=== PATIENT | male | born 1945 | race African-American/Black ===

== ENCOUNTER 2016-11-12 11:26 | Inpatient (IN) | payer MEDICARE, OTHER ==
[~2016-11-12] VITALS: Ht 185.4 cm; Wt 70.4 kg
--- NOTE | 2016-11-12 11:39 | ERA ---
ER Documentation Chief Complaint Date/Time DATE: 11/12/16 TIME: 11:37 Chief Complaint HPI Patient is a 71-year-old man with COPD sent from [facility] by [facility]. Anne due to labs showing renal insufficiency performed yesterday. Patient denies any symptoms. States that he has been eating and drinking well, no dizziness, normal urine output, no weakness. Labs showed a creatinine of 5.6, with a potassium of 5.4. No fevers, shortness of breath, chest pain, vomiting, diarrhea. ROS All systems reviewed and are negative except as per history of present illness. Allergies Allergies: Coded Allergies: No Known Allergy (Unverified , 11/12/16) PMhx/Soc Past medical history: Atrial fibrillation, GERD, COPD Past surgical history: ORIF of hip. Social history: Former smoker. FmHx Family History: No coronary disease, No diabetes Physical Exam Vitals Vital Signs Date Time Temp Pulse Resp B/P Pulse Ox O2 Delivery O2 Flow Rate FiO2 11/12/16 11:43 98.9 91 18 120/68 97 Room Air 11/12/16 11:35 98.9 91 18 120/68 97 Physical Exam Const: Alert, no acute distress Head: Atraumatic Eyes: Normal Conjunctiva, no pallor or icterus ENT: Normal External Ears, Nose and Mouth. Dry mucous membranes Neck: Full range of motion. No meningismus. Resp: Clear to auscultation bilaterally, no wheezes, no rales, no rhonchi Cardio: Regular rate and rhythm, no murmurs, no gallop Abd: Soft, non tender, moderate suprapubic distention. No pulsatile mass Skin: No petechiae or rashes Back: No midline or flank tenderness Ext: No cyanosis, or edema Neur: Awake and alert, cranial nerves II through XII intact, moves and feels 4 extremities appropriately Psych: Normal Mood and Affect Result Diagram: 11/12/16 1204 11/12/16 1204 Results 24 hrs Laboratory Tests Test 11/12/16 11:47 11/12/16 12:04 Urine Color YELLOW Urine Clarity CLEAR Urine pH 5.5 Urine Specific [place] 1.015 Urine Ketones NEGATIVE Urine Nitrite NEGATIVE Urine Bilirubin NEGATIVE Urine Urobilinogen 0.2 E.U./dL Urine Leukocyte Esterase TRACE Urine Microscopic RBC >50/HPF Urine Microscopic WBC 10-25/HPF Urine Bacteria MODERATE Urine Hemoglobin 3+ Urine Glucose NEGATIVE% Urine Total Protein NEGATIVE White Blood Count 6.810^3/ul Red Blood Count 3.6910^6/ul Hemoglobin 11.8g/dl Hematocrit 38.0% Mean Corpuscular Volume 103.0fl Mean Corpuscular Hemoglobin 32.0pg Mean Corpuscular Hemoglobin Concent 31.1g/dl Red Cell Distribution Width 15.4% Platelet Count 06586^3/UL Mean Platelet Volume 11.9fl Neutrophils % 72.1% Lymphocytes % 13.3% Monocytes % 8.7% Eosinophils % 5.5% Basophils % 0.1% Nucleated Red Blood Cells % 0.0/100WBC Neutrophils # 4.910^3/ul Lymphocytes # 0.910^3/ul Monocytes # 0.610^3/ul Eosinophils # 0.410^3/ul Basophils # 0.010^3/ul Nucleated Red Blood Cells # 0.010^3/ul Sodium Level 138mmol/L Potassium Level 5.9mmol/L Chloride Level 97mmol/L Carbon Dioxide Level 34mmol/L Anion Gap 13 Blood Urea Nitrogen 53mg/dl Creatinine 6.00mg/dl Glucose Level 108mg/dl Calcium Level 9.1mg/dl Current Medications Medications (Trade) Dose Ordered Sig/La Route PRN Reason Start Time Stop Time Status Last Admin Dose Admin Sodium Chloride (NS) 1,000 ml @ 1,000 mls/hr Q1H ONCE IV 11/12/16 12:00 11/12/16 12:59 DC 11/12/16 12:24 Sodium Polystyrene Sulfonate (Kayexalate) 30 gm ONCE ONCE PO 11/12/16 13:00 11/12/16 13:01 DC Ondansetron HCl (Zofran Inj) 4 mg ER BRIDGE PRN IV NAUSEA AND/OR VOMITING 11/12/16 13:00 11/13/16 12:59 Acetaminophen 650 mg 650 mg ER BRIDGE PRN PO MILD PAIN/FEVER 11/12/16 13:00 11/13/16 12:59 Sodium Chloride (NS) 1,000 ml @ 1,000 mls/hr Q1H ONCE IV 11/12/16 13:30 11/12/16 14:29 Procedures/MDM EKG read by me: Time 1243, rate 89 Rhythm: Normal sinus [place]: Normal Intervals: Normal ST-T waves: no ischemic changes Ectopy: No Q-waves: No Impression: No evidence of ischemia or arrhythmia Bedside ultrasound performed and interpreted by me: Ultrasound single view of bladder shows enlarged and full bladder. Impression: Acute urinary retention. MDM: Patient with acute renal failure sent from [facility] by [facility] Anne. I discussed the patient's case with him, and he stated that the patient had a creatinine of 0.91 week ago. Patient does not have new medications, decreasing oral intake, decrease in urine output, or risk factors for renal disease such as diabetes or hypertension. On ultrasound he appears to have a full distended bladder, which is suggestive of urinary retention. A Forbes catheter was placed and PVR was 1600 cc. Repeat abdominal exam after Forbes placement was benign. A single dose of Kayexalate was given for mildly elevated potassium. Based upon recent labs the creatinine has been trending upwards. I have ordered 2 L of normal saline. A UA is pending. Patient will be admitted to monitored bed by Dr. Anne. Departure Diagnosis: Primary Impression: Acute renal failure Qualified Code: N17.8 - Acute renal failure with other specified pathological lesion in kidney Additional Impressions: Acute urinary retention Hyperkalemia Condition: CAMERON Christianson MD Nov 12, 2016 11:39
[2016-11-12 11:43] VITALS: TEMP 98.9
[2016-11-12] MEDS ORDERED: SOD CHLORIDE 0.9% 1,000 ML IV ONE ×2 (12:00→13:30)
[2016-11-12 12:11] LABS: ADD SCAN DIFF NO
[2016-11-12 12:14] LABS: BASOPHILS % 0.1 % (0.0-2.0); EOSINOPHILS # 0.4 10^3/ul (0.0-0.5); EOSINOPHILS % 5.5 % (0.0-7.0); HEMOGLOBIN 11.8 g/dl (14.0-18.0); LYMPHOCYTES # 0.9 10^3/ul (0.8-2.9); LYMPHOCYTES % 13.3 % (15.0-51.0); MEAN CORPUSCULAR HGB CONC 31.1 g/dl (32.0-37.0); MEAN PLATELET VOLUME 11.9 fl (7.4-10.4); MONOCYTE # 0.6 10^3/ul (0.3-0.9); MONOCYTES % 8.7 % (0.0-11.0); NEUTROPHIL # 4.9 10^3/ul (1.6-7.5); NEUTROPHILS % 72.1 % (39.0-77.0); PLATELET COUNT 117 10^3/UL (140-415); RED BLOOD COUNT 3.69 10^6/ul (4.70-6.10); RED CELL DISTRIBUTION WIDTH 15.4 % (11.5-14.5); WHITE BLOOD COUNT 6.8 10^3/ul (4.8-10.8)
[2016-11-12 12:24] LABS: POTASSIUM 5.9 mmol/L (3.5-5.1)
[2016-11-12 12:27] LABS: CALCIUM 9.1 mg/dl (8.4-10.2)
[2016-11-12 12:28] LABS: ADD UMIC YES; URINE BILIRUBIN (Dip) NEGATIVE (NEGATIVE); URINE BLOOD (Dip) 3+ (NEGATIVE); URINE COLOR YELLOW (YELLOW); URINE GLUCOSE (Dip) NEGATIVE (NEGATIVE); URINE KETONES (Dip) NEGATIVE (NEGATIVE); URINE LEUKOCYTE ESTERASE (Dip) TRACE (NEGATIVE); URINE NITRITE (Dip) NEGATIVE (NEGATIVE); URINE TOTAL PROTEIN (Dip) NEGATIVE (NEGATIVE); URINE UROBILINOGEN (Dip) 0.2 E.U./dL (0.1-1.0)
[2016-11-12 12:56] LABS: URINE RBCS >50 /HPF (0)
[2016-11-12 12:57] LABS: BACTERIA,URINE MODERATE
--- NOTE | 2016-11-12 12:58 | RADRPT ---
PROCEDURE: XR Chest. CLINICAL INDICATION: 71-year-old male with hyperkalemia. TECHNIQUE: Single frontal view of the chest was obtained COMPARISON: No. FINDINGS: The soft tissues are normal. There are degenerative osteophytes in the thoracic spine. The heart, cardiomediastinal silhouette and hilar structures are normal. The pulmonary vasculature is normal. L eft-sided aorta is mildly ectatic. The lungs are clear but the right diaphragm is mildly elevated wi th minimal compressive atelectasis in the bases of the lungs. The costophrenic angles are normal. IMPRESSION: 1. Elevation of the right diaphragm. 2. Compressive atelectasis in the bases of the lungs. 3. No evidence of active cardiopulmonary disease. 4. Spondylosis of the thoracic spine. RPTAT:AAJJ Physician Selin Date Time Electronically viewed and signed by Alfonso Castillo Physician on 11/12/2016 12:58 SAUL/
[2016-11-12] MEDS ORDERED: ONDANSETRON 4 MG INJ IV PRN ×2 (13:00→16:30)
[2016-11-12] MEDS ORDERED: ACETAMINOPHEN 325 MG TAB PO PRN ×2 (13:00→16:30)
[2016-11-12] MEDS ORDERED: NA POLYST SULFON 15 GM/60 ML BTL PO ONE (13:00)
[2016-11-12] MEDS ORDERED: ACET-2047 PO (13:51)
[2016-11-12] MEDS ORDERED: POLY17PO6 PO (13:51)
[2016-11-12] MEDS ORDERED: IPRA3AMP INHALATION (13:51)
[2016-11-12] MEDS ORDERED: APIX5TAB PO (13:51)
[2016-11-12] MEDS ORDERED: PANT40TA3 PO (13:51)
[2016-11-12] MEDS ORDERED: MORP15TA92 PO (13:51)
[2016-11-12] MEDS ORDERED: ADV25050 INHALATION (13:51)
[2016-11-12] MEDS ORDERED: ONDA-43 PO (13:51)
[2016-11-12] MEDS ORDERED: DOCU-159 PO (13:51)
[2016-11-12] MEDS ORDERED: ALBU18HF INHALATION (13:51)
--- NOTE | 2016-11-12 16:13 | HP ---
Date/Time of Note Date/Time of Note DATE: 11/12/16 TIME: 15:53 Assessment/Plan VTE Prophylaxis VTE Prophylaxis Intervention: SCD's Lines/Catheters IV Catheter Type (from Nrs): Saline Lock Assessment/Plan Assessment/Plan -Acute renal failure - nephrology consult- Dr Cristina notified/covering for Dr Cannon -Acute urinary retention - UROLOGY CONSULT- Dr Acosta notified -Hyperkalemia - sp Kayexalate in er - AM LABS -Hx Atrial fibrillation - GERD - COPD - SP ORIF of hip. - Former smoker. PLAN; Admit to tele Meds resumed Eliquis for DVT prophylaxis Protonix for GI Prophylaxis Renal diet [place] [employer] consult Smoking cessation PT evaluation HPI/ROS Admit Date/Time Admit Date/Time Hx of Present Illness HPI Patient is a 71-year-old man with COPD [facility] Anne due to labs showing renal insufficiency performed yesterday. Patient denies any symptoms. States that he has been eating and drinking well, no dizziness, normal urine output, no weakness. Labs showed a creatinine of 5.6, with a potassium of 5.4. No fevers, shortness of breath, chest pain, vomiting, diarrhea. ROS All systems reviewed and are negative except as per history of present illness. Allergies Allergies: Coded Allergies: No Known Allergy (Unverified , 11/12/16) PMH/Family/Social Past Medical History PMhx/Soc Past medical history: Atrial fibrillation, GERD, COPD Past surgical history: ORIF of hip. Social history: Former smoker. FmHx Family History: No coronary disease, No diabetes Social History Smoking Status: Former smoker Exam/Review of Systems Vital Signs Vitals Vital Signs Date Time Temp Pulse Resp B/P Pulse Ox O2 Delivery O2 Flow Rate FiO2 11/12/16 11:43 98.9 91 18 120/68 97 Room Air Exam Constitutional: alert, well developed Psych: no complaints Eyes: EOMI, nl sclera ENMT: nl external ears & nose Neck: non-tender Respiratory: clear to auscultation Cardiovascular: nl pulses Gastrointestinal: non-tender, soft Musculoskeletal: nl extremities to inspection Extremities: normal pulses Neurological: nl speech Skin: nl turgor Lymph: nontender Labs Result Diagram: 11/12/16 1204 11/12/16 1204 Procedures Procedures EKG -rate 89 Rhythm: Normal sinus [place]: Normal Intervals: Normal ST-T waves: no ischemic changes Ectopy: No Q-waves: No Impression: No evidence of ischemia or arrhythmia Bedside ultrasound Ultrasound single view of bladder shows enlarged and full bladder. Impression: Acute urinary retention. CHERI DURAN Nov 12, 2016 16:08
[2016-11-12] MEDS ORDERED: ONDANSETRON 4 MG TAB PO PRN (16:30)
[2016-11-12] MEDS ORDERED: ACETAMINOPHEN 325 MG TAB PO ONE (16:30)
[2016-11-12] MEDS ORDERED: ALBUTEROL HFA 8 GM INHALER INH SCH (16:30)
[2016-11-12] MEDS: SALMETEROL/FLUTICASONE 250/50 INHA INH SCH (17:00)
[2016-11-12] MEDS: PANTOPRAZOLE (EC) 40 MG TAB PO SCH (17:48)
[2016-11-12] MEDS: ALBUTEROL/IPRATROPIUM (NEB) 3 ML AMP NEB SCH ×2 (18:00→19:28)
[2016-11-12 18:42] VITALS: PULSE 96
[2016-11-12 20:26] VITALS: BP 117/69; RESP 18
[2016-11-12 20:31] VITALS: PULSE 98
[2016-11-12] MEDS ORDERED: DOCUSATE SODIUM 100 MG CAP PO ONE (21:00)
[2016-11-12] MEDS: DOCUSATE SODIUM 100 MG CAP PO SCH (21:03)
[2016-11-12] MEDS: APIXABAN 5 MG TABLET PO SCH (21:03)
[2016-11-12] MEDS: ACETAMINOPHEN 325 MG TAB PO PRN (21:03)
[2016-11-12 21:50] VITALS: Ht 185.4 cm; Wt 70.4 kg
[2016-11-13] VITALS (12 sets, daily range): BP systolic 90–117; BP diastolic 50–65; PULSE 74–95; RESP 18–20
[2016-11-13] MEDS: ALBUTEROL/IPRATROPIUM (NEB) 3 ML AMP NEB SCH ×4 (01:12→19:33)
--- NOTE | 2016-11-13 03:27 | CONS ---
DATE OF ADMISSION: 11/12/2016 DATE OF CONSULTATION: 11/12/2016 REQUESTING PHYSICIAN: Dano Hartman MD Dear Dr. Hartman: Thank you for asking me to see this patient in urological consultation. HISTORY OF PRESENT ILLNESS: This is a 71-year-old male who is a resident of a [facility] and was found to have elevated BUN and creatinine who was sent to the emergency room at [facility], and indeed his BUN and creatinine were elevated. He also was found to be in u rinary retention, had a Forbes catheter put in and about 1800 mL of urine drained out. Therefore, a urological consultation was requested. It appears that the patient had a recent right hip surgery b ecause he still has the Steri-Strips on his incision, and he does not remember where and who did it for him. The patient denies having any prior urological problem and he has been feeling bloated and having no pain. PAST MEDICAL HISTORY: Include a history of atrial fibrillation, gastroesophageal reflux disease and he used to be a smoker. PAST SURGICAL HISTORY: Right hip surgery. ALLERGIES: THE PATIENT HAS NO KNOWN DRUG ALLERGIES. SOCIAL HISTORY: As mentioned, he used to be a smoker. No history of alcohol abuse. FAMILY HISTORY: Negative. PHYSICAL EXAMINATION: GENERAL: Reveals a 71-year-old male. He weighs 70.45 kilograms. He is 74 inches tall. VITAL SIGNS: Temperature is 98.9, pulse is 91, respiration 18, blood pressure 120/68. HEAD AND NECK: Normal. The neck is supple. There is no cervical adenopathy. ABDOMEN: Soft. There are no scars on the abdomen and there is no abdominal mass palpable. GENITALIA: The external genitalia are normal. He does have an indwelling Forbes catheter that is dr albaroning blood-tinged urine. RECTAL: The prostate is not large and felt soft. EXTREMITIES: Reveal no edema. LABORATORY DATA: CBC shows a white count of 6.8, hemoglobin 11.8, hematocrit 38.0, BUN is 53, creat inine 6.0, sodium 138, potassium 5.9, chloride 97, CO2 of 34. Urinalysis showed trace of leukocyte esterase, more than 50 RBCs per high power field, more than 10 to 25 WBCs per high power field, 3+ o ccult blood and moderate amount of bacteria. The doctor in the emergency mentioned that the patient did have an ultrasound, but there is no ultrasound report in the records at the present. IMPRESSION: Urinary retention. This may be secondary to medications that he has been on pain medic ation and the fact that he recently had a hip surgery, he probably was not bed rest and also taking medications for breathing that is Ipratropium and that is a noncholinergic kind of medication that relaxes the bladder and cause it to probably not to squeeze the urine out. RECOMMENDATION: The recommendation at the present is to keep the Forbes catheter in and manage his r enal failure, hopefully the kidney function would improve, and as I understand his creatinine was no rmal before at 0.71 as mentioned in the emergency room notes. Therefore, we will leave the catheter in and hydrate him and then I also would like to start him on Flomax just in preparation to when we remove the Forbes catheter to see if he could urinate on his own, and also I will order a PSA on the blood drawn on admission. I will follow his urological problem with you. I do thank you for allow ing me to help in his care. Dictated By: BARRY RICHEY MD BB/KEIRY Conf#: [id number] DID#: [id number] CC: DANO HARTMAN MD; STEVE CASTILLO MD;*End*
[2016-11-13] MEDS: morphine LIQ (10 MG/5 ML) CUP PO PRN ×2 (04:31→22:38)
[2016-11-13] MEDS: ACETAMINOPHEN 325 MG TAB PO PRN ×2 (08:34→21:32)
[2016-11-13] MEDS: DOCUSATE SODIUM 100 MG CAP PO SCH ×2 (08:35→21:32)
[2016-11-13] MEDS: POLYETHYLENE GLYCOL 17 GM PACKET PO SCH (08:35)
[2016-11-13] MEDS: APIXABAN 5 MG TABLET PO SCH ×2 (08:35→21:32)
[2016-11-13] MEDS: SALMETEROL/FLUTICASONE 250/50 INHA INH SCH ×3 (08:35→21:32)
[2016-11-13] MEDS: PANTOPRAZOLE (EC) 40 MG TAB PO SCH (08:35)
[2016-11-13] MEDS: SOD CHLORIDE 0.9% 1,000 ML IV SCH ×2 (10:27→22:39)
[2016-11-13 10:55] LABS: ADD SCAN DIFF NO
[2016-11-13 11:31] LABS: BASOPHILS % 0.2 % (0.0-2.0); EOSINOPHILS # 0.3 10^3/ul (0.0-0.5); EOSINOPHILS % 5.4 % (0.0-7.0); HEMATOCRIT 34.1 % (42.0-52.0); HEMOGLOBIN 10.2 g/dl (14.0-18.0); LYMPHOCYTES % 17.3 % (15.0-51.0); MEAN CORPUSCULAR HEMOGLOBIN 31.6 pg (29.0-33.0); MEAN CORPUSCULAR HGB CONC 29.9 g/dl (32.0-37.0); MEAN CORPUSCULAR VOLUME 105.6 fl (82.0-101.0); MONOCYTE # 0.6 10^3/ul (0.3-0.9); MONOCYTES % 10.8 % (0.0-11.0); NEUTROPHIL # 3.9 10^3/ul (1.6-7.5); RED BLOOD COUNT 3.23 10^6/ul (4.70-6.10); RED CELL DISTRIBUTION WIDTH 15.5 % (11.5-14.5); WHITE BLOOD COUNT 5.9 10^3/ul (4.8-10.8)
[2016-11-13] MEDS: CEFTRIAXONE 1 GM/50 ML (PMX) 50 ML IVPB SCH (11:38)
[2016-11-13 11:52] LABS: PLATELET COUNT 102 10^3/UL (140-415)
--- NOTE | 2016-11-13 12:44 | PN ---
Date/Time of Note Date/Time of Note DATE: 11/13/16 TIME: 12:09 Assessment/Plan VTE Prophylaxis VTE Prophylaxis Intervention: other Lines/Catheters [facility] Saline Lock Urinary Cath still in place: Yes Assessment/Plan Assessment/Plan -Acute renal failure - nephrology consult- Dr Cristina notified/covering for Dr Cannon -Acute urinary retention - UROLOGY CONSULT- Dr Acosta notified -Hyperkalemia - sp Kayexalate in er - AM LABS- labs - pending labs. -Hx Atrial fibrillation - GERD - COPD - SP ORIF of hip. - Former smoker.' - renforced smoking cessation Subjective 24 Hr Interval Summary Free Text/Dictation 10:00- nad, confused, semms comfortable. dw staff. ENT: no complaints Respiratory: no complaints Cardiovascular: no complaints Gastrointestinal: no complaints Genitourinary: no complaints Skin: no complaints Neurologic: no complaints Endocrine: no complaints Lymphatic: no complaints Psychological: no complaints Exam/Review of Systems Vital Signs Vitals Vital Signs Date Time Temp Pulse Resp B/P Pulse Ox O2 Delivery O2 Flow Rate FiO2 11/13/16 08:14 81 11/13/16 07:59 97.0 20 90/50 99 11/13/16 01:12 3.0 11/13/16 01:12 Nasal Cannula Intake and Output 11/12/16 11/12/16 11/13/16 15:00 23:00 07:00 Intake Total 480 ml Output Total 1500 ml Balance -1020 ml Exam Constitutional: alert, well developed Psych: nl mood/affect Head: atraumatic Eyes: EOMI ENMT: nl external ears & nose Respiratory: clear to auscultation Cardiovascular: nl pulses Gastrointestinal: non-tender, soft Musculoskeletal: muscle weakness Extremities: normal pulses Neurological: confused Lymph: nontender Results Result Diagram: 11/13/16 1030 11/13/16 1030 Results 24 hrs Laboratory Tests Test 11/13/16 10:30 White Blood Count 5.9 Red Blood Count 3.23 L Hemoglobin 10.2 L Hematocrit 34.1 L Mean Corpuscular Volume 105.6 H Mean Corpuscular Hemoglobin 31.6 Mean Corpuscular Hemoglobin Concent 29.9 L Red Cell Distribution Width 15.5 H Platelet Count 102 L Mean Platelet Volume 13.0 H Neutrophils % 66.0 Lymphocytes % 17.3 Monocytes % 10.8 Eosinophils % 5.4 Basophils % 0.2 Nucleated Red Blood Cells % 0.0 Neutrophils # 3.9 Lymphocytes # 1.0 Monocytes # 0.6 Eosinophils # 0.3 Basophils # 0.0 Nucleated Red Blood Cells # 0.0 Sodium Level Pending Potassium Level Pending Chloride Level 102 Carbon Dioxide Level Pending Anion Gap Pending Blood Urea Nitrogen Pending Creatinine Pending Glucose Level Pending Calcium Level Pending Medications Medications Current Medications Docusate Sodium (Colace) 100 mg BID PO Last administered on 11/13/16 08:35; Admin Dose 100 MG; Start 11/12/16 at 21:00 Morphine Sulfate (morphine) 15 mg Q6H PRN PO SEVERE PAIN LEVEL 7-10 Last administered on 11/13/16 04:31; Admin Dose 15 MG; Start 11/12/16 at 16:30 Ondansetron HCl (Zofran Tab) 4 mg Q6H PRN PO NAUSEA AND/OR VOMITING; Start at 16:30 Pantoprazole (Protonix Tab) 40 mg DAILY PO Last administered on 11/13/16 08:35 ; Admin Dose 40 MG; Start 11/12/16 at 16:30 Polyethylene Glycol (Miralax) 17 gm DAILY PO Last administered on 11/13/16 08: 35; Admin Dose 17 GM; Start 11/13/16 at 09:00 Salmeterol Xinafoate/ Fluticasone (Advair 250/50 Diskus) 1 inh BID INH ; Start 11/12/16 at 17:00 Ondansetron HCl (Zofran Inj) 4 mg Q6 PRN IV NAUSEA AND/OR VOMITING Last administered on 11/12/16 21:13; Admin Dose 4 MG; Start 11/12/16 at 16:30 Acetaminophen (Tylenol Tab) 650 mg Q6H PRN PO PAIN AND OR ELEVATED TEMP Last administered on 11/13/16 08:34; Admin Dose 650 MG; Start 11/12/16 at 23:00 Apixaban 2.5 mg 2.5 mg BID PO ; Start 11/13/16 at 21:00 Sodium Chloride 1,000 ml @ 75 mls/hr [id number] IV Last administered on 10:27; Admin Dose 75 MLS/HR; Start 11/13/16 at 10:30 Ceftriaxone Sodium (Rocephin) 50 ml @ 100 mls/hr Q24H IVPB Last administered on 11/13/16t 11:38; Admin Dose 100 MLS/HR; Start 11/13/16 at 11:00 CHERI DURAN Nov 13, 2016 12:19
[2016-11-13 12:56] LABS: POTASSIUM 4.7 mmol/L (3.5-5.1)
[2016-11-13 12:59] LABS: CALCIUM 8.5 mg/dl (8.4-10.2)
[2016-11-13 13:01] LABS: CREATININE 0.97 mg/dl (0.61-1.24)
--- NOTE | 2016-11-13 14:20 | RADRPT ---
PROCEDURE: Complete abdominal and retroperitoneum ultrasound. CLINICAL INDICATION: Acute renal insufficiency/injury TECHNIQUE: Villanueva scale and color doppler ultrasound images of the abdomen and retroperitoneum. COMPARISON: None FINDINGS: Pancreas: Visualized portions appear of normal echogenicity, no focal lesions. Liver: Morphology: Normal in size and contour. Echogenicity: Normal. Focal lesions: None. Main portal vein: Patent with hepatopetal flow. Hepatic veins: Appear dilated. Biliary System: Normal appearing gallbladder wall. No gallstones seen. No intrahepatic biliary dilatation. Common bile duct diameter: 7.1 mm Kidneys: Right length: 9.6 cm. Cortical thickness is suboptimally imaged, probable mild thinning. Left length: 9.4 cm. Cortical thickness is suboptimally imaged, probable mild thinning. Mildly increased echogenicity of both kidneys. No hydronephrosis. No renal calculi. No focal renal lesions. Spleen: Normal in size, no focal lesions. No free fluid identified. Normal caliber of the partially visualized aorta. Moderate atherosclerotic changes. IMPRESSION: Although suboptimally visualized there appears to probably be mild cortical thinning of both kidneys . No hydronephrosis. Mildly increased echogenicity of both kidneys. These findings are suggestive of chronic medical renal disease. Hepatic veins are dilated which may be secondary to congestive heart failure. RPTAT: AADD .Patel David MD, Date Time Electronically viewed and signed by .Patel David MD, on 11/13/2016 14:20 .B/
--- NOTE | 2016-11-13 16:48 | PN ---
DATE: 11/13/2016 SUBJECTIVE: Urinary retention. Patient is awake, but he does not answer questions when asked, he j ust shakes his head, but when hungry he yells that he wants the nurse, and he is asking for his food . OBJECTIVE: VITAL SIGNS: Temperature is 97.0. The pulse is 78, respiration 18, blood pressure 94/51. ABDOMEN: Soft. The Forbes catheter that he has now is draining clear urine. It has some blood sedi ment in it. GENITOURINARY: I asked him whether he has had any prostate problem before. He denies it and he sta maribeth that he usually gets up at night 3 times to urinate and during the day he urinates every 3 hours and he would not answer any other questions. LABORATORY DATA: His CBC shows a white count of 5.9, hemoglobin 10.2, hematocrit 34.1. The BUN is 53, creatinine 6.0 and the labs from today are still pending. His urine output was 1500 mL in the p ast 24 hours. MEDICATIONS: He is on: 1. Eliquis. 2. Ceftriaxone. 3. MiraLax. 4. Colace. 5. Albuterol. 6. Ipratropium. 7. Advair. 8. Morphine sulfate p.r.n. 9. Zofran p.r.n. 10. Protonix p.r.n. PLAN: Keep the Forbes catheter in and check his renal function, his BUN and creatinine, and monitor his urine output. I will start him on Flomax in preparation to remove his Forbes catheter late r on and see if he is able to urinate. Dictated By: BARRY SAM/KEIRY Conf#: [id number] DID#: [id number]
[2016-11-13] MEDS: TAMSULOSIN (SR) 0.4 MG CAP PO SCH (21:32)
[2016-11-14] VITALS (12 sets, daily range): BP systolic 101–136; BP diastolic 59–75; PULSE 84–103; RESP 19–24
[2016-11-14] MEDS: ALBUTEROL/IPRATROPIUM (NEB) 3 ML AMP NEB SCH ×4 (01:12→20:19)
[2016-11-14] MEDS ORDERED: LORAZEPAM 2 MG INJ IV PRN (03:30)
[2016-11-14 05:57] LABS: ADD SCAN DIFF NO
[2016-11-14 06:22] LABS: BASOPHILS % 0.1 % (0.0-2.0); EOSINOPHILS # 0.3 10^3/ul (0.0-0.5); EOSINOPHILS % 4.2 % (0.0-7.0); HEMATOCRIT 31.6 % (42.0-52.0); HEMOGLOBIN 9.5 g/dl (14.0-18.0); LYMPHOCYTES # 1.2 10^3/ul (0.8-2.9); LYMPHOCYTES % 16.3 % (15.0-51.0); MEAN CORPUSCULAR HEMOGLOBIN 30.9 pg (29.0-33.0); MEAN CORPUSCULAR HGB CONC 30.1 g/dl (32.0-37.0); MEAN CORPUSCULAR VOLUME 102.9 fl (82.0-101.0); MONOCYTE # 0.7 10^3/ul (0.3-0.9); MONOCYTES % 9.7 % (0.0-11.0); NEUTROPHILS % 69.4 % (39.0-77.0); PLATELET COUNT 127 10^3/UL (140-415); RED BLOOD COUNT 3.07 10^6/ul (4.70-6.10); RED CELL DISTRIBUTION WIDTH 15.1 % (11.5-14.5); WHITE BLOOD COUNT 7.2 10^3/ul (4.8-10.8)
[2016-11-14 06:28] LABS: CREATININE 0.71 mg/dl (0.61-1.24)
[2016-11-14 06:29] LABS: CALCIUM 8.6 mg/dl (8.4-10.2)
[2016-11-14] MEDS: APIXABAN 5 MG TABLET PO SCH ×2 (08:52→22:06)
[2016-11-14] MEDS: POLYETHYLENE GLYCOL 17 GM PACKET PO SCH (08:52)
[2016-11-14] MEDS: SALMETEROL/FLUTICASONE 250/50 INHA INH SCH ×2 (08:52→22:07)
[2016-11-14] MEDS: DOCUSATE SODIUM 100 MG CAP PO SCH ×2 (08:53→22:06)
[2016-11-14] MEDS: PANTOPRAZOLE (EC) 40 MG TAB PO SCH (08:53)
[2016-11-14] MEDS: CEFTRIAXONE 1 GM/50 ML (PMX) 50 ML IVPB SCH (11:00)
--- NOTE | 2016-11-14 12:15 | PN ---
Date/Time of Note Date/Time of Note DATE: 11/14/16 TIME: 12:06 Assessment/Plan VTE Prophylaxis VTE Prophylaxis Intervention: SCD's Lines/Catheters [facility] Peripheral IV Urinary Cath still in place: Yes Reason Cath still needed: urinary retention Assessment/Plan Chief Complaint/Hosp Course Assessment and plan: - Acute kidney injury on chronic kidney disease secondary to urinary retention - Urinary retention, resolving. Dr. Acosta is following in urology consultation. Continue Flomax. 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 Will start Bactroban to nares. - Status post right hip ORIF - COPD, continue Advair and DuoNeb. - Atrial fibrillation, continue Eliquis. Further recommendations based on clinical course. Plan of care discussed with Dr. Anne. Problems: Subjective 24 Hr Interval Summary Free Text/Dictation Patient is awake alert, good output via Forbes catheter, remains afebrile, denies nausea vomiting. Exam/Review of Systems Vital Signs Vitals Vital Signs Date Time Temp Pulse Resp B/P Pulse Ox O2 Delivery O2 Flow Rate FiO2 11/14/16 12:03 97.8 91 22 116/75 98 11/14/16 08:00 Nasal Cannula 2.0 Intake and Output 11/13/16 11/13/16 11/14/16 15:00 23:00 07:00 Intake Total 2755 ml 740 ml Output Total 1700 ml 800 ml Balance 1055 ml -60 ml Exam Constitutional: alert, oriented Psych: no complaints Head: atraumatic, normocephalic Eyes: nl conjunctiva ENMT: nl external ears & nose Neck: supple Respiratory: clear to auscultation Cardiovascular: nl pulses, regular rate and rhythm Gastrointestinal: non-tender, soft Genitourinary - Male: nl penis Musculoskeletal: nl extremities to inspection, other (Status post right hip ORIF), range of motion (Decreased) Extremities: normal pulses 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 II-XII 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0 H Neutrophils % 69.4 Lymphocytes % 16.3 Monocytes % 9.7 Eosinophils % 4.2 Basophils % 0.1 Nucleated Red Blood Cells % 0.0 Neutrophils # 5.0 Lymphocytes # 1.2 Monocytes # 0.7 Eosinophils # 0.3 Basophils # 0.0 Nucleated Red Blood Cells # 0.0 Medications Medications Current Medications Docusate Sodium (Colace) 100 mg BID PO Last administered on 11/14/16 08:53; Admin Dose 100 MG; Start 11/12/16 at 21:00 Morphine Sulfate (morphine) 15 mg Q6H PRN PO SEVERE PAIN LEVEL 7-10 Last administered on 11/13/16 22:38; Admin Dose 15 MG; Start 11/12/16 at 16:30 Ondansetron HCl (Zofran Tab) 4 mg Q6H PRN PO NAUSEA AND/OR VOMITING; Start at 16:30 Pantoprazole (Protonix Tab) 40 mg DAILY PO Last administered on 11/14/16 08:53 ; Admin Dose 40 MG; Start 11/12/16 at 16:30 Polyethylene Glycol (Miralax) 17 gm DAILY PO Last administered on 11/14/16 08: 52; Admin Dose 17 GM; Start 11/13/16 at 09:00 Salmeterol Xinafoate/ Fluticasone (Advair 250/50 Diskus) 1 inh BID INH Last administered on 11/14/16 08:52; Admin Dose 1 INH; Start 11/12/16 at 17:00 Ondansetron HCl (Zofran Inj) 4 mg Q6 PRN IV NAUSEA AND/OR VOMITING Last administered on 11/12/16 21:13; Admin Dose 4 MG; Start 11/12/16 at 16:30 Acetaminophen (Tylenol Tab) 650 mg Q6H PRN PO PAIN AND OR ELEVATED TEMP Last administered on 11/13/16 21:32; Admin Dose 650 MG; Start 11/12/16 at 23:00 Apixaban 2.5 mg 2.5 mg BID PO Last administered on 11/14/16 08:52; Admin Dose 2.5 MG; Start 11/13/16 at 21:00 Sodium Chloride 1,000 ml @ 75 mls/hr [id number] IV Last administered on 22:39; Admin Dose 75 MLS/HR; Start 11/13/16 at 10:30 Ceftriaxone Sodium (Rocephin) 50 ml @ 100 mls/hr Q24H IVPB Last administered on 11/13/16 11:38; Admin Dose 100 MLS/HR; Start 11/13/16 at 11:00 Tamsulosin HCl (Flomax) 0.4 mg HS PO Last administered on 11/13/16 21:32; Admin Dose 0.4 MG; Start 11/13/16 at 21:00 CONTRERAS DIANA Nov 14, 2016 12:15
[2016-11-14] MEDS: SOD CHLORIDE 0.9% 1,000 ML IV SCH (15:00)
--- NOTE | 2016-11-14 16:19 | PN ---
Date/Time of Note Date/Time of Note DATE: 11/14/16 TIME: 16:11 Assessment/Plan VTE Prophylaxis VTE Prophylaxis Intervention: other (eliquis) Lines/Catheters IV Catheter Type (from Nrs): Peripheral IV Urinary Cath still in place: Yes Reason Cath still needed: urinary retention Assessment/Plan Assessment/Plan 1. Acute renal failure due to obstructive uropathy, resolved 2. Obstructive uropathy, on flomax and Forbes, follow up with urology 3. Hyperkalemia due to renal failure, resolved 4. Atrial fibrillation, sinus now, on eliquis 5. GERD, on protonix 6. COPD, stable 7. S/P ORIF of hip. Subjective 24 Hr Interval Summary Free Text/Dictation no distress Exam/Review of Systems Vital Signs Vitals Vital Signs Date Time Temp Pulse Resp B/P Pulse Ox O2 Delivery O2 Flow Rate FiO2 11/14/16 16:10 103 11/14/16 15:59 97.7 20 136/74 95 11/14/16 14:12 Nasal Cannula 3.0 Intake and Output 11/13/16 11/13/16 11/14/16 15:00 23:00 07:00 Intake Total 2755 ml 740 ml Output Total 1700 ml 800 ml Balance 1055 ml -60 ml Exam Constitutional: alert, oriented, well developed Psych: nl mood/affect, no complaints Head: atraumatic, normocephalic Eyes: EOMI, nl conjunctiva, nl lids ENMT: mucosa pink and moist, nl external ears & nose, nl lips & teeth, nl nasal mucosa & septum Neck: non-tender, supple Respiratory: clear to auscultation, normal air movement, No congested cough, No crackles/rales, No diminished breath sounds, No intercostal retraction, No labored breathing, No other, No respirations, No tactile fremitus, No wheezing Cardiovascular: nl pulses, regular rate and rhythm, No S3, No S4, No bruits, No diastolic murmur, No edema, No gallop, No irregular rhythm, No jugular venous distention (JVD), No murmurs/extra sounds, No other, No rub, No systolic murmur Gastrointestinal: nl liver, spleen, non-tender, soft, No ascites, No bowel sounds, No distended, No firm, No hepatomegaly, No mass , No other, No rebound or guarding, No splenomegaly, No surgical scars, No tender Musculoskeletal: nl extremities to inspection Extremities: normal pulses, No calf tenderness, No clubbing, No cyanosis, No edema, No other, No palpable cord, No pitting pedal edema, No tenderness Neurological: RECEIVING DISTRIBUTION STATION OPERATOR II-XII intact, nl mental status, nl speech, nl strength Skin: nl turgor Lymph: nl lymph nodes Results Result Diagram: 11/14/16 0540 11/14/16 0540 Results 24 hrs Laboratory Tests Test 11/14/16 05:40 White Blood Count 7.2 # Red Blood Count 3.07 L Hemoglobin 9.5 L Hematocrit 31.6 L Mean Corpuscular Volume 102.9 H Mean Corpuscular Hemoglobin 30.9 Mean Corpuscular Hemoglobin Concent 30.1 L Red Cell Distribution Width 15.1 H Platelet Count 127 #L Mean Platelet Volume 12.0 H Neutrophils % 69.4 Lymphocytes % 16.3 Monocytes % 9.7 Eosinophils % 4.2 Basophils % 0.1 Nucleated Red Blood Cells % 0.0 Neutrophils # 5.0 Lymphocytes # 1.2 Monocytes # 0.7 Eosinophils # 0.3 Basophils # 0.0 Nucleated Red Blood Cells # 0.0 Sodium Level 142 Potassium Level 4.0 Chloride Level 105 Carbon Dioxide Level 34 H Anion Gap 7 L Blood Urea Nitrogen 15 Creatinine 0.71 Glucose Level 107 Calcium Level 8.6 Medications Medications Current Medications Docusate Sodium (Colace) 100 mg BID PO Last administered on 11/14/16 08:53; Admin Dose 100 MG; Start 11/12/16 at 21:00 Morphine Sulfate (morphine) 15 mg Q6H PRN PO SEVERE PAIN LEVEL 7-10 Last administered on 11/13/16 22:38; Admin Dose 15 MG; Start 11/12/16 at 16:30 Ondansetron HCl (Zofran Tab) 4 mg Q6H PRN PO NAUSEA AND/OR VOMITING; Start at 16:30 Pantoprazole (Protonix Tab) 40 mg DAILY PO Last administered on 11/14/16 08:53 ; Admin Dose 40 MG; Start 11/12/16 at 16:30 Polyethylene Glycol (Miralax) 17 gm DAILY PO Last administered on 11/14/16 08: 52; Admin Dose 17 GM; Start 11/13/16 at 09:00 Salmeterol Xinafoate/ Fluticasone (Advair 250/50 Diskus) 1 inh BID INH Last administered on 11/14/16 08:52; Admin Dose 1 INH; Start 11/12/16 at 17:00 Ondansetron HCl (Zofran Inj) 4 mg Q6 PRN IV NAUSEA AND/OR VOMITING Last administered on 11/12/16 21:13; Admin Dose 4 MG; Start 11/12/16 at 16:30 Acetaminophen (Tylenol Tab) 650 mg Q6H PRN PO PAIN AND OR ELEVATED TEMP Last administered on 11/13/16 21:32; Admin Dose 650 MG; Start 11/12/16 at 23:00 Apixaban 2.5 mg 2.5 mg BID PO Last administered on 11/14/16 08:52; Admin Dose 2.5 MG; Start 11/13/16 at 21:00 Sodium Chloride 1,000 ml @ 75 mls/hr [id number] IV Last administered on 15:00; Admin Dose 75 MLS/HR; Start 11/13/16 at 10:30 Ceftriaxone Sodium (Rocephin) 50 ml @ 100 mls/hr Q24H IVPB Last administered on 11/14/16 11:00; Admin Dose 100 MLS/HR; Start 11/13/16 at 11:00 Tamsulosin HCl (Flomax) 0.4 mg HS PO Last administered on 11/13/16 21:32; Admin Dose 0.4 MG; Start 11/13/16 at 21:00 RASHID VALLADARES MD Nov 14, 2016 16:19
[2016-11-14] MEDS: morphine LIQ (10 MG/5 ML) CUP PO PRN (16:36)
[2016-11-14] MEDS: TAMSULOSIN (SR) 0.4 MG CAP PO SCH (22:07)
--- NOTE | 2016-11-14 23:12 | PN ---
DATE: 11/14/2016 SUBJECTIVE: Urinary retention. The patient came in with distended urinary bladder and had a Forbes catheter put in. OBJECTIVE: VITAL SIGNS: His temperature is 97.7, pulse is 103, respiration 20, blood pressure 136/74. ABDOMEN: The Forbes catheter that he has is draining clear urine. MICROBIOLOGY: Urine culture no growth after 48 hours. 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 LABORATORY DATA: CBC shows a white count of 7.2, hemoglobin 9.5, hematocrit 31.6. BUN has improved to 15 and creatinine is back to normal at 0.71. When he came into the hospital, his creatinine was 6.0. Electrolytes are normal. The patient was started on tamsulosin so when the catheter is removed we will hope that he will be a ble to urinate on his own. He did have infrarenal abdominal ultrasound and that showed that both ki dneys, there appears to be mild cortical thinning of both kidneys, indicating chronic kidney disease . There is no hydronephrosis and mildly increased echogenicity of both kidneys. The hepatic veins were dilated suggestive of congestive heart failure. PLAN: From a urological standpoint, keep the Forbes catheter in. Continue him on the tamsulosin, an d maybe in a day or two, we just take the Forbes catheter out and see if he is able to urinate. Dictated By: BARRY SAM/KEIRY Conf#: [id number] DID#: [id number] CC: STEVE CASTILLO MD;*End*
[2016-11-15] VITALS (11 sets, daily range): BP systolic 95–120; BP diastolic 54–65; PULSE 85–110; RESP 18–20
[2016-11-15] MEDS: ALBUTEROL/IPRATROPIUM (NEB) 3 ML AMP NEB SCH ×4 (01:17→20:11)
[2016-11-15] MEDS: SOD CHLORIDE 0.9% 1,000 ML IV SCH ×3 (02:30→15:57)
[2016-11-15] MEDS: morphine LIQ (10 MG/5 ML) CUP PO PRN ×3 (05:01→18:00)
[2016-11-15 07:43] LABS: ADD SCAN DIFF NO
[2016-11-15 07:55] LABS: BASOPHILS % 0.2 % (0.0-2.0); EOSINOPHILS # 0.4 10^3/ul (0.0-0.5); EOSINOPHILS % 5.6 % (0.0-7.0); HEMATOCRIT 31.8 % (42.0-52.0); LYMPHOCYTES # 0.9 10^3/ul (0.8-2.9); LYMPHOCYTES % 14.6 % (15.0-51.0); MEAN CORPUSCULAR HEMOGLOBIN 31.5 pg (29.0-33.0); MEAN CORPUSCULAR HGB CONC 31.4 g/dl (32.0-37.0); MEAN CORPUSCULAR VOLUME 100.3 fl (82.0-101.0); MEAN PLATELET VOLUME 11.9 fl (7.4-10.4); MONOCYTE # 0.7 10^3/ul (0.3-0.9); MONOCYTES % 10.4 % (0.0-11.0); NEUTROPHIL # 4.5 10^3/ul (1.6-7.5); PLATELET COUNT 169 10^3/UL (140-415); RED BLOOD COUNT 3.17 10^6/ul (4.70-6.10); WHITE BLOOD COUNT 6.5 10^3/ul (4.8-10.8)
[2016-11-15 08:07] LABS: POTASSIUM 3.6 mmol/L (3.5-5.1)
[2016-11-15 08:10] LABS: CREATININE 0.54 mg/dl (0.61-1.24)
[2016-11-15 08:11] LABS: CALCIUM 8.7 mg/dl (8.4-10.2)
[2016-11-15] MEDS: APIXABAN 5 MG TABLET PO SCH ×2 (08:47→22:22)
[2016-11-15] MEDS: SALMETEROL/FLUTICASONE 250/50 INHA INH SCH ×2 (08:47→22:22)
[2016-11-15] MEDS: PANTOPRAZOLE (EC) 40 MG TAB PO SCH (08:47)
[2016-11-15] MEDS: POLYETHYLENE GLYCOL 17 GM PACKET PO SCH (08:47)
[2016-11-15] MEDS: DOCUSATE SODIUM 100 MG CAP PO SCH ×2 (08:47→22:22)
[2016-11-15] MEDS: CEFTRIAXONE 1 GM/50 ML (PMX) 50 ML IVPB SCH (10:51)
--- NOTE | 2016-11-15 16:37 | PN ---
Date/Time of Note Date/Time of Note DATE: 11/15/16 TIME: 16:36 Assessment/Plan VTE Prophylaxis VTE Prophylaxis Intervention: SCD's Lines/Catheters [facility] Saline Lock Urinary Cath still in place: Yes Reason Cath still needed: urinary retention Assessment/Plan Chief Complaint/Hosp Course Assessment and plan: - Acute kidney injury on chronic kidney disease secondary to urinary retention - Urinary retention, resolving. Dr. Acosta is following in urology consultation. Continue Flomax. 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 Will start Bactroban to nares. - Status post right hip ORIF - COPD, continue Advair and DuoNeb. - Atrial fibrillation, continue Eliquis. Further recommendations based on clinical course. Plan of care discussed with Dr. Anne. Problems: Subjective 24 Hr Interval Summary Free Text/Dictation Good urine output via Forbes, patient remains in sinus rhythm on telemetry, remains afebrile, patient denies nausea vomiting. Exam/Review of Systems Vital Signs Vitals Vital Signs Date Time Temp Pulse Resp B/P Pulse Ox O2 Delivery O2 Flow Rate FiO2 11/15/16 16:30 92 11/15/16 14:05 3.0 11/15/16 14:05 18 98 Nasal Cannula 11/15/16 11:53 98.4 111/58 Intake and Output 11/14/16 11/14/16 11/15/16 15:00 23:00 07:00 Intake Total 1080 ml 1175 ml Output Total 1100 ml 1050 ml Balance -20 ml 125 ml Exam Constitutional: alert, oriented Psych: no complaints Head: atraumatic, normocephalic Eyes: nl conjunctiva ENMT: nl external ears & nose Neck: supple Respiratory: clear to auscultation Cardiovascular: nl pulses, regular rate and rhythm Gastrointestinal: non-tender, soft Genitourinary - Male: nl penis Musculoskeletal: nl extremities to inspection, other (Status post right hip ORIF), range of motion (Decreased) Extremities: normal pulses Neurological: ARTIFICIAL BREAST FABRICATOR II-XII intact Results Result Diagram: 11/15/16 0656 11/15/16 0656 Results 24 hrs Laboratory Tests Test 11/15/16 06:56 White Blood Count 6.5 Red Blood Count 3.17 L Hemoglobin 10.0 L Hematocrit 31.8 L Mean Corpuscular Volume 100.3 Mean Corpuscular Hemoglobin 31.5 Mean Corpuscular Hemoglobin Concent 31.4 L Red Cell Distribution Width 15.0 H Platelet Count 169 # Mean Platelet Volume 11.9 H Neutrophils % 69.0 Lymphocytes % 14.6 L Monocytes % 10.4 Eosinophils % 5.6 Basophils % 0.2 Nucleated Red Blood Cells % 0.0 Neutrophils # 4.5 Lymphocytes # 0.9 Monocytes # 0.7 Eosinophils # 0.4 Basophils # 0.0 Nucleated Red Blood Cells # 0.0 Sodium Level 137 Potassium Level 3.6 Chloride Level 101 Carbon Dioxide Level 34 H Anion Gap 6 L Blood Urea Nitrogen 12 Creatinine 0.54 L Glucose Level 90 Calcium Level 8.7 Medications Medications Current Medications Docusate Sodium (Colace) 100 mg BID PO Last administered on 11/15/16 08:47; Admin Dose 100 MG; Start 11/12/16 at 21:00 Morphine Sulfate (morphine) 15 mg Q6H PRN PO SEVERE PAIN LEVEL 7-10 Last administered on 11/15/16 11:31; Admin Dose 15 MG; Start 11/12/16 at 16:30 Ondansetron HCl (Zofran Tab) 4 mg Q6H PRN PO NAUSEA AND/OR VOMITING; Start at 16:30 Pantoprazole (Protonix Tab) 40 mg DAILY PO Last administered on 11/15/16 08:47 ; Admin Dose 40 MG; Start 11/12/16 at 16:30 Polyethylene Glycol (Miralax) 17 gm DAILY PO Last administered on 11/15/16 08: 47; Admin Dose 17 GM; Start 11/13/16 at 09:00 Salmeterol Xinafoate/ Fluticasone (Advair 250/50 Diskus) 1 inh BID INH Last administered on 11/15/16 08:47; Admin Dose 1 INH; Start 11/12/16 at 17:00 Ondansetron HCl (Zofran Inj) 4 mg Q6 PRN IV NAUSEA AND/OR VOMITING Last administered on 11/12/16 21:13; Admin Dose 4 MG; Start 11/12/16 at 16:30 Acetaminophen (Tylenol Tab) 650 mg Q6H PRN PO PAIN AND OR ELEVATED TEMP Last administered on 11/13/16 21:32; Admin Dose 650 MG; Start 11/12/16 at 23:00 Apixaban 2.5 mg 2.5 mg BID PO Last administered on 11/15/16 08:47; Admin Dose 2.5 MG; Start 11/13/16 at 21:00 Sodium Chloride 1,000 ml @ 75 mls/hr [id number] IV Last administered on 15:57; Admin Dose 75 MLS/HR; Start 11/13/16 at 10:30 Ceftriaxone Sodium (Rocephin) 50 ml @ 100 mls/hr Q24H IVPB Last administered on 11/15/16 10:51; Admin Dose 100 MLS/HR; Start 11/13/16 at 11:00 Tamsulosin HCl (Flomax) 0.4 mg HS PO Last administered on 11/14/16 22:07; Admin Dose 0.4 MG; Start 11/13/16 at 21:00 CONTRERAS DIANA Nov 15, 2016 16:37
[2016-11-15] MEDS: TAMSULOSIN (SR) 0.4 MG CAP PO SCH (22:22)
[2016-11-16] VITALS (12 sets, daily range): BP systolic 107–114; BP diastolic 55–69; PULSE 85–92; RESP 17–21
[2016-11-16] MEDS: ALBUTEROL/IPRATROPIUM (NEB) 3 ML AMP NEB SCH ×4 (02:26→20:38)
[2016-11-16] MEDS: SOD CHLORIDE 0.9% 1,000 ML IV SCH ×3 (04:00→18:30)
[2016-11-16 06:49] LABS: ADD SCAN DIFF NO
[2016-11-16 06:53] LABS: BASOPHILS % 0.2 % (0.0-2.0); EOSINOPHILS # 0.3 10^3/ul (0.0-0.5); EOSINOPHILS % 5.4 % (0.0-7.0); HEMATOCRIT 31.7 % (42.0-52.0); HEMOGLOBIN 9.6 g/dl (14.0-18.0); LYMPHOCYTES % 18.7 % (15.0-51.0); MEAN CORPUSCULAR HEMOGLOBIN 30.9 pg (29.0-33.0); MEAN CORPUSCULAR HGB CONC 30.3 g/dl (32.0-37.0); MEAN CORPUSCULAR VOLUME 101.9 fl (82.0-101.0); MONOCYTE # 0.5 10^3/ul (0.3-0.9); MONOCYTES % 9.8 % (0.0-11.0); NEUTROPHIL # 3.6 10^3/ul (1.6-7.5); NEUTROPHILS % 65.7 % (39.0-77.0); PLATELET COUNT 184 10^3/UL (140-415); RED BLOOD COUNT 3.11 10^6/ul (4.70-6.10); RED CELL DISTRIBUTION WIDTH 15.4 % (11.5-14.5); WHITE BLOOD COUNT 5.5 10^3/ul (4.8-10.8)
[2016-11-16 07:22] LABS: CREATININE 0.54 mg/dl (0.61-1.24)
[2016-11-16 07:23] LABS: CALCIUM 8.7 mg/dl (8.4-10.2)
[2016-11-16] MEDS: PANTOPRAZOLE (EC) 40 MG TAB PO SCH (08:29)
[2016-11-16] MEDS: DOCUSATE SODIUM 100 MG CAP PO SCH ×2 (08:29→21:06)
[2016-11-16] MEDS: SALMETEROL/FLUTICASONE 250/50 INHA INH SCH ×2 (08:29→21:12)
[2016-11-16] MEDS: APIXABAN 5 MG TABLET PO SCH ×2 (08:30→21:06)
[2016-11-16] MEDS: POLYETHYLENE GLYCOL 17 GM PACKET PO SCH (08:30)
[2016-11-16] MEDS: ACETAMINOPHEN 325 MG TAB PO PRN (08:30)
[2016-11-16] MEDS: CEFTRIAXONE 1 GM/50 ML (PMX) 50 ML IVPB SCH (11:04)
--- NOTE | 2016-11-16 16:11 | PN ---
Date/Time of Note Date/Time of Note DATE: 11/16/16 TIME: 16:08 Assessment/Plan VTE Prophylaxis VTE Prophylaxis Intervention: SCD's Lines/Catheters IV [facility]ter Type (from [facility]): Peripheral IV Urinary Cath still in place: Yes Reason Cath still needed: urinary retention Assessment/Plan Chief Complaint/Hosp Course Assessment and plan: - Acute kidney injury on chronic kidney disease secondary to obstructive uropathy. - Urinary retention, resolving. Dr. Acosta is following in urology consultation. Continue Flomax. 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 Continue Bactroban to nares. - Status post right hip ORIF - COPD, continue Advair and DuoNeb. -Paroxysmal atrial fibrillation, continue Eliquis . Further recommendations based on clinical course. Plan of care discussed with Dr. Anne. Problems: Subjective 24 Hr Interval Summary Free Text/Dictation Patient is currently in sinus rhythm, urine output is adequate via Forbes catheter, patient remains afebrile. Exam/Review of Systems Vital Signs Vitals Vital Signs Date Time Temp Pulse Resp B/P Pulse Ox O2 Delivery O2 Flow Rate FiO2 11/16/16 16:02 98.2 91 20 114/67 95 11/16/16 14:33 Nasal Cannula 3.0 Intake and Output 11/15/16 11/15/16 11/16/16 15:00 23:00 07:00 Intake Total 710 ml 1065 ml Output Total 1700 ml 800 ml Balance -990 ml 265 ml Exam Constitutional: alert, oriented Psych: no complaints Head: atraumatic, normocephalic Eyes: nl conjunctiva ENMT: nl external ears & nose Neck: supple Respiratory: clear to auscultation Cardiovascular: nl pulses, regular rate and rhythm Gastrointestinal: non-tender, soft Genitourinary - Male: nl penis Musculoskeletal: nl extremities to inspection, other (Status post right hip ORIF), range of motion (Decreased) Extremities: normal pulses Neurological: PIN STICKER II-XII intact Results Result Diagram: 11/16/16 0630 11/16/16 0630 Results 24 hrs Laboratory Tests Test 11/16/16 06:30 White Blood Count 5.5 Red Blood Count 3.11 L Hemoglobin 9.6 L Hematocrit 31.7 L Mean Corpuscular Volume 101.9 H Mean Corpuscular Hemoglobin 30.9 Mean Corpuscular Hemoglobin Concent 30.3 L Red Cell Distribution Width 15.4 H Platelet Count 184 Mean Platelet Volume 11.0 H Neutrophils % 65.7 Lymphocytes % 18.7 Monocytes % 9.8 Eosinophils % 5.4 Basophils % 0.2 Nucleated Red Blood Cells % 0.0 Neutrophils # 3.6 Lymphocytes # 1.0 Monocytes # 0.5 Eosinophils # 0.3 Basophils # 0.0 Nucleated Red Blood Cells # 0.0 Sodium Level 140 Potassium Level 4.0 Chloride Level 104 Carbon Dioxide Level 34 H Anion Gap 6 L Blood Urea Nitrogen 13 Creatinine 0.54 L Glucose Level 110 Calcium Level 8.7 Medications Medications Current Medications Docusate Sodium (Colace) 100 mg BID PO Last administered on 11/16/16 08:29; Admin Dose 100 MG; Start 11/12/16 at 21:00 Morphine Sulfate (morphine) 15 mg Q6H PRN PO SEVERE PAIN LEVEL 7-10 Last administered on 11/15/16 18:00; Admin Dose 15 MG; Start 11/12/16 at 16:30 Ondansetron HCl (Zofran Tab) 4 mg Q6H PRN PO NAUSEA AND/OR VOMITING; Start at 16:30 Pantoprazole (Protonix Tab) 40 mg DAILY PO Last administered on 11/16/16 08:29 ; Admin Dose 40 MG; Start 11/12/16 at 16:30 Polyethylene Glycol (Miralax) 17 gm DAILY PO Last administered on 11/16/16 08: 30; Admin Dose 17 GM; Start 11/13/16 at 09:00 Salmeterol Xinafoate/ Fluticasone (Advair 250/50 Diskus) 1 inh BID INH Last administered on 11/16/16 08:29; Admin Dose 1 INH; Start 11/12/16 at 17:00 Ondansetron HCl (Zofran Inj) 4 mg Q6 PRN IV NAUSEA AND/OR VOMITING Last administered on 11/12/16 21:13; Admin Dose 4 MG; Start 11/12/16 at 16:30 Acetaminophen (Tylenol Tab) 650 mg Q6H PRN PO PAIN AND OR ELEVATED TEMP Last administered on 11/16/16 08:30; Admin Dose 650 MG; Start 11/12/16 at 23:00 Apixaban 2.5 mg 2.5 mg BID PO Last administered on 11/16/16 08:30; Admin Dose 2.5 MG; Start 11/13/16 at 21:00 Sodium Chloride 1,000 ml @ 75 mls/hr [id number] IV Last administered on 04:00; Admin Dose 75 MLS/HR; Start 11/13/16 at 10:30 Ceftriaxone Sodium (Rocephin) 50 ml @ 100 mls/hr Q24H IVPB Last administered on 11/16/16 11:04; Admin Dose 100 MLS/HR; Start 11/13/16 at 11:00 Tamsulosin HCl (Flomax) 0.4 mg HS PO Last administered on 11/15/16 22:22; Admin Dose 0.4 MG; Start 11/13/16 at 21:00 CONTRERAS DIANA Nov 16, 2016 16:11
--- NOTE | 2016-11-16 17:11 | CONS ---
Date/Time of Note Date/Time of Note DATE: 11/16/16 TIME: 17:11 Assessment/Plan Assessment/Plan Additional Assessment/Plan 71 yo male with 1) SANDRA 2nd to Obstructive Uropathy- Resolved 2) Hyperkalemia- Resolved 3) Anemia, Chronic Disease 4) Urinary Retention 5) COPD 6) Parox Afib Renal function stable Electrolytes WNL H/HCt Stable Cont current Rx and plan Urology also following Renal will signs off, please re consult as needed. Consultation Date/Type/Reason Admit Date/Time Nov 12, 2016 at 12:46 Initial Consult Date Type of Consultation: Renal Referring Provider: DANO HARTMAN MD 24 HR Interval Summary Free Text/Dictation NO new complaints, Good UO reported. Exam/Review of Systems Vital Signs Vitals Vital Signs Date Time Temp Pulse Resp B/P Pulse Ox O2 Delivery O2 Flow Rate FiO2 11/16/16 16:36 88 11/16/16 16:02 98.2 20 114/67 95 11/16/16 14:33 Nasal Cannula 3.0 Intake and Output 11/15/16 11/15/16 11/16/16 15:00 23:00 07:00 Intake Total 710 ml 1065 ml Output Total 1700 ml 800 ml Balance -990 ml 265 ml Exam Constitutional: No distress ENMT: mucosa pink and moist Neck: No jvd Respiratory: clear to auscultation Cardiovascular: regular rate and rhythm, No edema Gastrointestinal: non-tender, soft Genitourinary - Male: other (Forbes) Extremities: No pitting pedal edema Neurological: No lethargic Results Result Diagram: 11/16/16 0630 11/16/16 0630 Results 24 hrs Laboratory Tests Test 11/16/16 06:30 White Blood Count 5.5 Red Blood Count 3.11 L Hemoglobin 9.6 L Hematocrit 31.7 L Mean Corpuscular Volume 101.9 H Mean Corpuscular Hemoglobin 30.9 Mean Corpuscular Hemoglobin Concent 30.3 L Red Cell Distribution Width 15.4 H Platelet Count 184 Mean Platelet Volume 11.0 H Neutrophils % 65.7 Lymphocytes % 18.7 Monocytes % 9.8 Eosinophils % 5.4 Basophils % 0.2 Nucleated Red Blood Cells % 0.0 Neutrophils # 3.6 Lymphocytes # 1.0 Monocytes # 0.5 Eosinophils # 0.3 Basophils # 0.0 Nucleated Red Blood Cells # 0.0 Sodium Level 140 Potassium Level 4.0 Chloride Level 104 Carbon Dioxide Level 34 H Anion Gap 6 L Blood Urea Nitrogen 13 Creatinine 0.54 L Glucose Level 110 Calcium Level 8.7 Medications Medications Current Medications Docusate Sodium (Colace) 100 mg BID PO Last administered on 11/16/16 08:29; Admin Dose 100 MG; Start 11/12/16 at 21:00 Morphine Sulfate (morphine) 15 mg Q6H PRN PO SEVERE PAIN LEVEL 7-10 Last administered on 11/15/16 18:00; Admin Dose 15 MG; Start 11/12/16 at 16:30 Ondansetron HCl (Zofran Tab) 4 mg Q6H PRN PO NAUSEA AND/OR VOMITING; Start at 16:30 Pantoprazole (Protonix Tab) 40 mg DAILY PO Last administered on 11/16/16 08:29 ; Admin Dose 40 MG; Start 11/12/16 at 16:30 Polyethylene Glycol (Miralax) 17 gm DAILY PO Last administered on 11/16/16 08: 30; Admin Dose 17 GM; Start 11/13/16 at 09:00 Salmeterol Xinafoate/ Fluticasone (Advair 250/50 Diskus) 1 inh BID INH Last administered on 11/16/16 08:29; Admin Dose 1 INH; Start 11/12/16 at 17:00 Ondansetron HCl (Zofran Inj) 4 mg Q6 PRN IV NAUSEA AND/OR VOMITING Last administered on 11/12/16 21:13; Admin Dose 4 MG; Start 11/12/16 at 16:30 Acetaminophen (Tylenol Tab) 650 mg Q6H PRN PO PAIN AND OR ELEVATED TEMP Last administered on 11/16/16 08:30; Admin Dose 650 MG; Start 11/12/16 at 23:00 Apixaban 2.5 mg 2.5 mg BID PO Last administered on 11/16/16 08:30; Admin Dose 2.5 MG; Start 11/13/16 at 21:00 Sodium Chloride 1,000 ml @ 75 mls/hr [id number] IV Last administered on 04:00; Admin Dose 75 MLS/HR; Start 11/13/16 at 10:30 Ceftriaxone Sodium (Rocephin) 50 ml @ 100 mls/hr Q24H IVPB Last administered on 11/16/16 11:04; Admin Dose 100 MLS/HR; Start 11/13/16 at 11:00 Tamsulosin HCl (Flomax) 0.4 mg HS PO Last administered on 11/15/16 22:22; Admin Dose 0.4 MG; Start 11/13/16 at 21:00 Mupirocin (Bactroban) 1 applic BID TOP ; Start 11/16/16 at 21:00 Procedures Procedures IMPRESSION: Although suboptimally visualized there appears to probably be mild cortical thinning of both kidneys. No hydronephrosis. Mildly increased echogenicity of both kidneys. These findings are suggestive of chronic medical renal disease. Hepatic veins are dilated which may be secondary to congestive heart failure. STEVEN CHERRY MD Nov 16, 2016 17:11
[2016-11-16] MEDS: TAMSULOSIN (SR) 0.4 MG CAP PO SCH (21:06)
[2016-11-16] MEDS: MUPIROCIN 2% 22 GM OINT TOP SCH (21:07)
[2016-11-16] MEDS: morphine LIQ (10 MG/5 ML) CUP PO PRN (23:26)
[2016-11-17] VITALS (12 sets, daily range): BP systolic 108–130; BP diastolic 57–79; PULSE 68–96; RESP 17–20
[2016-11-17] MEDS: ALBUTEROL/IPRATROPIUM (NEB) 3 ML AMP NEB SCH ×4 (01:24→20:43)
[2016-11-17] MEDS: ACETAMINOPHEN 325 MG TAB PO PRN (03:00)
[2016-11-17 08:01] LABS: ADD SCAN DIFF NO
[2016-11-17 08:14] LABS: BASOPHILS % 0.4 % (0.0-2.0); EOSINOPHILS # 0.3 10^3/ul (0.0-0.5); EOSINOPHILS % 6.5 % (0.0-7.0); HEMATOCRIT 31.4 % (42.0-52.0); HEMOGLOBIN 9.5 g/dl (14.0-18.0); LYMPHOCYTES # 1.1 10^3/ul (0.8-2.9); LYMPHOCYTES % 24.3 % (15.0-51.0); MEAN CORPUSCULAR HEMOGLOBIN 30.7 pg (29.0-33.0); MEAN CORPUSCULAR HGB CONC 30.3 g/dl (32.0-37.0); MEAN CORPUSCULAR VOLUME 101.6 fl (82.0-101.0); MEAN PLATELET VOLUME 11.4 fl (7.4-10.4); MONOCYTE # 0.6 10^3/ul (0.3-0.9); MONOCYTES % 13.2 % (0.0-11.0); NEUTROPHIL # 2.5 10^3/ul (1.6-7.5); NEUTROPHILS % 55.2 % (39.0-77.0); PLATELET COUNT 201 10^3/UL (140-415); RED BLOOD COUNT 3.09 10^6/ul (4.70-6.10); RED CELL DISTRIBUTION WIDTH 15.6 % (11.5-14.5); WHITE BLOOD COUNT 4.6 10^3/ul (4.8-10.8)
[2016-11-17 08:27] LABS: POTASSIUM 4.1 mmol/L (3.5-5.1)
[2016-11-17 08:29] LABS: CREATININE 0.66 mg/dl (0.61-1.24)
[2016-11-17 08:30] LABS: CALCIUM 8.5 mg/dl (8.4-10.2)
[2016-11-17] MEDS: DOCUSATE SODIUM 100 MG CAP PO SCH ×2 (08:54→20:00)
[2016-11-17] MEDS: PANTOPRAZOLE (EC) 40 MG TAB PO SCH (08:54)
[2016-11-17] MEDS: MUPIROCIN 2% 22 GM OINT TOP SCH ×2 (08:55→20:00)
[2016-11-17] MEDS: APIXABAN 5 MG TABLET PO SCH ×2 (08:55→20:00)
[2016-11-17] MEDS: POLYETHYLENE GLYCOL 17 GM PACKET PO SCH (08:55)
[2016-11-17] MEDS: SALMETEROL/FLUTICASONE 250/50 INHA INH SCH ×2 (08:56→20:01)
[2016-11-17] MEDS: SOD CHLORIDE 0.9% 1,000 ML IV SCH ×2 (08:57→20:01)
--- NOTE | 2016-11-17 11:13 | PN ---
Date/Time of Note Date/Time of Note DATE: 11/17/16 TIME: 11:13 Assessment/Plan VTE Prophylaxis VTE Prophylaxis Intervention: other Lines/Catheters IV [facility] (from [facility] Peripheral IV Urinary Cath still in place: Yes Assessment/Plan Assessment/Plan - Acute kidney injury on chronic kidney disease secondary to obstructive uropathy. - Urinary retention, resolving. Dr. Acosta is following in urology consultation. Continue Flomax. 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 Continue Bactroban to nares. - Status post right hip ORIF - COPD, continue Advair and DuoNeb. -Paroxysmal atrial fibrillation, continue Eliquis . Further recommendations based on clinical course. Plan of care discussed with Dr. Anne. Subjective 24 Hr Interval Summary Eyes: no complaints ENT: no complaints Respiratory: no complaints Cardiovascular: no complaints Gastrointestinal: no complaints Exam/Review of Systems Vital Signs Vitals Vital Signs Date Time Temp Pulse Resp B/P Pulse Ox O2 Delivery O2 Flow Rate FiO2 11/17/16 09:02 68 11/17/16 08:26 18 98 Nasal Cannula 3.0 11/17/16 07:51 97.8 108/57 Intake and Output 11/16/16 11/16/16 11/17/16 15:00 23:00 07:00 Intake Total 1760 ml 1225 ml Output Total 1700 ml 1750 ml Balance 60 ml -525 ml Exam Constitutional: alert, well developed Psych: nl mood/affect Eyes: EOMI ENMT: nl external ears & nose Neck: non-tender Respiratory: diminished breath sounds Cardiovascular: regular rate and rhythm Gastrointestinal: non-tender Results Result Diagram: 11/17/16 0645 11/17/16 0645 Results 24 hrs Laboratory Tests Test 11/17/16 06:45 White Blood Count 4.6 L Red Blood Count 3.09 L Hemoglobin 9.5 L Hematocrit 31.4 L Mean Corpuscular Volume 101.6 H Mean Corpuscular Hemoglobin 30.7 Mean Corpuscular Hemoglobin Concent 30.3 L Red Cell Distribution Width 15.6 H Platelet Count 201 Mean Platelet Volume 11.4 H Neutrophils % 55.2 Lymphocytes % 24.3 Monocytes % 13.2 H Eosinophils % 6.5 Basophils % 0.4 Nucleated Red Blood Cells % 0.0 Neutrophils # 2.5 Lymphocytes # 1.1 Monocytes # 0.6 Eosinophils # 0.3 Basophils # 0.0 Nucleated Red Blood Cells # 0.0 Sodium Level 138 Potassium Level 4.1 Chloride Level 103 Carbon Dioxide Level 32 H Anion Gap 7 L Blood Urea Nitrogen 14 Creatinine 0.66 Glucose Level 94 Calcium Level 8.5 Medications Medications Current Medications Docusate Sodium (Colace) 100 mg BID PO Last administered on 11/17/16 08:54; Admin Dose 100 MG; Start 11/12/16 at 21:00 Morphine Sulfate (morphine) 15 mg Q6H PRN PO SEVERE PAIN LEVEL 7-10 Last administered on 11/16/16 23:26; Admin Dose 15 MG; Start 11/12/16 at 16:30 Ondansetron HCl (Zofran Tab) 4 mg Q6H PRN PO NAUSEA AND/OR VOMITING; Start at 16:30 Pantoprazole (Protonix Tab) 40 mg DAILY PO Last administered on 11/17/16 08:54 ; Admin Dose 40 MG; Start 11/12/16 at 16:30 Polyethylene Glycol (Miralax) 17 gm DAILY PO Last administered on 11/17/16 08: 55; Admin Dose 17 GM; Start 11/13/16 at 09:00 Salmeterol Xinafoate/ Fluticasone (Advair 250/50 Diskus) 1 inh BID INH Last administered on 11/17/16 08:56; Admin Dose 1 INH; Start 11/12/16 at 17:00 Ondansetron HCl (Zofran Inj) 4 mg Q6 PRN IV NAUSEA AND/OR VOMITING Last administered on 11/12/16 21:13; Admin Dose 4 MG; Start 11/12/16 at 16:30 Acetaminophen (Tylenol Tab) 650 mg Q6H PRN PO PAIN AND OR ELEVATED TEMP Last administered on 11/17/16 03:00; Admin Dose 650 MG; Start 11/12/16 at 23:00 Apixaban 2.5 mg 2.5 mg BID PO Last administered on 11/17/16 08:55; Admin Dose 2.5 MG; Start 11/13/16 at 21:00 Sodium Chloride 1,000 ml @ 75 mls/hr [id number] IV Last administered on 08:57; Admin Dose 75 MLS/HR; Start 11/13/16 at 10:30 Ceftriaxone Sodium (Rocephin) 50 ml @ 100 mls/hr Q24H IVPB Last administered on 11/16/16 11:04; Admin Dose 100 MLS/HR; Start 11/13/16 at 11:00 Tamsulosin HCl (Flomax) 0.4 mg HS PO Last administered on 11/16/16 21:06; Admin Dose 0.4 MG; Start 11/13/16 at 21:00 Mupirocin (Bactroban) 1 applic BID TOP Last administered on 11/17/16 08:55; Admin Dose 1 APPLIC; Start 11/16/16 at 21:00 CHERI DURAN Nov 17, 2016 11:13 CHERI DURAN Nov 17, 2016 11:13
[2016-11-17] MEDS: CEFTRIAXONE 1 GM/50 ML (PMX) 50 ML IVPB SCH (11:25)
--- NOTE | 2016-11-17 17:58 | PN ---
DATE: 11/17/2016 SUBJECTIVE: Urinary retention. This patient has had a history of right hip surgery, and he had uri nary retention following that. The patient's creatinine on admission was very elevated, then it cam e back down to normal after having the catheter put in. The patient himself is not complaining of a ny pain, and he is comfortable. OBJECTIVE: VITAL SIGNS: His temperature is 98.8, pulse is 94, respirations 20, blood pressure 117/71. ABDOMEN: Soft. There is no abdominal mass palpable. GENITOURINARY: The Forbes catheter is draining clear urine. MEDICATIONS: He is on: 1. Tamsulosin 0.4 mg. 2. Ceftriaxone. 3. Colace. 4. MiraLax. 5. Advair. 6. DuoNeb. 7. Zofran p.r.n. 8. Protonix also 40 mg daily. IMPRESSION: Urinary retention, most likely secondary to him being in bed and also taking the pain m edications and also taking the inhalers, mainly the ipratropium, which has an anticholinergic effect . RECOMMENDATION: We will take out the Forbes catheter tomorrow morning and see if he does void, check his postvoid residual with a bladder scan, and if he has a postvoid residual of 300 or more, we jeremi l do straight catheterization. If he does not void and the bladder scan shows over 500 mL, then we will do also straight catheterization as well, and then depending on these results will decide wheth er to re-insert the Forbes or just keep monitoring him. Dictated By: BARRY SAM/KEIRY Conf#: [id number] DID#: [id number]
[2016-11-17] MEDS: morphine LIQ (10 MG/5 ML) CUP PO PRN (19:41)
[2016-11-17] MEDS: TAMSULOSIN (SR) 0.4 MG CAP PO SCH (20:00)
[2016-11-18] VITALS (11 sets, daily range): BP systolic 109–129; BP diastolic 62–78; PULSE 78–93; RESP 17–19
[2016-11-18] MEDS: morphine LIQ (10 MG/5 ML) CUP PO PRN (01:29)
[2016-11-18] MEDS: ALBUTEROL/IPRATROPIUM (NEB) 3 ML AMP NEB SCH ×2 (01:46→09:33)
[2016-11-18 08:19] LABS: ADD SCAN DIFF NO
[2016-11-18 08:25] LABS: BASOPHILS % 0.6 % (0.0-2.0); EOSINOPHILS # 0.4 10^3/ul (0.0-0.5); HEMATOCRIT 33.4 % (42.0-52.0); HEMOGLOBIN 10.6 g/dl (14.0-18.0); LYMPHOCYTES # 1.2 10^3/ul (0.8-2.9); LYMPHOCYTES % 22.7 % (15.0-51.0); MEAN CORPUSCULAR HEMOGLOBIN 32.1 pg (29.0-33.0); MEAN CORPUSCULAR HGB CONC 31.7 g/dl (32.0-37.0); MEAN CORPUSCULAR VOLUME 101.2 fl (82.0-101.0); MEAN PLATELET VOLUME 10.7 fl (7.4-10.4); MONOCYTE # 0.5 10^3/ul (0.3-0.9); NEUTROPHIL # 3.2 10^3/ul (1.6-7.5); NEUTROPHILS % 59.3 % (39.0-77.0); PLATELET COUNT 237 10^3/UL (140-415); RED CELL DISTRIBUTION WIDTH 15.6 % (11.5-14.5); WHITE BLOOD COUNT 5.4 10^3/ul (4.8-10.8)
[2016-11-18] MEDS: DOCUSATE SODIUM 100 MG CAP PO SCH ×2 (08:29→20:26)
[2016-11-18] MEDS: PANTOPRAZOLE (EC) 40 MG TAB PO SCH (08:29)
[2016-11-18] MEDS: APIXABAN 5 MG TABLET PO SCH ×2 (08:29→20:26)
[2016-11-18] MEDS: POLYETHYLENE GLYCOL 17 GM PACKET PO SCH (08:30)
[2016-11-18] MEDS: MUPIROCIN 2% 22 GM OINT TOP SCH ×2 (08:31→20:32)
[2016-11-18] MEDS: SALMETEROL/FLUTICASONE 250/50 INHA INH SCH ×2 (08:32→20:32)
[2016-11-18 08:46] LABS: CREATININE 0.58 mg/dl (0.61-1.24)
[2016-11-18] MEDS: SOD CHLORIDE 0.9% 1,000 ML IV SCH ×2 (10:30→15:38)
[2016-11-18] MEDS: CEFTRIAXONE 1 GM/50 ML (PMX) 50 ML IVPB SCH (11:12)
--- NOTE | 2016-11-18 14:01 | PN ---
Date/Time of Note Date/Time of Note DATE: 11/18/16 TIME: 13:51 Assessment/Plan VTE Prophylaxis VTE Prophylaxis Intervention: SCD's Lines/Catheters IV Catheter Type (from [facility]): Peripheral IV Urinary Cath still in place: No Assessment/Plan Chief Complaint/Hosp Course Assessment and plan: - Urinary retention. Dr. Acosta is following in urology consultation. Continue Flomax. Ipratropium is stopped. Plan for d/c Forbes tomorrow and monitor post void residual. - Acute kidney injury on chronic kidney disease secondary to obstructive uropathy, resolved. 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 Continue Bactroban to nares. - Status post right hip ORIF - COPD, continue Advair and Albuterol. -Paroxysmal atrial fibrillation, continue Eliquis. Further recommendations based on clinical course. Plan of care discussed with Dr. Anne. Problems: Subjective 24 Hr Interval Summary Free Text/Dictation Remains hemodynamically stable, no fever. Exam/Review of Systems Vital Signs Vitals Vital Signs Date Time Temp Pulse Resp B/P Pulse Ox O2 Delivery O2 Flow Rate FiO2 11/18/16 12:22 89 11/18/16 08:01 98.1 18 126/66 99 11/18/16 08:00 Nasal Cannula 2.0 11/18/16 01:47 21 Intake and Output 11/17/16 11/17/16 11/18/16 15:00 23:00 07:00 Intake Total 1760 ml Output Total 1760 ml Balance 0 ml Exam Constitutional: alert, oriented Psych: no complaints Head: atraumatic, normocephalic Eyes: nl conjunctiva ENMT: nl external ears & nose Neck: supple Respiratory: clear to auscultation Cardiovascular: nl pulses, regular rate and rhythm Gastrointestinal: non-tender, soft Genitourinary - Male: nl penis Musculoskeletal: nl extremities to inspection, other (Status post right hip ORIF), range of motion (Decreased) Extremities: normal pulses 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 Results Result Diagram: 11/18/16 0755 11/18/16 0759 Results 24 hrs Laboratory Tests Test 11/18/16 07:55 11/18/16 07:59 White Blood Count 5.4 Red Blood Count 3.30 L Hemoglobin 10.6 L Hematocrit 33.4 L Mean Corpuscular Volume 101.2 H Mean Corpuscular Hemoglobin 32.1 Mean Corpuscular Hemoglobin Concent 31.7 L Red Cell Distribution Width 15.6 H Platelet Count 237 Mean Platelet Volume 10.7 H Neutrophils % 59.3 Lymphocytes % 22.7 Monocytes % 10.0 Eosinophils % 7.0 Basophils % 0.6 Nucleated Red Blood Cells % 0.0 Neutrophils # 3.2 Lymphocytes # 1.2 Monocytes # 0.5 Eosinophils # 0.4 Basophils # 0.0 Nucleated Red Blood Cells # 0.0 Sodium Level 139 Potassium Level 4.0 Chloride Level 104 Carbon Dioxide Level 32 H Anion Gap 7 L Blood Urea Nitrogen 12 Creatinine 0.58 L Glucose Level 92 Calcium Level 9.0 Medications Medications Current Medications Docusate Sodium (Colace) 100 mg BID PO Last administered on 11/18/16 08:29; Admin Dose 100 MG; Start 11/12/16 at 21:00 Morphine Sulfate (morphine) 15 mg Q6H PRN PO SEVERE PAIN LEVEL 7-10 Last administered on 11/18/16 01:29; Admin Dose 15 MG; Start 11/12/16 at 16:30 Ondansetron HCl (Zofran Tab) 4 mg Q6H PRN PO NAUSEA AND/OR VOMITING; Start at 16:30 Pantoprazole (Protonix Tab) 40 mg DAILY PO Last administered on 11/18/16 08:29 ; Admin Dose 40 MG; Start 11/12/16 at 16:30 Polyethylene Glycol (Miralax) 17 gm DAILY PO Last administered on 11/18/16 08: 30; Admin Dose 17 GM; Start 11/13/16 at 09:00 Salmeterol Xinafoate/ Fluticasone (Advair 250/50 Diskus) 1 inh BID INH Last administered on 11/18/16 08:32; Admin Dose 1 INH; Start 11/12/16 at 17:00 Ondansetron HCl (Zofran Inj) 4 mg Q6 PRN IV NAUSEA AND/OR VOMITING Last administered on 11/12/16 21:13; Admin Dose 4 MG; Start 11/12/16 at 16:30 Acetaminophen (Tylenol Tab) 650 mg Q6H PRN PO PAIN AND OR ELEVATED TEMP Last administered on 11/17/16 03:00; Admin Dose 650 MG; Start 11/12/16 at 23:00 Apixaban 2.5 mg 2.5 mg BID PO Last administered on 11/18/16 08:29; Admin Dose 2.5 MG; Start 11/13/16 at 21:00 Sodium Chloride 1,000 ml @ 75 mls/hr [id number] IV Last administered on 20:01; Admin Dose 75 MLS/HR; Start 11/13/16 at 10:30 Ceftriaxone Sodium (Rocephin) 50 ml @ 100 mls/hr Q24H IVPB Last administered on 11/18/16 11:12; Admin Dose 100 MLS/HR; Start 11/13/16 at 11:00 Tamsulosin HCl (Flomax) 0.4 mg HS PO Last administered on 11/17/16 20:00; Admin Dose 0.4 MG; Start 11/13/16 at 21:00 Mupirocin (Bactroban) 1 applic BID TOP Last administered on 11/18/16 08:31; Admin Dose 1 APPLIC; Start 11/16/16 at 21:00 CONTRERAS DIANA Nov 18, 2016 14:01
[2016-11-18] MEDS: TAMSULOSIN (SR) 0.4 MG CAP PO SCH (20:26)
[2016-11-18] MEDS: ALBUTEROL 0.083% (NEB) 2.5 MG/3 ML AMP HHN SCH (20:32)
[2016-11-19] VITALS (12 sets, daily range): BP systolic 96–121; BP diastolic 53–75; PULSE 82–100; RESP 17–20
[2016-11-19 07:38] LABS: ADD SCAN DIFF NO
[2016-11-19 07:46] LABS: BASOPHILS % 0.2 % (0.0-2.0); EOSINOPHILS # 0.3 10^3/ul (0.0-0.5); EOSINOPHILS % 3.4 % (0.0-7.0); HEMATOCRIT 36.2 % (42.0-52.0); HEMOGLOBIN 11.4 g/dl (14.0-18.0); LYMPHOCYTES % 11.9 % (15.0-51.0); MEAN CORPUSCULAR HEMOGLOBIN 31.2 pg (29.0-33.0); MEAN CORPUSCULAR HGB CONC 31.5 g/dl (32.0-37.0); MEAN CORPUSCULAR VOLUME 99.2 fl (82.0-101.0); MEAN PLATELET VOLUME 10.8 fl (7.4-10.4); MONOCYTE # 0.6 10^3/ul (0.3-0.9); MONOCYTES % 7.3 % (0.0-11.0); NEUTROPHIL # 6.4 10^3/ul (1.6-7.5); PLATELET COUNT 260 10^3/UL (140-415); RED BLOOD COUNT 3.65 10^6/ul (4.70-6.10); RED CELL DISTRIBUTION WIDTH 15.7 % (11.5-14.5); WHITE BLOOD COUNT 8.3 10^3/ul (4.8-10.8)
--- NOTE | 2016-11-19 07:47 | PN ---
DATE: 11/18/2016 CHIEF COMPLAINT: Unable to urinate. HISTORY OF PRESENT ILLNESS: The patient required in and out catheterization. The Forbes catheter th at he had was supposed to be removed this morning, however, the nursing staff removed it yesterday e omar though the order indicated to remove it at 6:00 a.m. of November 18. The catheter was removed and the patient was unable to void and had to be catheterized multiple times. The patient, himself, do es not complain of any pain. PHYSICAL EXAMINATION: VITAL SIGNS: Temperature is 98.2, pulse is 82, respiration 18, blood pressure 129/66. ABDOMEN: Soft. There is no tenderness at the present. The patient last night was not able to urinate, and 710 mL were rained by in and out catheterization . Again this morning he was still unable to urinate. Bladder scan showed over 999 mL, and had stra ight cath drained 500 mL. at 4:40, his bladder scan showed 650 mL and this was drained and the patie nt tolerated the procedure well. LABORATORY DATA: CBC shows a white count of 5.4, hemoglobin 10.6, hematocrit 33.4, platelet count 2 07,000. BUN is 12, creatinine 0.58, sodium 139, potassium 4.0, chloride 104, CO2 32. IMPRESSION: Urinary retention. The patient has not been able to urinate on his own. PLAN: To continue in and out catheterization every 6 hours and as he gets better, then one could tr y again to remove the Forbes catheter and see if he does void. Dictated By: BARRY SAM/KEIRY Conf#: [id number] DID#: [id number]
[2016-11-19 07:52] LABS: POTASSIUM 3.9 mmol/L (3.5-5.1)
[2016-11-19 07:55] LABS: CREATININE 0.56 mg/dl (0.61-1.24)
[2016-11-19] MEDS: ALBUTEROL 0.083% (NEB) 2.5 MG/3 ML AMP HHN SCH ×3 (08:14→20:23)
[2016-11-19] MEDS: SALMETEROL/FLUTICASONE 250/50 INHA INH SCH ×2 (10:00→21:11)
[2016-11-19] MEDS: POLYETHYLENE GLYCOL 17 GM PACKET PO SCH (10:01)
[2016-11-19] MEDS: DOCUSATE SODIUM 100 MG CAP PO SCH ×2 (10:01→21:11)
[2016-11-19] MEDS: PANTOPRAZOLE (EC) 40 MG TAB PO SCH (10:01)
[2016-11-19] MEDS: APIXABAN 5 MG TABLET PO SCH ×2 (10:01→21:11)
[2016-11-19] MEDS: MUPIROCIN 2% 22 GM OINT TOP SCH ×2 (10:01→21:11)
[2016-11-19] MEDS: CEFTRIAXONE 1 GM/50 ML (PMX) 50 ML IVPB SCH (10:03)
[2016-11-19] MEDS: SOD CHLORIDE 0.9% 1,000 ML IV SCH (12:53)
--- NOTE | 2016-11-19 13:18 | PN ---
Date/Time of Note Date/Time of Note DATE: 11/19/16 TIME: 13:17 Assessment/Plan VTE Prophylaxis VTE Prophylaxis Intervention: other Lines/Catheters IV Catheter Type (from [facility]): Peripheral IV Urinary Cath still in place: No Assessment/Plan Chief Complaint/Hosp Course - Urinary retention. Dr. Acosta is following in urology consultation. Continue Flomax. Ipratropium is stopped. Plan for d/c Forbes tomorrow and monitor post void residual. - Acute kidney injury on chronic kidney disease secondary to obstructive uropathy, resolved. 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 Continue Bactroban to nares. - Status post right hip ORIF - COPD, continue Advair and Albuterol. -Paroxysmal atrial fibrillation, continue Eliquis. Problems: Subjective 24 Hr Interval Summary Free Text/Dictation Patient has no complaints Exam/Review of Systems Vital Signs Vitals Vital Signs Date Time Temp Pulse Resp B/P Pulse Ox O2 Delivery O2 Flow Rate FiO2 11/19/16 12:26 98.0 87 20 118/65 97 11/19/16 08:30 Nasal Cannula 2.0 11/19/16 03:33 21 Intake and Output 11/18/16 11/18/16 11/19/16 15:00 23:00 07:00 Intake Total 1000 ml 900 ml Output Total 710 ml Balance 1000 ml 190 ml Exam Constitutional: well developed Head: atraumatic, normocephalic Neck: supple Respiratory: diminished breath sounds Cardiovascular: regular rate and rhythm Gastrointestinal: non-tender, soft Extremities: normal pulses Results Result Diagram: 11/19/16 0723 11/19/16 0723 Results 24 hrs Laboratory Tests Test 11/19/16 07:23 White Blood Count 8.3 # Red Blood Count 3.65 L Hemoglobin 11.4 L Hematocrit 36.2 L Mean Corpuscular Volume 99.2 Mean Corpuscular Hemoglobin 31.2 Mean Corpuscular Hemoglobin Concent 31.5 L Red Cell Distribution Width 15.7 H Platelet Count 260 Mean Platelet Volume 10.8 H Neutrophils % 77.0 Lymphocytes % 11.9 L Monocytes % 7.3 Eosinophils % 3.4 Basophils % 0.2 Nucleated Red Blood Cells % 0.0 Neutrophils # 6.4 Lymphocytes # 1.0 Monocytes # 0.6 Eosinophils # 0.3 Basophils # 0.0 Nucleated Red Blood Cells # 0.0 Sodium Level 139 Potassium Level 3.9 Chloride Level 105 Carbon Dioxide Level 31 Anion Gap 7 L Blood Urea Nitrogen 12 Creatinine 0.56 L Glucose Level 110 Calcium Level 9.0 Medications Medications Current Medications Docusate Sodium (Colace) 100 mg BID PO Last administered on 11/19/16 10:01; Admin Dose 100 MG; Start 11/12/16 at 21:00 Morphine Sulfate (morphine) 15 mg Q6H PRN PO SEVERE PAIN LEVEL 7-10 Last administered on 11/18/16 01:29; Admin Dose 15 MG; Start 11/12/16 at 16:30 Ondansetron HCl (Zofran Tab) 4 mg Q6H PRN PO NAUSEA AND/OR VOMITING; Start at 16:30 Pantoprazole (Protonix Tab) 40 mg DAILY PO Last administered on 11/19/16 10:01 ; Admin Dose 40 MG; Start 11/12/16 at 16:30 Polyethylene Glycol (Miralax) 17 gm DAILY PO Last administered on 11/19/16 10: 01; Admin Dose 17 GM; Start 11/13/16 at 09:00 Salmeterol Xinafoate/ Fluticasone (Advair 250/50 Diskus) 1 inh BID INH Last administered on 11/19/16 10:00; Admin Dose 1 INH; Start 11/12/16 at 17:00 Ondansetron HCl (Zofran Inj) 4 mg Q6 PRN IV NAUSEA AND/OR VOMITING Last administered on 11/12/16 21:13; Admin Dose 4 MG; Start 11/12/16 at 16:30 Acetaminophen (Tylenol Tab) 650 mg Q6H PRN PO PAIN AND OR ELEVATED TEMP Last administered on 11/17/16 03:00; Admin Dose 650 MG; Start 11/12/16 at 23:00 Apixaban 2.5 mg 2.5 mg BID PO Last administered on 11/19/16 10:01; Admin Dose 2.5 MG; Start 11/13/16 at 21:00 Sodium Chloride 1,000 ml @ 75 mls/hr [id number] IV Last administered on 11/19/16 12:53; Admin Dose 75 MLS/HR; Start 11/13/16 at 10:30 Ceftriaxone Sodium (Rocephin) 50 ml @ 100 mls/hr Q24H IVPB Last administered on 11/19/16 10:03; Admin Dose 100 MLS/HR; Start 11/13/16 at 11:00 Tamsulosin HCl (Flomax) 0.4 mg HS PO Last administered on 11/18/16 20:26; Admin Dose 0.4 MG; Start 11/13/16 at 21:00 Mupirocin (Bactroban) 1 applic BID TOP Last administered on 11/19/16 10:01; Admin Dose 1 APPLIC; Start 11/16/16 at 21:00 MARCIE BEAVERS Nov 19, 2016 13:18
[2016-11-19] MEDS: morphine LIQ (10 MG/5 ML) CUP PO PRN (13:40)
--- NOTE | 2016-11-19 16:58 | PN ---
DATE: 11/19/2016 SUBJECTIVE: Urinary retention. The patient appears to be comfortable and he does not respond to questions accurately. The patient h as not been able to urinate and needed to undergo a straight catheterization. OBJECTIVE VITAL SIGNS: His temperature is 98.0, pulse 88, respirations 22, blood pressure 118/65. LABORATORY DATA: His CBC shows a white count of 8.3, hemoglobin 11.4, hematocrit 36.2. BUN is 12. Creatinine is 0.56. Electrolytes are normal. The prostate specific antigen has been 0.6. The uri ne culture shows no growth after 48 hours. The patient is on Tamsulosin. PLAN: Do a pelvic ultrasound, check the pre and postvoid bladder volumes, and also the prostate siz e, to see if there is any reason for us to do anything to his prostate surgically. Dictated By: BARRY SAM/KEIRY Conf#: [id number] DID#: [id number]
--- NOTE | 2016-11-19 17:56 | RADRPT ---
PROCEDURE: Ultrasound bladder. CLINICAL INDICATION: Low urinary output TECHNIQUE: Multiple sonographic images of the bladder were obtained utilizing a curved array trans ducer. The images were reviewed on a PACS workstation. COMPARISON: No prior studies are available for comparison. FINDINGS: The prevoid bladder is significantly distended No bladder wall abnormality is identified. The prev oid bladder volume equals 1481 cc. The postvoid bladder volume equals 693 cc, above normal limits. IMPRESSION: 1. Abnormally increased postvoid residual of 693 cc, compatible with urinary retention. RPTAT: QQ .King Parker MD, Date Time Electronically viewed and signed by .King Parker MD, MD on 11/19/2016 17:56 .R/
[2016-11-19] MEDS: TAMSULOSIN (SR) 0.4 MG CAP PO SCH (21:11)
[2016-11-20] VITALS (11 sets, daily range): BP systolic 102–123; BP diastolic 56–71; PULSE 76–91; RESP 17–19
[2016-11-20] MEDS: SOD CHLORIDE 0.9% 1,000 ML IV SCH ×2 (02:05→15:14)
[2016-11-20] MEDS: POLYETHYLENE GLYCOL 17 GM PACKET PO SCH (08:31)
[2016-11-20] MEDS: SALMETEROL/FLUTICASONE 250/50 INHA INH SCH ×2 (08:31→20:33)
[2016-11-20] MEDS: DOCUSATE SODIUM 100 MG CAP PO SCH ×2 (08:31→20:33)
[2016-11-20] MEDS: MUPIROCIN 2% 22 GM OINT TOP SCH ×2 (08:31→20:36)
[2016-11-20] MEDS: APIXABAN 5 MG TABLET PO SCH ×2 (08:31→20:33)
[2016-11-20] MEDS: PANTOPRAZOLE (EC) 40 MG TAB PO SCH (08:32)
[2016-11-20] MEDS: ALBUTEROL 0.083% (NEB) 2.5 MG/3 ML AMP HHN SCH ×3 (08:46→19:49)
[2016-11-20] MEDS ORDERED: VITAMIN A & D 5 GM OINT PACKET TOP ONE (10:32)
[2016-11-20] MEDS: CEFTRIAXONE 1 GM/50 ML (PMX) 50 ML IVPB SCH (10:35)
[2016-11-20] MEDS: morphine LIQ (10 MG/5 ML) CUP PO PRN ×2 (10:35→16:35)
--- NOTE | 2016-11-20 12:11 | PN ---
Date/Time of Note Date/Time of Note DATE: 11/20/16 TIME: 12:11 Assessment/Plan VTE Prophylaxis VTE Prophylaxis Intervention: other Lines/Catheters IV Catheter Type (from [facility]): Peripheral IV Urinary Cath still in place: No Assessment/Plan Chief Complaint/Hosp Course - Urinary retention. Dr. Acosta is following in urology consultation. Continue Flomax. Ipratropium is stopped. Plan for d/c Forbes tomorrow and monitor post void residual. - Acute kidney injury on chronic kidney disease secondary to obstructive uropathy, resolved. 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 Continue Bactroban to nares. - Status post right hip ORIF - COPD, continue Advair and Albuterol. -Paroxysmal atrial fibrillation, continue Eliquis. Problems: Subjective 24 Hr Interval Summary Free Text/Dictation Patient has no complaints Exam/Review of Systems Vital Signs Vitals Vital Signs Date Time Temp Pulse Resp B/P Pulse Ox O2 Delivery O2 Flow Rate FiO2 11/20/16 11:45 97.8 84 19 122/70 99 11/20/16 08:46 2.0 11/20/16 08:46 Nasal Cannula 11/19/16 03:33 21 Intake and Output 11/19/16 11/19/16 11/20/16 15:00 23:00 07:00 Intake Total 960 ml 120 ml Output Total 1100 ml 1500 ml Balance -140 ml -1380 ml Exam Head: atraumatic, normocephalic Neck: supple Respiratory: clear to auscultation Cardiovascular: regular rate and rhythm Gastrointestinal: non-tender, soft Extremities: normal pulses Results Result Diagram: 11/19/16 0723 11/19/16 0723 Medications Medications Current Medications Docusate Sodium (Colace) 100 mg BID PO Last administered on 11/20/16 08:31; Admin Dose 100 MG; Start 11/12/16 at 21:00 Morphine Sulfate (morphine) 15 mg Q6H PRN PO SEVERE PAIN LEVEL 7-10 Last administered on 11/20/16 10:35; Admin Dose 15 MG; Start 11/12/16 at 16:30 Ondansetron HCl (Zofran Tab) 4 mg Q6H PRN PO NAUSEA AND/OR VOMITING; Start at 16:30 Pantoprazole (Protonix Tab) 40 mg DAILY PO Last administered on 11/20/16 08:32 ; Admin Dose 40 MG; Start 11/12/16 at 16:30 Polyethylene Glycol (Miralax) 17 gm DAILY PO Last administered on 11/20/16 08: 31; Admin Dose 17 GM; Start 11/13/16 at 09:00 Salmeterol Xinafoate/ Fluticasone (Advair 250/50 Diskus) 1 inh BID INH Last administered on 11/20/16 08:31; Admin Dose 1 INH; Start 11/12/16 at 17:00 Ondansetron HCl (Zofran Inj) 4 mg Q6 PRN IV NAUSEA AND/OR VOMITING Last administered on 11/12/16 21:13; Admin Dose 4 MG; Start 11/12/16 at 16:30 Acetaminophen (Tylenol Tab) 650 mg Q6H PRN PO PAIN AND OR ELEVATED TEMP Last administered on 11/17/16 03:00; Admin Dose 650 MG; Start 11/12/16 at 23:00 Apixaban 2.5 mg 2.5 mg BID PO Last administered on 11/20/16 08:31; Admin Dose 2.5 MG; Start 11/13/16 at 21:00 Sodium Chloride 1,000 ml @ 75 mls/hr [id number] IV Last administered on 11/20/16 02:05; Admin Dose 75 MLS/HR; Start 11/13/16 at 10:30 Ceftriaxone Sodium (Rocephin) 50 ml @ 100 mls/hr Q24H IVPB Last administered on 11/20/16 10:35; Admin Dose 100 MLS/HR; Start 11/13/16 at 11:00 Tamsulosin HCl (Flomax) 0.4 mg HS PO Last administered on 11/19/16 21:11; Admin Dose 0.4 MG; Start 11/13/16 at 21:00 Mupirocin (Bactroban) 1 applic BID TOP Last administered on 11/20/16 08:31; Admin Dose 1 APPLIC; Start 11/16/16 at 21:00 MARCIE BEAVERS Nov 20, 2016 12:11
--- NOTE | 2016-11-20 15:57 | PN ---
DATE: 11/20/2016 SUBJECTIVE: Urinary retention. The patient has not been able to urinate, has an indwelling Forbes catheter put in and the patient cain s been needing a straight catheterization every 6 hours or earlier and every time the amount drained is over 800 to 1000. The patient had a pelvic ultrasound which they did not measure the prostate a s I had requested so I had called the radiologist and I asked him to redo the ultrasound. The ultra sound was done again and his prostate is pretty large, it measured 5.39 cm in length, 6.91 cm in hei ght and 7.26 cm in width for a total volume of 141.54 mL. OBJECTIVE: VITAL SIGNS: Temperature today is 97.8, blood pressure 122/70, pulse is 80, respiration 20. LABORATORY DATA: CBC yesterday showed a white count of 8.3, hemoglobin 11.4, hematocrit 36.2. BUN 12, creatinine 0.56. Initially, when he came in his creatinine was 6.0 and the BUN was 53. IMPRESSION: 1. Urinary retention. 2. Benign prostatic hypertrophy with obstruction. 3. Renal failure that has resolved with the drainage of the bladder. The patient is sleeping most of the time and the retention may not be only related to his prostate b eing enlarged, it may be also that he is sleeping and lethargic and not moving and therefore if one is to do any surgical procedure on him, that may not relieve his obstruction, and may not allow him to urinate and empty his bladder completely. For now, we shall just keep the Forbes catheter in and I will discuss with you further treatment. Dictated By: BARRY RICHEY MD BB/KEIRY Conf#: [id number] DID#: [id number] CC: STEVE CASTILLO MD;*EndCC*
--- NOTE | 2016-11-20 16:29 | RADRPT ---
PROCEDURE: Ultrasound pelvis CLINICAL INDICATION: Enlarged prostate gland, check PVR TECHNIQUE: Sonographic evaluation of the prostate gland and bladder was performed as transabdomina l imaging. COMPARISON: None available FINDINGS: The prostate gland measures 7.4 x 6.6 x 6.5 cm in dimension and is enlarged and heterogeneous in ferny earance in which calcifications are present. The prostate volume approximates 165 cc. The bladder i s mildly distended, otherwise unremarkable. The patient was unable to void limiting evaluation. IMPRESSION: 1. Enlarged prostate measuring about 7.4 x 6.6 x 6.5 cm. 2. Unremarkable appearance of the bladder. Note that the patient was unable to void in which the p ostvoid residual volume was not obtained. .Deanne Archer MD, Date Time Electronically viewed and signed by .Deanne Archer MD, on 11/20/2016 16:29 .T/
[2016-11-20] MEDS: TAMSULOSIN (SR) 0.4 MG CAP PO SCH (20:33)
[2016-11-21] VITALS (11 sets, daily range): BP systolic 117–132; BP diastolic 65–75; PULSE 69–93; RESP 17–20
[2016-11-21] MEDS: SOD CHLORIDE 0.9% 1,000 ML IV SCH ×2 (05:30→19:19)
[2016-11-21 08:00] LABS: ADD SCAN DIFF NO
[2016-11-21 08:10] LABS: BASOPHILS % 0.4 % (0.0-2.0); EOSINOPHILS # 0.4 10^3/ul (0.0-0.5); EOSINOPHILS % 6.1 % (0.0-7.0); HEMATOCRIT 34.9 % (42.0-52.0); HEMOGLOBIN 10.8 g/dl (14.0-18.0); LYMPHOCYTES % 14.6 % (15.0-51.0); MEAN CORPUSCULAR HGB CONC 30.9 g/dl (32.0-37.0); MEAN CORPUSCULAR VOLUME 103.3 fl (82.0-101.0); MEAN PLATELET VOLUME 11.1 fl (7.4-10.4); MONOCYTE # 0.6 10^3/ul (0.3-0.9); MONOCYTES % 8.7 % (0.0-11.0); NEUTROPHILS % 70.1 % (39.0-77.0); PLATELET COUNT 248 10^3/UL (140-415); RED BLOOD COUNT 3.38 10^6/ul (4.70-6.10); WHITE BLOOD COUNT 7.1 10^3/ul (4.8-10.8)
[2016-11-21 08:28] LABS: POTASSIUM 4.1 mmol/L (3.5-5.1)
[2016-11-21 08:30] LABS: CREATININE 0.59 mg/dl (0.61-1.24)
[2016-11-21] MEDS: ALBUTEROL 0.083% (NEB) 2.5 MG/3 ML AMP HHN SCH ×3 (08:30→20:33)
[2016-11-21 08:31] LABS: CALCIUM 8.6 mg/dl (8.4-10.2)
[2016-11-21] MEDS: DOCUSATE SODIUM 100 MG CAP PO SCH ×2 (10:31→21:55)
[2016-11-21] MEDS: PANTOPRAZOLE (EC) 40 MG TAB PO SCH (10:31)
[2016-11-21] MEDS: POLYETHYLENE GLYCOL 17 GM PACKET PO SCH (10:32)
[2016-11-21] MEDS: APIXABAN 5 MG TABLET PO SCH ×2 (10:32→21:55)
[2016-11-21] MEDS: SALMETEROL/FLUTICASONE 250/50 INHA INH SCH ×2 (12:54→21:56)
[2016-11-21] MEDS: CEFTRIAXONE 1 GM/50 ML (PMX) 50 ML IVPB SCH (12:54)
[2016-11-21] MEDS: MUPIROCIN 2% 22 GM OINT TOP SCH ×2 (15:51→21:56)
--- NOTE | 2016-11-21 18:38 | PN ---
Date/Time of Note Date/Time of Note DATE: 11/21/16 TIME: 18:34 Assessment/Plan VTE Prophylaxis VTE Prophylaxis Intervention: SCD's Lines/Catheters IV Catheter Type (from [facility]): Peripheral IV Urinary Cath still in place: Yes Reason Cath still needed: urinary retention Assessment/Plan Chief Complaint/Hosp Course Assessment and plan: - Urinary retention. Dr. Acosta is following in urology consultation. Continue Flomax. Ipratropium is stopped. Continue Forbes per urology recommendation. - Acute kidney injury on chronic kidney disease secondary to obstructive uropathy, resolved. 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 Continue Bactroban to nares. - Status post right hip ORIF - COPD, continue Advair and Albuterol. -Paroxysmal atrial fibrillation, currently in sinus rhythm, continue Eliquis. Start PT. Further recommendations based on clinical course. Plan of care discussed with Dr. Anne. Problems: Subjective 24 Hr Interval Summary Free Text/Dictation Patient is comfortable on room air, will order PT. Exam/Review of Systems Vital Signs Vitals Vital Signs Date Time Temp Pulse Resp B/P Pulse Ox O2 Delivery O2 Flow Rate FiO2 11/21/16 16:21 76 11/21/16 15:52 97.4 18 117/65 98 11/21/16 15:24 2.0 11/21/16 15:24 Nasal Cannula 11/19/16 03:33 21 Intake and Output 11/20/16 11/20/16 11/21/16 15:00 23:00 07:00 Intake Total 50 ml 1575 ml 120 ml Output Total 1800 ml 1200 ml Balance 50 ml -225 ml -1080 ml Exam Constitutional: alert, oriented Psych: no complaints Head: atraumatic, normocephalic Eyes: nl conjunctiva ENMT: nl external ears & nose Neck: supple Respiratory: clear to auscultation Cardiovascular: nl pulses, regular rate and rhythm Gastrointestinal: non-tender, soft Genitourinary - Male: nl penis Musculoskeletal: nl extremities to inspection, other (Status post right hip ORIF), range of motion (Decreased) Extremities: normal pulses 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 Results Result Diagram: 11/21/16 0650 11/21/16 0650 Results 24 hrs Laboratory Tests Test 11/21/16 06:50 White Blood Count 7.1 Red Blood Count 3.38 L Hemoglobin 10.8 L Hematocrit 34.9 L Mean Corpuscular Volume 103.3 H Mean Corpuscular Hemoglobin 32.0 Mean Corpuscular Hemoglobin Concent 30.9 L Red Cell Distribution Width 16.0 H Platelet Count 248 Mean Platelet Volume 11.1 H Neutrophils % 70.1 Lymphocytes % 14.6 L Monocytes % 8.7 Eosinophils % 6.1 Basophils % 0.4 Nucleated Red Blood Cells % 0.0 Neutrophils # 5.0 Lymphocytes # 1.0 Monocytes # 0.6 Eosinophils # 0.4 Basophils # 0.0 Nucleated Red Blood Cells # 0.0 Sodium Level 138 Potassium Level 4.1 Chloride Level 105 Carbon Dioxide Level 30 Anion Gap 7 L Blood Urea Nitrogen 15 Creatinine 0.59 L Glucose Level 91 Calcium Level 8.6 Medications Medications Current Medications Docusate Sodium (Colace) 100 mg BID PO Last administered on 11/21/16 10:31; Admin Dose 100 MG; Start 11/12/16 at 21:00 Ondansetron HCl (Zofran Tab) 4 mg Q6H PRN PO NAUSEA AND/OR VOMITING; Start at 16:30 Pantoprazole (Protonix Tab) 40 mg DAILY PO Last administered on 11/21/16 10:31 ; Admin Dose 40 MG; Start 11/12/16 at 16:30 Polyethylene Glycol (Miralax) 17 gm DAILY PO Last administered on 11/21/16 10: 32; Admin Dose 17 GM; Start 11/13/16 at 09:00 Salmeterol Xinafoate/ Fluticasone (Advair 250/50 Diskus) 1 inh BID INH Last administered on 11/21/16 12:54; Admin Dose 1 INH; Start 11/12/16 at 17:00 Ondansetron HCl (Zofran Inj) 4 mg Q6 PRN IV NAUSEA AND/OR VOMITING Last administered on 11/12/16 21:13; Admin Dose 4 MG; Start 11/12/16 at 16:30 Acetaminophen (Tylenol Tab) 650 mg Q6H PRN PO PAIN AND OR ELEVATED TEMP Last administered on 11/17/16 03:00; Admin Dose 650 MG; Start 11/12/16 at 23:00 Apixaban 2.5 mg 2.5 mg BID PO Last administered on 11/21/16 10:32; Admin Dose 2.5 MG; Start 11/13/16 at 21:00 Sodium Chloride (NS) 1,000 ml @ 75 mls/hr [id number] IV Last administered on 05:30; Admin Dose 75 MLS/HR; Start 11/13/16 at 10:30 Tamsulosin HCl (Flomax) 0.4 mg HS PO Last administered on 11/20/16 20:33; Admin Dose 0.4 MG; Start 11/13/16 at 21:00 Mupirocin (Bactroban) 1 applic BID TOP Last administered on 11/21/16 15:51; Admin Dose 1 APPLIC; Start 11/16/16 at 21:00 Morphine Sulfate (morphine) 5 mg Q6H PRN PO SEVERE PAIN LEVEL 7-10; Start at 22:30 CONTRERAS DIANA Nov 21, 2016 18:38
[2016-11-21] MEDS: ACETAMINOPHEN 325 MG TAB PO PRN (21:56)
[2016-11-21] MEDS: TAMSULOSIN (SR) 0.4 MG CAP PO SCH (21:56)
[2016-11-22 05:40] LABS: ADD SCAN DIFF NO
[2016-11-22 05:56] LABS: POTASSIUM 3.9 mmol/L (3.5-5.1)
[2016-11-22 05:58] LABS: CREATININE 0.56 mg/dl (0.61-1.24)
[2016-11-22 05:59] LABS: CALCIUM 8.5 mg/dl (8.4-10.2)
[2016-11-22 06:16] LABS: BASOPHILS % 0.3 % (0.0-2.0); EOSINOPHILS # 0.3 10^3/ul (0.0-0.5); EOSINOPHILS % 5.2 % (0.0-7.0); HEMATOCRIT 32.5 % (42.0-52.0); HEMOGLOBIN 10.1 g/dl (14.0-18.0); LYMPHOCYTES # 1.1 10^3/ul (0.8-2.9); LYMPHOCYTES % 17.6 % (15.0-51.0); MEAN CORPUSCULAR HEMOGLOBIN 31.1 pg (29.0-33.0); MEAN CORPUSCULAR HGB CONC 31.1 g/dl (32.0-37.0); MONOCYTE # 0.6 10^3/ul (0.3-0.9); MONOCYTES % 9.9 % (0.0-11.0); NEUTROPHIL # 4.2 10^3/ul (1.6-7.5); NEUTROPHILS % 66.7 % (39.0-77.0); PLATELET COUNT 222 10^3/UL (140-415); RED BLOOD COUNT 3.25 10^6/ul (4.70-6.10); RED CELL DISTRIBUTION WIDTH 15.9 % (11.5-14.5); WHITE BLOOD COUNT 6.3 10^3/ul (4.8-10.8)
[2016-11-22 07:24] VITALS: BP 129/70; RESP 18
[2016-11-22] MEDS: ALBUTEROL 0.083% (NEB) 2.5 MG/3 ML AMP HHN SCH ×3 (07:39→20:33)
[2016-11-22] MEDS: PANTOPRAZOLE (EC) 40 MG TAB PO SCH (09:02)
[2016-11-22] MEDS: POLYETHYLENE GLYCOL 17 GM PACKET PO SCH (09:02)
[2016-11-22] MEDS: APIXABAN 5 MG TABLET PO SCH ×2 (09:02→20:08)
[2016-11-22] MEDS: SOD CHLORIDE 0.9% 1,000 ML IV SCH ×2 (09:02→21:10)
[2016-11-22] MEDS: DOCUSATE SODIUM 100 MG CAP PO SCH ×2 (09:02→20:07)
[2016-11-22] MEDS: SALMETEROL/FLUTICASONE 250/50 INHA INH SCH ×2 (09:02→20:08)
[2016-11-22] MEDS: MUPIROCIN 2% 22 GM OINT TOP SCH ×2 (09:04→20:08)
--- NOTE | 2016-11-22 14:27 | PN ---
Date/Time of Note Date/Time of Note DATE: 11/22/16 TIME: 14:24 Assessment/Plan VTE Prophylaxis VTE Prophylaxis Intervention: SCD's Lines/Catheters IV Catheter Type (from Nrs): Peripheral IV Urinary Cath still in place: Yes Reason Cath still needed: urinary retention Assessment/Plan Chief Complaint/Hosp Course Assessment and plan: - Urinary retention. Dr. Acosta is following in urology consultation. Continue Flomax. Ipratropium is stopped. Continue Forbes per urology recommendation. - Acute kidney injury on chronic kidney disease secondary to obstructive uropathy, resolved. 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 Continue Bactroban to nares. - Status post right hip ORIF - COPD, continue Advair and Albuterol. -Paroxysmal atrial fibrillation, currently in sinus rhythm, continue Eliquis. Continue PT. Further recommendations based on clinical course. Plan of care discussed with Dr. Anne. Problems: Subjective 24 Hr Interval Summary Free Text/Dictation Patient was able to work with physical therapy, however exhibits low motivation , patient is lethargic, pain medics and dose decreased, continue PT. Exam/Review of Systems Vital Signs Vitals Vital Signs Date Time Temp Pulse Resp B/P Pulse Ox O2 Delivery O2 Flow Rate FiO2 11/22/16 13:10 18 96 Nasal Cannula 2.0 11/22/16 07:40 89 11/22/16 07:24 98.4 129/70 11/19/16 03:33 21 Intake and Output 11/21/16 11/21/16 11/22/16 15:00 23:00 07:00 Intake Total 1050 ml 900 ml 500 ml Output Total 1475 ml Balance 1050 ml -575 ml 500 ml Exam Constitutional: alert, oriented Psych: no complaints Head: atraumatic, normocephalic Eyes: nl conjunctiva ENMT: nl external ears & nose Neck: supple Respiratory: clear to auscultation Cardiovascular: nl pulses, regular rate and rhythm Gastrointestinal: non-tender, soft Genitourinary - Male: nl penis Musculoskeletal: nl extremities to inspection, other (Status post right hip ORIF), range of motion (Decreased) Extremities: normal pulses Neurological: [employer] II-XII intact Results Result Diagram: 11/22/16 0510 11/22/16 0510 Results 24 hrs Laboratory Tests Test 11/22/16 05:10 White Blood Count 6.3 Red Blood Count 3.25 L Hemoglobin 10.1 L Hematocrit 32.5 L Mean Corpuscular Volume 100.0 Mean Corpuscular Hemoglobin 31.1 Mean Corpuscular Hemoglobin Concent 31.1 L Red Cell Distribution Width 15.9 H Platelet Count 222 Mean Platelet Volume 11.0 H Neutrophils % 66.7 Lymphocytes % 17.6 Monocytes % 9.9 Eosinophils % 5.2 Basophils % 0.3 Nucleated Red Blood Cells % 0.0 Neutrophils # 4.2 Lymphocytes # 1.1 Monocytes # 0.6 Eosinophils # 0.3 Basophils # 0.0 Nucleated Red Blood Cells # 0.0 Sodium Level 137 Potassium Level 3.9 Chloride Level 103 Carbon Dioxide Level 32 H Anion Gap 6 L Blood Urea Nitrogen 13 Creatinine 0.56 L Glucose Level 89 Calcium Level 8.5 Medications Medications Current Medications Docusate Sodium (Colace) 100 mg BID PO Last administered on 11/22/16 09:02; Admin Dose 100 MG; Start 11/12/16 at 21:00 Ondansetron HCl (Zofran Tab) 4 mg Q6H PRN PO NAUSEA AND/OR VOMITING; Start at 16:30 Pantoprazole (Protonix Tab) 40 mg DAILY PO Last administered on 11/22/16 09:02 ; Admin Dose 40 MG; Start 11/12/16 at 16:30 Polyethylene Glycol (Miralax) 17 gm DAILY PO Last administered on 11/22/16 09: 02; Admin Dose 17 GM; Start 11/13/16 at 09:00 Salmeterol Xinafoate/ Fluticasone (Advair 250/50 Diskus) 1 inh BID INH Last administered on 11/22/16 09:02; Admin Dose 1 INH; Start 11/12/16 at 17:00 Ondansetron HCl (Zofran Inj) 4 mg Q6 PRN IV NAUSEA AND/OR VOMITING Last administered on 11/12/16 21:13; Admin Dose 4 MG; Start 11/12/16 at 16:30 Acetaminophen (Tylenol Tab) 650 mg Q6H PRN PO PAIN AND OR ELEVATED TEMP Last administered on 11/21/16 21:56; Admin Dose 650 MG; Start 11/12/16 at 23:00 Apixaban 2.5 mg 2.5 mg BID PO Last administered on 11/22/16 09:02; Admin Dose 2.5 MG; Start 11/13/16 at 21:00 Sodium Chloride (NS) 1,000 ml @ 75 mls/hr [id number] IV Last administered on 09:02; Admin Dose 75 MLS/HR; Start 11/13/16 at 10:30 Tamsulosin HCl (Flomax) 0.4 mg HS PO Last administered on 11/21/16 21:56; Admin Dose 0.4 MG; Start 11/13/16 at 21:00 Mupirocin (Bactroban) 1 applic BID TOP Last administered on 11/22/16 09:04; Admin Dose 1 APPLIC; Start 11/16/16 at 21:00 Morphine Sulfate (morphine) 5 mg Q6H PRN PO SEVERE PAIN LEVEL 7-10; Start at 22:30 CONTRERAS DIANA Nov 22, 2016 14:27
[2016-11-22] MEDS: morphine LIQ (10 MG/5 ML) CUP PO PRN (14:52)
--- NOTE | 2016-11-22 17:15 | PN ---
DATE: 11/22/2016 OBJECTIVE: Urinary retention. GENERAL: The patient is awake and he does not respond to questions as he is asked. He tends to be more quiet and noncommunicative. He has to be asked to answer the questions. OBJECTIVE VITAL SIGNS: His temperature is 98.4, the pulse is 89, blood pressure 129/70, respiration 18. ABDOMEN: Forbes catheter is draining clear urine. LABORATORY DATA: CBC shows a white count of 6.3, hemoglobin 10.1, hematocrit 32.5. BUN is 13, crea tinine 0.56. Electrolytes: Sodium 137, potassium 3.9, chloride 103, CO2 of 32. Urine culture no g rowth after 48 hours. The pelvic ultrasound that we did on him showed that the prostate is large an d in fact they measured the prostate about 7.4 cm x 6.6 cm x 6.5 cm and the volume of the prostate w as 165 mL. That makes it very large prostate. So, I explained to the patient that his prostate is l arge and he is not able to urinate even though he has been on tamsulosin and that he may need an ope ration. The other alternatives if he does not urinate and does not want to have any operation is to have the Forbes catheter and then he immediately answered me that he wants to have the Forbes cathete r. Therefore, for the time being, we will continue him on the Forbes catheter and continue him on th e Flomax. Just in case, we will give him another chance to remove the Forbes and see if he does void . Dictated By: BARRY SAM/KEIRY Conf#: [id number] DID#: [id number]
[2016-11-22] MEDS: FINASTERIDE 5 MG TAB PO SCH (17:22)
--- NOTE | 2016-11-22 17:26 | HP ---
DATE OF ADMISSION: 11/12/2016 HISTORY OF PRESENT ILLNESS: Patient is a 71-year-old gentleman. to be brought to the [facility] because of abnormal lab. BUN, creatinine noted to be significantly better in the emergency room. He is alert, oriented. He amount of urine. Admission BUN and creatinine noted to be 53 and 6.0. REVIEW OF SYSTEMS: Noncontributory. No wheezing, no cough, no chest pain or pressure. No , d iarrhea, no rash. PAST MEDICAL HISTORY: AFib, GERD, COPD. PAST SURGICAL HISTORY: ORIF. SOCIAL HISTORY: He smoked in the past. He does not drink alcohol. VITAL SIGNS: Blood pressure is 130/60, temperature 98.9, pulse 90, respirations 18, saturation at _ ____. The patient is LUNGS: No wheeze or crackles. HEART: Normal S1, S2 heard. ABDOMEN: Soft, nontender, nondistended. Bowel sounds positive. EXTREMITIES: No edema or cyanosis. LABORATORY DATA: WBC 6.8, hemoglobin and hematocrit and 38.0, platelets 117. Sodium 130, pot assium 4.9, chloride 97, bicarbonate 34, BUN 33, creatinine 6.0, glucose 108. UA 5.5, WBC . EKG normal sinus rhythm, possibly. IMPRESSION: 1. Acute renal failure. The patient has had retention of urine. Forbes catheter in place. The pat ient maintaining good urine output. Hyperkalemia, likely secondary to her acute renal failure. Con pilloue to monitor closely. Urology has been following the case. the patient is to continue no noliguric. Creatinine has stabilized. Baseline is not known. Dictated By: ZHANNA LOZOYA/KEIRY Conf#: [id number] DID#: [id number]
[2016-11-22] MEDS: TAMSULOSIN (SR) 0.4 MG CAP PO SCH (20:07)
[2016-11-22] MEDS: ACETAMINOPHEN 325 MG TAB PO PRN (20:07)
[2016-11-22] MEDS: DOXAZOSIN 2 MG TAB PO SCH (20:10)
[2016-11-22 20:49] VITALS: BP 114/63; RESP 19
[2016-11-23] MEDS: morphine LIQ (10 MG/5 ML) CUP PO PRN ×4 (01:21→20:42)
[2016-11-23] MEDS: SOD CHLORIDE 0.9% 1,000 ML IV SCH ×3 (03:00→17:09)
[2016-11-23] MEDS: ACETAMINOPHEN 325 MG TAB PO PRN (06:08)
[2016-11-23 07:21] VITALS: BP 115/69; RESP 16
[2016-11-23] MEDS: ALBUTEROL 0.083% (NEB) 2.5 MG/3 ML AMP HHN SCH ×3 (08:26→20:00)
[2016-11-23] MEDS: PANTOPRAZOLE (EC) 40 MG TAB PO SCH (09:35)
[2016-11-23] MEDS: DOCUSATE SODIUM 100 MG CAP PO SCH ×2 (09:35→20:40)
[2016-11-23] MEDS: FINASTERIDE 5 MG TAB PO SCH (09:35)
[2016-11-23] MEDS: MUPIROCIN 2% 22 GM OINT TOP SCH ×2 (09:35→20:40)
[2016-11-23] MEDS: DOXAZOSIN 2 MG TAB PO SCH ×2 (09:36→20:42)
[2016-11-23] MEDS: POLYETHYLENE GLYCOL 17 GM PACKET PO SCH (09:36)
[2016-11-23] MEDS: APIXABAN 5 MG TABLET PO SCH ×2 (09:36→20:42)
[2016-11-23] MEDS: SALMETEROL/FLUTICASONE 250/50 INHA INH SCH ×2 (09:37→20:40)
--- NOTE | 2016-11-23 13:25 | PN ---
DATE: 11/23/2016 SUBJECTIVE: Urinary retention. The patient himself does not complain of any pain. He states, macias meghan, that he is hurting all over his body and he is sleeping most of the time. Every time I come to see him he is sleeping and it takes some time to wake him up and when he is asked questions, it wali es him a long time to answer the questions. OBJECTIVE: VITAL SIGNS: Temperature is 98.0. The blood pressure 115/69, pulse is 79. The respiration is 18. ABDOMEN: Soft. The Forbes catheter that he has is draining clear urine. LABORATORY DATA: His last CBC shows a white count of 6.3, hemoglobin 10.1, hematocrit 32.5. The BU N is 13, creatinine 0.56. Urine culture no growth after 48 hours. The patient did have a pelvic ul trasound to measure the prostate and the prostate was very large and it measures 7.4 x 6.6 x 6.5 cm. I have discussed with the patient before if he cannot urinate and considering doing any surgery, h e decided not to and he wants to have the Forbes catheter. Dictated By: BARRY SAM/KEIRY Conf#: [id number] DID#: [id number]
--- NOTE | 2016-11-23 17:08 | PN ---
Date/Time of Note Date/Time of Note DATE: 11/23/16 TIME: 17:06 Assessment/Plan VTE Prophylaxis VTE Prophylaxis Intervention: SCD's Lines/Catheters [facility] Peripheral IV Urinary Cath still in place: Yes Reason Cath still needed: urinary retention Assessment/Plan Chief Complaint/Hosp Course Assessment and plan: - Urinary retention. Dr. Acosta is following in urology consultation. Continue Flomax. Ipratropium is stopped. Continue Forbes per urology recommendation. - Acute kidney injury on chronic kidney disease secondary to obstructive uropathy, resolved. 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 Continue Bactroban to nares. - Status post right hip ORIF - COPD, continue Advair and Albuterol. -Paroxysmal atrial fibrillation, currently in sinus rhythm, continue Eliquis. Continue PT. Anticipate discharge to intermediate facility with Forbes catheter upon bed availability. Further recommendations based on clinical course. Plan of care discussed with Dr. Anne. Problems: Subjective 24 Hr Interval Summary Free Text/Dictation Patient is afebrile, no nausea vomiting, good output via Forbes catheter. Exam/Review of Systems Vital Signs Vitals Vital Signs Date Time Temp Pulse Resp B/P Pulse Ox O2 Delivery O2 Flow Rate FiO2 11/23/16 13:41 84 18 Nasal Cannula 2.0 28 11/23/16 08:26 99 11/23/16 07:21 98.0 115/69 Intake and Output 11/22/16 11/22/16 11/23/16 15:00 23:00 07:00 Intake Total 800 ml 725 ml Output Total 1700 ml Balance 800 ml -975 ml Exam Constitutional: alert, oriented Psych: no complaints Head: atraumatic, normocephalic Eyes: nl conjunctiva ENMT: nl external ears & nose Neck: supple Respiratory: clear to auscultation Cardiovascular: nl pulses, regular rate and rhythm Gastrointestinal: non-tender, soft Genitourinary - Male: nl penis Musculoskeletal: nl extremities to inspection, other (Status post right hip ORIF), range of motion (Decreased) Extremities: normal pulses 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 Results Result Diagram: 11/22/16 0510 11/22/16 0510 Medications Medications Current Medications Docusate Sodium (Colace) 100 mg BID PO Last administered on 11/23/16 09:35; Admin Dose 100 MG; Start 11/12/16 at 21:00 Ondansetron HCl (Zofran Tab) 4 mg Q6H PRN PO NAUSEA AND/OR VOMITING; Start at 16:30 Pantoprazole (Protonix Tab) 40 mg DAILY PO Last administered on 11/23/16 09:35 ; Admin Dose 40 MG; Start 11/12/16 at 16:30 Polyethylene Glycol (Miralax) 17 gm DAILY PO Last administered on 11/23/16 09: 36; Admin Dose 17 GM; Start 11/13/16 at 09:00 Salmeterol Xinafoate/ Fluticasone (Advair 250/50 Diskus) 1 inh BID INH Last administered on 11/23/16 09:37; Admin Dose 1 INH; Start 11/12/16 at 17:00 Ondansetron HCl (Zofran Inj) 4 mg Q6 PRN IV NAUSEA AND/OR VOMITING Last administered on 11/12/16 21:13; Admin Dose 4 MG; Start 11/12/16 at 16:30 Acetaminophen (Tylenol Tab) 650 mg Q6H PRN PO PAIN AND OR ELEVATED TEMP Last administered on 11/23/16 06:08; Admin Dose 650 MG; Start 11/12/16 at 23:00 Apixaban 2.5 mg 2.5 mg BID PO Last administered on 11/23/16 09:36; Admin Dose 2.5 MG; Start 11/13/16 at 21:00 Sodium Chloride (NS) 1,000 ml @ 75 mls/hr [id number] IV Last administered on 03:00; Admin Dose 75 MLS/HR; Start 11/13/16 at 10:30 Tamsulosin HCl (Flomax) 0.4 mg HS PO Last administered on 11/22/16 20:07; Admin Dose 0.4 MG; Start 11/13/16 at 21:00 Mupirocin (Bactroban) 1 applic BID TOP Last administered on 11/23/16 09:35; Admin Dose 1 APPLIC; Start 11/16/16 at 21:00 Morphine Sulfate (morphine) 5 mg Q6H PRN PO SEVERE PAIN LEVEL 7-10 Last administered on 11/23/16 14:11; Admin Dose 5 MG; Start 11/21/16 at 22:30 Finasteride (Proscar) 5 mg DAILY PO Last administered on 11/23/16 09:35; Admin Dose 5 MG; Start 11/22/16 at 16:30 Doxazosin Mesylate (Cardura) 2 mg BID PO Last administered on 11/23/16 09:36; Admin Dose 2 MG; Start 11/22/16 at 21:00 CONTRERAS DIANA Nov 23, 2016 17:08
[2016-11-23 19:00] VITALS: BP 122/60; RESP 20
[2016-11-23] MEDS: TAMSULOSIN (SR) 0.4 MG CAP PO SCH (20:40)
[2016-11-23 20:43] VITALS: BP 115/64; PULSE 75; RESP 18
[2016-11-24] MEDS: morphine LIQ (10 MG/5 ML) CUP PO PRN ×3 (03:36→21:41)
[2016-11-24] MEDS: ACETAMINOPHEN 325 MG TAB PO PRN (05:49)
[2016-11-24] MEDS: SOD CHLORIDE 0.9% 1,000 ML IV SCH ×3 (05:49→18:53)
[2016-11-24 07:18] VITALS: BP 112/69; RESP 20
[2016-11-24] MEDS: ALBUTEROL 0.083% (NEB) 2.5 MG/3 ML AMP HHN SCH ×3 (08:21→19:35)
--- NOTE | 2016-11-24 08:52 | PN ---
DATE: 11/24/2016 SUBJECTIVE: Urinary retention. The patient is again sleeping most of the time, and he does respond to questions, but I could not understand what he says many times. OBJECTIVE VITAL SIGNS: His temperature is 98.5, blood pressure 112/69, pulse is 71, respirations 20. ABDOMEN: Soft. The Forbes catheter is draining clear urine. LABORATORY DATA: BUN is 13, creatinine 0.56. The urine culture has been negative. IMPRESSION: Urinary retention. The patient does have a large prostate; however, once I talked to h im before. I told him the options of even trying to do a surgery on him and see if he could urinate after that or having a Forbes catheter, he said he wants to have the Forbes catheter, and I am not [place] re even if we do a surgery on him, he has a very large prostate, and even if we take care of that, i t appears that he sleepy and I am not sure whether he will be able to urinate even after surgery. T herefore, the recommendation at the present is to keep the Forbes catheter in and change it as neede d or at least once a month. Dictated By: BARRY SAM/KEIRY Conf#: [id number] DID#: [id number]
[2016-11-24] MEDS: DOCUSATE SODIUM 100 MG CAP PO SCH ×2 (09:24→21:40)
[2016-11-24] MEDS: MUPIROCIN 2% 22 GM OINT TOP SCH ×2 (09:24→21:38)
[2016-11-24] MEDS: PANTOPRAZOLE (EC) 40 MG TAB PO SCH (09:24)
[2016-11-24] MEDS: APIXABAN 5 MG TABLET PO SCH ×2 (09:24→21:39)
[2016-11-24] MEDS: FINASTERIDE 5 MG TAB PO SCH (09:24)
[2016-11-24] MEDS: SALMETEROL/FLUTICASONE 250/50 INHA INH SCH ×2 (09:24→21:38)
[2016-11-24] MEDS: POLYETHYLENE GLYCOL 17 GM PACKET PO SCH (09:25)
[2016-11-24] MEDS: DOXAZOSIN 2 MG TAB PO SCH ×2 (09:25→21:39)
--- NOTE | 2016-11-24 13:25 | DS ---
Date/Time of Note Date/Time of Note DATE: 11/24/16 TIME: 13:24 Discharge Summary Admission/Discharge Info Admit Date/Time Nov 12, 2016 at 12:46 Discharge Date/Time Patient Condition: Stable Hx of Present Illness HPI Patient is a 71-year-old man with COPD sent from [facility] by Dr. Anne due to labs showing renal insufficiency performed yesterday. Patient denies any symptoms. States that he has been eating and drinking well, no dizziness, normal urine output, no weakness. Labs showed a creatinine of 5.6, with a potassium of 5.4. No fevers, shortness of breath, chest pain, vomiting, diarrhea. ROS All systems reviewed and are negative except as per history of present illness. Allergies Allergies: Coded Allergies: No Known Allergy (Unverified , 11/12/16) Hospital Course Assessment and plan: - Urinary retention. Dr. Acosta is following in urology consultation. Continue Flomax. Ipratropium is stopped. Continue Forbes per urology recommendation. - Acute kidney injury on chronic kidney disease secondary to obstructive uropathy, resolved. 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 Continue Bactroban to nares. - Status post right hip ORIF - COPD, continue Advair and Albuterol. -Paroxysmal atrial fibrillation, currently in sinus rhythm, continue Eliquis. Continue PT. Anticipate discharge to senior care facility with Forbes catheter upon bed availability. Further recommendations based on clinical course. Plan of care discussed with Dr. Anne. Home Meds Reported Medications Ondansetron Hcl* (Zofran*) 4 Mg Tab, 4 MG PO Q6H Y for NAUSEA AND OR VOMITING, TAB 11/12/16 Albuterol Sulfate* (Ventolin HFA*) 18 Gm Hfa.aer.ad, 2 PUFF INHALATION Q4H, #1 INHALER 11/12/16 Pantoprazole* (Protonix*) 40 Mg Tablet.dr, 40 MG PO DAILY, TAB 11/12/16 Morphine Sulfate* (Ms Contin*) 15 Mg Tablet.sa, 15 MG PO Q4H PRN Y for SEVERE PAIN LEVEL 7-10, TAB.SA 11/12/16 Polyethylene Glycol* (Miralax*) 17 Gm Powd.pack, 17 GM PO DAILY, #30 PACKET 11/12/16 Ipratropium-Albuterol (Ipratropium-Albuterol) 0.5-3 Mg/3 Ml Ampul.neb, 3 ML INHALATION Q6, #30 VIAL 11/12/16 Docusate Sodium* (Docusate Sodium*) 100 Mg Capsule, 100 MG PO BID, #60 CAP 11/12/16 Apixaban* (Eliquis*) 5 Mg Tablet, 10 MG PO BID, TAB 11/12/16 Salmeterol Xinaf/Fluticasone* (Advair*) 250-50 Diskus Inhaler, 1 INH INHALATION BID, #1 INHALER 11/12/16 Acetaminophen* (Acetaminophen*) 650 Mg Tablet, 650 MG PO Q6H Y for PAIN AND OR ELEVATED TEMP, #30 TAB 11/12/16 CHERI DURAN Nov 24, 2016 13:25
[2016-11-24 20:20] VITALS: BP 108/61; RESP 20
[2016-11-24] MEDS: TAMSULOSIN (SR) 0.4 MG CAP PO SCH (21:40)
[2016-11-25] MEDS: morphine LIQ (10 MG/5 ML) CUP PO PRN ×3 (03:03→21:50)
[2016-11-25] MEDS: ALBUTEROL 0.083% (NEB) 2.5 MG/3 ML AMP HHN SCH ×3 (07:36→20:30)
[2016-11-25 08:50] VITALS: BP 104/59; RESP 16
[2016-11-25] MEDS: SOD CHLORIDE 0.9% 1,000 ML IV SCH ×2 (10:25→23:32)
[2016-11-25] MEDS: SALMETEROL/FLUTICASONE 250/50 INHA INH SCH ×2 (10:27→21:49)
[2016-11-25] MEDS: POLYETHYLENE GLYCOL 17 GM PACKET PO SCH (10:28)
[2016-11-25] MEDS: PANTOPRAZOLE (EC) 40 MG TAB PO SCH (10:28)
[2016-11-25] MEDS: APIXABAN 5 MG TABLET PO SCH ×2 (10:28→21:49)
[2016-11-25] MEDS: MUPIROCIN 2% 22 GM OINT TOP SCH ×2 (10:29→21:49)
[2016-11-25] MEDS: DOCUSATE SODIUM 100 MG CAP PO SCH ×2 (10:29→21:49)
[2016-11-25] MEDS: FINASTERIDE 5 MG TAB PO SCH (10:29)
[2016-11-25] MEDS: DOXAZOSIN 2 MG TAB PO SCH ×2 (10:30→21:00)
--- NOTE | 2016-11-25 16:11 | PN ---
Date/Time of Note Date/Time of Note DATE: 11/25/16 TIME: 16:10 Assessment/Plan VTE Prophylaxis VTE Prophylaxis Intervention: SCD's Lines/Catheters [facility] ([facility] Peripheral IV Urinary Cath still in place: Yes Reason Cath still needed: urinary retention Assessment/Plan Chief Complaint/Hosp Course Assessment and plan: - Urinary retention. Dr. Acosta is following in urology consultation. Continue Flomax. Ipratropium is stopped. Continue Forbes per urology recommendation. - Acute kidney injury on chronic kidney disease secondary to obstructive uropathy, resolved. 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 Continue Bactroban to nares. - Status post right hip ORIF - COPD, continue Advair and Albuterol. -Paroxysmal atrial fibrillation, currently in sinus rhythm, continue Eliquis. Continue PT. Anticipate [facility] to [facility] facility with Forbes catheter upon bed availability. Further recommendations based on clinical course. Plan of care discussed with Dr. Anne. Problems: Subjective 24 Hr Interval Summary Free Text/Dictation Patient remains hemodynamically stable, no acute events overnight. Exam/Review of Systems Vital Signs Vitals Vital Signs Date Time Temp Pulse Resp B/P Pulse Ox O2 Delivery O2 Flow Rate FiO2 11/25/16 15:27 2.0 11/25/16 15:06 82 20 96 Nasal Cannula 28 11/25/16 08:50 98.8 104/59 Intake and Output 11/24/16 11/24/16 11/25/16 14:59 22:59 06:59 Intake Total 1720 ml 1110 ml Output Total 1000 ml 2000 ml Balance 720 ml -890 ml Exam Constitutional: alert, oriented Psych: no complaints Head: atraumatic, normocephalic Eyes: nl conjunctiva ENMT: nl external ears & nose Neck: supple Respiratory: clear to auscultation Cardiovascular: nl pulses, regular rate and rhythm Gastrointestinal: non-tender, soft Genitourinary - Male: nl penis Musculoskeletal: nl extremities to inspection, other (Status post right hip ORIF), range of motion (Decreased) Extremities: normal pulses 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 Results Result Diagram: 11/22/16 0510 11/22/16 05 Medications Medications Current Medications Docusate Sodium (Colace) 100 mg BID PO Last administered on 11/25/16t 10:29; Admin Dose 100 MG; Start 3/25/17 at 21:00 Ondansetron HCl (Zofran Tab) 4 mg Q6H PRN PO NAUSEA AND/OR VOMITING; Start at 16:30 Pantoprazole (Protonix Tab) 40 mg DAILY PO Last administered on 11/25/16 10:28 ; Admin Dose 40 MG; Start 11/12/16 at 16:30 Polyethylene Glycol (Miralax) 17 gm DAILY PO Last administered on 11/25/16 10: 28; Admin Dose 17 GM; Start 11/13/16 at 09:00 Salmeterol Xinafoate/ Fluticasone (Advair 250/50 Diskus) 1 inh BID INH Last administered on 11/25/16 10:27; Admin Dose 1 INH; Start 11/12/16 at 17:00 Ondansetron HCl (Zofran Inj) 4 mg Q6 PRN IV NAUSEA AND/OR VOMITING Last administered on 11/12/16 21:13; Admin Dose 4 MG; Start 11/12/16 at 16:30 Acetaminophen (Tylenol Tab) 650 mg Q6H PRN PO PAIN AND OR ELEVATED TEMP Last administered on 11/23/16 06:08; Admin Dose 650 MG; Start 11/12/16 at 23:00 Apixaban 2.5 mg 2.5 mg BID PO Last administered on 11/25/16 10:28; Admin Dose 2.5 MG; Start 11/13/16 at 21:00 Sodium Chloride (NS) 1,000 ml @ 75 mls/hr [id number] IV Last administered on 10:25; Admin Dose 75 MLS/HR; Start 11/13/16 at 10:30 Tamsulosin HCl (Flomax) 0.4 mg HS PO Last administered on 11/24/16 21:40; Admin Dose 0.4 MG; Start 11/13/16 at 21:00 Mupirocin (Bactroban) 1 applic BID TOP Last administered on 11/25/16 10:29; Admin Dose 1 APPLIC; Start 11/16/16 at 21:00 Morphine Sulfate (morphine) 5 mg Q6H PRN PO SEVERE PAIN LEVEL 7-10 Last administered on 11/25/16 14:18; Admin Dose 5 MG; Start 11/21/16 at 22:30 Finasteride (Proscar) 5 mg DAILY PO Last administered on 11/25/16 10:29; Admin Dose 5 MG; Start 11/22/16 at 16:30 Doxazosin Mesylate (Cardura) 2 mg BID PO Last administered on 11/24/16 21:39; Admin Dose 2 MG; Start 11/22/16 at 21:00 CONTRERAS DIANA Nov 25, 2016 16:11
[2016-11-25 20:06] VITALS: BP 105/62; RESP 20
[2016-11-25] MEDS: TAMSULOSIN (SR) 0.4 MG CAP PO SCH (21:00)
--- NOTE | 2016-11-26 04:39 | PN ---
DATE: 11/25/2016 SUBJECTIVE: This patient has urinary retention and he is comfortable. He does sleep most of the dorothy e. OBJECTIVE: VITAL SIGNS: Show a temperature of 98.8. The blood pressure is 104/59, respirations 20, pulse is 8 2. ABDOMEN: Soft. The Forbes catheter is draining clear urine. LABORATORY DATA: His last CBC shows a white count of 6.3, hemoglobin 10.1, hematocrit 32.5. BUN is 13, creatinine 0.56. Urine culture: No growth after 48 hours. IMPRESSION: Urinary retention. PLAN: To keep the Forbes catheter in and the patient is going to a [facility]. He could go with th e Forbes catheter and one could remove the catheter later on for another trial of spontaneous voiding . Dictated By: BARRY SAM/KEIRY Conf#: [id number] DID#: [id number]
[2016-11-26] MEDS: SOD CHLORIDE 0.9% 1,000 ML IV SCH ×3 (05:10→18:30)
[2016-11-26 05:27] LABS: ADD SCAN DIFF NO; BASOPHILS % 0.5 % (0.0-2.0); EOSINOPHILS # 0.5 10^3/ul (0.0-0.5); EOSINOPHILS % 10.7 % (0.0-7.0); HEMATOCRIT 32.9 % (42.0-52.0); HEMOGLOBIN 10.1 g/dl (14.0-18.0); LYMPHOCYTES # 1.1 10^3/ul (0.8-2.9); LYMPHOCYTES % 24.9 % (15.0-51.0); MEAN CORPUSCULAR HEMOGLOBIN 31.8 pg (29.0-33.0); MEAN CORPUSCULAR HGB CONC 30.7 g/dl (32.0-37.0); MEAN CORPUSCULAR VOLUME 103.5 fl (82.0-101.0); MEAN PLATELET VOLUME 10.2 fl (7.4-10.4); MONOCYTE # 0.5 10^3/ul (0.3-0.9); MONOCYTES % 12.4 % (0.0-11.0); NEUTROPHIL # 2.2 10^3/ul (1.6-7.5); NEUTROPHILS % 51.3 % (39.0-77.0); PLATELET COUNT 165 10^3/UL (140-415); RED BLOOD COUNT 3.18 10^6/ul (4.70-6.10); RED CELL DISTRIBUTION WIDTH 15.9 % (11.5-14.5); WHITE BLOOD COUNT 4.3 10^3/ul (4.8-10.8)
[2016-11-26 05:50] LABS: CALCIUM 8.2 mg/dl (8.4-10.2); CREATININE 0.53 mg/dl (0.61-1.24); POTASSIUM 3.9 mmol/L (3.5-5.1)
[2016-11-26 08:06] VITALS: BP 108/55; RESP 18
[2016-11-26] MEDS: ALBUTEROL 0.083% (NEB) 2.5 MG/3 ML AMP HHN SCH ×3 (09:17→19:51)
[2016-11-26] MEDS: PANTOPRAZOLE (EC) 40 MG TAB PO SCH (09:26)
[2016-11-26] MEDS: FINASTERIDE 5 MG TAB PO SCH (09:26)
[2016-11-26] MEDS: DOCUSATE SODIUM 100 MG CAP PO SCH ×2 (09:27→21:49)
[2016-11-26] MEDS: DOXAZOSIN 2 MG TAB PO SCH ×2 (09:28→21:50)
[2016-11-26] MEDS: POLYETHYLENE GLYCOL 17 GM PACKET PO SCH (09:28)
[2016-11-26] MEDS: APIXABAN 5 MG TABLET PO SCH ×2 (09:28→21:50)
[2016-11-26] MEDS: SALMETEROL/FLUTICASONE 250/50 INHA INH SCH ×2 (09:29→21:50)
[2016-11-26] MEDS: MUPIROCIN 2% 22 GM OINT TOP SCH ×2 (09:29→21:50)
[2016-11-26 09:33] VITALS: BP 114/55; PULSE 74
--- NOTE | 2016-11-26 09:42 | PN ---
Date/Time of Note Date/Time of Note DATE: 11/26/16 TIME: 09:41 Assessment/Plan VTE Prophylaxis VTE Prophylaxis Intervention: other Lines/Catheters IV Catheter Type ([facility] Peripheral IV Urinary Cath still in place: Yes Assessment/Plan Assessment/Plan - Urinary retention. Dr. Acosta is following in urology consultation. Continue Flomax. Ipratropium is stopped. Continue Forbes per urology recommendation. - Acute kidney injury on chronic kidney disease secondary to obstructive uropathy, resolved. 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 Continue Bactroban to nares. - Status post right hip ORIF - COPD, continue Advair and Albuterol. -Paroxysmal atrial fibrillation, currently in sinus rhythm, continue Eliquis. -Continue PT. Anticipate discharge to shelter facility with Forbes catheter upon bed availability.Further recommendations based on clinical course. Plan of care discussed with Dr. Anne. Subjective 24 Hr Interval Summary Free Text/Dictation NAD. resting in bed, seems comfortable, dw staff. Eyes: no complaints ENT: no complaints Respiratory: no complaints Exam/Review of Systems Vital Signs Vitals Vital Signs Date Time Temp Pulse Resp B/P Pulse Ox O2 Delivery O2 Flow Rate FiO2 11/26/16 09:33 74 114/55 11/26/16 09:17 18 95 Nasal Cannula 1.0 11/26/16 08:06 98.1 11/25/16 20:32 28 Intake and Output 11/25/16 11/25/16 11/26/16 15:00 23:00 07:00 Intake Total 750 ml 2105 ml 1255 ml Output Total 1650 ml 1000 ml Balance 750 ml 455 ml 255 ml Exam Constitutional: alert, well developed Psych: nl mood/affect Eyes: EOMI, PERRL, nl sclera ENMT: nl external ears & nose Neck: non-tender Respiratory: clear to auscultation Cardiovascular: nl pulses Gastrointestinal: non-tender, soft Musculoskeletal: nl extremities to inspection Extremities: normal pulses Neurological: confused, nl speech Skin: other Results Result Diagram: 11/26/16 0453 11/26/16 0453 Results 24 hrs Laboratory Tests Test 11/26/16 04:53 White Blood Count 4.3 #L Red Blood Count 3.18 L Hemoglobin 10.1 L Hematocrit 32.9 L Mean Corpuscular Volume 103.5 H Mean Corpuscular Hemoglobin 31.8 Mean Corpuscular Hemoglobin Concent 30.7 L Red Cell Distribution Width 15.9 H Platelet Count 165 # Mean Platelet Volume 10.2 Neutrophils % 51.3 Lymphocytes % 24.9 Monocytes % 12.4 H Eosinophils % 10.7 H Basophils % 0.5 Nucleated Red Blood Cells % 0.0 Neutrophils # 2.2 Lymphocytes # 1.1 Monocytes # 0.5 Eosinophils # 0.5 Basophils # 0.0 Nucleated Red Blood Cells # 0.0 Sodium Level 136 Potassium Level 3.9 Chloride Level 103 Carbon Dioxide Level 32 H Anion Gap 5 L Blood Urea Nitrogen 12 Creatinine 0.53 L Glucose Level 95 Calcium Level 8.2 L Medications Medications Current Medications Docusate Sodium (Colace) 100 mg BID PO Last administered on 11/26/16 09:27; Admin Dose 100 MG; Start 11/12/16 at 21:00 Ondansetron HCl (Zofran Tab) 4 mg Q6H PRN PO NAUSEA AND/OR VOMITING; Start at 16:30 Pantoprazole (Protonix Tab) 40 mg DAILY PO Last administered on 11/26/16 09:26 ; Admin Dose 40 MG; Start 11/12/16 at 16:30 Polyethylene Glycol (Miralax) 17 gm DAILY PO Last administered on 11/26/16 09: 28; Admin Dose 17 GM; Start 11/13/16 at 09:00 Salmeterol Xinafoate/ Fluticasone (Advair 250/50 Diskus) 1 inh BID INH Last administered on 11/26/16 09:29; Admin Dose 1 INH; Start 11/12/16 at 17:00 Ondansetron HCl (Zofran Inj) 4 mg Q6 PRN IV NAUSEA AND/OR VOMITING Last administered on 11/12/16 21:13; Admin Dose 4 MG; Start 11/12/16 at 16:30 Acetaminophen (Tylenol Tab) 650 mg Q6H PRN PO PAIN AND OR ELEVATED TEMP Last administered on 11/23/16 06:08; Admin Dose 650 MG; Start 11/12/16 at 23:00 Apixaban 2.5 mg 2.5 mg BID PO Last administered on 11/26/16 09:28; Admin Dose 2.5 MG; Start 11/13/16 at 21:00 Sodium Chloride (NS) 1,000 ml @ 75 mls/hr [id number] IV Last administered on 23:32; Admin Dose 75 MLS/HR; Start 11/13/16 at 10:30 Tamsulosin HCl (Flomax) 0.4 mg HS PO Last administered on 11/24/16 21:40; Admin Dose 0.4 MG; Start 11/13/16 at 21:00 Mupirocin (Bactroban) 1 applic BID TOP Last administered on 11/26/16 09:29; Admin Dose 1 APPLIC; Start 11/16/16 at 21:00 Morphine Sulfate (morphine) 5 mg Q6H PRN PO SEVERE PAIN LEVEL 7-10 Last administered on 11/25/16 21:50; Admin Dose 5 MG; Start 11/21/16 at 22:30 Finasteride (Proscar) 5 mg DAILY PO Last administered on 11/26/16 09:26; Admin Dose 5 MG; Start 11/22/16 at 16:30 Doxazosin Mesylate (Cardura) 2 mg BID PO Last administered on 11/26/16 09:28; Admin Dose 2 MG; Start 11/22/16 at 21:00 CHERI DURAN Nov 26, 2016 09:42
--- NOTE | 2016-11-26 15:48 | PN ---
DATE: 11/26/2016 SUBJECTIVE: Urinary retention. HISTORY OF PRESENT ILLNESS: The patient is status post hip surgery. He does have hip pain and he do es not move out of the bed and he does not even move in the bed, and most of the time he is sleeping . He does have urinary retention and prior attempts to remove the Forbes catheter were not successfu l. He does have also an enlarged prostate. OBJECTIVE: VITAL SIGNS: His temperature is 98.1, pulse is 89, respirations 20, blood pressure 114/55. ABDOMEN: Soft. The Forbes catheter he has is draining clear urine. LABORATORY DATA: His CBC shows a white count of 4.3, hemoglobin 10.1, hematocrit 32.9. The BUN is 12, creatinine 0.53. The patient did have a pelvic ultrasound and that showed that the prostate is large, measuring about 7.4 x 6.6 x 6.5 cm, and that is a pretty large sized prostate. IMPRESSION: 1. Urinary retention. 2. Benign prostatic hypertrophy with obstruction. RECOMMENDATION: Keep the Forbes catheter in and change it as needed, or at least once a month. Dictated By: BARRY SAM/KEIRY Conf#: [id number] DID#: [id number]
[2016-11-26] MEDS: morphine LIQ (10 MG/5 ML) CUP PO PRN (17:03)
[2016-11-26] MEDS: ACETAMINOPHEN 325 MG TAB PO PRN (19:38)
[2016-11-26 19:45] VITALS: BP 109/64; RESP 16
[2016-11-26] MEDS: TAMSULOSIN (SR) 0.4 MG CAP PO SCH (21:49)
[2016-11-27] MEDS: SOD CHLORIDE 0.9% 1,000 ML IV SCH ×4 (02:53→21:10)
[2016-11-27 05:31] LABS: ADD SCAN DIFF NO; BASOPHILS % 0.5 % (0.0-2.0); EOSINOPHILS # 0.5 10^3/ul (0.0-0.5); EOSINOPHILS % 11.2 % (0.0-7.0); HEMATOCRIT 32.3 % (42.0-52.0); HEMOGLOBIN 10.1 g/dl (14.0-18.0); LYMPHOCYTES # 1.2 10^3/ul (0.8-2.9); LYMPHOCYTES % 29.3 % (15.0-51.0); MEAN CORPUSCULAR HEMOGLOBIN 31.8 pg (29.0-33.0); MEAN CORPUSCULAR HGB CONC 31.3 g/dl (32.0-37.0); MEAN CORPUSCULAR VOLUME 101.6 fl (82.0-101.0); MEAN PLATELET VOLUME 10.5 fl (7.4-10.4); MONOCYTE # 0.5 10^3/ul (0.3-0.9); MONOCYTES % 11.2 % (0.0-11.0); NEUTROPHIL # 1.9 10^3/ul (1.6-7.5); NEUTROPHILS % 47.6 % (39.0-77.0); PLATELET COUNT 164 10^3/UL (140-415); RED BLOOD COUNT 3.18 10^6/ul (4.70-6.10); RED CELL DISTRIBUTION WIDTH 15.9 % (11.5-14.5)
[2016-11-27 05:52] LABS: POTASSIUM 3.6 mmol/L (3.5-5.1)
[2016-11-27 05:55] LABS: CREATININE 0.53 mg/dl (0.61-1.24)
[2016-11-27 05:56] LABS: CALCIUM 8.6 mg/dl (8.4-10.2)
[2016-11-27] MEDS: morphine LIQ (10 MG/5 ML) CUP PO PRN ×2 (05:56→20:49)
[2016-11-27 08:20] VITALS: BP 113/68; RESP 20
[2016-11-27] MEDS: PANTOPRAZOLE (EC) 40 MG TAB PO SCH (08:51)
[2016-11-27] MEDS: FINASTERIDE 5 MG TAB PO SCH (08:51)
[2016-11-27] MEDS: DOCUSATE SODIUM 100 MG CAP PO SCH ×2 (08:52→20:48)
[2016-11-27] MEDS: DOXAZOSIN 2 MG TAB PO SCH ×2 (08:52→20:48)
[2016-11-27] MEDS: POLYETHYLENE GLYCOL 17 GM PACKET PO SCH (08:53)
[2016-11-27] MEDS: APIXABAN 5 MG TABLET PO SCH ×2 (08:53→20:49)
[2016-11-27] MEDS: SALMETEROL/FLUTICASONE 250/50 INHA INH SCH ×2 (08:54→20:49)
[2016-11-27] MEDS: MUPIROCIN 2% 22 GM OINT TOP SCH ×2 (08:54→20:49)
[2016-11-27 09:00] VITALS: BP 108/66; PULSE 91
[2016-11-27] MEDS: ALBUTEROL 0.083% (NEB) 2.5 MG/3 ML AMP HHN SCH ×3 (09:49→19:44)
--- NOTE | 2016-11-27 12:06 | PN ---
Date/Time of Note Date/Time of Note DATE: 11/27/16 TIME: 11:57 Assessment/Plan VTE Prophylaxis VTE Prophylaxis Intervention: other Lines/Catheters IV Catheter Type (from [facility]): Peripheral IV Urinary Cath still in place: Yes Assessment/Plan Assessment/Plan - Urinary retention. Dr. Acosta is following in urology consultation. Continue Flomax. Ipratropium is stopped. Continue Forbes per urology recommendation. - Acute kidney injury on chronic kidney disease secondary to obstructive uropathy, resolved. 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 Continue Bactroban to nares. - Status post right hip ORIF - COPD, continue Advair and Albuterol. -Paroxysmal atrial fibrillation, currently in sinus rhythm, continue Eliquis. -Continue PT. - DTI right heel - Wound care Anticipate discharge to long-term facility with Forbes catheter upon bed availability.Further recommendations based on clinical course. Plan of care discussed with Dr. Anne. Subjective 24 Hr Interval Summary Free Text/Dictation nad, awake- follows simple commands, afebrile. dw staff, Placement. dw staff Eyes: no complaints ENT: no complaints Respiratory: no complaints Cardiovascular: no complaints Gastrointestinal: no complaints Genitourinary: no complaints Musculoskeletal: no complaints Skin: no complaints Neurologic: no complaints Exam/Review of Systems Vital Signs Vitals Vital Signs Date Time Temp Pulse Resp B/P Pulse Ox O2 Delivery O2 Flow Rate FiO2 11/27/16 09:50 88 20 96 Nasal Cannula 2.0 11/27/16 09:00 108/66 11/27/16 08:20 98.3 11/25/16 20:32 28 Intake and Output 11/26/16 11/26/16 11/27/16 15:00 23:00 07:00 Intake Total 580 ml 1300 ml 1270 ml Output Total 2600 ml 1200 ml Balance 580 ml -1300 ml 70 ml Exam Constitutional: alert, well developed Psych: nl mood/affect Eyes: EOMI ENMT: nl external ears & nose Neck: non-tender Respiratory: clear to auscultation Cardiovascular: nl pulses Gastrointestinal: non-tender, soft Musculoskeletal: muscle weakness Neurological: confused, nl speech Skin: other (DTI- right heel) Lymph: nontender Results Result Diagram: 11/27/16 0450 11/27/16 0450 Results 24 hrs Laboratory Tests Test 11/27/16 04:50 White Blood Count 4.0 L Red Blood Count 3.18 L Hemoglobin 10.1 L Hematocrit 32.3 L Mean Corpuscular Volume 101.6 H Mean Corpuscular Hemoglobin 31.8 Mean Corpuscular Hemoglobin Concent 31.3 L Red Cell Distribution Width 15.9 H Platelet Count 164 Mean Platelet Volume 10.5 H Neutrophils % 47.6 Lymphocytes % 29.3 Monocytes % 11.2 H Eosinophils % 11.2 H Basophils % 0.5 Nucleated Red Blood Cells % 0.0 Neutrophils # 1.9 Lymphocytes # 1.2 Monocytes # 0.5 Eosinophils # 0.5 Basophils # 0.0 Nucleated Red Blood Cells # 0.0 Sodium Level 139 Potassium Level 3.6 Chloride Level 104 Carbon Dioxide Level 31 Anion Gap 8 Blood Urea Nitrogen 10 Creatinine 0.53 L Glucose Level 88 Calcium Level 8.6 Medications Medications Current Medications Docusate Sodium (Colace) 100 mg BID PO Last administered on 11/27/16 08:52; Admin Dose 100 MG; Start 11/12/16 at 21:00 Ondansetron HCl (Zofran Tab) 4 mg Q6H PRN PO NAUSEA AND/OR VOMITING; Start at 16:30 Pantoprazole (Protonix Tab) 40 mg DAILY PO Last administered on 11/27/16 08:51 ; Admin Dose 40 MG; Start 11/12/16 at 16:30 Polyethylene Glycol (Miralax) 17 gm DAILY PO Last administered on 11/27/16 08: 53; Admin Dose 17 GM; Start 11/13/16 at 09:00 Salmeterol Xinafoate/ Fluticasone (Advair 250/50 Diskus) 1 inh BID INH Last administered on 11/27/16 08:54; Admin Dose 1 INH; Start 11/12/16 at 17:00 Ondansetron HCl (Zofran Inj) 4 mg Q6 PRN IV NAUSEA AND/OR VOMITING Last administered on 11/12/16 21:13; Admin Dose 4 MG; Start 11/12/16 at 16:30 Acetaminophen (Tylenol Tab) 650 mg Q6H PRN PO PAIN AND OR ELEVATED TEMP Last administered on 11/26/16 19:38; Admin Dose 650 MG; Start 11/12/16 at 23:00 Apixaban 2.5 mg 2.5 mg BID PO Last administered on 11/27/16 08:53; Admin Dose 2.5 MG; Start 11/13/16 at 21:00 Sodium Chloride (NS) 1,000 ml @ 75 mls/hr [id number] IV Last administered on 02:53; Admin Dose 75 MLS/HR; Start 11/13/16 at 10:30 Tamsulosin HCl (Flomax) 0.4 mg HS PO Last administered on 11/26/16 21:49; Admin Dose 0.4 MG; Start 11/13/16 at 21:00 Mupirocin (Bactroban) 1 applic BID TOP Last administered on 11/27/16 08:54; Admin Dose 1 APPLIC; Start 11/16/16 at 21:00 Morphine Sulfate (morphine) 5 mg Q6H PRN PO SEVERE PAIN LEVEL 7-10 Last administered on 11/27/16 05:56; Admin Dose 5 MG; Start 11/21/16 at 22:30 Finasteride (Proscar) 5 mg DAILY PO Last administered on 11/27/16 08:51; Admin Dose 5 MG; Start 11/22/16 at 16:30 Doxazosin Mesylate (Cardura) 2 mg BID PO Last administered on 11/27/16 08:52; Admin Dose 2 MG; Start 11/22/16 at 21:00 CHERI DURAN Nov 27, 2016 12:06
[2016-11-27 19:28] VITALS: BP 104/59; RESP 20
[2016-11-27] MEDS: TAMSULOSIN (SR) 0.4 MG CAP PO SCH (20:48)
[2016-11-27] MEDS: ACETAMINOPHEN 325 MG TAB PO PRN (23:42)
[2016-11-28 05:52] LABS: ADD SCAN DIFF NO
[2016-11-28 06:04] LABS: BASOPHILS % 0.3 % (0.0-2.0); EOSINOPHILS # 0.4 10^3/ul (0.0-0.5); EOSINOPHILS % 10.9 % (0.0-7.0); HEMATOCRIT 31.7 % (42.0-52.0); LYMPHOCYTES # 1.2 10^3/ul (0.8-2.9); LYMPHOCYTES % 32.1 % (15.0-51.0); MEAN CORPUSCULAR HEMOGLOBIN 32.6 pg (29.0-33.0); MEAN CORPUSCULAR HGB CONC 31.5 g/dl (32.0-37.0); MEAN CORPUSCULAR VOLUME 103.3 fl (82.0-101.0); MEAN PLATELET VOLUME 10.4 fl (7.4-10.4); MONOCYTE # 0.4 10^3/ul (0.3-0.9); MONOCYTES % 11.5 % (0.0-11.0); NEUTROPHIL # 1.6 10^3/ul (1.6-7.5); NEUTROPHILS % 45.2 % (39.0-77.0); PLATELET COUNT 137 10^3/UL (140-415); RED BLOOD COUNT 3.07 10^6/ul (4.70-6.10); RED CELL DISTRIBUTION WIDTH 15.9 % (11.5-14.5); WHITE BLOOD COUNT 3.6 10^3/ul (4.8-10.8)
[2016-11-28 06:15] LABS: POTASSIUM 3.9 mmol/L (3.5-5.1)
[2016-11-28 06:18] LABS: CREATININE 0.51 mg/dl (0.61-1.24)
[2016-11-28 06:19] LABS: CALCIUM 8.6 mg/dl (8.4-10.2)
[2016-11-28] MEDS: morphine LIQ (10 MG/5 ML) CUP PO PRN ×3 (06:20→22:02)
[2016-11-28] MEDS: SOD CHLORIDE 0.9% 1,000 ML IV SCH ×4 (06:21→23:50)
[2016-11-28] MEDS: ALBUTEROL 0.083% (NEB) 2.5 MG/3 ML AMP HHN SCH ×3 (07:32→20:50)
[2016-11-28 08:30] VITALS: BP 106/62; RESP 20
[2016-11-28] MEDS: ACETAMINOPHEN 325 MG TAB PO PRN ×2 (08:48→15:48)
[2016-11-28] MEDS: SALMETEROL/FLUTICASONE 250/50 INHA INH SCH ×2 (08:48→22:00)
[2016-11-28] MEDS: FINASTERIDE 5 MG TAB PO SCH (08:49)
[2016-11-28] MEDS: APIXABAN 5 MG TABLET PO SCH ×2 (08:49→22:00)
[2016-11-28] MEDS: PANTOPRAZOLE (EC) 40 MG TAB PO SCH (08:49)
[2016-11-28] MEDS: DOXAZOSIN 2 MG TAB PO SCH ×2 (08:50→22:01)
[2016-11-28] MEDS: MUPIROCIN 2% 22 GM OINT TOP SCH ×2 (08:50→22:00)
[2016-11-28] MEDS: DOCUSATE SODIUM 100 MG CAP PO SCH ×2 (08:51→21:00)
[2016-11-28] MEDS: POLYETHYLENE GLYCOL 17 GM PACKET PO SCH (08:51)
--- NOTE | 2016-11-28 19:41 | PN ---
Date/Time of Note Date/Time of Note DATE: 11/28/16 TIME: 19:40 Assessment/Plan VTE Prophylaxis VTE Prophylaxis Intervention: other Lines/Catheters IV C[facility]ter Type (from [facility]): Peripheral IV Urinary Cath still in place: Yes Assessment/Plan Assessment/Plan - Urinary retention. Dr. Acosta is following in urology consultation. Continue Flomax. Ipratropium is stopped. Continue Forbes per urology recommendation. - Acute kidney injury on chronic kidney disease secondary to obstructive uropathy, resolved. 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 Continue Bactroban to nares. - Status post right hip ORIF - COPD, continue Advair and Albuterol. -Paroxysmal atrial fibrillation, currently in sinus rhythm, continue Eliquis. -Continue PT. - DTI right heel - Wound care Anticipate discharge to nursing home facility with Forbes catheter upon bed availability.Further recommendations based on clinical course. Plan of care discussed with Dr. Anne. Subjective 24 Hr Interval Summary Eyes: no complaints ENT: no complaints Respiratory: no complaints Cardiovascular: no complaints Gastrointestinal: no complaints Genitourinary: no complaints Musculoskeletal: no complaints Skin: no complaints Neurologic: no complaints Endocrine: no complaints Exam/Review of Systems Vital Signs Vitals Vital Signs Date Time Temp Pulse Resp B/P Pulse Ox O2 Delivery O2 Flow Rate FiO2 11/28/16 08:45 Nasal Cannula 2.0 11/28/16 08:30 98.4 66 20 106/62 99 11/25/16 20:32 28 Intake and Output 11/27/16 11/27/16 11/28/16 15:00 23:00 07:00 Intake Total 2120 ml 1000 ml Output Total 1100 ml Balance 1020 ml 1000 ml Exam Constitutional: frail, non-verbal Psych: nl mood/affect Head: normocephalic Eyes: nl sclera ENMT: nl external ears & nose Neck: supple Cardiovascular: nl pulses Gastrointestinal: soft Musculoskeletal: muscle weakness Extremities: normal pulses Neurological: lethargic Lymph: nontender Results Result Diagram: 11/28/16 0514 11/28/16 0514 Results 24 hrs Laboratory Tests Test 11/28/16 05:14 White Blood Count 3.6 L Red Blood Count 3.07 L Hemoglobin 10.0 L Hematocrit 31.7 L Mean Corpuscular Volume 103.3 H Mean Corpuscular Hemoglobin 32.6 Mean Corpuscular Hemoglobin Concent 31.5 L Red Cell Distribution Width 15.9 H Platelet Count 137 L Mean Platelet Volume 10.4 Neutrophils % 45.2 Lymphocytes % 32.1 Monocytes % 11.5 H Eosinophils % 10.9 H Basophils % 0.3 Nucleated Red Blood Cells % 0.0 Neutrophils # 1.6 Lymphocytes # 1.2 Monocytes # 0.4 Eosinophils # 0.4 Basophils # 0.0 Nucleated Red Blood Cells # 0.0 Sodium Level 140 Potassium Level 3.9 Chloride Level 104 Carbon Dioxide Level 31 Anion Gap 9 Blood Urea Nitrogen 12 Creatinine 0.51 L Glucose Level 92 Calcium Level 8.6 Medications Medications Current Medications Docusate Sodium (Colace) 100 mg BID PO Last administered on 11/27/16 20:48; Admin Dose 100 MG; Start 11/12/16 at 21:00 Ondansetron HCl (Zofran Tab) 4 mg Q6H PRN PO NAUSEA AND/OR VOMITING; Start at 16:30 Pantoprazole (Protonix Tab) 40 mg DAILY PO Last administered on 11/28/16 08:49 ; Admin Dose 40 MG; Start 11/12/16 at 16:30 Polyethylene Glycol (Miralax) 17 gm DAILY PO Last administered on 11/27/16 08: 53; Admin Dose 17 GM; Start 11/13/16 at 09:00 Salmeterol Xinafoate/ Fluticasone (Advair 250/50 Diskus) 1 inh BID INH Last administered on 11/28/16 08:48; Admin Dose 1 INH; Start 11/12/16 at 17:00 Ondansetron HCl (Zofran Inj) 4 mg Q6 PRN IV NAUSEA AND/OR VOMITING Last administered on 11/12/16 21:13; Admin Dose 4 MG; Start 11/12/16 at 16:30 Acetaminophen (Tylenol Tab) 650 mg Q6H PRN PO PAIN AND OR ELEVATED TEMP Last administered on 11/28/16 15:48; Admin Dose 650 MG; Start 11/12/16 at 23:00 Apixaban 2.5 mg 2.5 mg BID PO Last administered on 11/28/16 08:49; Admin Dose 2.5 MG; Start 11/13/16 at 21:00 Sodium Chloride (NS) 1,000 ml @ 75 mls/hr [id number] IV Last administered on 11/28 06:21; Admin Dose 75 MLS/HR; Start 11/13/16 at 10:30 Tamsulosin HCl (Flomax) 0.4 mg HS PO Last administered on 11/27/16 20:48; Admin Dose 0.4 MG; Start 11/13/16 at 21:00 Mupirocin (Bactroban) 1 applic BID TOP Last administered on 11/28/16 08:50; Admin Dose 1 APPLIC; Start 11/16/16 at 21:00 Morphine Sulfate (morphine) 5 mg Q6H PRN PO SEVERE PAIN LEVEL 7-10 Last administered on 11/28/16 12:49; Admin Dose 5 MG; Start 11/21/16 at 22:30 Finasteride (Proscar) 5 mg DAILY PO Last administered on 11/28/16 08:49; Admin Dose 5 MG; Start 11/22/16 at 16:30 Doxazosin Mesylate (Cardura) 2 mg BID PO Last administered on 11/28/16 08:50; Admin Dose 2 MG; Start 11/22/16 at 21:00 CHERI DURAN Nov 28, 2016 19:41
[2016-11-28 20:55] VITALS: BP 105/58; RESP 16
[2016-11-28] MEDS: TAMSULOSIN (SR) 0.4 MG CAP PO SCH (22:00)
[2016-11-29 05:40] LABS: ADD SCAN DIFF NO
[2016-11-29 05:46] LABS: BASOPHILS % 0.3 % (0.0-2.0); EOSINOPHILS # 0.4 10^3/ul (0.0-0.5); EOSINOPHILS % 11.2 % (0.0-7.0); HEMATOCRIT 33.4 % (42.0-52.0); HEMOGLOBIN 10.2 g/dl (14.0-18.0); LYMPHOCYTES # 1.2 10^3/ul (0.8-2.9); LYMPHOCYTES % 30.1 % (15.0-51.0); MEAN CORPUSCULAR HEMOGLOBIN 31.2 pg (29.0-33.0); MEAN CORPUSCULAR HGB CONC 30.5 g/dl (32.0-37.0); MEAN CORPUSCULAR VOLUME 102.1 fl (82.0-101.0); MEAN PLATELET VOLUME 10.6 fl (7.4-10.4); MONOCYTE # 0.5 10^3/ul (0.3-0.9); MONOCYTES % 11.7 % (0.0-11.0); NEUTROPHIL # 1.8 10^3/ul (1.6-7.5); NEUTROPHILS % 46.4 % (39.0-77.0); PLATELET COUNT 131 10^3/UL (140-415); RED BLOOD COUNT 3.27 10^6/ul (4.70-6.10); RED CELL DISTRIBUTION WIDTH 15.8 % (11.5-14.5); WHITE BLOOD COUNT 3.9 10^3/ul (4.8-10.8)
[2016-11-29 06:07] LABS: POTASSIUM 3.8 mmol/L (3.5-5.1)
[2016-11-29 06:09] LABS: CREATININE 0.56 mg/dl (0.61-1.24)
[2016-11-29 06:10] LABS: CALCIUM 8.7 mg/dl (8.4-10.2)
[2016-11-29] MEDS: ALBUTEROL 0.083% (NEB) 2.5 MG/3 ML AMP HHN SCH ×2 (07:45→13:57)
--- NOTE | 2016-11-29 09:10 | PN ---
DATE: 11/29/2016 SUBJECTIVE: Urinary retention. The patient states that he is feeling better and appeared to be mor e alert and responding to questions. OBJECTIVE VITAL SIGNS: His temperature is 98.3, pulse is 89, respirations 20, blood pressure 105/58. ABDOMEN: The Forbes catheter is draining clear urine. LABORATORY DATA: His CBC shows a white count 3.9, hemoglobin 10.2, hematocrit 33.4, and platelet co unt 131,000. BUN is 12, creatinine is 0.56, sodium 139, potassium 3.8, chloride 102, CO2 32. MEDICATIONS: 1. Doxazosin 2 mg b.i.d. 2. Tamsulosin 0.4 mg at bedtime. PLAN: To discontinue the Forbes catheter and see if he does urinate, and check his postvoid residual , and then decide whether to keep the Forbes catheter in or do other treatment for him. Dictated By: BARRY SAM/KEIRY Conf#: [id number] DID#: [id number]
[2016-11-29] MEDS: POLYETHYLENE GLYCOL 17 GM PACKET PO SCH (09:31)
[2016-11-29] MEDS: DOXAZOSIN 2 MG TAB PO SCH (09:31)
[2016-11-29] MEDS: DOCUSATE SODIUM 100 MG CAP PO SCH (09:31)
[2016-11-29] MEDS: PANTOPRAZOLE (EC) 40 MG TAB PO SCH (09:31)
[2016-11-29] MEDS: FINASTERIDE 5 MG TAB PO SCH (09:31)
[2016-11-29] MEDS: APIXABAN 5 MG TABLET PO SCH (09:31)
[2016-11-29 09:32] VITALS: BP 123/63; PULSE 87; RESP 18
[2016-11-29] MEDS: SALMETEROL/FLUTICASONE 250/50 INHA INH SCH (09:32)
[2016-11-29] MEDS: MUPIROCIN 2% 22 GM OINT TOP SCH (09:32)
[2016-11-29] MEDS: SOD CHLORIDE 0.9% 1,000 ML IV SCH (14:32)
[2016-11-29 16:09] VITALS: BP 118/71; PULSE 79; RESP 18
--- NOTE | 2016-11-29 17:13 | PN ---
Date/Time of Note Date/Time of Note DATE: 11/29/16 TIME: 17:12 Assessment/Plan Lines/Catheters IV Catheter Type (from [facility]): [place] Lock Urinary Cath still in place: Yes Assessment/Plan Assessment/Plan - Urinary retention. Dr. Acosta is following in urology consultation. Continue Flomax. Ipratropium is stopped. Continue Forbes per urology recommendation. - Acute kidney injury on chronic kidney disease secondary to obstructive uropathy, resolved. 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 Continue Bactroban to nares. - Status post right hip ORIF - COPD, continue Advair and Albuterol. -Paroxysmal atrial fibrillation, currently in sinus rhythm, continue Eliquis. -Continue PT. - DTI right heel - Wound care Transferred to residential facility with Forbes catheter upon bed availability.Further recommendations based on clinical course. Plan of care discussed with Dr. Anne. Subjective 24 Hr Interval Summary Free Text/Dictation addendum to DC summary Eyes: no complaints Respiratory: no complaints Cardiovascular: no complaints Gastrointestinal: no complaints Genitourinary: no complaints Musculoskeletal: no complaints Skin: no complaints Exam/Review of Systems Vital Signs Vitals Vital Signs Date Time Temp Pulse Resp B/P Pulse Ox O2 Delivery O2 Flow Rate FiO2 11/29/16 16:09 98.2 79 18 118/71 97 Room Air 2.0 11/25/16 20:32 28 Intake and Output 11/28/16 11/28/16 11/29/16 15:00 23:00 07:00 Intake Total 2400 ml 1540 ml Output Total 2100 ml 2300 ml Balance 300 ml -760 ml Exam Constitutional: alert, well developed Psych: nl mood/affect Eyes: EOMI ENMT: nl external ears & nose Neck: non-tender Respiratory: clear to auscultation Cardiovascular: nl pulses Gastrointestinal: non-tender, soft Musculoskeletal: muscle weakness Extremities: normal pulses Neurological: nl speech Skin: nl turgor Results Result Diagram: 11/29/1612 11/29/16 0512 Results 24 hrs Laboratory Tests Test 11/29/16 05:12 White Blood Count 3.9 L Red Blood Count 3.27 L Hemoglobin 10.2 L Hematocrit 33.4 L Mean Corpuscular Volume 102.1 H Mean Corpuscular Hemoglobin 31.2 Mean Corpuscular Hemoglobin Concent 30.5 L Red Cell Distribution Width 15.8 H Platelet Count 131 L Mean Platelet Volume 10.6 H Neutrophils % 46.4 Lymphocytes % 30.1 Monocytes % 11.7 H Eosinophils % 11.2 H Basophils % 0.3 Nucleated Red Blood Cells % 0.0 Neutrophils # 1.8 Lymphocytes # 1.2 Monocytes # 0.5 Eosinophils # 0.4 Basophils # 0.0 Nucleated Red Blood Cells # 0.0 Sodium Level 139 Potassium Level 3.8 Chloride Level 102 Carbon Dioxide Level 32 H Anion Gap 9 Blood Urea Nitrogen 12 Creatinine 0.56 L Glucose Level 88 Calcium Level 8.7 Medications Medications Current Medications Docusate Sodium (Colace) 100 mg BID PO Last administered on 11/29/16 09:31; Admin Dose 100 MG; Start 11/12/16 at 21:00 Ondansetron HCl (Zofran Tab) 4 mg Q6H PRN PO NAUSEA AND/OR VOMITING; Start at 16:30 Pantoprazole (Protonix Tab) 40 mg DAILY PO Last administered on 11/29/16 09:31 ; Admin Dose 40 MG; Start 11/12/16 at 16:30 Polyethylene Glycol (Miralax) 17 gm DAILY PO Last administered on 11/29/16 09: 31; Admin Dose 17 GM; Start 11/13/16 at 09:00 Salmeterol Xinafoate/ Fluticasone (Advair 250/50 Diskus) 1 inh BID INH Last administered on 11/29/16 09:32; Admin Dose 1 INH; Start 11/12/16 at 17:00 Ondansetron HCl (Zofran Inj) 4 mg Q6 PRN IV NAUSEA AND/OR VOMITING Last administered on 11/12/16 21:13; Admin Dose 4 MG; Start 11/12/16 at 16:30 Acetaminophen (Tylenol Tab) 650 mg Q6H PRN PO PAIN AND OR ELEVATED TEMP Last administered on 11/28/16 15:48; Admin Dose 650 MG; Start 11/12/16 at 23:00 Apixaban 2.5 mg 2.5 mg BID PO Last administered on 11/29/16 09:31; Admin Dose 2.5 MG; Start 11/13/16 at 21:00 Sodium Chloride (NS) 1,000 ml @ 75 mls/hr [id number] IV Last administered on 11/29 14:32; Admin Dose 75 MLS/HR; Start 11/13/16 at 10:30 Tamsulosin HCl (Flomax) 0.4 mg HS PO Last administered on 11/28/16 22:00; Admin Dose 0.4 MG; Start 11/13/16 at 21:00 Mupirocin (Bactroban) 1 applic BID TOP Last administered on 11/29/16 09:32; Admin Dose 1 APPLIC; Start 11/16/16 at 21:00 Morphine Sulfate (morphine) 5 mg Q6H PRN PO SEVERE PAIN LEVEL 7-10 Last administered on 11/28/16 22:02; Admin Dose 5 MG; Start 11/21/16 at 22:30 Finasteride (Proscar) 5 mg DAILY PO Last administered on 11/29/16 09:31; Admin Dose 5 MG; Start 11/22/16 at 16:30 Doxazosin Mesylate (Cardura) 2 mg BID PO Last administered on 11/29/16 09:31; Admin Dose 2 MG; Start 11/22/16 at 21:00 CHERI DURAN Nov 29, 2016 17:13
--- NOTE | 2016-11-29 17:44 | PN ---
DATE: 11/29/2016 FOLLOWUP NOTE I had seen the patient earlier this morning, ordered to have the Forbes catheter removed and check hi s voiding and his postvoid residual to see if he does void. The patient has a history of urinary retention. Apparently, the patient after the Forbes catheter wa s removed 6 hours later he was not able to urinate. The bladder scan shows 999 mL. The nurse mcguire d me and he told me that straight cath did yield about 908 mL. Therefore, patient is again into uri nary retention. Therefore, I told her to go ahead and insert a Forbes catheter and leave the cathete r in, and she did. Dictated By: BARRY SAM/KEIRY Conf#: [id number] DID#: [id number]
== END 2016-11-29 17:10 | DRG 684 ==
LOC: E/R 11:26 → MS4 12:46 → MS2 11-21 22:28
PROVIDERS: ADMIT Family Medicine; ATTEND Internal Medicine
DX: N17.9 Acute kidney failure, unspecified (principal); E87.5 Hyperkalemia; I48.0 Paroxysmal atrial fibrillation; R33.9 Retention of urine, unspecified; Z22.322 Carrier or suspected carrier of Methicillin resistant Staphylococcus aureus; N18.9 Chronic kidney disease, unspecified; N13.9 Obstructive and reflux uropathy, unspecified; J44.9 Chronic obstructive pulmonary disease, unspecified; K21.9 Gastro-esophageal reflux disease without esophagitis; Z87.891 Personal history of nicotine dependence; Z79.01 Long term (current) use of anticoagulants; N40.1 Benign prostatic hyperplasia with lower urinary tract symptoms; L89.610 Pressure ulcer of right heel, unstageable
CPT/HCPCS: 71010; 76700; 76856; 80048; 81001; 81003; 84153; 84154; 85025; 87070; 87086; 93005; 94640; 94664; 97110; 97161; 97530; A4310; J0696; J2060; J2405; J7030

== ENCOUNTER 2017-01-01 06:22 | Inpatient (IN) | payer MEDICARE, OTHER ==
[~2017-01-01] VITALS: Ht 185.4 cm; Wt 65.0 kg
[2017-01-01] VITALS (7 sets, daily range): BP systolic 86–106; BP diastolic 57–61; PULSE 110–114; RESP 16–18; TEMP 99.1; Ht 185.4 cm; Wt 65.0 kg
[~2017-01-01 06:22] MED LIST: ACET-2047 PO; ADV25050 INHALATION; ALBU18HF INHALATION; APIX5TAB PO; DOCU-159 PO; IPRA3AMP INHALATION; MORP15TA92 PO; ONDA-43 PO; PANT40TA3 PO; POLY17PO6 PO
[2017-01-01] MEDS ORDERED: SODIUM CHLORIDE 0.9% 1L BAG IV* STA (06:24)
[2017-01-01] MEDS ORDERED: CEFEPIME 2GM/50 ML (PMX) 50 ML IVPB STA (06:24)
[2017-01-01] MEDS ORDERED: LEVOFLOXACIN 750MG/D5W (PMX) 150 ML IVPB STA (06:24)
[2017-01-01] MEDS ORDERED: VANCOMYCIN 1 GM (PMX) 250 ML IVPB STA (06:24)
--- NOTE | 2017-01-01 06:28 | ERA ---
ER Documentation Chief Complaint Date/Time DATE: 01/01/17 TIME: 06:26 Chief Complaint HPI Patient is a 71-year-old male who presents with gradual onset, constant, progressive respiratory difficulty for 1 month. The patient lives in a long-term facility, and was found to be more lethargic this morning, so paramedics were called. On scene, the patient was found to have an oxygen saturation in the 80s, which ene to 98% on nonrebreather mask. Patient was nonverbal on scene. Per report, the patient recently had a Forbes catheter placed and has had bloody urine output. No report of vomiting, fever, focal weakness. ROS All systems reviewed and are negative except as per history of present illness. Medications Home Meds Reported Medications Acetaminophen* (Acetaminophen*) 325 Mg Tablet, 650 MG PO Q4H Y for PAIN MANAGEMENT 1-05/30, #30 TAB 01/01/17 Albuterol Sulfate* (Albuterol Sulfate* Neb) 0.083%-3 Ml Neb, 2.5 MG NEB Q6H Y for WHEEZING AND SOB, #30 VIAL 01/01/17 Apixaban* (Eliquis*) 2.5 Mg Tablet, 5 MG PO BID, TAB 01/01/17 Doxazosin Mesylate* (Doxazosin Mesylate*) 2 Mg Tablet, 2 MG PO BID, TAB 01/01/17 Finasteride* (Finasteride*) 5 Mg Tablet, 5 MG PO DAILY, TAB 01/01/17 Multivit-Min/Iron Fum/Folic AC (Gfoxp-Dcbexvi-Cclpxnqg Tablet) 1 Each Tablet, 1 EACH PO DAILY, TAB 01/01/17 Amino Acids/Protein Hydrolys (PRO-STAT LIQUID) 30 Ml Liquid.pkt, 30 ML PO BID SUGAR FREE 01/01/17 Tamsulosin Hcl* (Tamsulosin Hcl*) 0.4 Mg Cap.er.24h, 0.4 MG PO HS, CAP 01/01/17 Ascorbic Acid (Vitamin C) 500 Mg Tab, 500 MG PO DAILY, TAB 01/01/17 Zinc Sulfate* (Zinc Sulfate*) 220 Mg Tablet, 220 MG PO DAILY, TAB 01/01/17 Pantoprazole* (Protonix*) 40 Mg Tablet.dr, 40 MG PO QAM, TAB 11/12/16 Polyethylene Glycol* (Miralax*) 17 Gm Powd.pack, 17 GM PO DAILY, #30 PACKET 11/12/16 Docusate Sodium* (Docusate Sodium*) 100 Mg Capsule, 100 MG PO BID, #60 CAP 11/12/16 Salmeterol Xinaf/Fluticasone* (Advair*) 250-50 Diskus Inhaler, 1 INH INHALATION BID, #1 INHALER 11/12/16 Discontinued Reported Medications Ondansetron Hcl* (Zofran*) 4 Mg Tab, 4 MG PO Q6H Y for NAUSEA AND OR VOMITING, TAB 11/12/16 Albuterol Sulfate* (Ventolin HFA*) 18 Gm Hfa.aer.ad, 2 PUFF INHALATION Q4H, #1 INHALER 11/12/16 Morphine Sulfate* (Ms Contin*) 15 Mg Tablet.sa, 15 MG PO Q4H PRN Y for SEVERE PAIN LEVEL 7-10, TAB.SA 11/12/16 Ipratropium-Albuterol (Ipratropium-Albuterol) 0.5-3 Mg/3 Ml Ampul.neb, 3 ML INHALATION Q6, #30 VIAL 11/12/16 Apixaban* (Eliquis*) 5 Mg Tablet, 10 MG PO BID, TAB 11/12/16 Acetaminophen* (Acetaminophen*) 650 Mg Tablet, 650 MG PO Q6H Y for PAIN AND OR ELEVATED TEMP, #30 TAB 11/12/16 Allergies Allergies: Coded Allergies: No Known Allergy (Unverified , 01/01/17) PMhx/Soc Past medical history: COPD, chronic kidney disease, dementia, atrial fibrillation Past surgical history: Unknown Social history: Lives in a SNF History of Surgery: Yes (ORIF R hip) Anesthesia Reaction: No Hx Neurological Disorder: No Hx Respiratory Disorders: Yes (COPD, HX smoker) Hx Cardiac Disorders: Yes (Afib) Hx Psychiatric Problems: No Hx Miscellaneous Medical Probl: Yes (A-Fib, GERD, COPD, ORIF hip) Hx Alcohol Use: No Hx Substance Use: No Hx Tobacco Use: Yes (former smoker) FmHx Unobtainable Physical Exam Vitals Vital Signs Date Time Temp Pulse Resp B/P Pulse Ox O2 Delivery O2 Flow Rate FiO2 01/01/17 11:27 108 20 93 Nasal Cannula 3.0 01/01/17 11:15 99.1 102 20 107/77 93 Nasal Cannula 2.0 01/01/17 10:43 4.0 01/01/17 08:34 123 20 92/61 98 Mask 01/01/17 08:14 104 20 93 Nasal Cannula 3.0 01/01/17 07:10 Nasal Cannula 01/01/17 06:53 134 20 91/63 100 Mask 01/01/17 06:25 100.5 58 19 95/61 80 Physical Exam Const: Lethargic, respiratory distress Head: Atraumatic Eyes: Normal Conjunctiva, no pallor, no icterus, pupils equal, round reactive ENT: Normal External Ears, Nose and Mouth. Dry mucous membranes Neck: Full range of motion..~ No meningismus. No JVD Resp: Clear to auscultation bilaterally Cardio: Irregularly irregular rhythm, tachycardia, no murmurs Abd: Soft, non tender, non distended. Normal bowel sounds Skin: No petechiae or rashes Back: No midline or flank tenderness Ext: No cyanosis, or edema Neur: Lethargic, no spontaneous eye opening, no spontaneous movement. Does not withdraw to noxious stimuli. Psych: Cannot assess Result Diagram: 01/01/1738 01/01/1738 Results 24 hrs Laboratory Tests Test 01/01/17 06:24 01/01/17 06:38 01/01/17 06:44 01/01/17 08:30 Blood Gas Specimen Source Blood arterial Arterial Blood Date Drawn 01/01/2017 6:20:20 AM Arterial Blood pH (Temp corrected) 7.288 Arterial Blood pCO2 (Temp correct) 80.5mmhg Arterial Blood pO2 (Temp corrected) 175.6mmHG Arterial Blood HCO3 37.7mmol/L Arterial Blood Base Excess 8.1mmol/L Arterial Blood Oxygen Saturation 99.2mmHG Miguel A Test N/A Arterial Blood Gas Puncture Site Right Brachial Arterial Blood Carboxyhemoglobin 0.7% Arterial Blood Methemoglobin 0.1% Blood Gas A-a O2 Differential 456.9mmHg Oxyhemoglobin Percent 98.4% Total Hemoglobin 13.0g/dl Blood Gas Temperature 37.0C Blood Gas Modality MASK - NRB FiO2 100.0% Blood Gas Critical Value Read Back B LUIS EDUARDO JONES Blood Gas Notified Whom UP Blood Gas Notified Time 01/01/2017 6:30:24 AM White Blood Count 14.310^3/ul Red Blood Count 3.8610^6/ul Hemoglobin 12.2g/dl Hematocrit 40.1% Mean Corpuscular Volume 103.9fl Mean Corpuscular Hemoglobin 31.6pg Mean Corpuscular Hemoglobin Concent 30.4g/dl Red Cell Distribution Width 15.3% Platelet Count 8910^3/UL Mean Platelet Volume 11.2fl Neutrophils % 71.0% Band Neutrophils % 13.0% Lymphocytes % 8.0% Monocytes % 8.0% Eosinophils % % Neutrophils # 10.210^3/ul Lymphocytes # 1.110^3/ul Monocytes # 1.110^3/ul Eosinophils # 10^3/ul Prothrombin Time 17.3Sec Prothrombin Time Ratio 1.4 INR International Normalized Ratio 1.41 Activated Partial Thromboplast Time 35.7Sec Sodium Level 143mmol/L Potassium Level 4.3mmol/L Chloride Level 99mmol/L Carbon Dioxide Level 34mmol/L Anion Gap 14 Blood Urea Nitrogen 46mg/dl Creatinine 1.43mg/dl Glucose Level 90mg/dl Lactic Acid Level 1.3mmol/L 3.1mmol/L Calcium Level 9.5mg/dl Total Bilirubin 0.4mg/dl Direct Bilirubin 0.00mg/dl Indirect Bilirubin 0.4mg/dl Aspartate Amino Transf (AST/SGOT) 32IU/L Alanine Aminotransferase (ALT/SGPT) 29IU/L Alkaline Phosphatase 83IU/L Troponin I 0.029ng/ml Total Protein 6.6g/dl Albumin 3.1g/dl Globulin 3.50g/dl Albumin/Globulin Ratio 0.88 Urine Color DK. RED Urine Clarity CLEAR Urine pH 5.0 Urine Specific [place] 1.020 Urine Ketones TRACE Urine Nitrite POSITIVE Urine Bilirubin 2+ Urine Ictotest NEGATIVE Urine Urobilinogen 2.0 E.U./dL Urine Leukocyte Esterase 2+ Urine Microscopic RBC >200/HPF Urine Microscopic WBC >200/HPF Urine Bacteria MANY Urine Hemoglobin 3+ Urine Glucose NEGATIVE% Urine Total Protein 4+ Test 01/01/17 10:17 Lactic Acid Level 3.4mmol/L Current Medications Medications (Trade) Dose Ordered Sig/La Route PRN Reason Start Time Stop Time Status Last Admin Dose Admin Sodium Chloride 2020 ml 2,020 ml BOLUS OVER 2 HOURS STAT IV* 01/01/17 06:24 01/01/17 06:26 DC 01/01/17 06:33 Vancomycin HCl 250 ml @ 125 mls/hr ONCE STAT IVPB 01/01/17 06:24 01/01/17 08:23 DC 01/01/17 06:37 Cefepime HCl 50 ml @ 100 mls/hr ONCE STAT IVPB 01/01/17 06:24 01/01/17 06:53 DC 01/01/17 06:37 Levofloxacin/ Dextrose (Levaquin 750 Mg/ D5W 150 ml (Pmx)) 150 ml @ 100 mls/hr ONCE STAT IVPB 01/01/17 06:24 01/01/17 07:53 DC 01/01/17 06:37 Albuterol (Proventil 0.083% (Neb)) 5 mg ONCE STAT N 01/01/17 06:32 01/01/17 06:34 DC 01/01/17 06:35 Methylprednisolone Sodium Succinate (Solu-Medrol) 125 mg ONCE ONCE IV 01/01/17 07:00 01/01/17 07:01 DC 01/01/17 06:39 Ipratropium [place] (Atrovent 0.02% (Neb)) 0.5 mg ONCE ONCE N 01/01/17 07:00 01/01/17 07:01 DC 01/01/17 06:35 Albuterol (Proventil 0.083% (Neb)) 5 mg ONCE STAT N 01/01/17 07:56 01/01/17 07:57 DC 01/01/17 08:09 Diltiazem HCl (Cardizem Iv) 10 mg ONCE ONCE IV 01/01/17 08:30 01/01/17 08:30 DC Acetaminophen (Tylenol Tab) 650 mg ONCE ONCE PO 01/01/17 08:30 01/01/17 08:30 DC Acetaminophen 650 mg 650 mg ONCE ONCE PO 01/01/17 08:30 01/01/17 08:31 DC 01/01/17 09:15 Sodium Chloride (NS) 1,000 ml @ 1,000 mls/hr Q1H ONCE IV 01/01/17 10:00 01/01/17 10:59 DC 01/01/17 10:18 Ondansetron HCl (Zofran Inj) 4 mg ER BRIDGE PRN IV NAUSEA AND/OR VOMITING 01/01/17 10:00 01/02/17 09:59 Acetaminophen (Tylenol Tab) 650 mg ER BRIDGE PRN PO MILD PAIN/FEVER 01/01/17 10:00 01/02/17 09:59 Albuterol 5 mg 5 mg ONCE STAT HHN 01/01/17 10:59 01/01/17 11:00 DC 01/01/17 11:27 Sodium Chloride (NS) 1,000 ml @ 50 mls/hr Q20H IV 01/01/17 11:20 IV Flush (NS 3 ml) 3 ml PER PROTOCOL IV 01/01/17 11:30 Enoxaparin Sodium 30 mg 30 mg DAILY SC 01/02/17 09:00 Cefepime HCl (Maxipime 1gm/50 ml (Pmx)) 50 ml @ 100 mls/hr Q12 IVPB 01/01/17 21:00 Vancomycin HCl (Vanco Iv Per Pharmacy) VANCOMYCIN PER PHARMACY PER PROTOCOL XX 01/01/17 11:30 Procedures/MDM EKG read by me: Time 623, rate 141 Rhythm: Sinus tachycardia [place]: Normal Intervals: Normal ST-T waves: no ischemic changes Ectopy: PACs Q-waves: Septal Q waves, low voltage Impression: Sinus tachycardia, PACs EKG read by me: Time 802, rate 145 Rhythm: Atrial fibrillation with rapid ventricular response [place]: Normal Intervals: Normal ST-T waves: no ischemic changes Ectopy: Rare PVCs Q-waves: Septal Q waves Impression: Rapid atrial fibrillation, possible prior septal infarct, no ischemic changes MDM: Patient is a 71-year-old male with dementia, chronic A. fib, and COPD brought to the ER from a long-term facility for altered mental status and respiratory distress. The patient was found to have new hypoxia. He had poor respiratory effort on arrival. He appeared dry and was tachycardic. Sepsis treatment was initiated, with infusion of large bolus of IV saline, culturing of blood and urine, and administration of broad-spectrum antibiotics. A blood gas revealed CO2 retention with a PCO2 of 80. The patient was given Solu- Medrol and multiple rounds of albuterol by nebulizer. A CT scan of the head was performed and demonstrated a cerebellar infarct of unknown determined age. The patient was not a candidate for TPA given unknown time of onset and no measurable focal deficit. The patient was found to be in atrial fibrillation with rapid ventricular rate. He was febrile, and acetaminophen was given. Heart rate improved from approximately 150 to 110 with fluids and acetaminophen only, so diltiazem was withheld. The patient was febrile, and although initial lactic acid is not elevated, second lactic acid was elevated. Patient also had low blood pressure. This is consistent with sepsis. The patient had an indwelling Forbes with small amount of bloody urine, and UA was consistent with UTI. Chest x-ray did not show an infiltrate. Additional fluids were given after the second lactic acid was noted. The patient initially had poor urine output, but after the second bolus has improved urine output. The patient's mental status gradually improved while in the ER, and repeat blood gas showed improvement of his PCO2 as well. There was no need for intubation or BiPAP. Patient will be admitted to telemetry by Dr. Calloway. Critical Care Time: 38 minutes Treatments/Evaluations: Close monitoring and treatment of unstable vital signs, cardiorespiratory, and neurologic status, while maintaining tight balance of fluid, respiratory, and cardiac interventions. This time includes discussing the case with the patient and the patient's family. This time does not include all procedures stated elsewhere in this record. This time also includes reviewing old records, labs and radiological studies. This time includes examining and re-examining the patient. Additionally, this time also includes arranging care with admitting and consulting physicians. Departure Diagnosis: Primary Impression: Sepsis Qualified Code: A41.9 - Sepsis, due to unspecified organism Additional Impressions: COPD with acute exacerbation Urinary tract infection Qualified Code: T83.511A - Urinary tract infection associated with indwelling urethral catheter, initial encounter Altered mental status Qualified Code: R40.2432 - [place] coma scale total score 3-8, at arrival to emergency department Cerebellar stroke without late effect Atrial fibrillation with rapid ventricular response CO2 retention Condition: CAMERON Christianson MD January 01, 2017 06:28
[2017-01-01 06:30] LABS: AADO2 Arterial 456.9 mmHg (7.0-24.0); Arterial Base Excess 8.1 mmol/L (-3.0-3); Arterial COHb 0.7 % (0.0-3.0); Arterial Fraction of Oxyhgb 98.4 % (93.0-99.0); Arterial HCO3 37.7 mmol/L (22.0-26.0); Arterial MetHb 0.1 % (0.0-1.5); MODE MASK - NRB
[2017-01-01] MEDS ORDERED: ALBUTEROL 0.083% (NEB) 2.5 MG/3 ML AMP HHN STA ×3 (06:32→10:59)
[2017-01-01] MEDS ORDERED: IPRATROPIUM (NEB) 0.5 MG/2.5 ML AMP HHN ONE (07:00)
[2017-01-01] MEDS ORDERED: METHYLPREDNISOLONE 125 MG INJ IV ONE (07:00)
[2017-01-01 07:10] LABS: ADD SCAN DIFF NO
[2017-01-01 07:11] LABS: ADD UMIC YES; URINE BILIRUBIN (Dip) 2+ (NEGATIVE); URINE BLOOD (Dip) 3+ (NEGATIVE); URINE COLOR DK. RED (YELLOW); URINE GLUCOSE (Dip) NEGATIVE (NEGATIVE); URINE KETONES (Dip) TRACE (NEGATIVE); URINE LEUKOCYTE ESTERASE (Dip) 2+ (NEGATIVE); URINE NITRITE (Dip) POSITIVE (NEGATIVE); URINE TOTAL PROTEIN (Dip) 4+ (NEGATIVE); URINE UROBILINOGEN (Dip) 2.0 E.U./dL (0.1-1.0)
[2017-01-01 07:12] LABS: ABNORMAL IP MESSAGE 1; HEMATOCRIT 40.1 % (42.0-52.0); HEMOGLOBIN 12.2 g/dl (14.0-18.0); MEAN CORPUSCULAR HEMOGLOBIN 31.6 pg (29.0-33.0); MEAN CORPUSCULAR HGB CONC 30.4 g/dl (32.0-37.0); MEAN CORPUSCULAR VOLUME 103.9 fl (82.0-101.0); MEAN PLATELET VOLUME 11.2 fl (7.4-10.4); RED BLOOD COUNT 3.86 10^6/ul (4.70-6.10); RED CELL DISTRIBUTION WIDTH 15.3 % (11.5-14.5); WHITE BLOOD COUNT 14.3 10^3/ul (4.8-10.8)
[2017-01-01 07:25] LABS: URINE RBCS >200 /HPF (0)
[2017-01-01 07:27] LABS: ALBUMIN 3.1 g/dl (3.3-4.9); INR 1.41; PROTIME 17.3 Sec (12.2-14.2); PT RATIO 1.4
[2017-01-01 07:28] LABS: PARTIAL THROMBOPLASTIN TIME 35.7 Sec (25.0-35.0); POTASSIUM 4.3 mmol/L (3.5-5.1)
[2017-01-01 07:28] LABS: BACTERIA,URINE MANY
[2017-01-01 07:29] LABS: PLATELET COUNT 89 10^3/UL (140-415)
[2017-01-01 07:30] LABS: ALBUMIN/GLOBULIN RATIO 0.88; BILIRUBIN,INDIRECT 0.4 mg/dl (0-1.1); BILIRUBIN,TOTAL 0.4 mg/dl (0.2-1.3); CALCIUM 9.5 mg/dl (8.4-10.2); CREATININE 1.43 mg/dl (0.61-1.24); TOTAL PROTEIN 6.6 g/dl (6.1-8.1)
[2017-01-01 07:42] LABS: TROPONIN-I 0.029 ng/ml (0.00-0.12)
--- NOTE | 2017-01-01 07:56 | RADRPT ---
PROCEDURE: CT Brain without contrast. CLINICAL INDICATION: Neurologic deficit TECHNIQUE: A CT of the brain was performed on multidetector high-resolution CT scanner utilizing a xial sections from the skull base through the vertex without contrast. One or more of the following dose reduction techniques were used: Automated exposure control, Adjustment of the mA and/or kV acc ording to patient size, and/or use of iterative reconstruction technique. DOSE: CTDI = 43 mGy and the DLP = 720 mGy-cm. COMPARISON: None available FINDINGS: No acute intracranial hemorrhage, significant mass effect or midline shift. Patchy hypoattenuation o f the cerebral white matter is compatible with chronic microvascular ischemic changes. Age indetermi dimitry right cerebellar lacunar infarct. Vascular calcifications. Prominence of the cortical sulci and ventricles are related to mild-moderate cerebral volume loss. Mild paranasal sinus mucosal thicken ing. Trace bilateral mastoid fluid. IMPRESSION: No acute intracranial hemorrhage or significant mass effect. Chronic microvascular disease and intracranial atherosclerosis. Age indeterminate right cerebellar lacunar infarct. If there is concern for acute stroke, consider MRI for further evaluation. RPTAT: AA .Thai Nolen MD, Date Time Electronically viewed and signed by .Thai Nolen MD, MD on 01/01/2017 07:55 .T/
[2017-01-01 08:18] LABS: LYMPHOCYTES # 1.1 10^3/ul (0.8-2.9); MONOCYTE # 1.1 10^3/ul (0.3-0.9); NEUTROPHIL # 10.2 10^3/ul (1.6-7.5)
[2017-01-01] MEDS ORDERED: ACETAMINOPHEN 650MG/20.3ML CUP PO ONE (08:30)
[2017-01-01] MEDS ORDERED: ACETAMINOPHEN 325 MG TAB PO ONE (08:30)
[2017-01-01] MEDS ORDERED: DILTIAZEM 25 MG INJ IV ONE (08:30)
--- NOTE | 2017-01-01 08:35 | RADRPT ---
PROCEDURE: XR Chest. CLINICAL INDICATION: Shortness of breath. TECHNIQUE: A single portable view of the chest was obtained. COMPARISON: 11/12/2016 FINDINGS: The aorta is tortuous and atherosclerotic. The cardiomediastinal silhouette is otherwise within nor mal limits. Hyperinflation is seen. No dense consolidation or pleural effusion is seen. The soft ti ssues and osseous structures demonstrate benign age related senescent changes. IMPRESSION: Hyperinflation. RPTAT: HPNM Physician Vega Date Time Electronically viewed and signed by Lon Perkins Physician on 01/01/2017 08:34 /
[2017-01-01 08:45] LABS: ICTOTEST NEGATIVE (NEGATIVE)
[2017-01-01] MEDS ORDERED: ACETAMINOPHEN 325 MG TAB PO PRN (10:00)
[2017-01-01] MEDS ORDERED: SOD CHLORIDE 0.9% 1,000 ML IV ONE (10:00)
[2017-01-01] MEDS ORDERED: ONDANSETRON 4 MG INJ IV PRN (10:00)
[2017-01-01] MEDS ORDERED: ZINC220T PO (10:22)
[2017-01-01] MEDS ORDERED: TAMS0.4C2 PO (10:23)
[2017-01-01] MEDS ORDERED: ASC500 PO (10:23)
[2017-01-01] MEDS ORDERED: AMIN30LI PO (10:25)
[2017-01-01] MEDS ORDERED: MULT-876 PO (10:26)
[2017-01-01] MEDS ORDERED: FINA5TAB4 PO (10:27)
[2017-01-01] MEDS ORDERED: DOXA2TAB PO (10:27)
[2017-01-01] MEDS ORDERED: APIX2.5T PO (10:28)
[2017-01-01] MEDS ORDERED: ALBU2.5V3 NEB (10:29)
[2017-01-01] MEDS ORDERED: ACET325T45 PO (10:30)
[2017-01-01] MEDS ORDERED: VANCOMYCIN IV PER PHARMACY XX SCH (11:30)
[2017-01-01] MEDS ORDERED: NACL 0.9% 3 ML SYG IV SCH (11:30)
[2017-01-01] MEDS: SOD CHLORIDE 0.9% 1,000 ML IV SCH (14:48)
[2017-01-01] MEDS ORDERED: PENDING SANTYL ORDER FOR WOUND CARE XX PRN (20:30)
[2017-01-01] MEDS: CEFEPIME 1GM/50 ML (PMX) 50 ML IVPB SCH (23:35)
[2017-01-02] VITALS (15 sets, daily range): BP systolic 96–133; BP diastolic 34–86; PULSE 92–120; RESP 16–18
[2017-01-02] MEDS ORDERED: ZOLPIDEM 5 MG TAB PO PRN
[2017-01-02] MEDS ORDERED: VANCOMYCIN 1 GM in NS 250 ML IVPB SCH (06:00)
[2017-01-02 07:14] LABS: ADD SCAN DIFF NO
[2017-01-02 07:19] LABS: ABNORMAL IP MESSAGE 1; HEMATOCRIT 34.6 % (42.0-52.0); HEMOGLOBIN 10.6 g/dl (14.0-18.0); MEAN CORPUSCULAR HEMOGLOBIN 31.5 pg (29.0-33.0); MEAN CORPUSCULAR HGB CONC 30.6 g/dl (32.0-37.0); MEAN PLATELET VOLUME 12.2 fl (7.4-10.4); PLATELET COUNT 81 10^3/UL (140-415); RED BLOOD COUNT 3.36 10^6/ul (4.70-6.10); RED CELL DISTRIBUTION WIDTH 15.3 % (11.5-14.5); WHITE BLOOD COUNT 12.6 10^3/ul (4.8-10.8)
[2017-01-02 07:32] LABS: POTASSIUM 3.9 mmol/L (3.5-5.1)
[2017-01-02 07:34] LABS: CREATININE 0.79 mg/dl (0.61-1.24)
[2017-01-02 07:57] LABS: AADO2 Arterial 65.8 mmHg (7.0-24.0); Allen Test ACCEPTAB; Arterial Base Excess -0.1 mmol/L (-3.0-3); Arterial COHb 0.5 % (0.0-3.0); Arterial Fraction of Oxyhgb 80.2 % (93.0-99.0); Arterial HCO3 28.4 mmol/L (22.0-26.0); Arterial MetHb 0.2 % (0.0-1.5); Arterial Total Hemglobin 12.1 g/dl (12.0-18.0); MODE NASAL CANNULA
[2017-01-02 08:22] LABS: LYMPHOCYTES # 0.9 10^3/ul (0.8-2.9); MONOCYTE # 0.6 10^3/ul (0.3-0.9); NEUTROPHIL # 10.5 10^3/ul (1.6-7.5)
[2017-01-02 08:23] LABS: PLATELET ESTIMATE PLT APPEAR DECREASED
[2017-01-02] MEDS: CEFEPIME 1GM/50 ML (PMX) 50 ML IVPB SCH ×2 (09:23→20:26)
[2017-01-02] MEDS: ENOXAPARIN 30 MG/0.3 ML SYG SC SCH (09:24)
--- NOTE | 2017-01-02 12:01 | CONS ---
Date/Time of Note Date/Time of Note DATE: 01/02/17 TIME: 11:57 Assessment/Plan Assessment/Plan Additional Assessment/Plan Chest x-ray was reviewed from yesterday which is essentially clear. Next Serial ABGs were reviewed as well which are showing hypercapnic respiratory failure which is uncompensated. Next Assessment recommendations; 1. Patient admitted with COPD exacerbation with respiratory failure. 2. Underlying severe COPD. 3. Chronic atrial ablation. 4. Paraplegia. 5. UTI. Next Initiate BiPAP 05/25 with titration of FiO2 you to keep O2 sat around 90-92%. Continue current antibiotics until ID of the UTI organism is obtained. Consultation Date/Type/Reason Admit Date/Time January 01, 2017 at 10:00 Date of Consultation: January 02, 2017 Type of Consultation: Pulmonary Reason for Consultation Pulmonary consultations obtained for evaluation of COPD exacerbation. Next History presenting any; patient is a 70-year-old F Mong[place]ian male who was admitted yesterday transferred over from half-way with low pulse oximetry reading. The patient initially was quite obtunded but however after being treated here the patient is much more awake now but still a very poor historian on account of underlying dementia. He still complaining of mild shortness of breath, but denies any chest pain or any fever. Past medical history; 1. History of dementia 2. COPD. 2. Atrial fibrillation. 4. Chronic renal insufficiency. 5. Paraplegia. Next Medications; were reviewed. Next Allergies; none. Social history; patient is an ex-smoker. Family history; patient is single, resides in half-way facility. Occupational he; not available. Review of systems; a very limited review of system could be obtained. Patient denies any chest pain, does complain of shortness of breath. Denies any abdominal pain. Any fever. General exam; elderly male, awake currently in no distress. Able to talk. Social History Smoking Status: Unknown if ever smoked Exam/Review of Systems Vital Signs Vitals Vital Signs Date Time Temp Pulse Resp B/P Pulse Ox O2 Delivery O2 Flow Rate FiO2 01/02/17 11:24 98.0 55 18 133/76 91 01/01/17 20:45 2.0 01/01/17 20:00 Nasal Cannula Intake and Output 01/01/17 01/01/17 01/02/17 15:00 23:00 07:00 Intake Total 800 ml 170 ml Output Total 450 ml 700 ml Balance 350 ml -530 ml Exam HEENT exam is; supple neck, no JVD. No lymphadenopathy. Midline trachea. No thyromegaly. Pharynx is clear. Patient is edentulous and wears dentures. Pupils are midsize and reactive to light. No neck bruits. Chest examined; diminished but clear breath sound. S1-S2 audible, no murmurs. Regular rhythm. Abdomen examination; soft, scaphoid. No organomegaly. No distention. Bowel sounds audible. Extremity examination; there is no edema. Pulses 1+ bilaterally. No clubbing. CHILD PSYCHOLOGIST examination; grossly intact cranial nerves, patient able to move upper extremities and has paraplegia. Results Result Diagram: 01/02/17 0630 01/02/17 0630 Results 24 hrs Laboratory Tests Test 01/02/17 06:30 01/02/17 07:54 White Blood Count 12.6 H Red Blood Count 3.36 L Hemoglobin 10.6 L Hematocrit 34.6 L Mean Corpuscular Volume 103.0 H Mean Corpuscular Hemoglobin 31.5 Mean Corpuscular Hemoglobin Concent 30.6 L Red Cell Distribution Width 15.3 H Platelet Count 81 L Mean Platelet Volume 12.2 H Neutrophils % 83.0 H Band Neutrophils % 5.0 Lymphocytes % 7.0 L Monocytes % 5.0 Eosinophils % Basophils % Nucleated Red Blood Cells % Neutrophils # 10.5 H Lymphocytes # 0.9 Monocytes # 0.6 Eosinophils # Basophils # Nucleated Red Blood Cells # Differential Comment MANUAL DIFF Platelet Estimate PLT APPEAR DECREASED Sodium Level 141 Potassium Level 3.9 Chloride Level 102 Carbon Dioxide Level 31 Anion Gap 12 Blood Urea Nitrogen 38 H Creatinine 0.79 Glucose Level 111 Calcium Level 9.0 Blood Gas Specimen Source Blood arterial Arterial Blood Date Drawn 01/01/2017 11:12:00 AM Arterial Blood pH (Temp corrected) 7.253 *L Arterial Blood pCO2 (Temp correct) 65.7 H Arterial Blood pO2 (Temp corrected) 49.0 *L Arterial Blood HCO3 28.4 H Arterial Blood Base Excess -0.1 Arterial Blood Oxygen Saturation 80.8 L Miguel A Test ACCEPTAB Arterial Blood Gas Puncture Site Left Radial Arterial Blood Carboxyhemoglobin 0.5 Arterial Blood Methemoglobin 0.2 Blood Gas A-a O2 Differential 65.8 H Oxyhemoglobin Percent 80.2 L Total Hemoglobin 12.1 Blood Gas Temperature 37.0 Blood Gas Modality NASAL CANNULA FiO2 27.0 Blood Gas Critical Value Read Back WALKER [place] Blood Gas Notified Whom MDA Blood Gas Notified Time 01/01/2017 11:18:00 AM Medications Medications Current Medications Sodium Chloride (NS) 1,000 ml @ 50 mls/hr Q20H IV Last administered on 14:48; Admin Dose 50 MLS/HR; Start 01/01/17 at 11:20 Enoxaparin Sodium 30 mg 30 mg DAILY SC Last administered on 01/02/17 09:24; Admin Dose 30 MG; Start 01/02/17 at 09:00 Cefepime HCl (Maxipime 1gm/50 ml (Pmx)) 50 ml @ 100 mls/hr Q12 IVPB Last administered on 01/02/17 09:23; Admin Dose 100 MLS/HR; Start 01/01/17 at 21:00 Miscellaneous Information This patient cain... PRN PRN XX WOUND CARE; Start 01/01 at 20:30 Vancomycin HCl (Vancocin) 250 ml @ 125 mls/hr Q12H IVPB ; Start 01/02/17 at 18: 00 Miscellaneous Information (*Rx Drug Level Order Reminder*) 1 ONCE ONCE XX ; Start 01/03/17 at 05:00; Stop 01/03/17 at 05:01 ODILON MISHRA January 02, 2017 12:00
[2017-01-02] MEDS: SOD CHLORIDE 0.9% 1,000 ML IV SCH (14:15)
--- NOTE | 2017-01-02 15:20 | CONS ---
DATE OF ADMISSION: 01/01/2017 DATE OF CONSULTATION: 01/02/2017 INFECTIOUS DISEASE CONSULTATION REASON FOR CONSULTATION: Antibiotic management. HISTORY OF PRESENT ILLNESS: Morgan Johnson is a 71-year-old male who was transferred to [facility] from his [facility] with a low pulse oximetry. The patient has underlying dementia. Oth er problems include: 2. Chronic obstructive pulmonary disease. 3. Atrial fibrillation. 4. Chronic renal insufficiency. 5. Paraplegia. Acutely, the patient comes in with exacerbation of chronic obstructive pulmonary disease. He has a history of chronic atrial ablation. He has a history of UTI in the past. He was placed on BiPAP fo r his shortness of breath. On admission, his white count was 12.6, H and H 10.6 and 34.6, platelet count 81,000. BUN and creatinine 38 and 0.79. PAST MEDICAL HISTORY: Operations as outlined. FAMILY HISTORY: Noncontributory. SOCIAL HISTORY: He does not smoke, drink, or abuse drugs. ALLERGIES: NONE TO PENICILLIN, SULFA, OR FOODS. MEDICATIONS: Per chart. REVIEW OF SYSTEMS: As per HPI. PHYSICAL EXAMINATION: GENERAL: The patient is an elderly appearing male who is awake, in no acute distress. VITAL SIGNS: Stable. He is afebrile. SKIN: Without generalized rash. HEENT: Within normal limits. He is edentulous, wears dentures. NECK: Supple. LYMPH NODES: None palpable. CHEST: Decreased breath sounds at the bases. HEART: Without murmur or gallop. ABDOMEN: Soft, nontender without organosplenomegaly or masses. EXTREMITIES: Without cyanosis, clubbing, or edema. RECTAL AND GENITAL: Deferred. NEUROLOGIC: The patient is paraplegic. LABORATORY DATA: His chest x-ray shows hyperinflation. His white count today is 12.6. His urine s hows 2+ urobilinogen, positive for nitrite, greater than 200 white cells per high-power field. His urine is positive for gram-negative rods and Enterococcus. His blood cultures are positive for gram -negative rods. He is on vancomycin and cefepime, which is appropriate. We will await further cult ures. I will dictate my findings to Dr. Norton and hospitalist. Dictated By: KOTA LANDAVERDE MD, JD/KEIRY Conf#: [id number] [facility]#: [id number]
--- NOTE | 2017-01-02 15:38 | HP ---
DATE OF ADMISSION: 01/01/2017 CHIEF COMPLAINT: Shortness of breath. HISTORY OF PRESENT ILLNESS: The patient is a 71-year-old gentleman known to me from previous admiss ions. The patient is a 71-year-old gentleman known to me from previous admission. The patient with history of dementia, COPD, chronic kidney disease, atrial fibrillation and chronic urinary retentio n. The patient resided in a [facility] facility. Patient noted to have gradual onset of progr essive respiratory difficulty for the last couple of days and found to be lethargic this morning. P aramedics were called. Patient's saturation was in the 80s, was placed on a nonrebreather mask. Th e patient also has a chronic Forbes catheter from previous admission. The patient was evaluated by Scar Acosta, urologist, and the patient had chronic urinary retention. They tried to discontinue Fo harsha catheter; however, patient was not able to urinate and had to continue with Forbes catheter. The patient underwent a chest x-ray in the emergency room which revealed hyperinflation. Patient also underwent a brain CT which showed no acute intracranial hemorrhage or significant mass effect, chron ic microvascular disease and intracranial atherosclerosis, age indeterminate right cerebellar lacuna r infarct. The patient's lactic acid was elevated to 3.4. The patient was placed on BiPAP in the em ergency room. The patient's urinalysis was indicative of a urinary tract infection with positive ni trite and leukocyte esterase and many bacteria. The patient was diagnosed with a urinary tract infe ction and was started on broad spectrum antibiotics and admitted for further evaluation and manageme nt to telemetry floor. PAST MEDICAL HISTORY: Per HPI. PAST SURGICAL HISTORY: Status post hip ORIF. SOCIAL HISTORY: Patient is currently a resident of [facility] facility. The patient is a form er smoker, smoked for many years. Denies any tobacco use, denies any illicit drug use; however, jose raul bui has underlying dementia and is a poor historian. ALLERGIES: NO KNOWN ALLERGIES. MEDICATIONS ON ADMISSION: 1. Tylenol. 2. Albuterol. 3. Eliquis. 4. Doxazosin. 5. Finasteride. 6. Multivitamins. 7. Pro-Stat liquid. 8. Tamsulosin. 9. Vitamin C. 10. Zinc sulfate. 11. Protonix. 12. MiraLax p.r.n. 13. Colace. 14. Advair. REVIEW OF SYSTEMS: A 12-point review of systems is negative unless was mentioned in the HPI. PHYSICAL ASSESSMENT GENERAL: Well-developed, well-nourished gentleman, currently on supplemental oxygen. Awake to name , otherwise, confused. VITAL SIGNS: Temperature is 98.0, pulse is 90, blood pressure is 104/63, respiratory rate 18, oxyge n saturation 91%. HEENT: Head is atraumatic, normocephalic. Pupils equal, round, reactive to light and accommodation . Oral mucosa is pink and moist. NECK: Supple, no cervical lymphadenopathy, no thyromegaly. CHEST: Lung sounds diminished. There is no rhonchi, wheezes, rales noted. CARDIOVASCULAR: Irregularly irregular rate. Patient is slightly tachycardic. No murmurs, gallops , clicks, rubs noted. ABDOMEN: Flat, soft, nondistended, nontender. Bowel sounds present. EXTREMITIES: There is no clubbing, cyanosis. Pulses equal bilaterally 2+. SKIN: There is no rash, petechiae noted. GENITOURINARY: The patient has a Forbes catheter with blood-tinged urine. LABORATORY DATA: On admission, CBC: White blood cells 14.3, hemoglobin 12.2, hematocrit 40.1, plat elets 89. Chemistry: Sodium is 143, potassium 4.3, chloride 99, carbon dioxide 34, anion gap 14, B UN is 46, creatinine 1.43, glucose 90, AST 32, ALT 29, alkaline phosphatase 83. ASSESSMENT AND PLAN: 1. Sepsis secondary to urinary tract infection and possible underlying early pneumonia. Continue b road spectrum antibiotics. Dr. Norton is going to follow the patient in a pulmonology consultation. Dr. Chandra will be following the patient in infectious disease consultation. Will follow up on bl ood and urine cultures. 2. Acute cystitis with hematuria. 3. Chronic obstructive pulmonary disease exacerbation. Continue breathing treatment and oxygen sup plementation. 4. Atrial fibrillation. Continue Eliquis. 5. Chronic renal insufficiency. Will monitor the BUN and creatinine. 6. Dementia. 7. Chronic urinary retention. Resume patient's home medication. 8. Continue Protonix for peptic disease prophylaxis. Continue IV fluids. Monitor vital signs on t elemetry floor. Further recommendations based on clinical course. Plan of care discussed with Dr. Hartman. Dictated By: CONTRERAS DIANA LOSS PREVENTION AUDITOR for DANO HARTMAN MD SR/NTS Conf#: [id number] DID#: [id number]
[2017-01-02] MEDS: VANCOMYCIN 1 GM in NS 250 ML IVPB SCH (17:38)
[2017-01-03] VITALS (24 sets, daily range): BP systolic 96–124; BP diastolic 63–83; PULSE 89–129; RESP 19–22
[2017-01-03] MEDS: SOD CHLORIDE 0.9% 1,000 ML IV SCH ×2 (03:20→23:20)
[2017-01-03] MEDS: VANCOMYCIN 1 GM in NS 250 ML IVPB SCH ×2 (06:03→17:34)
[2017-01-03 06:16] LABS: CREATININE 0.77 mg/dl (0.61-1.24)
[2017-01-03] MEDS: CEFEPIME 1GM/50 ML (PMX) 50 ML IVPB SCH ×2 (08:41→21:40)
[2017-01-03] MEDS: ENOXAPARIN 30 MG/0.3 ML SYG SC SCH (08:45)
[2017-01-03 08:56] LABS: AADO2 Arterial 128.1 mmHg (7.0-24.0); Allen Test ACCEPTAB; Arterial Base Excess 6.5 mmol/L (-3.0-3); Arterial COHb 0.5 % (0.0-3.0); Arterial Fraction of Oxyhgb 98.2 % (93.0-99.0); Arterial HCO3 35.1 mmol/L (22.0-26.0); Arterial MetHb 0.1 % (0.0-1.5); Arterial Total Hemglobin 12.2 g/dl (12.0-18.0); Blood Gas IEPAP 15/5; MODE MASK - BIPAP
--- NOTE | 2017-01-03 12:00 | CONS ---
Date/Time of Note Date/Time of Note DATE: 01/03/17 TIME: 11:58 Assessment/Plan Assessment/Plan Additional Assessment/Plan Assessment recommendations; 1. Patient admitted for COPD exacerbation with hypercapnic respiratory failure , pH is improved on BiPAP but the patient still has persistent significant CO2 retention. 2. Gram-negative bacteremia, from enterococcus as well as UTI due to Proteus. Both organisms sensitive to ampicillin. 3. History of paraplegia. 4. Overall very poor functional state. Continue current treatment. Would recommend stopping vancomycin and cefepime and switching the patient to ampicillin. Consultation Date/Type/Reason Admit Date/Time January 01, 2017 at 10:00 Initial Consult Date 01/02/17 Type of Consultation: Pulmonary 24 HR Interval Summary Free Text/Dictation Patient condition remains tenuous at best. Remains somnolent. Maintained on BiPAP. General exam; elderly male, currently in no distress, arousable. Exam/Review of Systems Vital Signs Vitals Vital Signs Date Time Temp Pulse Resp B/P Pulse Ox O2 Delivery O2 Flow Rate FiO2 01/03/17 11:08 98.4 102 19 109/69 100 01/03/17 10:50 50 01/03/17 09:10 3.0 01/03/17 09:00 Nasal Cannula Intake and Output 01/02/17 01/02/17 01/03/17 15:00 23:00 07:00 Intake Total 250 ml 350 ml 750 ml Output Total 800 ml 800 ml Balance 250 ml -450 ml -50 ml Exam HEENT exam is; supple neck, no JVD. Patient is edentulous. Pupils are small bilaterally. No neck masses. No thyromegaly. Chest examination; poor vessel bilaterally. No additional. S1-S2 audible, irregular rhythm. Abdomen examination; soft, nontender. No organomegaly. Bowel sounds audible. Extremity examination; normal peripheral edema. FOUNDATION DIGGER examination; patient is somnolent. Results Result Diagram: 01/02/17 0630 01/03/17 0500 Results 24 hrs Laboratory Tests Test 01/03/17 05:00 01/03/17 08:00 Blood Urea Nitrogen 26 #H Creatinine 0.77 Vancomycin Level Trough 10.6 Blood Gas Specimen Source Blood arterial Arterial Blood Date Drawn 01/03/2017 8:41:27 AM Arterial Blood pH (Temp corrected) 7.302 L Arterial Blood pCO2 (Temp correct) 72.6 H Arterial Blood pO2 (Temp corrected) 146.7 H Arterial Blood HCO3 35.1 H Arterial Blood Base Excess 6.5 H Arterial Blood Oxygen Saturation 98.8 Miguel A Test ACCEPTAB Arterial Blood Gas Puncture Site Left Radial Arterial Blood Carboxyhemoglobin 0.5 Arterial Blood Methemoglobin 0.1 Blood Gas A-a O2 Differential 128.1 H Oxyhemoglobin Percent 98.2 Total Hemoglobin 12.2 Blood Gas Temperature 37.0 Blood Gas Respiration Rate 20.0 Blood Gas Actual Respiration Rate 20 Blood Gas Modality MASK - BIPAP FiO2 50.0 Blood Gas IPAP/EPAP Ratio 02/01 Blood Gas Notified Whom JLD Blood Gas Notified Time 01/03/2017 8:55:57 AM Medications Medications Current Medications Sodium Chloride (NS) 1,000 ml @ 50 mls/hr Q20H IV Last administered on 14:15; Admin Dose 50 MLS/HR; Start 01/01/17 at 11:20 Enoxaparin Sodium 30 mg 30 mg DAILY SC Last administered on 01/03/17 08:45; Admin Dose 30 MG; Start 01/02/17 at 09:00 Cefepime HCl (Maxipime 1gm/50 ml (Pmx)) 50 ml @ 100 mls/hr Q12 IVPB Last administered on 01/03/17 08:41; Admin Dose 100 MLS/HR; Start 01/01/17 at 21:00 Miscellaneous Information This patient cain... PRN PRN XX WOUND CARE; Start 01/01 at 20:30 Vancomycin HCl (Vancocin) 250 ml @ 125 mls/hr Q12H IVPB Last administered on 06:03; Admin Dose 125 MLS/HR; Start 01/02/17 at 18:00 ODILON MISHRA January 03, 2017 12:00
--- NOTE | 2017-01-03 14:01 | PN ---
DATE: 01/03/2017 SUBJECTIVE: Patient is lethargic on BiPAP, in no distress. No fevers. LABORATORIES: WBC 12.6 yesterday. No labs this morning. BUN today 26, creatinine 0.77. MICROBIOLOGY: Blood culture growing Proteus mirabilis. Urine culture growing Proteus mirabilis and Enterococcus species. Nares swab revealed no MRSA. ANTIMICROBIALS: The patient is on: 1. IV vancomycin. 2. Cefepime. DIAGNOSTICS: Chest x-ray on admission revealed hyperinflation. CT of the brain showed no acute int racranial hemorrhage. PHYSICAL EXAMINATION: GENERAL: Chronically ill-appearing, elderly man who is in no distress. HEENT: Head atraumatic, normocephalic. Sclerae anicteric. Buccal mucosa dry. NECK: Supple. CHEST: Rise symmetrical. Breath sounds diminished. HEART: S1, S2. ABDOMEN: Soft, bowel tones present. EXTREMITIES: Without cyanosis. ASSESSMENT: 1. Sepsis with Proteus mirabilis bacteremia secondary to #2. 2. Polymicrobial urinary tract infection. 3. Acute respiratory failure secondary to chronic obstructive pulmonary disease exacerbation. 4. Atrial fibrillation. 5. Paraplegia. PLAN: The patient is being followed by Dr. Jim Norton in pulmonary consultation. He is in no dist ress. He is on appropriate antimicrobials. We are going to repeat blood cultures. Dictated By: PRIETO MEHTA MESS ATTENDANT for KOTA COFFEY/KEIRY Conf#: [id number] DID#: [id number]
--- NOTE | 2017-01-03 15:53 | PN ---
Date/Time of Note Date/Time of Note DATE: 01/03/17 TIME: 15:41 Assessment/Plan VTE Prophylaxis VTE Prophylaxis Intervention: LMWH, SCD's Lines/Catheters Urinary Cath still in place: Yes Reason Cath still needed: urinary retention Assessment/Plan Chief Complaint/Hosp Course ASSESSMENT AND PLAN: - Sepsis secondary to urinary tract infection and possible underlying early pneumonia. Continue broad spectrum antibiotics. Dr. Chandra will be following the patient in infectious disease consultation. Will follow up on blood and urine cultures. - Proteus mirabilis bacteremia. - Polymicrobial acute cystitis with hematuria. - Hypercapnic respiratory failure, Dr. Norton is following in a pulmonology consultation. Continue BiPAP. - Chronic obstructive pulmonary disease exacerbation. Continue breathing treatment and oxygen supplementation. - Atrial fibrillation. Continue Eliquis. Dr. Lala is following and cardiology consultation. - Chronic renal insufficiency. Continue monitor the BUN and creatinine. - Dementia. - Chronic urinary retention. Continue Forbes catheter Further recommendations based on clinical course. Plan of care discussed with Dr. Anne. Problems: Subjective 24 Hr Interval Summary Free Text/Dictation Patient is currently on BiPAP, atrial fibrillation at controlled rate. Exam/Review of Systems Vital Signs Vitals Vital Signs Date Time Temp Pulse Resp B/P Pulse Ox O2 Delivery O2 Flow Rate FiO2 01/03/17 13:30 94 97 50 01/03/17 11:08 98.4 19 109/69 01/03/17 09:10 3.0 01/03/17 09:00 Nasal Cannula Intake and Output 01/02/17 01/02/17 01/03/17 15:00 23:00 07:00 Intake Total 250 ml 350 ml 750 ml Output Total 800 ml 800 ml Balance 250 ml -450 ml -50 ml Exam GENERAL: Well-developed, well-nourished gentleman, currently on supplemental oxygen. Awake to name, otherwise, confused. HEENT: Head is atraumatic, normocephalic. Pupils equal, round, reactive to light and accommodation. Oral mucosa is pink and moist. NECK: Supple, no cervical lymphadenopathy, no thyromegaly. CHEST: Lung sounds diminished. There is no rhonchi, wheezes, rales noted. CARDIOVASCULAR: Irregularly irregular rate. Patient is slightly tachycardic. No murmurs, gallops, clicks, rubs noted. ABDOMEN: Flat, soft, nondistended, nontender. Bowel sounds present. EXTREMITIES: There is no clubbing, cyanosis. Pulses equal bilaterally 2+. SKIN: There is no rash, petechiae noted. GENITOURINARY: The patient has a Forbes catheter with blood-tinged urine. Results Result Diagram: 01/02/17 0630 01/03/17 0500 Results 24 hrs Laboratory Tests Test 01/03/17 05:00 01/03/17 08:00 Blood Urea Nitrogen 26 #H Creatinine 0.77 Vancomycin Level Trough 10.6 Blood Gas Specimen Source Blood arterial Arterial Blood Date Drawn 01/03/2017 8:41:27 AM Arterial Blood pH (Temp corrected) 7.302 L Arterial Blood pCO2 (Temp correct) 72.6 H Arterial Blood pO2 (Temp corrected) 146.7 H Arterial Blood HCO3 35.1 H Arterial Blood Base Excess 6.5 H Arterial Blood Oxygen Saturation 98.8 Miguel A Test ACCEPTAB Arterial Blood Gas Puncture Site Left Radial Arterial Blood Carboxyhemoglobin 0.5 Arterial Blood Methemoglobin 0.1 Blood Gas A-a O2 Differential 128.1 H Oxyhemoglobin Percent 98.2 Total Hemoglobin 12.2 Blood Gas Temperature 37.0 Blood Gas Respiration Rate 20.0 Blood Gas Actual Respiration Rate 20 Blood Gas Modality MASK - BIPAP FiO2 50.0 Blood Gas IPAP/EPAP Ratio 15 Blood Gas Notified Whom JLD Blood Gas Notified Time 01/03/2017 8:55:57 AM Medications Medications Current Medications Sodium Chloride (NS) 1,000 ml @ 50 mls/hr Q20H IV Last administered on 14:15; Admin Dose 50 MLS/HR; Start 01/01/17 at 11:20 Enoxaparin Sodium 30 mg 30 mg DAILY SC Last administered on 01/03/17 08:45; Admin Dose 30 MG; Start 01/02/17 at 09:00 Cefepime HCl (Maxipime 1gm/50 ml (Pmx)) 50 ml @ 100 mls/hr Q12 IVPB Last administered on 01/03/17 08:41; Admin Dose 100 MLS/HR; Start 01/01/17 at 21:00 Miscellaneous Information This patient cain... PRN PRN XX WOUND CARE; Start 01/01 at 20:30 Vancomycin HCl (Vancocin) 250 ml @ 125 mls/hr Q12H IVPB Last administered on t 06:03; Admin Dose 125 MLS/HR; Start 01/02/17 at 18:00 CONTRERAS DIANA January 03, 2017 15:52
[2017-01-03] MEDS: DOXAZOSIN 2 MG TAB PO SCH (21:00)
[2017-01-03] MEDS: DOCUSATE SODIUM 100 MG CAP PO SCH (21:37)
[2017-01-03] MEDS: SALMETEROL/FLUTICASONE 250/50 INHA INH SCH (21:39)
[2017-01-04] VITALS (18 sets, daily range): BP systolic 97–107; BP diastolic 57–66; PULSE 79–100; RESP 18–89
[2017-01-04] MEDS: VANCOMYCIN 1 GM in NS 250 ML IVPB SCH ×2 (05:59→17:16)
[2017-01-04 09:39] LABS: ADD SCAN DIFF NO
[2017-01-04 09:43] LABS: ABNORMAL IP MESSAGE 1; BASOPHILS % 0.2 % (0.0-2.0); EOSINOPHILS # 0.4 10^3/ul (0.0-0.5); EOSINOPHILS % 3.2 % (0.0-7.0); HEMATOCRIT 36.8 % (42.0-52.0); HEMOGLOBIN 10.9 g/dl (14.0-18.0); LYMPHOCYTES # 0.9 10^3/ul (0.8-2.9); LYMPHOCYTES % 7.8 % (15.0-51.0); MEAN CORPUSCULAR HGB CONC 29.6 g/dl (32.0-37.0); MEAN CORPUSCULAR VOLUME 107.9 fl (82.0-101.0); MEAN PLATELET VOLUME 11.9 fl (7.4-10.4); MONOCYTE # 1.1 10^3/ul (0.3-0.9); MONOCYTES % 10.2 % (0.0-11.0); NEUTROPHIL # 8.6 10^3/ul (1.6-7.5); NEUTROPHILS % 77.7 % (39.0-77.0); RED BLOOD COUNT 3.41 10^6/ul (4.70-6.10); RED CELL DISTRIBUTION WIDTH 14.9 % (11.5-14.5); WHITE BLOOD COUNT 11.1 10^3/ul (4.8-10.8)
[2017-01-04] MEDS: ENOXAPARIN 30 MG/0.3 ML SYG SC SCH (09:58)
[2017-01-04] MEDS: POLYETHYLENE GLYCOL 17 GM PACKET PO SCH (09:58)
[2017-01-04] MEDS: FINASTERIDE 5 MG TAB PO SCH (09:58)
[2017-01-04] MEDS: DOCUSATE SODIUM 100 MG CAP PO SCH ×2 (09:58→21:18)
[2017-01-04] MEDS: PANTOPRAZOLE (EC) 40 MG TAB PO SCH (09:58)
[2017-01-04] MEDS: SALMETEROL/FLUTICASONE 250/50 INHA INH SCH ×2 (09:59→21:18)
[2017-01-04 10:01] LABS: CALCIUM 9.3 mg/dl (8.4-10.2); CREATININE 0.75 mg/dl (0.61-1.24); POTASSIUM 3.9 mmol/L (3.5-5.1)
[2017-01-04] MEDS: CEFEPIME 1GM/50 ML (PMX) 50 ML IVPB SCH ×2 (10:05→21:12)
[2017-01-04] MEDS: DOXAZOSIN 2 MG TAB PO SCH ×2 (10:08→21:19)
[2017-01-04 10:56] LABS: PLATELET COUNT 69 10^3/UL (140-415)
--- NOTE | 2017-01-04 13:10 | CONS ---
Date/Time of Note Date/Time of Note DATE: 01/04/17 TIME: 13:08 Assessment/Plan Assessment/Plan Additional Assessment/Plan Assessment recommendations; 1. Patient admitted for hypercapnic respiratory failure due to underlying COPD with significant clinical improvement. 2. Gram-negative bacteremia next 3. History of paraplegia. Continue current supportive care. Continue BiPAP as needed. Consultation Date/Type/Reason Admit Date/Time January 01, 2017 at 10:00 Initial Consult Date 01/02/17 Type of Consultation: Pulmonary 24 HR Interval Summary Free Text/Dictation Patient condition is stable. Significantly improved compared to yesterday. Patient is completely awake alert and able to talk. General exam; elderly male, awake alert currently in no distress. Exam/Review of Systems Vital Signs Vitals Vital Signs Date Time Temp Pulse Resp B/P Pulse Ox O2 Delivery O2 Flow Rate FiO2 01/04/17 12:21 92 01/04/17 11:43 98.5 22 97/57 94 01/04/17 09:00 Nasal Cannula 2.0 01/04/17 07:41 45 Intake and Output 01/03/17 01/03/17 01/04/17 15:00 23:00 07:00 Intake Total 200 ml 1725 ml Output Total 1300 ml 1350 ml Balance -1100 ml 375 ml Exam HEENT exam is; supple neck, no JVD. No lymphadenopathy. Midline trachea. No thyromegaly. Pharynx is clear. Patient has few remaining teeth. Pupils are small bilaterally. Chest examination; diminished but clear vessel. S1-S2 audible, no murmurs. Abdomen examination; soft, scaphoid. Nontender. No organomegaly. Bowel sounds audible. Extremity examination; no peripheral edema. METAL INSPECTOR examination; patient is stable paraplegia. Results Result Diagram: 01/04/1791901/04/17919 Results 24 hrs Laboratory Tests Test 01/04/17 09:20 White Blood Count 11.1 H Red Blood Count 3.41 L Hemoglobin 10.9 L Hematocrit 36.8 L Mean Corpuscular Volume 107.9 H Mean Corpuscular Hemoglobin 32.0 Mean Corpuscular Hemoglobin Concent 29.6 L Red Cell Distribution Width 14.9 H Platelet Count 69 L Mean Platelet Volume 11.9 H Neutrophils % 77.7 H Lymphocytes % 7.8 L Monocytes % 10.2 Eosinophils % 3.2 Basophils % 0.2 Nucleated Red Blood Cells % 0.0 Neutrophils # 8.6 H Lymphocytes # 0.9 Monocytes # 1.1 H Eosinophils # 0.4 Basophils # 0.0 Nucleated Red Blood Cells # 0.0 Sodium Level 139 Potassium Level 3.9 Chloride Level 104 Carbon Dioxide Level 35 H Anion Gap 4 L Blood Urea Nitrogen 18 Creatinine 0.75 Glucose Level 98 Calcium Level 9.3 Medications Medications Current Medications Sodium Chloride 1,000 ml @ 50 mls/hr Q20H IV Last administered on 01/02/17 14 :15; Admin Dose 50 MLS/HR; Start 01/01/17 at 11:20 Cefepime HCl (Maxipime 1gm/50 ml (Pmx)) 50 ml @ 100 mls/hr Q12 IVPB Last administered on 01/04/17 10:05; Admin Dose 100 MLS/HR; Start 01/01/17 at 21:00 Miscellaneous Information This patient cain... PRN PRN XX WOUND CARE; Start 01/01 at 20:30 Vancomycin HCl (Vancocin) 250 ml @ 125 mls/hr Q12H IVPB Last administered on 05:59; Admin Dose 125 MLS/HR; Start 01/02/17 at 18:00 Doxazosin Mesylate (Cardura) 2 mg BID PO Last administered on 01/04/17 10:08; Admin Dose 2 MG; Start 01/03/17 at 21:00 Finasteride (Proscar) 5 mg DAILY PO Last administered on 01/04/17 09:58; Admin Dose 5 MG; Start 01/04/17 at 09:00 Docusate Sodium (Colace) 100 mg BID PO Last administered on 01/04/17 09:58; Admin Dose 100 MG; Start 01/03/17 at 21:00 Pantoprazole (Protonix Tab) 40 mg QAM PO Last administered on 01/04/17 09:58; Admin Dose 40 MG; Start 01/04/17 at 09:00 Polyethylene Glycol (Miralax) 17 gm DAILY PO Last administered on 01/04/17 09: 58; Admin Dose 17 GM; Start 01/04/17 at 09:00 Salmeterol Xinafoate/ Fluticasone (Advair 250/50 Diskus) 1 inh BID INH Last administered on 01/04/17t 09:59; Admin Dose 1 INH; Start 01/03/17 at 21:00 Apixaban (Eliquis) 5 mg BID PO ; Start 01/04/17 at 21:00 ODILON MISHRA January 04, 2017 13:10
--- NOTE | 2017-01-04 15:05 | PN ---
DATE: 01/04/2017 SUBJECTIVE: This is an infectious disease progress note. The patient is on nasal cannula, very wea k and lethargic, opens eyes. No fevers. He is in no distress. WBC 11.1 and platelets 69, neutrophils 77.7, BUN 18, creatinine 0.75. MICROBIOLOGY: Blood culture growing Proteus mirabilis. Urine culture growing enterococcus species and Proteus mirabilis. INDWELLINGS: Forbes catheter. ANTIMICROBIALS: 1. Vancomycin. 2. Cefepime. PHYSICAL EXAMINATION: GENERAL: This is a chronically ill-appearing, elderly man who is lethargic, in no distress. HEENT: Head atraumatic, normocephalic. Sclerae anicteric. Buccal mucosa dry. NECK: Supple, trachea midline. CHEST: Rise symmetrical. Breath sounds diminished. HEART: S1, S2. ABDOMEN: Soft. Bowel tones present. EXTREMITIES: No cyanosis. ASSESSMENT: 1. Sepsis with Proteus mirabilis bacteremia secondary to #2. 2. Multi-drug resistant urinary tract infection. 3. Respiratory failure secondary to chronic obstructive pulmonary disease exacerbation, possibly as piration event. 4. Atrial fibrillation. 5. Paraplegia. 6. Encephalopathy. PLAN: The patient remains stable, comfortable on nasal cannula. No fevers. He is on appropriate a ntimicrobials. Pulmonary follows, pending repeat blood cultures. Dictated By: PRIETO MEHTA DRY CANS OPERATOR for KOTA COFFEY/KEIRY Conf#: [id number] DID#: [id number]
--- NOTE | 2017-01-04 17:00 | PN ---
Date/Time of Note Date/Time of Note DATE: 01/04/17 TIME: 16:59 Assessment/Plan VTE Prophylaxis VTE Prophylaxis Intervention: SCD's Lines/Catheters IV [facility]ter Type [facility]from [facility]): Peripheral IV Urinary Cath still in place: Yes Reason Cath still needed: urinary retention Assessment/Plan Chief Complaint/Hosp Course ASSESSMENT AND PLAN: - Sepsis secondary to urinary tract infection and possible underlying early pneumonia. Continue broad spectrum antibiotics. Dr. Chandra will be following the patient in infectious disease consultation. Will follow up on blood and urine cultures. - Proteus mirabilis bacteremia. - Polymicrobial acute cystitis with hematuria. - Hypercapnic respiratory failure, Dr. Norton is following in a pulmonology consultation. Continue BiPAP. - Chronic obstructive pulmonary disease exacerbation. Continue breathing treatment and oxygen supplementation. - Atrial fibrillation. Continue Eliquis. Dr. Lala is following and cardiology consultation. - Chronic renal insufficiency. Continue monitor the BUN and creatinine. - Dementia. - Chronic urinary retention. Continue Forbes catheter Further recommendations based on clinical course. Plan of care discussed with Dr. Anne. Problems: Subjective 24 Hr Interval Summary Free Text/Dictation Patient is currently off BiPAP, lethargic but easily arousable, diminished air entry bilaterally, borderline hypotensive. Exam/Review of Systems Vital Signs Vitals Vital Signs Date Time Temp Pulse Resp B/P Pulse Ox O2 Delivery O2 Flow Rate FiO2 01/04/17 16:24 96 01/04/17 15:49 98.3 18 97/60 96 01/04/17 09:00 Nasal Cannula 2.0 01/04/17 07:41 45 Intake and Output 01/03/17 01/03/17 01/04/17 15:00 23:00 07:00 Intake Total 200 ml 1725 ml Output Total 1300 ml 1350 ml Balance -1100 ml 375 ml Exam GENERAL: Well-developed, well-nourished gentleman, currently on supplemental oxygen. Awake to name, otherwise, confused. HEENT: Head is atraumatic, normocephalic. Pupils equal, round, reactive to light and accommodation. Oral mucosa is pink and moist. NECK: Supple, no cervical lymphadenopathy, no thyromegaly. CHEST: Lung sounds diminished. There is no rhonchi, wheezes, rales noted. CARDIOVASCULAR: Irregularly irregular rate. Patient is slightly tachycardic. No murmurs, gallops, clicks, rubs noted. ABDOMEN: Flat, soft, nondistended, nontender. Bowel sounds present. EXTREMITIES: There is no clubbing, cyanosis. Pulses equal bilaterally 2+. SKIN: There is no rash, petechiae noted. GENITOURINARY: The patient has a Forbes catheter with blood-tinged urine. Results Result Diagram: 01/04/17 0920 01/04/17 0920 Results 24 hrs Laboratory Tests Test 01/04/17 09:20 White Blood Count 11.1 H Red Blood Count 3.41 L Hemoglobin 10.9 L Hematocrit 36.8 L Mean Corpuscular Volume 107.9 H Mean Corpuscular Hemoglobin 32.0 Mean Corpuscular Hemoglobin Concent 29.6 L Red Cell Distribution Width 14.9 H Platelet Count 69 L Mean Platelet Volume 11.9 H Neutrophils % 77.7 H Lymphocytes % 7.8 L Monocytes % 10.2 Eosinophils % 3.2 Basophils % 0.2 Nucleated Red Blood Cells % 0.0 Neutrophils # 8.6 H Lymphocytes # 0.9 Monocytes # 1.1 H Eosinophils # 0.4 Basophils # 0.0 Nucleated Red Blood Cells # 0.0 Sodium Level 139 Potassium Level 3.9 Chloride Level 104 Carbon Dioxide Level 35 H Anion Gap 4 L Blood Urea Nitrogen 18 Creatinine 0.75 Glucose Level 98 Calcium Level 9.3 Medications Medications Current Medications Sodium Chloride 1,000 ml @ 50 mls/hr Q20H IV Last administered on 01/02/17 14 :15; Admin Dose 50 MLS/HR; Start 01/01/17 at 11:20 Cefepime HCl (Maxipime 1gm/50 ml (Pmx)) 50 ml @ 100 mls/hr Q12 IVPB Last administered on 01/04/17 10:05; Admin Dose 100 MLS/HR; Start 01/01/17 at 21:00 Miscellaneous Information This patient cain... PRN PRN XX WOUND CARE; Start 01/01 at 20:30 Vancomycin HCl (Vancocin) 250 ml @ 125 mls/hr Q12H IVPB Last administered on 05:59; Admin Dose 125 MLS/HR; Start 01/02/17 at 18:00 Doxazosin Mesylate (Cardura) 2 mg BID PO Last administered on 01/04/17 10:08; Admin Dose 2 MG; Start 01/03/17 at 21:00 Finasteride (Proscar) 5 mg DAILY PO Last administered on 01/04/17 09:58; Admin Dose 5 MG; Start 01/04/17 at 09:00 Docusate Sodium (Colace) 100 mg BID PO Last administered on 01/04/17 09:58; Admin Dose 100 MG; Start 01/03/17 at 21:00 Pantoprazole (Protonix Tab) 40 mg QAM PO Last administered on 01/04/17 09:58; Admin Dose 40 MG; Start 01/04/17 at 09:00 Polyethylene Glycol (Miralax) 17 gm DAILY PO Last administered on 01/04/17 09: 58; Admin Dose 17 GM; Start 01/04/17 at 09:00 Salmeterol Xinafoate/ Fluticasone (Advair 250/50 Diskus) 1 inh BID INH Last administered on 01/04/17 09:59; Admin Dose 1 INH; Start 01/03/17 at 21:00 Apixaban (Eliquis) 5 mg BID PO ; Start 01/04/17 at 21:00 CONTRERAS DIANA January 04, 2017 17:00
[2017-01-04] MEDS ORDERED: METOPROLOL 5 MG INJ IV PRN (18:00)
--- NOTE | 2017-01-04 18:25 | CONS ---
DATE OF ADMISSION: 01/01/2017 DATE OF CONSULTATION: 01/04/2017 REASON FOR CONSULTATION: Paroxysmal atrial fibrillation with rapid ventricular response. REQUESTING PHYSICIAN: Dano Anne MD HISTORY OF PRESENT ILLNESS: Mr. Johnson is a 71-year-old male with a history of dementia, COPD, chr onic kidney disease, atrial fibrillation on systemic anticoagulation, who initially presented with c omplaints of shortness of breath, 01/01/2017. Initially upon arrival, temperature 100.5, blood pres sure 95/61, pulse 58, respiratory rate 19, saturating 80%. The patient's labs revealed a white cell count 14.3, hemoglobin 12.2, platelet count of 89. Sodium 142, potassium 4.3, creatinine 1.43, BUN 46, AST 32, ALT 29, INR 1.41. ABG revealing a pH of 7.288, a PaO2 of 175, a pCO2 of 80. UA positi ve. INR 1.4. The patient underwent a head CT revealing no acute intracranial hemorrhage or signifi cant mass effect, chronic microvascular disease, intracranial atherosclerosis, age indeterminate rig ht cerebellar lacunar infarct. A chest x-ray revealed hyperinflation, but otherwise clear lungs. T he patient's electrocardiogram revealed atrial fibrillation at a rate of 141 with low voltage in the limb leads and left axis deviation, nonspecific ST and T abnormalities diffusely with anteroseptal Q's. The patient subsequently has been admitted to the floor and, since admit to floor, has had con version to sinus rhythm, which he remains in at this time. The patient at this time has ongoing royce rtness of breath. Denies chest pain. PAST MEDICAL HISTORY: As above in HPI. MEDICATIONS CURRENTLY IN HOSPITAL: 1. Eliquis 5 mg b.i.d. 2. Proscar 5 mg daily. 3. Protonix 40 mg daily. 4. MiraLax. 5. Cardura 2 mg p.o. b.i.d. 6. Colace 100 mg b.i.d. 7. Advair Diskus. 8. Ambien p.r.n. 9. Cefepime IV. 10. Vancomycin IV. 11. IV fluid hydration at 50 mL an hour. ALLERGIES: NO KNOWN DRUG ALLERGIES. SOCIAL HISTORY: No current tobacco, ETOH, or illicit drug use. FAMILY HISTORY: No history of sudden cardiac or early CAD. REVIEW OF SYSTEMS: As above in HPI. CONSTITUTIONAL: No fevers, chills. PULMONARY: Shortness of breath. CARDIOVASCULAR: History of atrial fibrillation, currently in sinus rhythm. GASTROINTESTINAL: No vomiting. GENITOURINARY: No hematuria. MUSCULOSKELETAL: Degenerative joint disease. PSYCHIATRIC: No documented history of depression. NEUROLOGIC: Dementia. ENDOCRINE: No documented history of thyroid disease. PHYSICAL EXAMINATION: VITAL SIGNS: Temperature of 98.3, blood pressure 97/60, pulse 95, respiratory 18, saturating 96% on 2 liters. GENERAL: The patient is alert, awake, complaining of mild shortness of breath. NECK: JVP approximately 9 cm water. CHEST: Fair movement throughout with mild decreased breath sounds at bases bilaterally. HEART: Regular rate and rhythm. Normal S1, S2, I/ systolic murmur, nondisplaced PMI. ABDOMEN: Positive bowel sounds, soft. EXTREMITIES: No pitting edema, 1+ pulses bilaterally, posterior tibial. LABORATORIES: Most recently from today, sodium 139, potassium 3.9, creatinine 0.7, BUN 18. White c ell count 11.1, hemoglobin 10.9, platelet count 69. UA positive. IMAGING STUDIES: As above in HPI. No further imaging studies for my review at this time. ELECTROCARDIOGRAM: As above in HPI. No further electrocardiograms for my review at this time. IMPRESSION: 1. Paroxysmal atrial fibrillation, currently in sinus rhythm. 2. Abnormal electrocardiogram, assess for acute coronary syndrome. 3. Hypotension, borderline. 4. Shortness of breath, assess for congestive heart failure. 5. Urinary tract infection. 6. Hypercapnic respiratory distress. 7. Chronic obstructive pulmonary disease. 8. Bacteremia. RECOMMENDATIONS: 1. At this time would maintain patient on telemetry monitoring to follow rhythm and rate control cl osely. 2. Would check serial EKGs to assess for any significant ongoing changes. EKG in the morning, EKG for any complaints of chest pain or change in rhythm. 3. Continue the patient's current apixiban as tolerated only following for any bleeding complicatio ns in the setting of low platelet count. 4. Continue the patient's Cardura, but possibly decrease the dose so as not to drop the patient's b lood pressure. 5. Will initiate patient on amiodarone at this time in an attempt to maintain sinus rhythm. This p atient may be a poor systemic anticoagulation candidate, if he continues to have low platelet count. 6. Check a 2D echo for assessment of the patient's ejection fraction, wall motion, or any major mario ve abnormalities. 7. Additionally check a TSH to be sure that subclinical hyperthyroidism is not contributing to any bouts of paroxysmal atrial fibrillation. Thank you for allowing me to take part in the care of this patient. I will continue to follow along very closely with you. Further recommendations will be made as the patient progresses through his inpatient hospital clinical course. Dictated By: STEPHANIE MOORE/KEIRY Conf#: [id number] DID#: [id number] CC: DANO ANNE MD;*EndCC*
[2017-01-04] MEDS: SOD CHLORIDE 0.9% 1,000 ML IV SCH (21:10)
[2017-01-04] MEDS: APIXABAN 5 MG TABLET PO SCH (21:18)
[2017-01-04] MEDS: AMIODARONE 200 MG TAB PO SCH (21:19)
[2017-01-05] VITALS (17 sets, daily range): BP systolic 94–121; BP diastolic 55–84; PULSE 76–110; RESP 16–20
[2017-01-05] MEDS: VANCOMYCIN 1 GM in NS 250 ML IVPB SCH (05:16)
[2017-01-05] MEDS: CEFEPIME 1GM/50 ML (PMX) 50 ML IVPB SCH (08:15)
[2017-01-05] MEDS: SALMETEROL/FLUTICASONE 250/50 INHA INH SCH ×2 (08:15→20:33)
[2017-01-05 08:19] LABS: ADD SCAN DIFF NO
[2017-01-05 08:38] LABS: ABNORMAL IP MESSAGE 1; BASOPHILS % 0.1 % (0.0-2.0); EOSINOPHILS # 0.3 10^3/ul (0.0-0.5); EOSINOPHILS % 3.3 % (0.0-7.0); HEMATOCRIT 35.9 % (42.0-52.0); HEMOGLOBIN 10.8 g/dl (14.0-18.0); LYMPHOCYTES # 0.8 10^3/ul (0.8-2.9); LYMPHOCYTES % 9.4 % (15.0-51.0); MEAN CORPUSCULAR HEMOGLOBIN 31.2 pg (29.0-33.0); MEAN CORPUSCULAR HGB CONC 30.1 g/dl (32.0-37.0); MEAN CORPUSCULAR VOLUME 103.8 fl (82.0-101.0); MEAN PLATELET VOLUME 12.2 fl (7.4-10.4); MONOCYTES % 11.9 % (0.0-11.0); NEUTROPHIL # 6.5 10^3/ul (1.6-7.5); NEUTROPHILS % 74.5 % (39.0-77.0); PLATELET COUNT 73 10^3/UL (140-415); RED BLOOD COUNT 3.46 10^6/ul (4.70-6.10); RED CELL DISTRIBUTION WIDTH 14.6 % (11.5-14.5); WHITE BLOOD COUNT 8.7 10^3/ul (4.8-10.8)
[2017-01-05 08:56] LABS: POTASSIUM 3.6 mmol/L (3.5-5.1)
[2017-01-05 08:59] LABS: CALCIUM 8.6 mg/dl (8.4-10.2); CREATININE 0.65 mg/dl (0.61-1.24)
[2017-01-05] MEDS: APIXABAN 5 MG TABLET PO SCH ×2 (10:03→20:33)
[2017-01-05] MEDS: POLYETHYLENE GLYCOL 17 GM PACKET PO SCH (10:03)
[2017-01-05] MEDS: DOCUSATE SODIUM 100 MG CAP PO SCH ×2 (10:03→20:33)
[2017-01-05] MEDS: PANTOPRAZOLE (EC) 40 MG TAB PO SCH (10:03)
[2017-01-05] MEDS: FINASTERIDE 5 MG TAB PO SCH (10:03)
[2017-01-05] MEDS: AMIODARONE 200 MG TAB PO SCH ×2 (10:04→20:33)
[2017-01-05] MEDS: DOXAZOSIN 2 MG TAB PO SCH ×2 (10:04→20:33)
--- NOTE | 2017-01-05 12:14 | CONS ---
Date/Time of Note Date/Time of Note DATE: 01/05/17 TIME: 12:13 Assessment/Plan Assessment/Plan Additional Assessment/Plan Assessment recommendations; next 1. Patient admitted for hypercapnic respiratory failure with significant clinical improvement. 2. History of paraplegia. 3. Chronic malnutrition. 4. Gram-negative bacteremia from enterococcus and Proteus, both sensitive to ampicillin. Discontinue vancomycin and cefepime. Start the patient on ampicillin 1 g every 6 hours. Continue current supportive measures. Consider discharge to long-term. Consultation Date/Type/Reason Admit Date/Time January 01, 2017 at 10:00 Initial Consult Date 01/02/17 Type of Consultation: Pulmonary 24 HR Interval Summary Free Text/Dictation Patient condition is improved. He remains awake and alert. Has been off BiPAP. General exam; elderly male, awake alert currently in no distress. Exam/Review of Systems Vital Signs Vitals Vital Signs Date Time Temp Pulse Resp B/P Pulse Ox O2 Delivery O2 Flow Rate FiO2 01/05/17 12:06 90 01/05/17 11:03 98.2 16 96/55 96 01/05/17 09:45 Nasal Cannula 4.0 01/04/17 23:16 45 Intake and Output 01/04/17 01/04/17 01/05/17 15:00 23:00 07:00 Intake Total 300 ml 3225 ml 975 ml Output Total 550 ml 800 ml Balance 300 ml 2675 ml 175 ml Exam HEENT exam; neck, no JVD. No lymphadenopathy. Midline trachea. No thyromegaly. Patient is edentulous. Chest examination; diminished but clear vessel. S1-S2 audible, no murmurs. Regular rhythm. Abdomen examination; soft, nontender. No organomegaly. Bowel sounds audible. Extremity examination; no peripheral edema. [employer] examination; patient is stable paraplegia. Results Result Diagram: 01/05/17 0618 01/05/17 0618 Results 24 hrs Laboratory Tests Test 01/05/17 06:18 White Blood Count 8.7 # Red Blood Count 3.46 L Hemoglobin 10.8 L Hematocrit 35.9 L Mean Corpuscular Volume 103.8 H Mean Corpuscular Hemoglobin 31.2 Mean Corpuscular Hemoglobin Concent 30.1 L Red Cell Distribution Width 14.6 H Platelet Count 73 L Mean Platelet Volume 12.2 H Neutrophils % 74.5 Lymphocytes % 9.4 L Monocytes % 11.9 H Eosinophils % 3.3 Basophils % 0.1 Nucleated Red Blood Cells % 0.0 Neutrophils # 6.5 Lymphocytes # 0.8 Monocytes # 1.0 H Eosinophils # 0.3 Basophils # 0.0 Nucleated Red Blood Cells # 0.0 Sodium Level 139 Potassium Level 3.6 Chloride Level 98 Carbon Dioxide Level 35 H Anion Gap 10 # Blood Urea Nitrogen 14 Creatinine 0.65 Glucose Level 101 Calcium Level 8.6 Medications Medications Current Medications Sodium Chloride 1,000 ml @ 50 mls/hr Q20H IV Last administered on 01/04/17 21 :10; Admin Dose 50 MLS/HR; Start 01/01/17 at 11:20 Cefepime HCl (Maxipime 1gm/50 ml (Pmx)) 50 ml @ 100 mls/hr Q12 IVPB Last administered on 01/05/17 08:15; Admin Dose 100 MLS/HR; Start 01/01/17 at 21:00 Miscellaneous Information This patient cain... PRN PRN XX WOUND CARE; Start 01/01 at 20:30 Vancomycin HCl (Vancocin) 250 ml @ 125 mls/hr Q12H IVPB Last administered on 05:16; Admin Dose 125 MLS/HR; Start 01/02/17 at 18:00 Doxazosin Mesylate (Cardura) 2 mg BID PO Last administered on 01/05/17 10:04; Admin Dose 2 MG; Start 01/03/17 at 21:00 Finasteride (Proscar) 5 mg DAILY PO Last administered on 01/05/17 10:03; Admin Dose 5 MG; Start 01/04/17 at 09:00 Docusate Sodium (Colace) 100 mg BID PO Last administered on 01/05/17 10:03; Admin Dose 100 MG; Start 01/03/17 at 21:00 Pantoprazole (Protonix Tab) 40 mg QAM PO Last administered on 01/05/17 10:03; Admin Dose 40 MG; Start 01/04/17 at 09:00 Polyethylene Glycol (Miralax) 17 gm DAILY PO Last administered on 01/05/17 10: 03; Admin Dose 17 GM; Start 01/04/17 at 09:00 Salmeterol Xinafoate/ Fluticasone (Advair 250/50 Diskus) 1 inh BID INH Last administered on 01/05/17 08:15; Admin Dose 1 INH; Start 01/03/17 at 21:00 Apixaban (Eliquis) 5 mg BID PO Last administered on 01/05/17 10:03; Admin Dose 5 MG; Start 01/04/17 at 21:00 Amiodarone HCl (Cordarone) 200 mg BID PO Last administered on 01/05/17 10:04; Admin Dose 200 MG; Start 01/04/17 at 21:00 Metoprolol Tartrate (Lopressor) 5 mg Q4H PRN IV HR>110 Hold SBP<100; Start at 18:00 Magnesium Hydroxide (Milk Of Mag) 30 ml NOW ONCE PO ; Start 01/05/17 at 12:30; Stop 01/05/17 at 12:31 ODILON MISHRA January 05, 2017 12:14
[2017-01-05] MEDS ORDERED: MAGNESIUM HYDROXIDE 30ML CUP PO ONE (12:30)
--- NOTE | 2017-01-05 13:39 | PN ---
Date/Time of Note Date/Time of Note DATE: 01/05/17 TIME: 13:37 Assessment/Plan VTE Prophylaxis VTE Prophylaxis Intervention: other Lines/Catheters [facility] Peripheral IV Urinary Cath still in place: Yes Assessment/Plan Assessment/Plan - Sepsis secondary to urinary tract infection and possible underlying early pneumonia. Continue broad spectrum antibiotics. Dr. Chandra will be following the patient in infectious disease consultation. Will follow up on blood and urine cultures. - Proteus mirabilis bacteremia. - Polymicrobial acute cystitis with hematuria. - Hypercapnic respiratory failure, Dr. Norton is following in a pulmonology consultation. Continue BiPAP. - Chronic obstructive pulmonary disease exacerbation. Continue breathing treatment and oxygen supplementation. - Atrial fibrillation. Continue Eliquis. Dr. Lala is following and cardiology consultation. - Chronic renal insufficiency. Continue monitor the BUN and creatinine. - Dementia. - Chronic urinary retention. Continue Forbes catheter Further recommendations based on clinical course. Plan of care discussed with Dr. Anne. Subjective 24 Hr Interval Summary Free Text/Dictation BiPAP at night time only, , lethargic but easily awakens -name/touch , borderline hypotensive.dw staff Exam/Review of Systems Vital Signs Vitals Vital Signs Date Time Temp Pulse Resp B/P Pulse Ox O2 Delivery O2 Flow Rate FiO2 01/05/17 12:06 90 01/05/17 11:03 98.2 16 96/55 96 01/05/17 09:45 Nasal Cannula 4.0 01/04/17 23:16 45 Intake and Output 01/04/17 01/04/17 01/05/17 15:00 23:00 07:00 Intake Total 300 ml 3225 ml 975 ml Output Total 550 ml 800 ml Balance 300 ml 2675 ml 175 ml Exam Constitutional: alert Psych: nl mood/affect Eyes: nl sclera ENMT: nl external ears & nose Neck: non-tender Respiratory: diminished breath sounds Cardiovascular: nl pulses Gastrointestinal: non-tender, soft Extremities: normal pulses Neurological: confused Lymph: nontender Results Result Diagram: 01/05/1761701/05/17617 Results 24 hrs Laboratory Tests Test 01/05/17 06:18 White Blood Count 8.7 # Red Blood Count 3.46 L Hemoglobin 10.8 L Hematocrit 35.9 L Mean Corpuscular Volume 103.8 H Mean Corpuscular Hemoglobin 31.2 Mean Corpuscular Hemoglobin Concent 30.1 L Red Cell Distribution Width 14.6 H Platelet Count 73 L Mean Platelet Volume 12.2 H Neutrophils % 74.5 Lymphocytes % 9.4 L Monocytes % 11.9 H Eosinophils % 3.3 Basophils % 0.1 Nucleated Red Blood Cells % 0.0 Neutrophils # 6.5 Lymphocytes # 0.8 Monocytes # 1.0 H Eosinophils # 0.3 Basophils # 0.0 Nucleated Red Blood Cells # 0.0 Sodium Level 139 Potassium Level 3.6 Chloride Level 98 Carbon Dioxide Level 35 H Anion Gap 10 # Blood Urea Nitrogen 14 Creatinine 0.65 Glucose Level 101 Calcium Level 8.6 Medications Medications Current Medications Sodium Chloride (NS) 1,000 ml @ 50 mls/hr Q20H IV Last administered on 21:10; Admin Dose 50 MLS/HR; Start 01/01/17 at 11:20 Miscellaneous Information (Pending [facility] Order For Wound Care) This patient cain... PRN PRN XX WOUND CARE; Start 01/01/17 at 20:30 Doxazosin Mesylate (Cardura) 2 mg BID PO Last administered on 01/05/17 10:04; Admin Dose 2 MG; Start 01/03/17 at 21:00 Finasteride (Proscar) 5 mg DAILY PO Last administered on 01/05/17 10:03; Admin Dose 5 MG; Start 01/04/17 at 09:00 Docusate Sodium (Colace) 100 mg BID PO Last administered on 01/05/17 10:03; Admin Dose 100 MG; Start 01/03/17 at 21:00 Pantoprazole (Protonix Tab) 40 mg QAM PO Last administered on 01/05/17 10:03; Admin Dose 40 MG; Start 01/04/17 at 09:00 Polyethylene Glycol (Miralax) 17 gm DAILY PO Last administered on 01/05/17 10: 03; Admin Dose 17 GM; Start 01/04/17 at 09:00 Salmeterol Xinafoate/ Fluticasone (Advair 250/50 Diskus) 1 inh BID INH Last administered on 01/05/17 08:15; Admin Dose 1 INH; Start 01/03/17 at 21:00 Apixaban (Eliquis) 5 mg BID PO Last administered on 01/05/17 10:03; Admin Dose 5 MG; Start 01/04/17 at 21:00 Amiodarone HCl (Cordarone) 200 mg BID PO Last administered on 01/05/17 10:04; Admin Dose 200 MG; Start 01/04/17 at 21:00 Metoprolol Tartrate 5 mg 5 mg Q4H PRN IV HR>110 Hold SBP<100; Start 01/04/17 at 18:00 Ampicillin (Ampicillin 1 Gm/ NS (Pmx)) 50 ml @ 100 mls/hr Q6 IVPB ; Start 01/05 at 18:00 CHERI DURAN January 05, 2017 13:39
[2017-01-05] MEDS ORDERED: ALBUTEROL 0.083% (NEB) 2.5 MG/3 ML AMP NEB PRN (14:00)
[2017-01-05] MEDS ORDERED: ACETAMINOPHEN 325 MG TAB PO PRN (14:00)
--- NOTE | 2017-01-05 14:25 | CONS ---
Date/Time of Note Date/Time of Note DATE: 01/05/17 TIME: 14:23 Assessment/Plan Assessment/Plan Chief Complaint/Hosp Course SUBJECTIVE: Remains lethargic and noncommunicative, comfortable on nasal cannula, no fevers MICROBIOLOGY: Blood culture growing Proteus mirabilis. Urine culture growing enterococcus species and Proteus mirabilis. INDWELLINGS: Forbes catheter. ANTIMICROBIALS: Ampicillin PHYSICAL EXAMINATION: GENERAL: This is a chronically ill-appearing, elderly man who is lethargic, in no distress. HEENT: Head atraumatic, normocephalic. Sclerae anicteric. Buccal mucosa dry. NECK: Supple, trachea midline. CHEST: Rise symmetrical. Breath sounds diminished. HEART: S1, S2. ABDOMEN: Soft. Bowel tones present. EXTREMITIES: No cyanosis. ASSESSMENT: 1. Sepsis with Proteus mirabilis bacteremia secondary to #2. 2. Multi-drug resistant urinary tract infection. 3. Respiratory failure secondary to chronic obstructive pulmonary disease exacerbation, possibly aspiration event. 4. Atrial fibrillation. 5. Paraplegia. 6. Encephalopathy. PLAN: The patient remains unchanged, repeat bld cx negative, continue abx, anti -aspiration measures, follow pulmonary rec-s DW staff Problems: Consultation Date/Type/Reason Admit Date/Time January 01, 2017 at 10:00 Initial Consult Date 01/02/17 Type of Consultation: ID [id number] HR Interval Summary Subjective hx not possible: pt non-verbal Exam/Review of Systems Vital Signs Vitals Vital Signs Date Time Temp Pulse Resp B/P Pulse Ox O2 Delivery O2 Flow Rate FiO2 01/05/17 12:06 90 01/05/17 11:03 98.2 16 96/55 96 01/05/17 09:45 Nasal Cannula 4.0 01/04/17 23:16 45 Intake and Output 01/04/17 01/04/17 01/05/17 15:00 23:00 07:00 Intake Total 300 ml 3225 ml 975 ml Output Total 550 ml 800 ml Balance 300 ml 2675 ml 175 ml Results Result Diagram: 01/05/1718 01/05/1718 Results 24 hrs Laboratory Tests Test 01/05/17 06:18 White Blood Count 8.7 # Red Blood Count 3.46 L Hemoglobin 10.8 L Hematocrit 35.9 L Mean Corpuscular Volume 103.8 H Mean Corpuscular Hemoglobin 31.2 Mean Corpuscular Hemoglobin Concent 30.1 L Red Cell Distribution Width 14.6 H Platelet Count 73 L Mean Platelet Volume 12.2 H Neutrophils % 74.5 Lymphocytes % 9.4 L Monocytes % 11.9 H Eosinophils % 3.3 Basophils % 0.1 Nucleated Red Blood Cells % 0.0 Neutrophils # 6.5 Lymphocytes # 0.8 Monocytes # 1.0 H Eosinophils # 0.3 Basophils # 0.0 Nucleated Red Blood Cells # 0.0 Sodium Level 139 Potassium Level 3.6 Chloride Level 98 Carbon Dioxide Level 35 H Anion Gap 10 # Blood Urea Nitrogen 14 Creatinine 0.65 Glucose Level 101 Calcium Level 8.6 Medications Medications Current Medications Sodium Chloride (NS) 1,000 ml @ 50 mls/hr Q20H IV Last administered on 21:10; Admin Dose 50 MLS/HR; Start 01/01/17 at 11:20 Miscellaneous Information [facility] This patient cain... PRN PRN XX WOUND CARE; Start 01/01/17 at 20:30 Doxazosin Mesylate (Cardura) 2 mg BID PO Last administered on 01/05/17 10:04; Admin Dose 2 MG; Start 01/03/17 at 21:00 Finasteride (Proscar) 5 mg DAILY PO Last administered on 01/05/17 10:03; Admin Dose 5 MG; Start 01/04/17 at 09:00 Docusate Sodium (Colace) 100 mg BID PO Last administered on 01/05/17 10:03; Admin Dose 100 MG; Start 01/03/17 at 21:00 Pantoprazole (Protonix Tab) 40 mg QAM PO Last administered on 01/05/17 10:03; Admin Dose 40 MG; Start 01/04/17 at 09:00 Polyethylene Glycol (Miralax) 17 gm DAILY PO Last administered on 01/05/17 10: 03; Admin Dose 17 GM; Start 01/04/17 at 09:00 Salmeterol Xinafoate/ Fluticasone (Advair 250/50 Diskus) 1 inh BID INH Last administered on 01/05/17 08:15; Admin Dose 1 INH; Start 01/03/17 at 21:00 Apixaban (Eliquis) 5 mg BID PO Last administered on 01/05/17 10:03; Admin Dose 5 MG; Start 01/04/17 at 21:00 Amiodarone HCl (Cordarone) 200 mg BID PO Last administered on 01/05/17 10:04; Admin Dose 200 MG; Start 01/04/17 at 21:00 Metoprolol Tartrate 5 mg 5 mg Q4H PRN IV HR>110 Hold SBP<100; Start 01/04/17 at 18:00 Ampicillin (Ampicillin 1 Gm/ NS (Pmx)) 50 ml @ 100 mls/hr Q6 IVPB ; Start 01/05 at 18:00 Acetaminophen (Tylenol Tab) 650 mg Q4H PRN PO PAIN MANAGEMENT -05/30; Start at 14:00 Ascorbic Acid (Vitamin C) 500 mg DAILY PO ; Start 01/06/17 at 09:00 Tamsulosin HCl (Flomax) 0.4 mg HS PO ; Start 01/05/17 at 21:00 PRIETO MEHTA NP January 05, 2017 14:25 PRIETO MEHTA NP January 05, 2017 14:25
[2017-01-05] MEDS: AMPICILLIN 1 GM/NS (PMX) 50 ML IVPB SCH (17:52)
--- NOTE | 2017-01-05 18:09 | CONS ---
Date/Time of Note Date/Time of Note DATE: 01/05/17 TIME: 18:05 Assessment/Plan Assessment/Plan Chief Complaint/Hosp Course IMPRESSION: 1. Paroxysmal atrial fibrillation, currently in sinus rhythm. 2. Abnormal electrocardiogram, assess for acute coronary syndrome.-negative trop x 1 3. Hypotension, borderline. 4. Shortness of breath, assess for congestive heart failure. 5. Urinary tract infection. 6. Hypercapnic respiratory distress. 7. Chronic obstructive pulmonary disease. 8. Bacteremia. Recc: -Tele -complete joel -Continue amiodarone/eliquis -Continue bronchodilators/abx's and BIPAP as necessary -F/U echo -check TSH Problems: Consultation Date/Type/Reason Admit Date/Time January 01, 2017 at 10:00 Initial Consult Date 01/02/17 Type of Consultation: Cardiology Reason for Consultation AF Referring Provider: DANO HARTMAN MD Exam/Review of Systems Vital Signs Vitals Vital Signs Date Time Temp Pulse Resp B/P Pulse Ox O2 Delivery O2 Flow Rate FiO2 01/05/17 16:06 104 01/05/17 15:28 97.7 17 114/60 98 01/05/17 09:45 Nasal Cannula 4.0 01/04/17 23:16 45 Intake and Output 01/04/17 01/04/17 01/05/17 15:00 23:00 07:00 Intake Total 300 ml 3225 ml 975 ml Output Total 550 ml 800 ml Balance 300 ml 2675 ml 175 ml Exam Review of Systems: CONSTITUTIONAL: No fevers, chills. PULMONARY: resp distress CARDIOVASCULAR: No chest pain/palpitations GASTROINTESTINAL: No nausea/vomiting. GENITOURINARY: No hematuria/dysuria. MUSCULOSKELETAL: No myagias/arthalgias. PSYCHIATRIC: The patient denies depression. NEUROLOGIC: No weakness Constitutional: alert Psych: no complaints Head: normocephalic ENMT: mucosa pink and moist Neck: jvd (9 cm water), supple Respiratory: other (upper aiway rhocherous sounds) Cardiovascular: regular rate and rhythm Gastrointestinal: non-tender, soft Musculoskeletal: muscle weakness (generalized, mild) Extremities: edema (none) Results Result Diagram: 01/05/17 0618 01/05/17 0618 Results 24 hrs Laboratory Tests Test 01/05/17 06:18 White Blood Count 8.7 # Red Blood Count 3.46 L Hemoglobin 10.8 L Hematocrit 35.9 L Mean Corpuscular Volume 103.8 H Mean Corpuscular Hemoglobin 31.2 Mean Corpuscular Hemoglobin Concent 30.1 L Red Cell Distribution Width 14.6 H Platelet Count 73 L Mean Platelet Volume 12.2 H Neutrophils % 74.5 Lymphocytes % 9.4 L Monocytes % 11.9 H Eosinophils % 3.3 Basophils % 0.1 Nucleated Red Blood Cells % 0.0 Neutrophils # 6.5 Lymphocytes # 0.8 Monocytes # 1.0 H Eosinophils # 0.3 Basophils # 0.0 Nucleated Red Blood Cells # 0.0 Sodium Level 139 Potassium Level 3.6 Chloride Level 98 Carbon Dioxide Level 35 H Anion Gap 10 # Blood Urea Nitrogen 14 Creatinine 0.65 Glucose Level 101 Calcium Level 8.6 Medications Medications Current Medications Sodium Chloride (NS) 1,000 ml @ 50 mls/hr Q20H IV Last administered on 21:10; Admin Dose 50 MLS/HR; Start 01/01/17 at 11:20 Miscellaneous Information (Pending [facility] Order For Wound Care) This patient cain... PRN PRN XX WOUND CARE; Start 01/01/17 at 20:30 Doxazosin Mesylate (Cardura) 2 mg BID PO Last administered on 01/05/17 10:04; Admin Dose 2 MG; Start 01/03/17 at 21:00 Finasteride (Proscar) 5 mg DAILY PO Last administered on 01/05/17 10:03; Admin Dose 5 MG; Start 01/04/17 at 09:00 Docusate Sodium (Colace) 100 mg BID PO Last administered on 01/05/17 10:03; Admin Dose 100 MG; Start 01/03/17 at 21:00 Pantoprazole (Protonix Tab) 40 mg QAM PO Last administered on 01/05/17 10:03; Admin Dose 40 MG; Start 01/04/17 at 09:00 Polyethylene Glycol (Miralax) 17 gm DAILY PO Last administered on 01/05/17 10: 03; Admin Dose 17 GM; Start 01/04/17 at 09:00 Salmeterol Xinafoate/ Fluticasone (Advair 250/50 Diskus) 1 inh BID INH Last administered on 5/18/17at 08:15; Admin Dose 1 INH; Start 01/03/17 at 21:00 Apixaban (Eliquis) 5 mg BID PO Last administered on 01/05/17 10:03; Admin Dose 5 MG; Start 01/04/17 at 21:00 Amiodarone HCl (Cordarone) 200 mg BID PO Last administered on 01/05/17 10:04; Admin Dose 200 MG; Start 01/04/17 at 21:00 Metoprolol Tartrate 5 mg 5 mg Q4H PRN IV HR>110 Hold SBP<100; Start 01/04/17 at 18:00 Ampicillin (Ampicillin 1 Gm/ NS (Pmx)) 50 ml @ 100 mls/hr Q6 IVPB Last administered on 01/05/17 17:52; Admin Dose 100 MLS/HR; Start 01/05/17 at 18:00 Acetaminophen (Tylenol Tab) 650 mg Q4H PRN PO PAIN MANAGEMENT 1-05/30; Start at 14:00 Ascorbic Acid (Vitamin C) 500 mg DAILY PO ; Start 01/06/17 at 09:00 Tamsulosin HCl (Flomax) 0.4 mg HS PO ; Start 01/05/17 at 21:00 STEPHANIE DARDEN January 05, 2017 18:09
[2017-01-05] MEDS: SOD CHLORIDE 0.9% 1,000 ML IV SCH (18:22)
[2017-01-05] MEDS: TAMSULOSIN (SR) 0.4 MG CAP PO SCH (20:33)
[2017-01-06] VITALS (7 sets, daily range): BP systolic 105–130; BP diastolic 58–74; PULSE 88–91; RESP 18–22
[2017-01-06] MEDS: AMPICILLIN 1 GM/NS (PMX) 50 ML IVPB SCH ×5 (00:15→23:52)
[2017-01-06 06:11] LABS: ADD SCAN DIFF NO
[2017-01-06 06:40] LABS: CHOL/HDL RATIO 3.7 RATIO
[2017-01-06 06:41] LABS: ABNORMAL IP MESSAGE 1; EOSINOPHILS # 0.4 10^3/ul (0.0-0.5); HEMATOCRIT 34.6 % (42.0-52.0); HEMOGLOBIN 10.4 g/dl (14.0-18.0); LYMPHOCYTES % 11.9 % (15.0-51.0); MEAN CORPUSCULAR HGB CONC 30.1 g/dl (32.0-37.0); MEAN CORPUSCULAR VOLUME 103.3 fl (82.0-101.0); MONOCYTES % 12.7 % (0.0-11.0); NEUTROPHIL # 5.6 10^3/ul (1.6-7.5); NEUTROPHILS % 69.8 % (39.0-77.0); RED BLOOD COUNT 3.35 10^6/ul (4.70-6.10); RED CELL DISTRIBUTION WIDTH 14.5 % (11.5-14.5); WHITE BLOOD COUNT 8.1 10^3/ul (4.8-10.8)
[2017-01-06 06:51] LABS: PLATELET COUNT 94 10^3/UL (140-415)
[2017-01-06 07:01] LABS: CALCIUM 8.7 mg/dl (8.4-10.2); CREATININE 0.67 mg/dl (0.61-1.24)
[2017-01-06] MEDS: POLYETHYLENE GLYCOL 17 GM PACKET PO SCH (10:18)
[2017-01-06] MEDS: APIXABAN 5 MG TABLET PO SCH ×2 (10:18→21:33)
[2017-01-06] MEDS: DOCUSATE SODIUM 100 MG CAP PO SCH ×2 (10:18→21:32)
[2017-01-06] MEDS: FINASTERIDE 5 MG TAB PO SCH (10:18)
[2017-01-06] MEDS: PANTOPRAZOLE (EC) 40 MG TAB PO SCH (10:18)
[2017-01-06] MEDS: ASCORBIC ACID 500 MG TAB PO SCH (10:18)
[2017-01-06] MEDS: AMIODARONE 200 MG TAB PO SCH ×2 (10:19→21:32)
[2017-01-06] MEDS: DOXAZOSIN 2 MG TAB PO SCH ×2 (10:19→21:32)
[2017-01-06] MEDS: SALMETEROL/FLUTICASONE 250/50 INHA INH SCH ×2 (10:20→21:31)
--- NOTE | 2017-01-06 11:16 | CONS ---
Date/Time of Note Date/Time of Note DATE: 01/06/17 TIME: 11:12 Consultation Date/Type/Reason Admit Date/Time January 01, 2017 at 10:00 Initial Consult Date 01/02/17 Type of Consultation: Pulmonary Referring Provider: DANO HARTMAN MD 24 HR Interval Summary Free Text/Dictation Patient condition is stable. Remains awake and alert. Has been off BiPAP. General exam; elderly male, awake currently in no distress. Exam/Review of Systems Vital Signs Vitals Vital Signs Date Time Temp Pulse Resp B/P Pulse Ox O2 Delivery O2 Flow Rate FiO2 01/06/17 07:11 97.5 95 20 122/64 93 01/06/17 04:29 4.0 01/06/17 02:43 35 01/05/17 09:45 Nasal Cannula Intake and Output 01/05/17 01/05/17 01/06/17 15:00 23:00 07:00 Intake Total 300 ml 1140 ml 300 ml Output Total 750 ml 1000 ml Balance 300 ml 390 ml -700 ml Exam HEENT examination; supple neck, no JVD. No lymphadenopathy. Midline trachea. Patient is edentulous. Chest examination; diminished breath sound throughout. S1-S2 audible, no murmurs. Regular rhythm. Abdomen examination; soft, nondistended. No organomegaly. Extremity exam; no peripheral edema. [employer] examination; patient has stable paraplegia. Results Result Diagram: 01/06/17 0550 01/06/17 0550 Results 24 hrs Laboratory Tests Test 01/06/17 01:00 01/06/17 05:50 Troponin I < 0.012 < 0.012 White Blood Count 8.1 Red Blood Count 3.35 L Hemoglobin 10.4 L Hematocrit 34.6 L Mean Corpuscular Volume 103.3 H Mean Corpuscular Hemoglobin 31.0 Mean Corpuscular Hemoglobin Concent 30.1 L Red Cell Distribution Width 14.5 Platelet Count 94 #L Mean Platelet Volume 12.0 H Neutrophils % 69.8 Lymphocytes % 11.9 L Monocytes % 12.7 H Eosinophils % 5.0 Basophils % 0.0 Nucleated Red Blood Cells % 0.0 Neutrophils # 5.6 Lymphocytes # 1.0 Monocytes # 1.0 H Eosinophils # 0.4 Basophils # 0.0 Nucleated Red Blood Cells # 0.0 Sodium Level 141 Potassium Level 4.0 Chloride Level 98 Carbon Dioxide Level 37 H Anion Gap 10 Blood Urea Nitrogen 10 Creatinine 0.67 Glucose Level 101 Calcium Level 8.7 Triglycerides Level 83 Cholesterol Level 115 LDL Cholesterol, Calculated 67 HDL Cholesterol 31 Cholesterol/HDL Ratio 3.7 Medications Medications Current Medications Sodium Chloride (NS) 1,000 ml @ 50 mls/hr Q20H IV Last administered on 18:22; Admin Dose 50 MLS/HR; Start 01/01/17 at 11:20 Miscellaneous Information (Pending [facility] Order For Wound Care) This patient cain... PRN PRN XX WOUND CARE; Start 01/01/17 at 20:30 Doxazosin Mesylate (Cardura) 2 mg BID PO Last administered on 01/06/17 10:19; Admin Dose 2 MG; Start 01/03/17 at 21:00 Finasteride (Proscar) 5 mg DAILY PO Last administered on 01/06/17 10:18; Admin Dose 5 MG; Start 01/04/17 at 09:00 Docusate Sodium (Colace) 100 mg BID PO Last administered on 01/06/17 10:18; Admin Dose 100 MG; Start 01/03/17 at 21:00 Pantoprazole (Protonix Tab) 40 mg QAM PO Last administered on 01/06/17 10:18; Admin Dose 40 MG; Start 01/04/17 at 09:00 Polyethylene Glycol (Miralax) 17 gm DAILY PO Last administered on 01/06/17 10: 18; Admin Dose 17 GM; Start 01/04/17 at 09:00 Salmeterol Xinafoate/ Fluticasone (Advair 250/50 Diskus) 1 inh BID INH Last administered on 01/06/17 10:20; Admin Dose 1 INH; Start 01/03/17 at 21:00 Apixaban (Eliquis) 5 mg BID PO Last administered on 01/06/17 10:18; Admin Dose 5 MG; Start 01/04/17 at 21:00 Amiodarone HCl (Cordarone) 200 mg BID PO Last administered on 01/06/17 10:19; Admin Dose 200 MG; Start 01/04/17 at 21:00 Metoprolol Tartrate 5 mg 5 mg Q4H PRN IV HR>110 Hold SBP<100; Start 01/04/17 at 18:00 Ampicillin (Ampicillin 1 Gm/ NS (Pmx)) 50 ml @ 100 mls/hr Q6 IVPB Last administered on 01/06/17 05:06; Admin Dose 100 MLS/HR; Start 01/05/17 at 18:00 Acetaminophen (Tylenol Tab) 650 mg Q4H PRN PO PAIN MANAGEMENT 1-05/30; Start at 14:00 Ascorbic Acid (Vitamin C) 500 mg DAILY PO Last administered on 01/06/17 10:18 ; Admin Dose 500 MG; Start 01/06/17 at 09:00 Tamsulosin HCl (Flomax) 0.4 mg HS PO Last administered on 01/05/17 20:33; Admin Dose 0.4 MG; Start 01/05/17 at 21:00 ODILON MISHRA January 06, 2017 11:16
[2017-01-06] MEDS: SOD CHLORIDE 0.9% 1,000 ML IV SCH (13:26)
--- NOTE | 2017-01-06 14:12 | CONS ---
Date/Time of Note Date/Time of Note DATE: 01/06/17 TIME: 14:01 Assessment/Plan Assessment/Plan Chief Complaint/Hosp Course IMPRESSION: 1. Paroxysmal atrial fibrillation, currently in sinus rhythm. NL TSH 2. Abnormal electrocardiogram, assess for acute coronary syndrome.-negative trop x 3 3. Hypotension, borderline. 4. Shortness of breath, assess for congestive heart failure. 5. Urinary tract infection. 6. Hypercapnic respiratory distress. 7. Chronic obstructive pulmonary disease. 8. Bacteremia. Recc: -Tele -Continue amiodarone/eliquis -Continue bronchodilators/abx's and BIPAP as necessary -Check echo -Continue cardura -Consider low dose CCB to assure good HR control Problems: Consultation Date/Type/Reason Admit Date/Time January 01, 2017 at 10:00 Initial Consult Date 01/02/17 Type of Consultation: Cardiology Reason for Consultation AF Referring Provider: DANO HARTMAN MD Exam/Review of Systems Vital Signs Vitals Vital Signs Date Time Temp Pulse Resp B/P Pulse Ox O2 Delivery O2 Flow Rate FiO2 01/06/17 08:00 Nasal Cannula 4.0 01/06/17 07:11 97.5 95 20 122/64 93 01/06/17 02:43 35 Intake and Output 01/05/17 01/05/17 01/06/17 15:00 23:00 07:00 Intake Total 300 ml 1140 ml 300 ml Output Total 750 ml 1000 ml Balance 300 ml 390 ml -700 ml Exam Review of Systems: CONSTITUTIONAL: No fevers, chills. PULMONARY: ongoing sob CARDIOVASCULAR: No chest pain/palpitations GASTROINTESTINAL: No nausea/vomiting. GENITOURINARY: No hematuria/dysuria. MUSCULOSKELETAL: No myagias/arthalgias. PSYCHIATRIC: The patient denies depression. NEUROLOGIC: No weakness Constitutional: alert Psych: no complaints Head: normocephalic ENMT: mucosa pink and moist Neck: jvd (9 cm water), supple Respiratory: diminished breath sounds (throughout) Cardiovascular: regular rate and rhythm Gastrointestinal: non-tender, soft Musculoskeletal: muscle tone Extremities: edema (none) Neurological: other (No focal deficits) Results Result Diagram: 01/06/17 0550 01/06/17 0550 Results 24 hrs Laboratory Tests Test 01/06/17 01:00 01/06/17 05:50 01/06/17 12:05 Troponin I < 0.012 < 0.012 < 0.012 White Blood Count 8.1 Red Blood Count 3.35 L Hemoglobin 10.4 L Hematocrit 34.6 L Mean Corpuscular Volume 103.3 H Mean Corpuscular Hemoglobin 31.0 Mean Corpuscular Hemoglobin Concent 30.1 L Red Cell Distribution Width 14.5 Platelet Count 94 #L Mean Platelet Volume 12.0 H Neutrophils % 69.8 Lymphocytes % 11.9 L Monocytes % 12.7 H Eosinophils % 5.0 Basophils % 0.0 Nucleated Red Blood Cells % 0.0 Neutrophils # 5.6 Lymphocytes # 1.0 Monocytes # 1.0 H Eosinophils # 0.4 Basophils # 0.0 Nucleated Red Blood Cells # 0.0 Sodium Level 141 Potassium Level 4.0 Chloride Level 98 Carbon Dioxide Level 37 H Anion Gap 10 Blood Urea Nitrogen 10 Creatinine 0.67 Glucose Level 101 Calcium Level 8.7 Triglycerides Level 83 Cholesterol Level 115 LDL Cholesterol, Calculated 67 HDL Cholesterol 31 Cholesterol/HDL Ratio 3.7 Medications Medications Current Medications Sodium Chloride (NS) 1,000 ml @ 50 mls/hr Q20H IV Last administered on 13:26; Admin Dose 50 MLS/HR; Start 01/01/17 at 11:20 [facility]isc[facility] This patient cain... PRN PRN XX WOUND CARE; Start 01/01/17 at 20:30 Doxazosin Mesylate (Cardura) 2 mg BID PO Last administered on 01/06/17 10:19; Admin Dose 2 MG; Start 01/03/17 at 21:00 Finasteride (Proscar) 5 mg DAILY PO Last administered on 01/06/17 10:18; Admin Dose 5 MG; Start 01/04/17 at 09:00 Docusate Sodium (Colace) 100 mg BID PO Last administered on 01/06/17 10:18; Admin Dose 100 MG; Start 01/03/17 at 21:00 Pantoprazole (Protonix Tab) 40 mg QAM PO Last administered on 01/06/17 10:18; Admin Dose 40 MG; Start 01/04/17 at 09:00 Polyethylene Glycol (Miralax) 17 gm DAILY PO Last administered on 01/06/17 10: 18; Admin Dose 17 GM; Start 01/04/17 at 09:00 Salmeterol Xinafoate/ Fluticasone (Advair 250/50 Diskus) 1 inh BID INH Last administered on 01/06/17 10:20; Admin Dose 1 INH; Start 01/03/17 at 21:00 Apixaban (Eliquis) 5 mg BID PO Last administered on 01/06/17 10:18; Admin Dose 5 MG; Start 01/04/17 at 21:00 Amiodarone HCl (Cordarone) 200 mg BID PO Last administered on 01/06/17 10:19; Admin Dose 200 MG; Start 01/04/17 at 21:00 Metoprolol Tartrate 5 mg 5 mg Q4H PRN IV HR>110 Hold SBP<100; Start 01/04/17 at 18:00 Ampicillin (Ampicillin 1 Gm/ NS (Pmx)) 50 ml @ 100 mls/hr Q6 IVPB Last administered on 01/06/17 12:20; Admin Dose 100 MLS/HR; Start 01/05/17 at 18:00 Acetaminophen (Tylenol Tab) 650 mg Q4H PRN PO PAIN MANAGEMENT -05/30; Start at 14:00 Ascorbic Acid (Vitamin C) 500 mg DAILY PO Last administered on 01/06/17 10:18 ; Admin Dose 500 MG; Start 01/06/17 at 09:00 Tamsulosin HCl (Flomax) 0.4 mg HS PO Last administered on 01/05/17 20:33; Admin Dose 0.4 MG; Start 01/05/17 at 21:00 STEPHANIE DARDEN January 06, 2017 14:12
--- NOTE | 2017-01-06 18:01 | PN ---
Date/Time of Note Date/Time of Note DATE: 01/06/17 TIME: 18:00 Assessment/Plan VTE Prophylaxis VTE Prophylaxis Intervention: SCD's Lines/Catheters IV C[facility]ter Type [facility] Peripheral IV Urinary Cath still in place: Yes Reason Cath still needed: urinary retention Assessment/Plan Chief Complaint/Hosp Course ASSESSMENT AND PLAN: - Sepsis secondary to urinary tract infection and possible underlying early pneumonia. Continue broad spectrum antibiotics. Dr. Chandra will be following the patient in infectious disease consultation. Will follow up on blood and urine cultures. - Proteus mirabilis bacteremia. - Polymicrobial acute cystitis with hematuria. - Hypercapnic respiratory failure, Dr. Norton is following in a pulmonology consultation. Continue BiPAP. - Chronic obstructive pulmonary disease exacerbation. Continue breathing treatment and oxygen supplementation. - Atrial fibrillation. Continue Eliquis. Dr. Lala is following and cardiology consultation. - Chronic renal insufficiency. Continue monitor the BUN and creatinine. - Dementia. - Chronic urinary retention. Continue Forbes catheter Further recommendations based on clinical course. Plan of care discussed with Dr. Anne. Problems: Subjective 24 Hr Interval Summary Free Text/Dictation Patient is comfortable and supplemental oxygen, was BiPAP overnight, more awake. Exam/Review of Systems Vital Signs Vitals Vital Signs Date Time Temp Pulse Resp B/P Pulse Ox O2 Delivery O2 Flow Rate FiO2 01/06/17 17:10 Nasal Cannula 4.0 01/06/17 15:41 97.6 66 18 125/74 96 01/06/17 02:43 35 Intake and Output 01/05/17 01/05/17 01/06/17 15:00 23:00 07:00 Intake Total 300 ml 1140 ml 300 ml Output Total 750 ml 1000 ml Balance 300 ml 390 ml -700 ml Exam GENERAL: Well-developed, well-nourished gentleman, currently on supplemental oxygen. Awake to name, otherwise, confused. HEENT: Head is atraumatic, normocephalic. NECK: Supple, no cervical lymphadenopathy, no thyromegaly. CHEST: Lung sounds diminished. There is no rhonchi, wheezes, rales noted. CARDIOVASCULAR: Irregularly irregular rate. No murmurs, gallops, clicks, rubs noted. ABDOMEN: Flat, soft, nondistended, nontender. Bowel sounds present. EXTREMITIES: There is no clubbing, cyanosis. Pulses equal bilaterally 2+. SKIN: There is no rash, petechiae noted. GENITOURINARY: The patient has a Forbes catheter with blood-tinged urine. Results Result Diagram: 01/06/17 0550 01/06/17 0550 Results 24 hrs Laboratory Tests Test 01/06/17 01:00 01/06/17 05:50 01/06/17 12:05 Troponin I < 0.012 < 0.012 < 0.012 White Blood Count 8.1 Red Blood Count 3.35 L Hemoglobin 10.4 L Hematocrit 34.6 L Mean Corpuscular Volume 103.3 H Mean Corpuscular Hemoglobin 31.0 Mean Corpuscular Hemoglobin Concent 30.1 L Red Cell Distribution Width 14.5 Platelet Count 94 #L Mean Platelet Volume 12.0 H Neutrophils % 69.8 Lymphocytes % 11.9 L Monocytes % 12.7 H Eosinophils % 5.0 Basophils % 0.0 Nucleated Red Blood Cells % 0.0 Neutrophils # 5.6 Lymphocytes # 1.0 Monocytes # 1.0 H Eosinophils # 0.4 Basophils # 0.0 Nucleated Red Blood Cells # 0.0 Sodium Level 141 Potassium Level 4.0 Chloride Level 98 Carbon Dioxide Level 37 H Anion Gap 10 Blood Urea Nitrogen 10 Creatinine 0.67 Glucose Level 101 Calcium Level 8.7 Triglycerides Level 83 Cholesterol Level 115 LDL Cholesterol, Calculated 67 HDL Cholesterol 31 Cholesterol/HDL Ratio 3.7 Medications Medications Current Medications Sodium Chloride (NS) 1,000 ml @ 50 mls/hr Q20H IV Last administered on 13:26; Admin Dose 50 MLS/HR; Start 01/01/17 at 11:20 Miscellaneous Information (Pending [facility] Order For Wound Care) This patient cain... PRN PRN XX WOUND CARE; Start 01/01/17 at 20:30 Doxazosin Mesylate (Cardura) 2 mg BID PO Last administered on 01/06/17 10:19; Admin Dose 2 MG; Start 01/03/17 at 21:00 Finasteride (Proscar) 5 mg DAILY PO Last administered on 01/06/17 10:18; Admin Dose 5 MG; Start 01/04/17 at 09:00 Docusate Sodium (Colace) 100 mg BID PO Last administered on 01/06/17 10:18; Admin Dose 100 MG; Start 01/03/17 at 21:00 Pantoprazole (Protonix Tab) 40 mg QAM PO Last administered on 01/06/17 10:18; Admin Dose 40 MG; Start 01/04/17 at 09:00 Polyethylene Glycol (Miralax) 17 gm DAILY PO Last administered on 01/06/17 10: 18; Admin Dose 17 GM; Start 01/04/17 at 09:00 Salmeterol Xinafoate/ Fluticasone (Advair 250/50 Diskus) 1 inh BID INH Last administered on 01/06/17 10:20; Admin Dose 1 INH; Start 01/03/17 at 21:00 Apixaban (Eliquis) 5 mg BID PO Last administered on 01/06/17 10:18; Admin Dose 5 MG; Start 01/04/17 at 21:00 Amiodarone HCl (Cordarone) 200 mg BID PO Last administered on 01/06/17 10:19; Admin Dose 200 MG; Start 01/04/17 at 21:00 Metoprolol Tartrate 5 mg 5 mg Q4H PRN IV HR>110 Hold SBP<100; Start 01/04/17 at 18:00 Ampicillin (Ampicillin 1 Gm/ NS (Pmx)) 50 ml @ 100 mls/hr Q6 IVPB Last administered on 01/06/17 17:56; Admin Dose 100 MLS/HR; Start 01/05/17 at 18:00 Acetaminophen (Tylenol Tab) 650 mg Q4H PRN PO PAIN MANAGEMENT -05/30; Start at 14:00 Ascorbic Acid (Vitamin C) 500 mg DAILY PO Last administered on 01/06/17 10:18 ; Admin Dose 500 MG; Start 01/06/17 at 09:00 Tamsulosin HCl (Flomax) 0.4 mg HS PO Last administered on 01/05/17 20:33; Admin Dose 0.4 MG; Start 01/05/17 at 21:00 CONTRERAS DIANA January 06, 2017 18:01
--- NOTE | 2017-01-06 18:10 | CONS ---
Date/Time of Note Date/Time of Note DATE: 01/06/17 TIME: 18:09 Assessment/Plan Assessment/Plan Chief Complaint/Hosp Course SUBJECTIVE: More awake, comfortable on nasal cannula, no fevers MICROBIOLOGY: Blood culture growing Proteus mirabilis. Urine culture growing enterococcus species and Proteus mirabilis. INDWELLINGS: Forbes catheter. ANTIMICROBIALS: Ampicillin PHYSICAL EXAMINATION: GENERAL: This is a chronically ill-appearing, elderly man who is lethargic, in no distress. HEENT: Head atraumatic, normocephalic. Sclerae anicteric. Buccal mucosa dry. NECK: Supple, trachea midline. CHEST: Rise symmetrical. Breath sounds diminished. HEART: S1, S2. ABDOMEN: Soft. Bowel tones present. EXTREMITIES: No cyanosis. ASSESSMENT: 1. Resolving sepsis with Proteus mirabilis bacteremia secondary to #2. 2. Multi-drug resistant urinary tract infection. 3. Respiratory failure secondary to chronic obstructive pulmonary disease exacerbation, possibly aspiration event. 4. Atrial fibrillation. 5. Paraplegia. 6. Encephalopathy. PLAN: The patient remains stable, repeat bld cx negative, continue anti- aspiration measures, abx till 01/16, follow pulmonary rec-s [facility] staff Problems: Consultation Date/Type/Reason Admit Date/Time January 01, 2017 at 10:00 Initial Consult Date 01/02/17 Type of Consultation: ID Referring Provider: DANO HARTMAN MD Exam/Review of Systems Vital Signs Vitals Vital Signs Date Time Temp Pulse Resp B/P Pulse Ox O2 Delivery O2 Flow Rate FiO2 01/06/17 17:10 Nasal Cannula 4.0 01/06/17 15:41 97.6 66 18 125/74 96 01/06/17 02:43 35 Intake and Output 01/05/17 01/05/17 01/06/17 15:00 23:00 07:00 Intake Total 300 ml 1140 ml 300 ml Output Total 750 ml 1000 ml Balance 300 ml 390 ml -700 ml Results Result Diagram: 01/06/17 0550 01/06/17 0550 Results 24 hrs Laboratory Tests Test 01/06/17 01:00 01/06/17 05:50 01/06/17 12:05 Troponin I < 0.012 < 0.012 < 0.012 White Blood Count 8.1 Red Blood Count 3.35 L Hemoglobin 10.4 L Hematocrit 34.6 L Mean Corpuscular Volume 103.3 H Mean Corpuscular Hemoglobin 31.0 Mean Corpuscular Hemoglobin Concent 30.1 L Red Cell Distribution Width 14.5 Platelet Count 94 #L Mean Platelet Volume 12.0 H Neutrophils % 69.8 Lymphocytes % 11.9 L Monocytes % 12.7 H Eosinophils % 5.0 Basophils % 0.0 Nucleated Red Blood Cells % 0.0 Neutrophils # 5.6 Lymphocytes # 1.0 Monocytes # 1.0 H Eosinophils # 0.4 Basophils # 0.0 Nucleated Red Blood Cells # 0.0 Sodium Level 141 Potassium Level 4.0 Chloride Level 98 Carbon Dioxide Level 37 H Anion Gap 10 Blood Urea Nitrogen 10 Creatinine 0.67 Glucose Level 101 Calcium Level 8.7 Triglycerides Level 83 Cholesterol Level 115 LDL Cholesterol, Calculated 67 HDL Cholesterol 31 Cholesterol/HDL Ratio 3.7 Medications Medications Current Medications Sodium Chloride (NS) 1,000 ml @ 50 mls/hr Q20H IV Last administered on 13:26; Admin Dose 50 MLS/HR; Start 01/01/17 at 11:20 Miscellaneous Information [facility] This patient cain... PRN PRN XX WOUND CARE; Start 01/01/17 at 20:30 Doxazosin Mesylate (Cardura) 2 mg BID PO Last administered on 01/06/17 10:19; Admin Dose 2 MG; Start 01/03/17 at 21:00 Finasteride (Proscar) 5 mg DAILY PO Last administered on 01/06/17 10:18; Admin Dose 5 MG; Start 01/04/17 at 09:00 Docusate Sodium (Colace) 100 mg BID PO Last administered on 01/06/17 10:18; Admin Dose 100 MG; Start 01/03/17 at 21:00 Pantoprazole (Protonix Tab) 40 mg QAM PO Last administered on 01/06/17 10:18; Admin Dose 40 MG; Start 01/04/17 at 09:00 Polyethylene Glycol (Miralax) 17 gm DAILY PO Last administered on 01/06/17 10: 18; Admin Dose 17 GM; Start 01/04/17 at 09:00 Salmeterol Xinafoate/ Fluticasone (Advair 250/50 Diskus) 1 inh BID INH Last administered on 01/06/17 10:20; Admin Dose 1 INH; Start 01/03/17 at 21:00 Apixaban (Eliquis) 5 mg BID PO Last administered on 01/06/17 10:18; Admin Dose 5 MG; Start 01/04/17 at 21:00 Amiodarone HCl (Cordarone) 200 mg BID PO Last administered on 01/06/17 10:19; Admin Dose 200 MG; Start 01/04/17 at 21:00 Metoprolol Tartrate 5 mg 5 mg Q4H PRN IV HR>110 Hold SBP<100; Start 01/04/17 at 18:00 Ampicillin (Ampicillin 1 Gm/ NS (Pmx)) 50 ml @ 100 mls/hr Q6 IVPB Last administered on 01/06/17 17:56; Admin Dose 100 MLS/HR; Start 01/05/17 at 18:00 Acetaminophen (Tylenol Tab) 650 mg Q4H PRN PO PAIN MANAGEMENT -05/30; Start at 14:00 Ascorbic Acid (Vitamin C) 500 mg DAILY PO Last administered on 01/06/17 10:18 ; Admin Dose 500 MG; Start 01/06/17 at 09:00 Tamsulosin HCl (Flomax) 0.4 mg HS PO Last administered on 01/05/17 20:33; Admin Dose 0.4 MG; Start 01/05/17 at 21:00 PRIETO MEHTA NP January 06, 2017 18:10
--- NOTE | 2017-01-06 19:31 | RADRPT ---
Vent Rate: 95 bpm RR Interval: 0 msec AR Interval: 136 msec QRS Duration: 74 msec QT Interval: 334 msec QTC Interval: 419 msec P-R-T [place]: 68 - 76 - 82 degrees Normal sinus rhythm Low voltage QRS Cannot rule out Anterior infarct , age undetermined Abnormal ECG Electronically Signed By: Golden Lala [id number]
[2017-01-06] MEDS: TAMSULOSIN (SR) 0.4 MG CAP PO SCH (21:32)
[2017-01-07] VITALS (11 sets, daily range): BP systolic 122–135; BP diastolic 72–73; PULSE 75–100; RESP 19–20
[2017-01-07] MEDS: AMPICILLIN 1 GM/NS (PMX) 50 ML IVPB SCH ×4 (05:23→23:24)
[2017-01-07 06:52] LABS: ADD SCAN DIFF NO
[2017-01-07 06:56] LABS: ABNORMAL IP MESSAGE 1; BASOPHILS % 0.1 % (0.0-2.0); EOSINOPHILS # 0.4 10^3/ul (0.0-0.5); EOSINOPHILS % 3.9 % (0.0-7.0); HEMATOCRIT 35.7 % (42.0-52.0); HEMOGLOBIN 10.9 g/dl (14.0-18.0); LYMPHOCYTES # 0.8 10^3/ul (0.8-2.9); LYMPHOCYTES % 8.7 % (15.0-51.0); MEAN CORPUSCULAR HEMOGLOBIN 31.2 pg (29.0-33.0); MEAN CORPUSCULAR HGB CONC 30.5 g/dl (32.0-37.0); MEAN CORPUSCULAR VOLUME 102.3 fl (82.0-101.0); MEAN PLATELET VOLUME 12.3 fl (7.4-10.4); MONOCYTES % 10.7 % (0.0-11.0); NEUTROPHIL # 7.3 10^3/ul (1.6-7.5); NEUTROPHILS % 75.9 % (39.0-77.0); PLATELET COUNT 99 10^3/UL (140-415); RED BLOOD COUNT 3.49 10^6/ul (4.70-6.10); RED CELL DISTRIBUTION WIDTH 14.6 % (11.5-14.5); WHITE BLOOD COUNT 9.6 10^3/ul (4.8-10.8)
[2017-01-07] MEDS ORDERED: BISACODYL (EC) 5 MG TAB PO ONE (07:00)
[2017-01-07] MEDS: SOD CHLORIDE 0.9% 1,000 ML IV SCH ×2 (07:20→11:16)
[2017-01-07 07:21] LABS: CALCIUM 8.7 mg/dl (8.4-10.2); CREATININE 0.61 mg/dl (0.61-1.24)
[2017-01-07] MEDS: APIXABAN 5 MG TABLET PO SCH ×2 (08:34→21:57)
[2017-01-07] MEDS: ASCORBIC ACID 500 MG TAB PO SCH (08:34)
[2017-01-07] MEDS: FINASTERIDE 5 MG TAB PO SCH (08:34)
[2017-01-07] MEDS: PANTOPRAZOLE (EC) 40 MG TAB PO SCH (08:34)
[2017-01-07] MEDS: DOCUSATE SODIUM 100 MG CAP PO SCH ×2 (08:35→21:57)
[2017-01-07] MEDS: DOXAZOSIN 2 MG TAB PO SCH ×2 (08:35→21:58)
[2017-01-07] MEDS: POLYETHYLENE GLYCOL 17 GM PACKET PO SCH (08:36)
[2017-01-07] MEDS: AMIODARONE 200 MG TAB PO SCH ×2 (08:36→21:58)
[2017-01-07] MEDS: SENNA TAB PO SCH ×2 (08:36→21:57)
[2017-01-07] MEDS: SALMETEROL/FLUTICASONE 250/50 INHA INH SCH ×2 (08:37→21:58)
--- NOTE | 2017-01-07 11:49 | PN ---
Date/Time of Note Date/Time of Note DATE: 01/07/17 TIME: 11:47 Assessment/Plan VTE Prophylaxis VTE Prophylaxis Intervention: other Lines/Catheters IV [facility]ter Type (from [facility]): Peripheral IV Urinary Cath still in place: Yes Assessment/Plan Assessment/Plan - Sepsis secondary to urinary tract infection and possible underlying early pneumonia. Continue broad spectrum antibiotics. Dr. Chandra will be following the patient in infectious disease consultation. Will follow up on blood and urine cultures. - Proteus mirabilis bacteremia. - Polymicrobial acute cystitis with hematuria. - Hypercapnic respiratory failure, Dr. Norton is following in a pulmonology consultation. Continue BiPAP. - Chronic obstructive pulmonary disease exacerbation. Continue breathing treatment and oxygen supplementation. - Atrial fibrillation. Continue Eliquis. Dr. Lala is following and cardiology consultation. - Chronic renal insufficiency. Continue monitor the BUN and creatinine. - Dementia. - Chronic urinary retention. Continue Forbes catheter Further recommendations based on clinical course. Plan of care discussed with Dr. Anne. Subjective 24 Hr Interval Summary Free Text/Dictation Remains on BiPAP overnight, more awake. Answers simple questions. Afebrile. Will get PT evaluation. discussed with the staff no new issues reported overnight Constitutional: requiring O2 Eyes: no complaints ENT: no complaints Respiratory: shortness of breath Cardiovascular: no complaints Gastrointestinal: no complaints Genitourinary: no complaints Musculoskeletal: no complaints Skin: no complaints Neurologic: no complaints Endocrine: no complaints Psychological: no complaints Immunologic: no complaints Exam/Review of Systems Vital Signs Vitals Vital Signs Date Time Temp Pulse Resp B/P Pulse Ox O2 Delivery O2 Flow Rate FiO2 01/07/17 10:45 100 99 35 01/07/17 07:23 98.1 19 135/72 01/07/17 05:42 4.0 01/06/17 23:28 Nasal Cannula Intake and Output 01/06/17 01/06/17 01/07/17 15:00 23:00 07:00 Intake Total 770 ml 940 ml 1080 ml Output Total 1100 ml 950 ml Balance 770 ml -160 ml 130 ml Exam Constitutional: alert, well developed Psych: nl mood/affect Eyes: EOMI, nl sclera ENMT: nl external ears & nose Neck: non-tender Respiratory: diminished breath sounds Cardiovascular: nl pulses Gastrointestinal: non-tender, soft Musculoskeletal: muscle weakness Extremities: normal pulses, pitting pedal edema Skin: other Lymph: nontender Results Result Diagram: 01/07/17 0555 01/07/17 0535 Results 24 hrs Laboratory Tests Test 01/06/17 12:05 01/07/17 05:35 01/07/17 05:55 Troponin I < 0.012 Sodium Level 140 Potassium Level 4.0 Chloride Level 99 Carbon Dioxide Level Anion Gap 4 L Blood Urea Nitrogen 7 Creatinine 0.61 Glucose Level 99 Calcium Level 8.7 White Blood Count 9.6 Red Blood Count 3.49 L Hemoglobin 10.9 L Hematocrit 35.7 L Mean Corpuscular Volume 102.3 H Mean Corpuscular Hemoglobin 31.2 Mean Corpuscular Hemoglobin Concent 30.5 L Red Cell Distribution Width 14.6 H Platelet Count 99 L Mean Platelet Volume 12.3 H Neutrophils % 75.9 Lymphocytes % 8.7 L Monocytes % 10.7 Eosinophils % 3.9 Basophils % 0.1 Nucleated Red Blood Cells % 0.0 Neutrophils # 7.3 Lymphocytes # 0.8 Monocytes # 1.0 H Eosinophils # 0.4 Basophils # 0.0 Nucleated Red Blood Cells # 0.0 Medications Medications Current Medications Sodium Chloride (NS) 1,000 ml @ 50 mls/hr Q20H IV Last administered on 11:16; Admin Dose 50 MLS/HR; Start 01/01/17 at 11:20 Miscellaneous Information (Pending [facility] Order For Wound Care) This patient cain... PRN PRN XX WOUND CARE; Start 01/01/17 at 20:30 Doxazosin Mesylate (Cardura) 2 mg BID PO Last administered on 01/07/17 08:35; Admin Dose 2 MG; Start 01/03/17 at 21:00 Finasteride (Proscar) 5 mg DAILY PO Last administered on 01/07/17 08:34; Admin Dose 5 MG; Start 01/04/17 at 09:00 Docusate Sodium (Colace) 100 mg BID PO Last administered on 01/07/17 08:35; Admin Dose 100 MG; Start 01/03/17 at 21:00 Pantoprazole (Protonix Tab) 40 mg QAM PO Last administered on 01/07/17 08:34; Admin Dose 40 MG; Start 01/04/17 at 09:00 Polyethylene Glycol (Miralax) 17 gm DAILY PO Last administered on 01/07/17 08: 36; Admin Dose 17 GM; Start 01/04/17 at 09:00 Salmeterol Xinafoate/ Fluticasone (Advair 250/50 Diskus) 1 inh BID INH Last administered on 01/07/17 08:37; Admin Dose 1 INH; Start 01/03/17 at 21:00 Apixaban (Eliquis) 5 mg BID PO Last administered on 01/07/17 08:34; Admin Dose 5 MG; Start 01/04/17 at 21:00 Amiodarone HCl (Cordarone) 200 mg BID PO Last administered on 01/07/17 08:36; Admin Dose 200 MG; Start 01/04/17 at 21:00 Metoprolol Tartrate 5 mg 5 mg Q4H PRN IV HR>110 Hold SBP<100; Start 01/04/17 at 18:00; Status Future Hold Ampicillin (Ampicillin 1 Gm/ NS (Pmx)) 50 ml @ 100 mls/hr Q6 IVPB Last administered on 01/07/17 05:23; Admin Dose 100 MLS/HR; Start 01/05/17 at 18:00 Acetaminophen (Tylenol Tab) 650 mg Q4H PRN PO PAIN MANAGEMENT -05/30; Start at 14:00 Ascorbic Acid (Vitamin C) 500 mg DAILY PO Last administered on 01/07/17 08:34 ; Admin Dose 500 MG; Start 01/06/17 at 09:00 Tamsulosin HCl (Flomax) 0.4 mg HS PO Last administered on 01/06/17 21:32; Admin Dose 0.4 MG; Start 01/05/17 at 21:00 Senna (Senokot) 2 tab BID PO Last administered on 01/07/17 08:36; Admin Dose 2 TAB; Start 01/07/17 at 09:00 CHERI DURAN January 07, 2017 11:49
--- NOTE | 2017-01-07 12:10 | RADRPT ---
Echocardiogram Report Patient Name: MARY MCCRAY Gender: Male Date: 1945 Study Date: 07-Jan-2017 Rn Intern: Rustam [facility] Location: [id number] Ref. Physician: STEPHANIE DARDEN Quality: Technically Difficult Study Procedures: Transthoracic echocardiogram with complete 2D, M-Mode, and doppler examination. Indications: AF. 2D/M Mode Doppler Measurement Value Normal Ranges Measurement Value Normal Ranges LVIDd 2D 3.5 3.5 - 5.6 cm AV Peak Clement 1.0 m/sec LVIDs 2D 2.3 2.1 - 4.1 cm AV Peak PG 4.2 mmHg LVPWd 2D 0.8 0.6 - 1.1 cm LVOT Peak Clement 0.9 m/sec IVSd 2D 0.8 0.6 - 1.1 cm LVOT Peak PG 3.1 mmHg AoR Diam 2D 2.6 2.0 - 3.7 cm MV E Peak Clement 0.7 m/sec EDV 2D 51.4 cm3 MV A Peak Clement 1.0 m/sec ESV 2D 12.7 cm3 MV E/A 0.7 LA Dimen 2D 2.7 2.3 - 4.0 cm MV Decel Time 169 msec MV Decel [place] 4 MV E/A 0.7 TR Peak Clement 3.1 m/sec TR Peak PG 37.8 mmHg RVSP 45.0 mmHg Findings Left Ventricle: Normal left ventricular systolic function. Normal left ventricular cavity size. Normal left ventricular wall thickness. Ejection fraction is visually estimated at 65 %. Tissue Doppler/Mitral Doppler indices are consistent with impaired relaxation (Stage I diastolic dysfunction). Right Ventricle: Normal right ventricular systolic function. Mild enlargement of right ventricle. Left Atrium: The left atrium is normal in size. Right Atrium: There is mild enlargement of right atrium. Mitral Valve: Mitral valve leaflets appear mildly thickened. Mild mitral leaflet calcification. Trace mitral regurgitation. Aortic Valve: Normal appearance of the aortic valve. No significant aortic stenosis or insufficiency. Tricuspid Valve: Tricuspid valve not well visualized. Estimated peak PA systolic pressure 45 mmHg. There is mild tricuspid regurgitation. Pulmonic Valve: Pulmonic valve not well visualized. No evidence of pulmonic regurgitation. Pericardium: Not well visualized. Aorta: Normal aortic root. IVC: The IVC is not well visualized. Conclusions 1.Normal left ventricular systolic function. Normal left ventricular cavity size. Normal left ventricular wall thickness. Ejection fraction is visually estimated at 65 %. Tissue Doppler/Mitral Doppler indices are consistent with impaired relaxation (Stage I diastolic dysfunction). 2.Normal right ventricular systolic function. Mild enlargement of right ventricle. 3.Mitral valve leaflets appear mildly thickened. Mild mitral leaflet calcification. Trace mitral regurgitation. 4.Normal appearance of the aortic valve. No significant aortic stenosis or insufficiency. 5.Tricuspid valve not well visualized. Estimated peak PA systolic pressure 45 mmHg. There is mild tricuspid regurgitation. 6.Not well visualized. Electronically Signed By: Kevin Serna 07-Jan-2017 12:09:29 -0700 Patient Name: MARY MCCRAY Study Date: 07-Jan-2017 [id number]
--- NOTE | 2017-01-07 14:08 | CONS ---
Date/Time of Note Date/Time of Note DATE: 01/07/17 TIME: 14:05 Assessment/Plan Assessment/Plan Additional Assessment/Plan Assessment and recommendations; 1. Patient admitted for COPD exacerbation with clinical improvement. 2. Underlying dementia. 3. History of paraplegia. 4. Chronic malnutrition and poor overall functional status. 4. Gram-negative bacteremia, patient currently on ampicillin. Continue current treatment. Consider discharge back to [facility]. Prognosis remains poor. Consultation Date/Type/Reason Admit Date/Time January 01, 2017 at 10:00 Initial Consult Date 01/02/17 Type of Consultation: Pulmonary Referring Provider: DANO HARTMAN MD 24 HR Interval Summary Free Text/Dictation Patient condition stable. Remains semi-responsive. Currently in no distress. Patient has been taken off BiPAP. General exam; elderly male, currently in no distress. Exam/Review of Systems Vital Signs Vitals Vital Signs Date Time Temp Pulse Resp B/P Pulse Ox O2 Delivery O2 Flow Rate FiO2 01/07/17 10:45 100 99 35 01/07/17 07:23 98.1 19 135/72 01/07/17 05:42 4.0 01/06/17 23:28 Nasal Cannula Intake and Output 01/06/17 01/06/17 01/07/17 15:00 23:00 07:00 Intake Total 770 ml 940 ml 1080 ml Output Total 1100 ml 950 ml Balance 770 ml -160 ml 130 ml Exam H EENT exam; supple neck, patient is edentulous. No neck masses. No thyromegaly. Chest examination; diminished breath sounds bilaterally. No added sound. S1- S2 audible, no murmurs. Regular rhythm. Abdomen examination; soft, non-distended. No organomegaly. Bowel sounds audible. Extremity examination; no peripheral edema. 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 Results Result Diagram: 01/07/17 0555 01/07/17 0535 Results 24 hrs Laboratory Tests Test 01/07/17 05:35 01/07/17 05:55 Sodium Level 140 Potassium Level 4.0 Chloride Level 99 Carbon Dioxide Level Anion Gap 4 L Blood Urea Nitrogen 7 Creatinine 0.61 Glucose Level 99 Calcium Level 8.7 White Blood Count 9.6 Red Blood Count 3.49 L Hemoglobin 10.9 L Hematocrit 35.7 L Mean Corpuscular Volume 102.3 H Mean Corpuscular Hemoglobin 31.2 Mean Corpuscular Hemoglobin Concent 30.5 L Red Cell Distribution Width 14.6 H Platelet Count 99 L Mean Platelet Volume 12.3 H Neutrophils % 75.9 Lymphocytes % 8.7 L Monocytes % 10.7 Eosinophils % 3.9 Basophils % 0.1 Nucleated Red Blood Cells % 0.0 Neutrophils # 7.3 Lymphocytes # 0.8 Monocytes # 1.0 H Eosinophils # 0.4 Basophils # 0.0 Nucleated Red Blood Cells # 0.0 Medications Medications Current Medications Sodium Chloride (NS) 1,000 ml @ 50 mls/hr Q20H IV Last administered on 11:16; Admin Dose 50 MLS/HR; Start 01/01/17 at 11:20 Miscellaneous Information (Pending [facility] Order For Wound Care) This patient cain... PRN PRN XX WOUND CARE; Start 01/01/17 at 20:30 Doxazosin Mesylate (Cardura) 2 mg BID PO Last administered on 01/07/17 08:35; Admin Dose 2 MG; Start 01/03/17 at 21:00 Finasteride (Proscar) 5 mg DAILY PO Last administered on 01/07/17 08:34; Admin Dose 5 MG; Start 01/04/17 at 09:00 Docusate Sodium (Colace) 100 mg BID PO Last administered on 01/07/17 08:35; Admin Dose 100 MG; Start 01/03/17 at 21:00 Pantoprazole (Protonix Tab) 40 mg QAM PO Last administered on 01/07/17 08:34; Admin Dose 40 MG; Start 01/04/17 at 09:00 Polyethylene Glycol (Miralax) 17 gm DAILY PO Last administered on 01/07/17 08: 36; Admin Dose 17 GM; Start 01/04/17 at 09:00 Salmeterol Xinafoate/ Fluticasone (Advair 250/50 Diskus) 1 inh BID INH Last administered on 01/07/17 08:37; Admin Dose 1 INH; Start 01/03/17 at 21:00 Apixaban (Eliquis) 5 mg BID PO Last administered on 01/07/17 08:34; Admin Dose 5 MG; Start 01/04/17 at 21:00 Amiodarone HCl (Cordarone) 200 mg BID PO Last administered on 01/07/17 08:36; Admin Dose 200 MG; Start 01/04/17 at 21:00 Metoprolol Tartrate 5 mg 5 mg Q4H PRN IV HR>110 Hold SBP<100; Start 01/04/17 at 18:00; Status Future Hold Ampicillin (Ampicillin 1 Gm/ NS (Pmx)) 50 ml @ 100 mls/hr Q6 IVPB Last administered on 01/07/17 12:00; Admin Dose 100 MLS/HR; Start 01/05/17 at 18:00 Acetaminophen (Tylenol Tab) 650 mg Q4H PRN PO PAIN MANAGEMENT -05/30; Start at 14:00 Ascorbic Acid (Vitamin C) 500 mg DAILY PO Last administered on 01/07/17 08:34 ; Admin Dose 500 MG; Start 01/06/17 at 09:00 Tamsulosin HCl (Flomax) 0.4 mg HS PO Last administered on 01/06/17 21:32; Admin Dose 0.4 MG; Start 01/05/17 at 21:00 Senna (Senokot) 2 tab BID PO Last administered on 01/07/17 08:36; Admin Dose 2 TAB; Start 01/07/17 at 09:00 ODILON MISHRA January 07, 2017 14:08
--- NOTE | 2017-01-07 17:14 | CONS ---
Date/Time of Note Date/Time of Note DATE: 01/07/17 TIME: 17:14 Assessment/Plan Assessment/Plan Chief Complaint/Hosp Course ID PROGRESS NOTE ABX DAY # Ampicillin 24H INTERVAL SUMMARY * Awake, alert, sitting up w/O2 via NC eating dinner -- requesting I bring him "salt -- I can eat anything I want" * No fevers, WBC normalized. PHYSICAL EXAMINATION: GENERAL: VSS, NAD HEENT: Unremarkable NECK: Trach-> midline CHEST: Equal chest rise bilaterally, without dyspnea on observation HEART: Pulse RRR ABDOMEN: Soft EXTREMITIES: Warm, SKIN: Warm, dry ID ASSESSMENT: 71 yo M w/ admitted with: 1. Resolving sepsis with Proteus mirabilis bacteremia secondary to #2. 2. Multi-drug resistant urinary tract infection = Polymicrobial URINE CULTURE Final Organism 1 PROTEUS MIRABILIS COLONY COUNT >100,000 CFU/ml Organism 2 ENTEROCOCCUS SPECIES COLONY COUNT >100,000 CFU/ml 3. Respiratory failure secondary to chronic obstructive pulmonary disease exacerbation, possibly aspiration event. 4. Atrial fibrillation. 5. Paraplegia w/neurogenic bladder 6. Encephalopathy = resolved ABX ALLERGIES: NKDA CURRENT ABX: # Ampicillin ID RECOMMENDATIONS: 1. Continue Ampicillin until 01/16/17 per notes to cover (+)Blood Cx 2. ID team will follow . Problems: Consultation Date/Type/Reason Admit Date/Time January 01, 2017 at 10:00 Initial Consult Date 01/02/17 Type of Consultation: ID Referring Provider: DANO HARTMAN MD Exam/Review of Systems Vital Signs Vitals Vital Signs Date Time Temp Pulse Resp B/P Pulse Ox O2 Delivery O2 Flow Rate FiO2 01/07/17 15:00 Nasal Cannula 4.0 01/07/17 14:45 75 98 35 01/07/17 07:23 98.1 19 135/72 Intake and Output 01/06/17 01/06/17 01/07/17 15:00 23:00 07:00 Intake Total 770 ml 940 ml 1080 ml Output Total 1100 ml 950 ml Balance 770 ml -160 ml 130 ml Results Result Diagram: 01/07/17 0555 01/07/17 0535 Results 24 hrs Laboratory Tests Test 01/07/17 05:35 01/07/17 05:55 Sodium Level 140 Potassium Level 4.0 Chloride Level 99 Carbon Dioxide Level Anion Gap 4 L Blood Urea Nitrogen 7 Creatinine 0.61 Glucose Level 99 Calcium Level 8.7 White Blood Count 9.6 Red Blood Count 3.49 L Hemoglobin 10.9 L Hematocrit 35.7 L Mean Corpuscular Volume 102.3 H Mean Corpuscular Hemoglobin 31.2 Mean Corpuscular Hemoglobin Concent 30.5 L Red Cell Distribution Width 14.6 H Platelet Count 99 L Mean Platelet Volume 12.3 H Neutrophils % 75.9 Lymphocytes % 8.7 L Monocytes % 10.7 Eosinophils % 3.9 Basophils % 0.1 Nucleated Red Blood Cells % 0.0 Neutrophils # 7.3 Lymphocytes # 0.8 Monocytes # 1.0 H Eosinophils # 0.4 Basophils # 0.0 Nucleated Red Blood Cells # 0.0 Medications Medications Current Medications Sodium Chloride (NS) 1,000 ml @ 50 mls/hr Q20H IV Last administered on 11:16; Admin Dose 50 MLS/HR; Start 01/01/17 at 11:20 Miscellaneous Information (Pending [facility] Order For Wound Care) This patient cain... PRN PRN XX WOUND CARE; Start 01/01/17 at 20:30 Doxazosin Mesylate (Cardura) 2 mg BID PO Last administered on 01/07/17 08:35; Admin Dose 2 MG; Start 01/03/17 at 21:00 Finasteride (Proscar) 5 mg DAILY PO Last administered on 01/07/17 08:34; Admin Dose 5 MG; Start 01/04/17 at 09:00 Docusate Sodium (Colace) 100 mg BID PO Last administered on 01/07/17 08:35; Admin Dose 100 MG; Start 01/03/17 at 21:00 Pantoprazole (Protonix Tab) 40 mg QAM PO Last administered on 01/07/17 08:34; Admin Dose 40 MG; Start 01/04/17 at 09:00 Polyethylene Glycol (Miralax) 17 gm DAILY PO Last administered on 01/07/17 08: 36; Admin Dose 17 GM; Start 01/04/17 at 09:00 Salmeterol Xinafoate/ Fluticasone (Advair 250/50 Diskus) 1 inh BID INH Last administered on 01/07/17 08:37; Admin Dose 1 INH; Start 01/03/17 at 21:00 Apixaban (Eliquis) 5 mg BID PO Last administered on 01/07/17 08:34; Admin Dose 5 MG; Start 01/04/17 at 21:00 Amiodarone HCl (Cordarone) 200 mg BID PO Last administered on 01/07/17 08:36; Admin Dose 200 MG; Start 01/04/17 at 21:00 Metoprolol Tartrate 5 mg 5 mg Q4H PRN IV HR>110 Hold SBP<100; Start 01/04/17 at 18:00; Status Future Hold Ampicillin (Ampicillin 1 Gm/ NS (Pmx)) 50 ml @ 100 mls/hr Q6 IVPB Last administered on 01/07/17 12:00; Admin Dose 100 MLS/HR; Start 01/05/17 at 18:00 Acetaminophen (Tylenol Tab) 650 mg Q4H PRN PO PAIN MANAGEMENT -05/30; Start at 14:00 Ascorbic Acid (Vitamin C) 500 mg DAILY PO Last administered on 01/07/17 08:34 ; Admin Dose 500 MG; Start 01/06/17 at 09:00 Tamsulosin HCl (Flomax) 0.4 mg HS PO Last administered on 01/06/17 21:32; Admin Dose 0.4 MG; Start 01/05/17 at 21:00 Senna (Senokot) 2 tab BID PO Last administered on 01/07/17 08:36; Admin Dose 2 TAB; Start 01/07/17 at 09:00 FELICITY MEDINA NP January 07, 2017 17:14
--- NOTE | 2017-01-07 17:57 | CONS ---
Date/Time of Note Date/Time of Note DATE: 01/07/17 TIME: 17:54 Assessment/Plan Assessment/Plan Additional Assessment/Plan Paroxysmal atrial fibrillation Abnormal electrocardiogram, Urinary tract infection. Hypercapnic respiratory distress. Chronic obstructive pulmonary disease. Bacteremia. In sinus rhythm hemodynamically stable Continue amiodarone Continue Eliquis Continue Nebs as scheduled Continue Tamsulosin and finasteride Continue Antibiotics Consultation Date/Type/Reason Admit Date/Time January 01, 2017 at 10:00 Constitutional: requiring O2 Eyes: no complaints ENT: no complaints Respiratory: shortness of breath Cardiovascular: no complaints Gastrointestinal: no complaints Genitourinary: no complaints Musculoskeletal: no complaints Skin: no complaints Neurologic: no complaints Endocrine: no complaints Psychological: nl mood/affect Immunologic: no complaints Social History Smoking Status: Unknown if ever smoked Exam/Review of Systems Vital Signs Vitals Vital Signs Date Time Temp Pulse Resp B/P Pulse Ox O2 Delivery O2 Flow Rate FiO2 01/07/17 15:00 Nasal Cannula 4.0 01/07/17 14:45 75 98 35 01/07/17 07:23 98.1 19 135/72 Intake and Output 01/06/17 01/06/17 01/07/17 15:00 23:00 07:00 Intake Total 770 ml 940 ml 1080 ml Output Total 1100 ml 950 ml Balance 770 ml -160 ml 130 ml Exam Constitutional: alert Head: atraumatic, normocephalic Neck: non-tender, supple Respiratory: diminished breath sounds Cardiovascular: regular rate and rhythm Gastrointestinal: nl liver, spleen, non-tender, soft Extremities: normal pulses Results Result Diagram: 01/07/17 0555 01/07/17 0535 Results 24 hrs Laboratory Tests Test 01/07/17 05:35 01/07/17 05:55 Sodium Level 140 Potassium Level 4.0 Chloride Level 99 Carbon Dioxide Level Anion Gap 4 L Blood Urea Nitrogen 7 Creatinine 0.61 Glucose Level 99 Calcium Level 8.7 White Blood Count 9.6 Red Blood Count 3.49 L Hemoglobin 10.9 L Hematocrit 35.7 L Mean Corpuscular Volume 102.3 H Mean Corpuscular Hemoglobin 31.2 Mean Corpuscular Hemoglobin Concent 30.5 L Red Cell Distribution Width 14.6 H Platelet Count 99 L Mean Platelet Volume 12.3 H Neutrophils % 75.9 Lymphocytes % 8.7 L Monocytes % 10.7 Eosinophils % 3.9 Basophils % 0.1 Nucleated Red Blood Cells % 0.0 Neutrophils # 7.3 Lymphocytes # 0.8 Monocytes # 1.0 H Eosinophils # 0.4 Basophils # 0.0 Nucleated Red Blood Cells # 0.0 Medications Medications Current Medications Sodium Chloride (NS) 1,000 ml @ 50 mls/hr Q20H IV Last administered on 11:16; Admin Dose 50 MLS/HR; Start 01/01/17 at 11:20 Miscellaneous Information (Pending [facility] Order For Wound Care) This patient cain... PRN PRN XX WOUND CARE; Start 01/01/17 at 20:30 Doxazosin Mesylate (Cardura) 2 mg BID PO Last administered on 01/07/17 08:35; Admin Dose 2 MG; Start 01/03/17 at 21:00 Finasteride (Proscar) 5 mg DAILY PO Last administered on 01/07/17 08:34; Admin Dose 5 MG; Start 01/04/17 at 09:00 Docusate Sodium (Colace) 100 mg BID PO Last administered on 01/07/17 08:35; Admin Dose 100 MG; Start 01/03/17 at 21:00 Pantoprazole (Protonix Tab) 40 mg QAM PO Last administered on 01/07/17 08:34; Admin Dose 40 MG; Start 01/04/17 at 09:00 Polyethylene Glycol (Miralax) 17 gm DAILY PO Last administered on 01/07/17 08: 36; Admin Dose 17 GM; Start 01/04/17 at 09:00 Salmeterol Xinafoate/ Fluticasone (Advair 250/50 Diskus) 1 inh BID INH Last administered on 01/07/17 08:37; Admin Dose 1 INH; Start 01/03/17 at 21:00 Apixaban (Eliquis) 5 mg BID PO Last administered on 01/07/17 08:34; Admin Dose 5 MG; Start 01/04/17 at 21:00 Amiodarone HCl (Cordarone) 200 mg BID PO Last administered on 01/07/17 08:36; Admin Dose 200 MG; Start 01/04/17 at 21:00 Metoprolol Tartrate 5 mg 5 mg Q4H PRN IV HR>110 Hold SBP<100; Start 01/04/17 at 18:00; Status Future Hold Ampicillin (Ampicillin 1 Gm/ NS (Pmx)) 50 ml @ 100 mls/hr Q6 IVPB Last administered on 01/07/17 12:00; Admin Dose 100 MLS/HR; Start 01/05/17 at 18:00 Acetaminophen (Tylenol Tab) 650 mg Q4H PRN PO PAIN MANAGEMENT -05/30; Start at 14:00 Ascorbic Acid (Vitamin C) 500 mg DAILY PO Last administered on 01/07/17 08:34 ; Admin Dose 500 MG; Start 01/06/17 at 09:00 Tamsulosin HCl (Flomax) 0.4 mg HS PO Last administered on 01/06/17 21:32; Admin Dose 0.4 MG; Start 01/05/17 at 21:00 Senna (Senokot) 2 tab BID PO Last administered on 01/07/17 08:36; Admin Dose 2 TAB; Start 01/07/17 at 09:00 SHERON JACKSON M.D. January 07, 2017 17:57
[2017-01-07] MEDS: TAMSULOSIN (SR) 0.4 MG CAP PO SCH (21:57)
[2017-01-08 00:45] VITALS: PULSE 73; PULSE 76
[2017-01-08 02:33] VITALS: PULSE 75
[2017-01-08] MEDS: SOD CHLORIDE 0.9% 1,000 ML IV SCH ×2 (02:51→12:23)
[2017-01-08] MEDS: AMPICILLIN 1 GM/NS (PMX) 50 ML IVPB SCH ×4 (05:22→23:46)
[2017-01-08 07:24] VITALS: BP 125/76; RESP 24
[2017-01-08] MEDS: SALMETEROL/FLUTICASONE 250/50 INHA INH SCH ×2 (08:55→22:06)
[2017-01-08] MEDS: SENNA TAB PO SCH ×2 (08:55→22:06)
[2017-01-08] MEDS: DOCUSATE SODIUM 100 MG CAP PO SCH ×2 (08:55→22:06)
[2017-01-08] MEDS: POLYETHYLENE GLYCOL 17 GM PACKET PO SCH (08:55)
[2017-01-08] MEDS: APIXABAN 5 MG TABLET PO SCH ×2 (08:56→22:07)
[2017-01-08] MEDS: ASCORBIC ACID 500 MG TAB PO SCH (08:56)
[2017-01-08] MEDS: AMIODARONE 200 MG TAB PO SCH ×2 (08:56→22:07)
[2017-01-08] MEDS: DOXAZOSIN 2 MG TAB PO SCH ×2 (08:56→22:06)
[2017-01-08] MEDS: PANTOPRAZOLE (EC) 40 MG TAB PO SCH (08:56)
[2017-01-08] MEDS: FINASTERIDE 5 MG TAB PO SCH (08:57)
--- NOTE | 2017-01-08 11:12 | CONS ---
Date/Time of Note Date/Time of Note DATE: 01/08/17 TIME: 11:10 Assessment/Plan Assessment/Plan Additional Assessment/Plan Paroxysmal atrial fibrillation Abnormal electrocardiogram, Urinary tract infection. Hypercapnic respiratory distress. Chronic obstructive pulmonary disease. Bacteremia. In sinus rhythm hemodynamically stable Continue amiodarone Continue Eliquis Continue Nebs as scheduled Continue Tamsulosin and finasteride Continue Antibiotics Continue GI Prophylaxis Consultation Date/Type/Reason Admit Date/Time January 01, 2017 at 10:00 Initial Consult Date 01/02/17 Type of Consultation: ID Referring Provider: DANO HARTMAN MD Exam/Review of Systems Vital Signs Vitals Vital Signs Date Time Temp Pulse Resp B/P Pulse Ox O2 Delivery O2 Flow Rate FiO2 01/08/17 08:00 Nasal Cannula 4.0 01/08/17 07:24 97.9 83 24 125/76 98 01/08/17 02:33 35 Intake and Output 01/07/17 01/07/17 01/08/17 15:00 23:00 07:00 Intake Total 310 ml 1430 ml 1180 ml Output Total 1000 ml 1200 ml Balance 310 ml 430 ml -20 ml Exam Constitutional: alert Head: atraumatic, normocephalic Neck: non-tender, supple Respiratory: diminished breath sounds Cardiovascular: regular rate and rhythm Gastrointestinal: nl liver, spleen, non-tender, soft Extremities: normal pulses Results Result Diagram: 01/07/17 0555 01/07/17 0535 Medications Medications Current Medications Sodium Chloride (NS) 1,000 ml @ 50 mls/hr Q20H IV Last administered on 11:16; Admin Dose 50 MLS/HR; Start 01/01/17 at 11:20 Miscellaneous Information (Pending [facility] Order For Wound Care) This patient cain... PRN PRN XX WOUND CARE; Start 01/01/17 at 20:30 Doxazosin Mesylate (Cardura) 2 mg BID PO Last administered on 01/08/17 08:56; Admin Dose 2 MG; Start 01/03/17 at 21:00 Finasteride (Proscar) 5 mg DAILY PO Last administered on 01/08/17 08:57; Admin Dose 5 MG; Start 01/04/17 at 09:00 Docusate Sodium (Colace) 100 mg BID PO Last administered on 01/08/17 08:55; Admin Dose 100 MG; Start 01/03/17 at 21:00 Pantoprazole (Protonix Tab) 40 mg QAM PO Last administered on 01/08/17 08:56; Admin Dose 40 MG; Start 01/04/17 at 09:00 Polyethylene Glycol (Miralax) 17 gm DAILY PO Last administered on 01/08/17 08: 55; Admin Dose 17 GM; Start 01/04/17 at 09:00 Salmeterol Xinafoate/ Fluticasone (Advair 250/50 Diskus) 1 inh BID INH Last administered on 01/08/17 08:55; Admin Dose 1 INH; Start 01/03/17 at 21:00 Apixaban (Eliquis) 5 mg BID PO Last administered on 01/08/17 08:56; Admin Dose 5 MG; Start 01/04/17 at 21:00 Amiodarone HCl (Cordarone) 200 mg BID PO Last administered on 01/08/17 08:56; Admin Dose 200 MG; Start 01/04/17 at 21:00 Metoprolol Tartrate 5 mg 5 mg Q4H PRN IV HR>110 Hold SBP<100; Start 01/04/17 at 18:00; Status Future Hold Ampicillin (Ampicillin 1 Gm/ NS (Pmx)) 50 ml @ 100 mls/hr Q6 IVPB Last administered on 01/08/17 05:22; Admin Dose 100 MLS/HR; Start 01/05/17 at 18:00 Acetaminophen (Tylenol Tab) 650 mg Q4H PRN PO PAIN MANAGEMENT -05/30; Start at 14:00 Ascorbic Acid (Vitamin C) 500 mg DAILY PO Last administered on 01/08/17 08:56 ; Admin Dose 500 MG; Start 01/06/17 at 09:00 Tamsulosin HCl (Flomax) 0.4 mg HS PO Last administered on 01/07/17 21:57; Admin Dose 0.4 MG; Start 01/05/17 at 21:00 Senna (Senokot) 2 tab BID PO Last administered on 01/08/17 08:55; Admin Dose 2 TAB; Start 01/07/17 at 09:00 SHERON JACKSON M.D. January 08, 2017 11:12
[2017-01-08 11:32] LABS: ADD SCAN DIFF NO; BASOPHILS % 0.1 % (0.0-2.0); EOSINOPHILS # 0.3 10^3/ul (0.0-0.5); EOSINOPHILS % 3.3 % (0.0-7.0); HEMATOCRIT 36.1 % (42.0-52.0); LYMPHOCYTES # 0.8 10^3/ul (0.8-2.9); MEAN CORPUSCULAR HEMOGLOBIN 31.3 pg (29.0-33.0); MEAN CORPUSCULAR HGB CONC 30.5 g/dl (32.0-37.0); MEAN CORPUSCULAR VOLUME 102.8 fl (82.0-101.0); MEAN PLATELET VOLUME 11.4 fl (7.4-10.4); MONOCYTE # 0.6 10^3/ul (0.3-0.9); MONOCYTES % 6.8 % (0.0-11.0); NEUTROPHIL # 7.4 10^3/ul (1.6-7.5); NEUTROPHILS % 80.3 % (39.0-77.0); RED BLOOD COUNT 3.51 10^6/ul (4.70-6.10); RED CELL DISTRIBUTION WIDTH 14.5 % (11.5-14.5); WHITE BLOOD COUNT 9.2 10^3/ul (4.8-10.8)
[2017-01-08 11:34] LABS: PLATELET COUNT 133 10^3/UL (140-415)
--- NOTE | 2017-01-08 11:43 | CONS ---
Date/Time of Note Date/Time of Note DATE: 01/08/17 TIME: 11:41 Assessment/Plan Assessment/Plan Additional Assessment/Plan Assessment recommendations; 1. Patient admitted for severe exacerbation with interval improvement. 2. Advanced dementia. 3. History of paraplegia. Next Continue current treatment. Consider discharge to retirement. Prognosis remains poor. Consultation Date/Type/Reason Admit Date/Time January 01, 2017 at 10:00 Initial Consult Date 01/02/17 Type of Consultation: Pulmonary Referring Provider: DANO HARTMAN MD 24 HR Interval Summary Free Text/Dictation Patient condition is stable. Appears more awake and alert today. Has remained hemodynamically stable. General exam; elderly male, awake currently in no distress. Exam/Review of Systems Vital Signs Vitals Vital Signs Date Time Temp Pulse Resp B/P Pulse Ox O2 Delivery O2 Flow Rate FiO2 01/08/17 08:00 Nasal Cannula 4.0 01/08/17 07:24 97.9 83 24 125/76 98 01/08/17 02:33 35 Intake and Output 01/07/17 01/07/17 01/08/17 15:00 23:00 07:00 Intake Total 310 ml 1430 ml 1180 ml Output Total 1000 ml 1200 ml Balance 310 ml 430 ml -20 ml Exam HEENT exam is; supple neck, no JVD. No lymphadenopathy. Midline trachea. No thyromegaly. Patient is edentulous. Chest examination; diminished but clear vessel. S1-S2 audible, no murmurs. Regular rhythm. Abdomen examination; soft, nondistended. No organomegaly. Bowel is audible. Extremity examination; no peripheral edema. [employer] examination; patient is stable paraplegia. Patient has generalized muscular weakness. Results Result Diagram: 01/08/17 1020 01/07/17 0535 Results 24 hrs Laboratory Tests Test 01/08/17 10:20 White Blood Count 9.2 Red Blood Count 3.51 L Hemoglobin 11.0 L Hematocrit 36.1 L Mean Corpuscular Volume 102.8 H Mean Corpuscular Hemoglobin 31.3 Mean Corpuscular Hemoglobin Concent 30.5 L Red Cell Distribution Width 14.5 Platelet Count 133 #L Mean Platelet Volume 11.4 H Neutrophils % 80.3 H Lymphocytes % 9.0 L Monocytes % 6.8 Eosinophils % 3.3 Basophils % 0.1 Nucleated Red Blood Cells % 0.0 Neutrophils # 7.4 Lymphocytes # 0.8 Monocytes # 0.6 Eosinophils # 0.3 Basophils # 0.0 Nucleated Red Blood Cells # 0.0 Medications Medications Current Medications Sodium Chloride (NS) 1,000 ml @ 50 mls/hr Q20H IV Last administered on 11:16; Admin Dose 50 MLS/HR; Start 01/01/17 at 11:20 Miscellaneous Information ([facility] This patient cain... PRN PRN XX WOUND CARE; Start 01/01/17 at 20:30 Doxazosin Mesylate (Cardura) 2 mg BID PO Last administered on 01/08/17 08:56; Admin Dose 2 MG; Start 01/03/17 at 21:00 Finasteride (Proscar) 5 mg DAILY PO Last administered on 01/08/17 08:57; Admin Dose 5 MG; Start 01/04/17 at 09:00 Docusate Sodium (Colace) 100 mg BID PO Last administered on 01/08/17 08:55; Admin Dose 100 MG; Start 01/03/17 at 21:00 Pantoprazole (Protonix Tab) 40 mg QAM PO Last administered on 01/08/17 08:56; Admin Dose 40 MG; Start 01/04/17 at 09:00 Polyethylene Glycol (Miralax) 17 gm DAILY PO Last administered on 01/08/17 08: 55; Admin Dose 17 GM; Start 01/04/17 at 09:00 Salmeterol Xinafoate/ Fluticasone (Advair 250/50 Diskus) 1 inh BID INH Last administered on 01/08/17 08:55; Admin Dose 1 INH; Start 01/03/17 at 21:00 Apixaban (Eliquis) 5 mg BID PO Last administered on 01/08/17 08:56; Admin Dose 5 MG; Start 01/04/17 at 21:00 Amiodarone HCl (Cordarone) 200 mg BID PO Last administered on 01/08/17 08:56; Admin Dose 200 MG; Start 01/04/17 at 21:00 Metoprolol Tartrate 5 mg 5 mg Q4H PRN IV HR>110 Hold SBP<100; Start 01/04/17 at 18:00; Status Future Hold Ampicillin (Ampicillin 1 Gm/ NS (Pmx)) 50 ml @ 100 mls/hr Q6 IVPB Last administered on 01/08/17 05:22; Admin Dose 100 MLS/HR; Start 01/05/17 at 18:00 Acetaminophen (Tylenol Tab) 650 mg Q4H PRN PO PAIN MANAGEMENT -05/30; Start at 14:00 Ascorbic Acid (Vitamin C) 500 mg DAILY PO Last administered on 01/08/17 08:56 ; Admin Dose 500 MG; Start 01/06/17 at 09:00 Tamsulosin HCl (Flomax) 0.4 mg HS PO Last administered on 01/07/17 21:57; Admin Dose 0.4 MG; Start 01/05/17 at 21:00 Senna (Senokot) 2 tab BID PO Last administered on 01/08/17 08:55; Admin Dose 2 TAB; Start 01/07/17 at 09:00 ODILON MISHRA January 08, 2017 11:43
[2017-01-08 11:57] LABS: CALCIUM 8.5 mg/dl (8.4-10.2); CREATININE 0.61 mg/dl (0.61-1.24); POTASSIUM 3.9 mmol/L (3.5-5.1)
--- NOTE | 2017-01-08 14:12 | PN ---
Date/Time of Note Date/Time of Note DATE: 01/08/17 TIME: 14:09 Assessment/Plan Lines/Catheters IV Catheter Type (from [facility]): Peripheral IV Urinary Cath still in place: Yes Assessment/Plan Assessment/Plan - Sepsis secondary to urinary tract infection and possible underlying early pneumonia. Continue broad spectrum antibiotics. Dr. Chandra will be following the patient in infectious disease consultation. Will follow up on blood and urine cultures. - Proteus mirabilis bacteremia. - Polymicrobial acute cystitis with hematuria. - Hypercapnic respiratory failure - per Dr. Norton in a pulmonology consultation. Rohith lopez for high co2- will cont same orders Continue BiPAP. - Chronic obstructive pulmonary disease exacerbation. Continue breathing treatment and oxygen supplementation. - Atrial fibrillation. Continue Eliquis. Dr. Lala is following and cardiology consultation. - Chronic renal insufficiency. Continue monitor the BUN and creatinine. - Dementia. - Chronic urinary retention. Continue Forbes catheter Further recommendations based on clinical course. Plan of care discussed with Dr. Anne. Subjective 24 Hr Interval Summary Free Text/Dictation Remains on BiPAP Rohith Norton for high co2- will cont same orders Continue BiPAP.Afebrile, dw staff Respiratory: shortness of breath Cardiovascular: no complaints Gastrointestinal: no complaints Exam/Review of Systems Vital Signs Vitals Vital Signs Date Time Temp Pulse Resp B/P Pulse Ox O2 Delivery O2 Flow Rate FiO2 01/08/17 08:00 Nasal Cannula 4.0 01/08/17 07:24 97.9 83 24 125/76 98 01/08/17 02:33 35 Intake and Output 01/07/17 01/07/17 01/08/17 15:00 23:00 07:00 Intake Total 310 ml 1430 ml 1180 ml Output Total 1000 ml 1200 ml Balance 310 ml 430 ml -20 ml Results Result Diagram: 01/08/17 1020 01/08/17 1020 Results 24 hrs Laboratory Tests Test 01/08/17 10:20 White Blood Count 9.2 Red Blood Count 3.51 L Hemoglobin 11.0 L Hematocrit 36.1 L Mean Corpuscular Volume 102.8 H Mean Corpuscular Hemoglobin 31.3 Mean Corpuscular Hemoglobin Concent 30.5 L Red Cell Distribution Width 14.5 Platelet Count 133 #L Mean Platelet Volume 11.4 H Neutrophils % 80.3 H Lymphocytes % 9.0 L Monocytes % 6.8 Eosinophils % 3.3 Basophils % 0.1 Nucleated Red Blood Cells % 0.0 Neutrophils # 7.4 Lymphocytes # 0.8 Monocytes # 0.6 Eosinophils # 0.3 Basophils # 0.0 Nucleated Red Blood Cells # 0.0 Sodium Level 138 Potassium Level 3.9 Chloride Level 97 Carbon Dioxide Level 41 *H Anion Gap 4 L Blood Urea Nitrogen 7 Creatinine 0.61 Glucose Level 148 # Calcium Level 8.5 Medications Medications Current Medications Sodium Chloride (NS) 1,000 ml @ 50 mls/hr Q20H IV Last administered on 12:23; Admin Dose 50 MLS/HR; Start 01/01/17 at 11:20 Miscellaneous Information (Pending [facility] Order For Wound Care) This patient cain... PRN PRN XX WOUND CARE; Start 01/01/17 at 20:30 Doxazosin Mesylate (Cardura) 2 mg BID PO Last administered on 01/08/17 08:56; Admin Dose 2 MG; Start 01/03/17 at 21:00 Finasteride (Proscar) 5 mg DAILY PO Last administered on 01/08/17 08:57; Admin Dose 5 MG; Start 01/04/17 at 09:00 Docusate Sodium (Colace) 100 mg BID PO Last administered on 01/08/17 08:55; Admin Dose 100 MG; Start 01/03/17 at 21:00 Pantoprazole (Protonix Tab) 40 mg QAM PO Last administered on 01/08/17 08:56; Admin Dose 40 MG; Start 01/04/17 at 09:00 Polyethylene Glycol (Miralax) 17 gm DAILY PO Last administered on 01/08/17 08: 55; Admin Dose 17 GM; Start 01/04/17 at 09:00 Salmeterol Xinafoate/ Fluticasone (Advair 250/50 Diskus) 1 inh BID INH Last administered on 01/08/17 08:55; Admin Dose 1 INH; Start 01/03/17 at 21:00 Apixaban (Eliquis) 5 mg BID PO Last administered on 01/08/17 08:56; Admin Dose 5 MG; Start 01/04/17 at 21:00 Amiodarone HCl (Cordarone) 200 mg BID PO Last administered on 01/08/17 08:56; Admin Dose 200 MG; Start 01/04/17 at 21:00 Metoprolol Tartrate 5 mg 5 mg Q4H PRN IV HR>110 Hold SBP<100; Start 01/04/17 at 18:00; Status Future Hold Ampicillin (Ampicillin 1 Gm/ NS (Pmx)) 50 ml @ 100 mls/hr Q6 IVPB Last administered on 01/08/17 12:22; Admin Dose 100 MLS/HR; Start 01/05/17 at 18:00 Acetaminophen (Tylenol Tab) 650 mg Q4H PRN PO PAIN MANAGEMENT -05/30; Start at 14:00 Ascorbic Acid (Vitamin C) 500 mg DAILY PO Last administered on 01/08/17 08:56 ; Admin Dose 500 MG; Start 01/06/17 at 09:00 Tamsulosin HCl (Flomax) 0.4 mg HS PO Last administered on 01/07/17 21:57; Admin Dose 0.4 MG; Start 01/05/17 at 21:00 Senna (Senokot) 2 tab BID PO Last administered on 01/08/17 08:55; Admin Dose 2 TAB; Start 01/07/17 at 09:00 CHERI DURAN January 08, 2017 14:12
--- NOTE | 2017-01-08 15:52 | CONS ---
Date/Time of Note Date/Time of Note DATE: 01/08/17 TIME: 15:49 Assessment/Plan Assessment/Plan Chief Complaint/Hosp Course ID PROGRESS NOTE ABX DAY # Ampicillin 24H INTERVAL SUMMARY * Resting in bed today, supplemental O2 via NC, no dyspnea, overall COPD exacerbation improved * Yesterday he was sitting up in bed independent with eating -- has been stable on O2 via NC * No fevers, WBC normalized. PHYSICAL EXAMINATION: GENERAL: VSS, NAD HEENT: Unremarkable NECK: Trach-> midline CHEST: Equal chest rise bilaterally, without dyspnea on observation HEART: Pulse RRR ABDOMEN: Soft EXTREMITIES: Warm, SKIN: Warm, dry ID ASSESSMENT: 71 yo M w/ admitted with: 1. s/p sepsis with Proteus mirabilis bacteremia secondary to #2. 2. Multi-drug resistant urinary tract infection = Polymicrobial URINE CULTURE Final Organism 1 PROTEUS MIRABILIS COLONY COUNT >100,000 CFU/ml Organism 2 ENTEROCOCCUS SPECIES COLONY COUNT >100,000 CFU/ml 3. Respiratory failure secondary to chronic obstructive pulmonary disease exacerbation, possibly aspiration event. * Supplemental O2 via NC stable * BIPAP ? Nocturnal ? 4. Atrial fibrillation. 5. Paraplegia w/neurogenic bladder 6. Encephalopathy = resolved ABX ALLERGIES: NKDA CURRENT ABX: # Ampicillin ID RECOMMENDATIONS: 1. Continue Ampicillin until 01/16/17 per notes to cover (+)Blood Cx 2. DC Planning: December TNS to SNF on ABX . Problems: Consultation Date/Type/Reason Admit Date/Time January 01, 2017 at 10:00 Initial Consult Date 01/02/17 Type of Consultation: ID Referring Provider: DANO HARTMAN MD Exam/Review of Systems Vital Signs Vitals Vital Signs Date Time Temp Pulse Resp B/P Pulse Ox O2 Delivery O2 Flow Rate FiO2 01/08/17 08:00 Nasal Cannula 4.0 01/08/17 07:24 97.9 83 24 125/76 98 01/08/17 02:33 35 Intake and Output 01/07/17 01/07/17 01/08/17 15:00 23:00 07:00 Intake Total 310 ml 1430 ml 1180 ml Output Total 1000 ml 1200 ml Balance 310 ml 430 ml -20 ml Results Result Diagram: 01/08/17 1020 01/08/17 1020 Results 24 hrs Laboratory Tests Test 01/08/17 10:20 White Blood Count 9.2 Red Blood Count 3.51 L Hemoglobin 11.0 L Hematocrit 36.1 L Mean Corpuscular Volume 102.8 H Mean Corpuscular Hemoglobin 31.3 Mean Corpuscular Hemoglobin Concent 30.5 L Red Cell Distribution Width 14.5 Platelet Count 133 #L Mean Platelet Volume 11.4 H Neutrophils % 80.3 H Lymphocytes % 9.0 L Monocytes % 6.8 Eosinophils % 3.3 Basophils % 0.1 Nucleated Red Blood Cells % 0.0 Neutrophils # 7.4 Lymphocytes # 0.8 Monocytes # 0.6 Eosinophils # 0.3 Basophils # 0.0 Nucleated Red Blood Cells # 0.0 Sodium Level 138 Potassium Level 3.9 Chloride Level 97 Carbon Dioxide Level 41 *H Anion Gap 4 L Blood Urea Nitrogen 7 Creatinine 0.61 Glucose Level 148 # Calcium Level 8.5 Medications Medications Current Medications Sodium Chloride (NS) 1,000 ml @ 50 mls/hr Q20H IV Last administered on 12:23; Admin Dose 50 MLS/HR; Start 01/01/17 at 11:20 Miscellaneous Information (Pending [facility] Order For Wound Care) This patient cain... PRN PRN XX WOUND CARE; Start 01/01/17 at 20:30 Doxazosin Mesylate (Cardura) 2 mg BID PO Last administered on 01/08/17 08:56; Admin Dose 2 MG; Start 01/03/17 at 21:00 Finasteride (Proscar) 5 mg DAILY PO Last administered on 01/08/17 08:57; Admin Dose 5 MG; Start 01/04/17 at 09:00 Docusate Sodium (Colace) 100 mg BID PO Last administered on 01/08/17 08:55; Admin Dose 100 MG; Start 01/03/17 at 21:00 Pantoprazole (Protonix Tab) 40 mg QAM PO Last administered on 01/08/17 08:56; Admin Dose 40 MG; Start 01/04/17 at 09:00 Polyethylene Glycol (Miralax) 17 gm DAILY PO Last administered on 01/08/17 08: 55; Admin Dose 17 GM; Start 01/04/17 at 09:00 Salmeterol Xinafoate/ Fluticasone (Advair 250/50 Diskus) 1 inh BID INH Last administered on 01/08/17 08:55; Admin Dose 1 INH; Start 01/03/17 at 21:00 Apixaban (Eliquis) 5 mg BID PO Last administered on 01/08/17 08:56; Admin Dose 5 MG; Start 01/04/17 at 21:00 Amiodarone HCl (Cordarone) 200 mg BID PO Last administered on 01/08/17 08:56; Admin Dose 200 MG; Start 01/04/17 at 21:00 Metoprolol Tartrate 5 mg 5 mg Q4H PRN IV HR>110 Hold SBP<100; Start 01/04/17 at 18:00; Status Future Hold Ampicillin (Ampicillin 1 Gm/ NS (Pmx)) 50 ml @ 100 mls/hr Q6 IVPB Last administered on 01/08/17 12:22; Admin Dose 100 MLS/HR; Start 01/05/17 at 18:00 Acetaminophen (Tylenol Tab) 650 mg Q4H PRN PO PAIN MANAGEMENT -05/30; Start at 14:00 Ascorbic Acid (Vitamin C) 500 mg DAILY PO Last administered on 01/08/17 08:56 ; Admin Dose 500 MG; Start 01/06/17 at 09:00 Tamsulosin HCl (Flomax) 0.4 mg HS PO Last administered on 01/07/17 21:57; Admin Dose 0.4 MG; Start 01/05/17 at 21:00 Senna (Senokot) 2 tab BID PO Last administered on 01/08/17 08:55; Admin Dose 2 TAB; Start 01/07/17 at 09:00 FELICITY MEDINA NP January 08, 2017 15:52
[2017-01-08 18:03] VITALS: PULSE 82
[2017-01-08 19:29] VITALS: BP 112/60; RESP 20
[2017-01-08] MEDS: TAMSULOSIN (SR) 0.4 MG CAP PO SCH (22:07)
[2017-01-08 22:22] VITALS: PULSE 90
[2017-01-09 00:15] VITALS: PULSE 81
[2017-01-09 05:50] LABS: ADD SCAN DIFF NO
[2017-01-09 05:58] LABS: BASOPHILS % 0.1 % (0.0-2.0); EOSINOPHILS # 0.2 10^3/ul (0.0-0.5); EOSINOPHILS % 2.1 % (0.0-7.0); HEMATOCRIT 32.4 % (42.0-52.0); HEMOGLOBIN 9.5 g/dl (14.0-18.0); LYMPHOCYTES # 0.9 10^3/ul (0.8-2.9); LYMPHOCYTES % 9.9 % (15.0-51.0); MEAN CORPUSCULAR HEMOGLOBIN 30.4 pg (29.0-33.0); MEAN CORPUSCULAR HGB CONC 29.3 g/dl (32.0-37.0); MEAN CORPUSCULAR VOLUME 103.5 fl (82.0-101.0); MEAN PLATELET VOLUME 11.3 fl (7.4-10.4); MONOCYTE # 0.7 10^3/ul (0.3-0.9); MONOCYTES % 7.9 % (0.0-11.0); NEUTROPHILS % 79.4 % (39.0-77.0); PLATELET COUNT 138 10^3/UL (140-415); RED BLOOD COUNT 3.13 10^6/ul (4.70-6.10); RED CELL DISTRIBUTION WIDTH 14.6 % (11.5-14.5); WHITE BLOOD COUNT 8.9 10^3/ul (4.8-10.8)
[2017-01-09] MEDS: AMPICILLIN 1 GM/NS (PMX) 50 ML IVPB SCH ×3 (06:02→17:44)
[2017-01-09 06:13] LABS: POTASSIUM 3.4 mmol/L (3.5-5.1)
[2017-01-09 06:16] LABS: CALCIUM 8.3 mg/dl (8.4-10.2); CREATININE 0.64 mg/dl (0.61-1.24)
[2017-01-09 08:01] VITALS: BP 102/60; RESP 22
[2017-01-09] MEDS: SALMETEROL/FLUTICASONE 250/50 INHA INH SCH ×2 (09:13→21:23)
[2017-01-09] MEDS: DOCUSATE SODIUM 100 MG CAP PO SCH ×2 (09:13→21:23)
[2017-01-09] MEDS: POLYETHYLENE GLYCOL 17 GM PACKET PO SCH (09:13)
[2017-01-09] MEDS: AMIODARONE 200 MG TAB PO SCH ×2 (09:13→21:22)
[2017-01-09] MEDS: DOXAZOSIN 2 MG TAB PO SCH ×2 (09:14→21:23)
[2017-01-09] MEDS: APIXABAN 5 MG TABLET PO SCH ×2 (09:14→21:23)
[2017-01-09] MEDS: FINASTERIDE 5 MG TAB PO SCH (09:14)
[2017-01-09] MEDS: SENNA TAB PO SCH ×2 (09:14→21:23)
[2017-01-09] MEDS: ASCORBIC ACID 500 MG TAB PO SCH (09:14)
[2017-01-09] MEDS: PANTOPRAZOLE (EC) 40 MG TAB PO SCH (09:14)
--- NOTE | 2017-01-09 10:49 | CONS ---
Date/Time of Note Date/Time of Note DATE: 01/09/17 TIME: 10:47 Consult Date/Type/Reason Admit Date/Time January 01, 2017 at 10:00 Initial Consult Date 01/02/17 Type of Consultation: Pulmonary ICU Ordering Provider: DANO HARTMAN MD Subjective Patient remains confused comfortable with no respiratory distress this morning Objective Vital Signs Date Time Temp Pulse Resp B/P Pulse Ox O2 Delivery O2 Flow Rate FiO2 01/09/17 08:01 98.2 72 22 102/60 100 01/09/17 00:46 4.0 01/09/17 00:15 35 01/08/17 20:00 Nasal Cannula Intake and Output 01/08/17 01/08/17 01/09/17 15:00 23:00 07:00 Intake Total 250 ml 1340 ml 550 ml Output Total 1000 ml Balance 250 ml 340 ml 550 ml Exam GENERAL: Elderly appearing gentleman comfortable at rest no acute distress VITAL SIGNS: per chart NECK: Supple. No JVD or lymphadenopathy. CARDIAC EXAM: S1, S2. No added sounds or murmurs. CHEST: clear bilaterally, No added sounds, rales or wheezes ABDOMEN: Soft, nontender. No guarding or rebound. EXTREMITIES: No cyanosis, clubbing or edema. NEUROLOGIC: Lower extremity weakness Results/Medications Result Diagram: 01/09/17 0512 01/09/17 0512 Results 24 hrs Laboratory Tests Test 01/09/17 05:12 White Blood Count 8.9 Red Blood Count 3.13 L Hemoglobin 9.5 L Hematocrit 32.4 L Mean Corpuscular Volume 103.5 H Mean Corpuscular Hemoglobin 30.4 Mean Corpuscular Hemoglobin Concent 29.3 L Red Cell Distribution Width 14.6 H Platelet Count 138 L Mean Platelet Volume 11.3 H Neutrophils % 79.4 H Lymphocytes % 9.9 L Monocytes % 7.9 Eosinophils % 2.1 Basophils % 0.1 Nucleated Red Blood Cells % 0.0 Neutrophils # 7.0 Lymphocytes # 0.9 Monocytes # 0.7 Eosinophils # 0.2 Basophils # 0.0 Nucleated Red Blood Cells # 0.0 Sodium Level 141 Potassium Level 3.4 L Chloride Level 94 L Carbon Dioxide Level 45 *H Anion Gap 10 # Blood Urea Nitrogen 7 Creatinine 0.64 Glucose Level 88 # Calcium Level 8.3 L Medications Current Medications Sodium Chloride (NS) 1,000 ml @ 50 mls/hr Q20H IV Last administered on 12:23; Admin Dose 50 MLS/HR; Start 01/01/17 at 11:20 Miscellaneous Information (Pending [facility] Order For Wound Care) This patient cain... PRN PRN XX WOUND CARE; Start 01/01/17 at 20:30 Doxazosin Mesylate (Cardura) 2 mg BID PO Last administered on 01/09/17 09:14; Admin Dose 2 MG; Start 01/03/17 at 21:00 Finasteride (Proscar) 5 mg DAILY PO Last administered on 01/09/17 09:14; Admin Dose 5 MG; Start 01/04/17 at 09:00 Docusate Sodium (Colace) 100 mg BID PO Last administered on 01/09/17 09:13; Admin Dose 100 MG; Start 01/03/17 at 21:00 Pantoprazole (Protonix Tab) 40 mg QAM PO Last administered on 01/09/17 09:14; Admin Dose 40 MG; Start 01/04/17 at 09:00 Polyethylene Glycol (Miralax) 17 gm DAILY PO Last administered on 01/09/17 09: 13; Admin Dose 17 GM; Start 01/04/17 at 09:00 Salmeterol Xinafoate/ Fluticasone (Advair 250/50 Diskus) 1 inh BID INH Last administered on 01/09/17 09:13; Admin Dose 1 INH; Start 01/03/17 at 21:00 Apixaban (Eliquis) 5 mg BID PO Last administered on 01/09/17 09:14; Admin Dose 5 MG; Start 01/04/17 at 21:00 Amiodarone HCl (Cordarone) 200 mg BID PO Last administered on 01/09/17 09:13; Admin Dose 200 MG; Start 01/04/17 at 21:00 Metoprolol Tartrate 5 mg 5 mg Q4H PRN IV HR>110 Hold SBP<100; Start 01/04/17 at 18:00; Status Future Hold Ampicillin (Ampicillin 1 Gm/ NS (Pmx)) 50 ml @ 100 mls/hr Q6 IVPB Last administered on 01/09/17 06:02; Admin Dose 100 MLS/HR; Start 01/05/17 at 18:00 Acetaminophen (Tylenol Tab) 650 mg Q4H PRN PO PAIN MANAGEMENT 1-05/30; Start at 14:00 Ascorbic Acid (Vitamin C) 500 mg DAILY PO Last administered on 01/09/17 09:14 ; Admin Dose 500 MG; Start 01/06/17 at 09:00 Tamsulosin HCl (Flomax) 0.4 mg HS PO Last administered on 01/08/17 22:07; Admin Dose 0.4 MG; Start 01/05/17 at 21:00 Senna (Senokot) 2 tab BID PO Last administered on 01/09/17 09:14; Admin Dose 2 TAB; Start 01/07/17 at 09:00 Assessment/Plan Chief Complaint/Hosp Course Assessment 1. Acute COPD exacerbation 2. Acute on chronic hypoxemic and hypercapnic respiratory failure 3. History of dementia 4. History of lower extremity weakness paraplegia 5. Anemia likely of chronic disease Plan 1. Continue noninvasive positive pressure ventilation as tolerated 2. Trial of Diamox 3. Supplemental O2 4. Aspiration precautions 5. DVT and GI prophylaxis Disposition [facility] evaluation Problems: DOMINIQUE MA MD, [facility] January 09, 2017 10:49
[2017-01-09] MEDS: ACETAZOLAMIDE 250 MG TAB PO SCH ×2 (12:33→21:22)
--- NOTE | 2017-01-09 14:37 | PN ---
DATE: 01/09/2017 INFECTIOUS DISEASE PROGRESS NOTE SUBJECTIVE: The patient is more awake, looks comfortable. He is going to be working with physical therapy now. Denies pain, discomfort. No fevers. LABORATORY DATA: WBC 8.9, neutrophils 79.4, no bands, platelets 138. BUN 7, creatinine 0.64. ANTIMICROBIALS: IV ampicillin. PHYSICAL EXAMINATION: GENERAL: This is a fragile, chronically ill-appearing, cachectic elderly man who is awake, in no di stress. HEENT: Head atraumatic, normocephalic. Sclerae anicteric. Buccal mucosa dry. NECK: Supple, trachea midline. CHEST: Rise symmetrical. Breath sounds with scattered rhonchi. ABDOMEN: Soft. Bowel sounds present. ASSESSMENT: 1. Resolving sepsis. 2. Polymicrobial urinary tract infection. 3. Proteus mirabilis bacteremia secondary to #2. 4. Respiratory failure on admission requiring BiPAP. 5. Dementia. 6. Chronic obstructive pulmonary disease status post exacerbation. PLAN: The patient remains stable. Continue present care. Complete on current antibiotics for 7 mo re days. Continue physical therapy. Follow pulmonary recommendations. Dictated By: PRIETO MEHTA [employer] HOST for [employer]/NTS Conf#: [id number] DID#: [id number]
[2017-01-09 16:19] VITALS: PULSE 84
[2017-01-09] MEDS: SOD CHLORIDE 0.9% 1,000 ML IV SCH (17:44)
--- NOTE | 2017-01-09 19:22 | CONS ---
Date/Time of Note Date/Time of Note DATE: 01/09/17 TIME: 19:19 Assessment/Plan Assessment/Plan Chief Complaint/Hosp Course IMPRESSION: 1. Paroxysmal atrial fibrillation, currently in sinus rhythm. NL TSH-by exam. NL EF by echo this admit with DD 2. Abnormal electrocardiogram, assess for acute coronary syndrome.-negative trop x 3 3. Hypotension, borderline. 4. Shortness of breath, assess for congestive heart failure. 5. Urinary tract infection. 6. Hypercapnic respiratory distress. 7. Chronic obstructive pulmonary disease. 8. Bacteremia. Recc: -Tele -Continue amiodarone/eliquis -Continue bronchodilators/abx's and BIPAP as necessary -Continue cardura -Consider low dose CCB to assure good HR control vas necessary -AM ECG to document rhythm Problems: Consultation Date/Type/Reason Admit Date/Time January 01, 2017 at 10:00 Initial Consult Date 01/02/17 Type of Consultation: Cardiology Reason for Consultation AF Referring Provider: DANO HARTMAN MD Exam/Review of Systems Vital Signs Vitals Vital Signs Date Time Temp Pulse Resp B/P Pulse Ox O2 Delivery O2 Flow Rate FiO2 01/09/17 16:19 4.0 01/09/17 16:19 84 97 35 01/09/17 08:01 98.2 22 102/60 01/09/17 08:00 Nasal Cannula Intake and Output 01/08/17 01/08/17 01/09/17 15:00 23:00 07:00 Intake Total 250 ml 1340 ml 550 ml Output Total 1000 ml Balance 250 ml 340 ml 550 ml Exam Review of Systems: CONSTITUTIONAL: No fevers, chills. PULMONARY: No sob CARDIOVASCULAR: No chest pain/palpitations GASTROINTESTINAL: No nausea/vomiting. GENITOURINARY: No hematuria/dysuria. MUSCULOSKELETAL: No myagias/arthalgias. PSYCHIATRIC: The patient denies depression. NEUROLOGIC: No weakness Constitutional: alert Psych: no complaints Head: normocephalic ENMT: mucosa pink and moist Neck: jvd (9 cm water), supple Respiratory: diminished breath sounds (at bases/B and upper airway rhoncherous sounds) Cardiovascular: regular rate and rhythm Gastrointestinal: non-tender, soft Musculoskeletal: muscle tone (normal) Extremities: edema (none) Neurological: other (lethargic) Results Result Diagram: 01/09/1751101/09/17511 Results 24 hrs Laboratory Tests Test 01/09/17 05:12 White Blood Count 8.9 Red Blood Count 3.13 L Hemoglobin 9.5 L Hematocrit 32.4 L Mean Corpuscular Volume 103.5 H Mean Corpuscular Hemoglobin 30.4 Mean Corpuscular Hemoglobin Concent 29.3 L Red Cell Distribution Width 14.6 H Platelet Count 138 L Mean Platelet Volume 11.3 H Neutrophils % 79.4 H Lymphocytes % 9.9 L Monocytes % 7.9 Eosinophils % 2.1 Basophils % 0.1 Nucleated Red Blood Cells % 0.0 Neutrophils # 7.0 Lymphocytes # 0.9 Monocytes # 0.7 Eosinophils # 0.2 Basophils # 0.0 Nucleated Red Blood Cells # 0.0 Sodium Level 141 Potassium Level 3.4 L Chloride Level 94 L Carbon Dioxide Level 45 *H Anion Gap 10 # Blood Urea Nitrogen 7 Creatinine 0.64 Glucose Level 88 # Calcium Level 8.3 L Medications Medications Current Medications Sodium Chloride (NS) 1,000 ml @ 50 mls/hr Q20H IV Last administered on 17:44; Admin Dose 50 MLS/HR; Start 01/01/17 at 11:20 Miscellaneous Information (Pending [facility] Order For Wound Care) This patient cain... PRN PRN XX WOUND CARE; Start 01/01/17 at 20:30 Doxazosin Mesylate (Cardura) 2 mg BID PO Last administered on 01/09/17 09:14; Admin Dose 2 MG; Start 01/03/17 at 21:00 Finasteride (Proscar) 5 mg DAILY PO Last administered on 01/09/17 09:14; Admin Dose 5 MG; Start 01/04/17 at 09:00 Docusate Sodium (Colace) 100 mg BID PO Last administered on 01/09/17 09:13; Admin Dose 100 MG; Start 01/03/17 at 21:00 Pantoprazole (Protonix Tab) 40 mg QAM PO Last administered on 01/09/17 09:14; Admin Dose 40 MG; Start 01/04/17 at 09:00 Polyethylene Glycol (Miralax) 17 gm DAILY PO Last administered on 01/09/17 09: 13; Admin Dose 17 GM; Start 01/04/17 at 09:00 Salmeterol Xinafoate/ Fluticasone (Advair 250/50 Diskus) 1 inh BID INH Last administered on 01/09/17 09:13; Admin Dose 1 INH; Start 01/03/17 at 21:00 Apixaban (Eliquis) 5 mg BID PO Last administered on 01/09/17 09:14; Admin Dose 5 MG; Start 01/04/17 at 21:00 Amiodarone HCl (Cordarone) 200 mg BID PO Last administered on 01/09/17 09:13; Admin Dose 200 MG; Start 01/04/17 at 21:00 Metoprolol Tartrate 5 mg 5 mg Q4H PRN IV HR>110 Hold SBP<100; Start 01/04/17 at 18:00; Status Future Hold Ampicillin (Ampicillin 1 Gm/ NS (Pmx)) 50 ml @ 100 mls/hr Q6 IVPB Last administered on 01/09/17 17:44; Admin Dose 100 MLS/HR; Start 01/05/17 at 18:00 Acetaminophen (Tylenol Tab) 650 mg Q4H PRN PO PAIN MANAGEMENT -05/30; Start at 14:00 Ascorbic Acid (Vitamin C) 500 mg DAILY PO Last administered on 01/09/17 09:14 ; Admin Dose 500 MG; Start 01/06/17 at 09:00 Tamsulosin HCl (Flomax) 0.4 mg HS PO Last administered on 01/08/17 22:07; Admin Dose 0.4 MG; Start 01/05/17 at 21:00 Senna (Senokot) 2 tab BID PO Last administered on 01/09/17 09:14; Admin Dose 2 TAB; Start 01/07/17 at 09:00 Acetazolamide (Diamox) 250 mg BID PO Last administered on 01/09/17 12:33; Admin Dose 250 MG; Start 01/09/17 at 11:30 STEPHANIE DARDEN January 09, 2017 19:21
--- NOTE | 2017-01-09 19:43 | PN ---
Date/Time of Note Date/Time of Note DATE: 01/09/17 TIME: 19:37 Assessment/Plan VTE Prophylaxis VTE Prophylaxis Intervention: SCD's Lines/Catheters IV Catheter Type (from [facility]): Peripheral IV Central line still needed: Yes Urinary Cath still in place: Yes Reason Cath still needed: urinary retention Assessment/Plan Chief Complaint/Hosp Course ASSESSMENT AND PLAN: - Sepsis secondary to urinary tract infection and possible underlying early pneumonia. Dr. Chandra is following the patient in infectious disease consultation. Continue antibiotics per ID - Proteus mirabilis bacteremia. Continue antibiotics per ID. - Polymicrobial acute cystitis with hematuria, resolved - Hypercapnic respiratory failure, resolved. Dr. Norton is following in a pulmonology consultation. - Chronic obstructive pulmonary disease exacerbation. Continue breathing treatment and oxygen supplementation. - Atrial fibrillation. Continue Eliquis. Dr. Lala is following and cardiology consultation. - Chronic renal insufficiency. Continue monitor the BUN and creatinine. - Dementia. - Chronic urinary retention. Continue Forbes catheter Further recommendations based on clinical course. Plan of care discussed with Dr. Anne. Problems: Subjective 24 Hr Interval Summary Free Text/Dictation Patient is awake, elevated carbon dioxide BMP, check arterial gas. Exam/Review of Systems Vital Signs Vitals Vital Signs Date Time Temp Pulse Resp B/P Pulse Ox O2 Delivery O2 Flow Rate FiO2 01/09/17 16:19 4.0 01/09/17 16:19 84 97 35 01/09/17 08:01 98.2 22 102/60 01/09/17 08:00 Nasal Cannula Intake and Output 01/08/17 01/08/17 01/09/17 15:00 23:00 07:00 Intake Total 250 ml 1340 ml 550 ml Output Total 1000 ml Balance 250 ml 340 ml 550 ml Exam Constitutional: alert, frail Psych: confusion Head: normocephalic Eyes: nl conjunctiva Neck: supple Respiratory: diminished breath sounds Cardiovascular: nl pulses, regular rate and rhythm Gastrointestinal: non-tender, soft Genitourinary - Male: other (Forbes catheter) Musculoskeletal: muscle weakness Neurological: confused Results Result Diagram: 01/09/1751101/09/17511 Results 24 hrs Laboratory Tests Test 01/09/17 05:12 White Blood Count 8.9 Red Blood Count 3.13 L Hemoglobin 9.5 L Hematocrit 32.4 L Mean Corpuscular Volume 103.5 H Mean Corpuscular Hemoglobin 30.4 Mean Corpuscular Hemoglobin Concent 29.3 L Red Cell Distribution Width 14.6 H Platelet Count 138 L Mean Platelet Volume 11.3 H Neutrophils % 79.4 H Lymphocytes % 9.9 L Monocytes % 7.9 Eosinophils % 2.1 Basophils % 0.1 Nucleated Red Blood Cells % 0.0 Neutrophils # 7.0 Lymphocytes # 0.9 Monocytes # 0.7 Eosinophils # 0.2 Basophils # 0.0 Nucleated Red Blood Cells # 0.0 Sodium Level 141 Potassium Level 3.4 L Chloride Level 94 L Carbon Dioxide Level 45 *H Anion Gap 10 # Blood Urea Nitrogen 7 Creatinine 0.64 Glucose Level 88 # Calcium Level 8.3 L Medications Medications Current Medications Sodium Chloride (NS) 1,000 ml @ 50 mls/hr Q20H IV Last administered on 17:44; Admin Dose 50 MLS/HR; Start 01/01/17 at 11:20 Miscellaneous Information (Pending [facility] Order For Wound Care) This patient cain... PRN PRN XX WOUND CARE; Start 01/01/17 at 20:30 Doxazosin Mesylate (Cardura) 2 mg BID PO Last administered on 01/09/17 09:14; Admin Dose 2 MG; Start 01/03/17 at 21:00 Finasteride (Proscar) 5 mg DAILY PO Last administered on 01/09/17 09:14; Admin Dose 5 MG; Start 01/04/17 at 09:00 Docusate Sodium (Colace) 100 mg BID PO Last administered on 01/09/17 09:13; Admin Dose 100 MG; Start 01/03/17 at 21:00 Pantoprazole (Protonix Tab) 40 mg QAM PO Last administered on 01/09/17 09:14; Admin Dose 40 MG; Start 01/04/17 at 09:00 Polyethylene Glycol (Miralax) 17 gm DAILY PO Last administered on 01/09/17 09: 13; Admin Dose 17 GM; Start 01/04/17 at 09:00 Salmeterol Xinafoate/ Fluticasone (Advair 250/50 Diskus) 1 inh BID INH Last administered on 01/09/17 09:13; Admin Dose 1 INH; Start 01/03/17 at 21:00 Apixaban (Eliquis) 5 mg BID PO Last administered on 01/09/17 09:14; Admin Dose 5 MG; Start 01/04/17 at 21:00 Amiodarone HCl (Cordarone) 200 mg BID PO Last administered on 01/09/17 09:13; Admin Dose 200 MG; Start 01/04/17 at 21:00 Metoprolol Tartrate 5 mg 5 mg Q4H PRN IV HR>110 Hold SBP<100; Start 01/04/17 at 18:00; Status Future Hold Ampicillin (Ampicillin 1 Gm/ NS (Pmx)) 50 ml @ 100 mls/hr Q6 IVPB Last administered on 01/09/17 17:44; Admin Dose 100 MLS/HR; Start 01/05/17 at 18:00 Acetaminophen (Tylenol Tab) 650 mg Q4H PRN PO PAIN MANAGEMENT -05/30; Start at 14:00 Ascorbic Acid (Vitamin C) 500 mg DAILY PO Last administered on 01/09/17 09:14 ; Admin Dose 500 MG; Start 01/06/17 at 09:00 Tamsulosin HCl (Flomax) 0.4 mg HS PO Last administered on 01/08/17 22:07; Admin Dose 0.4 MG; Start 01/05/17 at 21:00 Senna (Senokot) 2 tab BID PO Last administered on 01/09/17 09:14; Admin Dose 2 TAB; Start 01/07/17 at 09:00 Acetazolamide (Diamox) 250 mg BID PO Last administered on 01/09/17 12:33; Admin Dose 250 MG; Start 01/09/17 at 11:30 CONTRERAS DIANA January 09, 2017 19:43
[2017-01-09 20:00] VITALS: BP 132/64; RESP 18
[2017-01-09] MEDS: TAMSULOSIN (SR) 0.4 MG CAP PO SCH (21:22)
[2017-01-10] MEDS: AMPICILLIN 1 GM/NS (PMX) 50 ML IVPB SCH ×4 (00:56→18:59)
[2017-01-10 08:58] VITALS: BP 125/69; RESP 16
[2017-01-10] MEDS: SALMETEROL/FLUTICASONE 250/50 INHA INH SCH ×2 (09:00→20:39)
[2017-01-10] MEDS: ASCORBIC ACID 500 MG TAB PO SCH (09:10)
[2017-01-10] MEDS: ACETAZOLAMIDE 250 MG TAB PO SCH ×2 (09:10→20:31)
[2017-01-10] MEDS: AMIODARONE 200 MG TAB PO SCH ×2 (09:10→22:49)
[2017-01-10] MEDS: APIXABAN 5 MG TABLET PO SCH ×2 (09:11→20:39)
[2017-01-10] MEDS: SENNA TAB PO SCH ×2 (09:11→20:31)
[2017-01-10] MEDS: FINASTERIDE 5 MG TAB PO SCH (09:11)
[2017-01-10] MEDS: DOCUSATE SODIUM 100 MG CAP PO SCH ×2 (09:11→20:31)
[2017-01-10] MEDS: PANTOPRAZOLE (EC) 40 MG TAB PO SCH (09:11)
[2017-01-10] MEDS: DOXAZOSIN 2 MG TAB PO SCH ×2 (09:11→20:40)
[2017-01-10] MEDS: POLYETHYLENE GLYCOL 17 GM PACKET PO SCH (09:12)
[2017-01-10 09:20] VITALS: BP 126/66; PULSE 92
--- NOTE | 2017-01-10 10:17 | CONS ---
Date/Time of Note Date/Time of Note DATE: 01/10/17 TIME: 10:16 Assessment/Plan Assessment/Plan Additional Assessment/Plan Assessment and recommendations; 1. Patient admitted for COPD exacerbation with clinical improvement. 2. Dementia. 3. Paraplegia. Continue current treatment. Consider discharge to skilled nursing. Consultation Date/Type/Reason Admit Date/Time January 01, 2017 at 10:00 Initial Consult Date 01/02/17 Type of Consultation: Pulmonary Referring Provider: DANO HARTMAN MD 24 HR Interval Summary Free Text/Dictation Patient condition is markedly improved. Patient is now awake and talking. Denies any shortness of breath. Appears confused though. General exam; elderly male, awake currently in no distress. Exam/Review of Systems Vital Signs Vitals Vital Signs Date Time Temp Pulse Resp B/P Pulse Ox O2 Delivery O2 Flow Rate FiO2 01/10/17 09:20 92 126/66 01/10/17 08:58 98.4 16 93 01/10/17 02:00 4.0 01/10/17 00:04 Nasal Cannula 01/09/17 16:19 35 Intake and Output 01/09/17 01/09/17 01/10/17 15:00 23:00 07:00 Intake Total 480 ml 1440 ml 1030 ml Output Total 1100 ml 1000 ml 2350 ml Balance -620 ml 440 ml -1320 ml Exam HEENT examination; supple neck, no JVD. No lymphadenopathy. Midline trachea. No thyromegaly. Pharynx clear. Patient is edentulous. Pupils are small bilaterally. Chest examination; diminished but clear breath sounds S1-S2 audible, no murmurs. Regular rhythm. Abdomen examination; soft, scaphoid. No organomegaly. Bowel sounds audible. Extremity examination; no peripheral edema. 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 Has stable paraplegia. Results Result Diagram: 01/09/1751101/09/17511 Medications Medications Current Medications Sodium Chloride (NS) 1,000 ml @ 50 mls/hr Q20H IV Last administered on t 17:44; Admin Dose 50 MLS/HR; Start 01/01/17 at 11:20 Miscellaneous Information ([facility]) This patient cain... PRN PRN XX WOUND CARE; Start 01/01/17 at 20:30 Doxazosin Mesylate (Cardura) 2 mg BID PO Last administered on 01/10/17 09:11; Admin Dose 2 MG; Start 01/03/17 at 21:00 Finasteride (Proscar) 5 mg DAILY PO Last administered on 01/10/17 09:11; Admin Dose 5 MG; Start 01/04/17 at 09:00 Docusate Sodium (Colace) 100 mg BID PO Last administered on 01/10/17 09:11; Admin Dose 100 MG; Start 01/03/17 at 21:00 Pantoprazole (Protonix Tab) 40 mg QAM PO Last administered on 01/10/17 09:11; Admin Dose 40 MG; Start 01/04/17 at 09:00 Polyethylene Glycol (Miralax) 17 gm DAILY PO Last administered on 01/10/17 09: 12; Admin Dose 17 GM; Start 01/04/17 at 09:00 Salmeterol Xinafoate/ Fluticasone (Advair 250/50 Diskus) 1 inh BID INH Last administered on 01/09/17 21:23; Admin Dose 1 INH; Start 01/03/17 at 21:00 Apixaban (Eliquis) 5 mg BID PO Last administered on 01/10/17 09:11; Admin Dose 5 MG; Start 01/04/17 at 21:00 Amiodarone HCl (Cordarone) 200 mg BID PO Last administered on 01/10/17 09:10; Admin Dose 200 MG; Start 01/04/17 at 21:00 Metoprolol Tartrate 5 mg 5 mg Q4H PRN IV HR>110 Hold SBP<100; Start 01/04/17 at 18:00; Status Future Hold Ampicillin (Ampicillin 1 Gm/ NS (Pmx)) 50 ml @ 100 mls/hr Q6 IVPB Last administered on 01/10/17 06:03; Admin Dose 100 MLS/HR; Start 01/05/17 at 18:00 Acetaminophen (Tylenol Tab) 650 mg Q4H PRN PO PAIN MANAGEMENT 1-05/30; Start at 14:00 Ascorbic Acid (Vitamin C) 500 mg DAILY PO Last administered on 01/10/17 09:10 ; Admin Dose 500 MG; Start 01/06/17 at 09:00 Tamsulosin HCl (Flomax) 0.4 mg HS PO Last administered on 01/09/17 21:22; Admin Dose 0.4 MG; Start 01/05/17 at 21:00 Senna (Senokot) 2 tab BID PO Last administered on 01/10/17 09:11; Admin Dose 2 TAB; Start 01/07/17 at 09:00 Acetazolamide (Diamox) 250 mg BID PO Last administered on 01/10/17 09:10; Admin Dose 250 MG; Start 01/09/17 at 11:30 ODILON MISHRA January 10, 2017 10:17
--- NOTE | 2017-01-10 10:30 | CONS ---
Date/Time of Note Date/Time of Note DATE: 01/10/17 TIME: 10:28 Assessment/Plan Assessment/Plan Additional Assessment/Plan 1. Paroxysmal atrial fibrillation, currently in sinus rhythm. NL TSH-by exam. NL EF by echo this admit with DD - rate controlled now 2. Abnormal electrocardiogram, assess for acute coronary syndrome.-negative trop x 3 - no CP now 3. Hypotension, borderline- stable 4. Shortness of breath, assess for congestive heart failure- EUVOLEMIC by exam . 5. Urinary tract infection- on anti-Bx 6. Hypercapnic respiratory distress. 7. Chronic obstructive pulmonary disease. 8. Bacteremia. Consultation Date/Type/Reason Admit Date/Time January 01, 2017 at 10:00 Initial Consult Date 01/02/17 Type of Consultation: Pulmonary Referring Provider: DANO HARTMAN MD 24 HR Interval Summary Free Text/Dictation NO acute events. NO CP. Good fluid status. ROS: No fever, no chills, no nausea, no vomiting, no diarrhea/constipation No recent weight changes No chest pain, no PND, no orthopnea No dizziness, blurred vision No thirst, no heat or cold intolerance Exam/Review of Systems Vital Signs Vitals Vital Signs Date Time Temp Pulse Resp B/P Pulse Ox O2 Delivery O2 Flow Rate FiO2 01/10/17 09:20 92 126/66 01/10/17 08:58 98.4 16 93 01/10/17 02:00 4.0 01/10/17 00:04 Nasal Cannula 01/09/17 16:19 35 Intake and Output 01/09/17 01/09/17 01/10/17 15:00 23:00 07:00 Intake Total 480 ml 1440 ml 1030 ml Output Total 1100 ml 1000 ml 2350 ml Balance -620 ml 440 ml -1320 ml Exam Geneal: WN/WD/NAD, AOx 1-2 HEENT: Unicetric/atraumatic/EOMI (does not follow commands) NECK: JVD elevated, no thyromegaly Lymph: no lymphadenopathy HEART: regular with no S3, II/ systolic murmur at apex LUNGS: Coarse sounds ABD: soft, NT, ND, +BS : Intact Neuro: non focal SKIN: chronic changes EXT: no edema Results Result Diagram: 01/09/1751101/09/17511 Medications Medications Current Medications Sodium Chloride (NS) 1,000 ml @ 50 mls/hr Q20H IV Last administered on 17:44; Admin Dose 50 MLS/HR; Start 01/01/17 at 11:20 Miscellaneous Information ([facility]) This patient cain... PRN PRN XX WOUND CARE; Start 01/01/17 at 20:30 Doxazosin Mesylate (Cardura) 2 mg BID PO Last administered on 01/10/17 09:11; Admin Dose 2 MG; Start 01/03/17 at 21:00 Finasteride (Proscar) 5 mg DAILY PO Last administered on 01/10/17 09:11; Admin Dose 5 MG; Start 01/04/17 at 09:00 Docusate Sodium (Colace) 100 mg BID PO Last administered on 01/10/17 09:11; Admin Dose 100 MG; Start 01/03/17 at 21:00 Pantoprazole (Protonix Tab) 40 mg QAM PO Last administered on 01/10/17 09:11; Admin Dose 40 MG; Start 01/04/17 at 09:00 Polyethylene Glycol (Miralax) 17 gm DAILY PO Last administered on 01/10/17 09: 12; Admin Dose 17 GM; Start 01/04/17 at 09:00 Salmeterol Xinafoate/ Fluticasone (Advair 250/50 Diskus) 1 inh BID INH Last administered on 01/09/17 21:23; Admin Dose 1 INH; Start 01/03/17 at 21:00 Apixaban (Eliquis) 5 mg BID PO Last administered on 01/10/17 09:11; Admin Dose 5 MG; Start 01/04/17 at 21:00 Amiodarone HCl (Cordarone) 200 mg BID PO Last administered on 01/10/17 09:10; Admin Dose 200 MG; Start 01/04/17 at 21:00 Metoprolol Tartrate 5 mg 5 mg Q4H PRN IV HR>110 Hold SBP<100; Start 01/04/17 at 18:00; Status Future Hold Ampicillin (Ampicillin 1 Gm/ NS (Pmx)) 50 ml @ 100 mls/hr Q6 IVPB Last administered on 01/10/17 06:03; Admin Dose 100 MLS/HR; Start 01/05/17 at 18:00 Acetaminophen (Tylenol Tab) 650 mg Q4H PRN PO PAIN MANAGEMENT 1-05/30; Start at 14:00 Ascorbic Acid (Vitamin C) 500 mg DAILY PO Last administered on 01/10/17 09:10 ; Admin Dose 500 MG; Start 01/06/17 at 09:00 Tamsulosin HCl (Flomax) 0.4 mg HS PO Last administered on 01/09/17 21:22; Admin Dose 0.4 MG; Start 01/05/17 at 21:00 Senna (Senokot) 2 tab BID PO Last administered on 01/10/17 09:11; Admin Dose 2 TAB; Start 01/07/17 at 09:00 Acetazolamide (Diamox) 250 mg BID PO Last administered on 01/10/17 09:10; Admin Dose 250 MG; Start 01/09/17 at 11:30 TIARA TARANGO MD January 10, 2017 10:30
[2017-01-10 11:34] LABS: ADD SCAN DIFF NO
[2017-01-10 11:47] LABS: BASOPHILS % 0.2 % (0.0-2.0); EOSINOPHILS # 0.2 10^3/ul (0.0-0.5); EOSINOPHILS % 2.4 % (0.0-7.0); HEMATOCRIT 34.8 % (42.0-52.0); HEMOGLOBIN 10.8 g/dl (14.0-18.0); LYMPHOCYTES # 0.8 10^3/ul (0.8-2.9); LYMPHOCYTES % 9.4 % (15.0-51.0); MEAN CORPUSCULAR VOLUME 103.3 fl (82.0-101.0); MEAN PLATELET VOLUME 11.2 fl (7.4-10.4); MONOCYTE # 0.6 10^3/ul (0.3-0.9); MONOCYTES % 7.2 % (0.0-11.0); NEUTROPHIL # 6.8 10^3/ul (1.6-7.5); NEUTROPHILS % 80.3 % (39.0-77.0); PLATELET COUNT 155 10^3/UL (140-415); RED BLOOD COUNT 3.37 10^6/ul (4.70-6.10); WHITE BLOOD COUNT 8.5 10^3/ul (4.8-10.8)
[2017-01-10 11:55] LABS: CALCIUM 8.4 mg/dl (8.4-10.2); CREATININE 0.76 mg/dl (0.61-1.24); POTASSIUM 3.8 mmol/L (3.5-5.1)
--- NOTE | 2017-01-10 14:15 | RADRPT ---
Vent Rate: 90 bpm RR Interval: 0 msec SC Interval: 178 msec QRS Duration: 78 msec QT Interval: 342 msec QTC Interval: 418 msec P-R-T [place]: 80 - 80 - 81 degrees Normal sinus rhythm Low voltage QRS Cannot rule out Anterior infarct , age undetermined Abnormal ECG Electronically Signed By: Kavon Fontana [id number]
--- NOTE | 2017-01-10 14:26 | RADRPT ---
PROCEDURE: XR Chest. CLINICAL INDICATION: Pneumonia and congestive heart failure. TECHNIQUE: Chest x-ray, single view. COMPARISON: 01/01/2017. FINDINGS: The cardiac silhouette is magnified and unchanged. Mild aortic arch atherosclerotic calcification i s observed. Mild hazy opacification of the right lower lung is present. There is no evidence of de nse focal pulmonary opacification. Skeletal structures and upper abdomen are unremarkable. IMPRESSION: Mild hazy opacification of the right lower lung. RPTAT: HLST .Pennie Guzman MD, MD Date Time Electronically viewed and signed by .Pennie Guzman MD, MD on 01/10/2017 14:26 .T/
[2017-01-10] MEDS: SOD CHLORIDE 0.9% 1,000 ML IV SCH (15:20)
--- NOTE | 2017-01-10 17:00 | PN ---
Date/Time of Note Date/Time of Note DATE: 01/10/17 TIME: 16:53 Assessment/Plan VTE Prophylaxis VTE Prophylaxis Intervention: other Lines/Catheters IV [facility] Peripheral IV Urinary Cath still in place: Yes Reason Cath still needed: urinary retention Assessment/Plan Chief Complaint/Hosp Course Mild hazy opacification of the right lower lung is present per chest x-ray, patient is awake alert, no fever, remains hemodynamically stable, chronic CO2 retaining retention, continue on BiPAP overnight, follow-up pulmonology recommendations. ASSESSMENT AND PLAN: - Sepsis secondary to urinary tract infection and possible underlying early pneumonia, resolving. Dr. Chandra is following the patient in infectious disease consultation. Continue antibiotics per ID - Proteus mirabilis bacteremia. Continue antibiotics per ID. - Polymicrobial acute cystitis with hematuria, resolved - Hypercapnic respiratory failure, resolved. Dr. Norton is following in a pulmonology consultation. - Chronic obstructive pulmonary disease exacerbation. Continue breathing treatment and oxygen supplementation. - Atrial fibrillation. Continue Eliquis. Dr. Lala is following and cardiology consultation. - Chronic renal insufficiency. Continue monitor the BUN and creatinine. - Dementia. - Chronic urinary retention. Continue Forbes catheter Further recommendations based on clinical course. Plan of care discussed with Dr. Anne. Problems: Exam/Review of Systems Vital Signs Vitals Vital Signs Date Time Temp Pulse Resp B/P Pulse Ox O2 Delivery O2 Flow Rate FiO2 01/10/17 09:20 92 126/66 01/10/17 08:58 98.4 16 93 01/10/17 02:00 4.0 01/10/17 00:04 Nasal Cannula 01/09/17 16:19 35 Intake and Output 01/09/17 01/09/17 01/10/17 14:59 22:59 06:59 Intake Total 480 ml 1440 ml 1030 ml Output Total 1100 ml 1000 ml 2350 ml Balance -620 ml 440 ml -1320 ml Exam Constitutional: alert, frail Psych: confusion Head: normocephalic Eyes: nl conjunctiva Neck: supple Respiratory: diminished breath sounds Cardiovascular: nl pulses, regular rate and rhythm Gastrointestinal: non-tender, soft Genitourinary - Male: other (Forbes catheter) Musculoskeletal: muscle weakness Neurological: confused Results Result Diagram: 01/10/17 1115 01/10/17 1115 Results 24 hrs Laboratory Tests Test 01/10/17 11:15 White Blood Count 8.5 Red Blood Count 3.37 L Hemoglobin 10.8 L Hematocrit 34.8 L Mean Corpuscular Volume 103.3 H Mean Corpuscular Hemoglobin 32.0 Mean Corpuscular Hemoglobin Concent 31.0 L Red Cell Distribution Width 14.0 Platelet Count 155 Mean Platelet Volume 11.2 H Neutrophils % 80.3 H Lymphocytes % 9.4 L Monocytes % 7.2 Eosinophils % 2.4 Basophils % 0.2 Nucleated Red Blood Cells % 0.0 Neutrophils # 6.8 Lymphocytes # 0.8 Monocytes # 0.6 Eosinophils # 0.2 Basophils # 0.0 Nucleated Red Blood Cells # 0.0 Sodium Level 137 Potassium Level 3.8 Chloride Level 99 Carbon Dioxide Level 38 H Anion Gap 4 L Blood Urea Nitrogen 7 Creatinine 0.76 Glucose Level 137 # Calcium Level 8.4 Medications Medications Current Medications Sodium Chloride (NS) 1,000 ml @ 50 mls/hr Q20H IV Last administered on 17:44; Admin Dose 50 MLS/HR; Start 01/01/17 at 11:20 Miscellaneous Information (Pending [facility] Order For Wound Care) This patient cain... PRN PRN XX WOUND CARE; Start 01/01/17 at 20:30 Doxazosin Mesylate (Cardura) 2 mg BID PO Last administered on 01/10/17 09:11; Admin Dose 2 MG; Start 01/03/17 at 21:00 Finasteride (Proscar) 5 mg DAILY PO Last administered on 01/10/17 09:11; Admin Dose 5 MG; Start 01/04/17 at 09:00 Docusate Sodium (Colace) 100 mg BID PO Last administered on 01/10/17 09:11; Admin Dose 100 MG; Start 01/03/17 at 21:00 Pantoprazole (Protonix Tab) 40 mg QAM PO Last administered on 01/10/17 09:11; Admin Dose 40 MG; Start 01/04/17 at 09:00 Polyethylene Glycol (Miralax) 17 gm DAILY PO Last administered on 01/10/17 09: 12; Admin Dose 17 GM; Start 01/04/17 at 09:00 Salmeterol Xinafoate/ Fluticasone (Advair 250/50 Diskus) 1 inh BID INH Last administered on 01/09/17 21:23; Admin Dose 1 INH; Start 01/03/17 at 21:00 Apixaban (Eliquis) 5 mg BID PO Last administered on 01/10/17 09:11; Admin Dose 5 MG; Start 01/04/17 at 21:00 Amiodarone HCl (Cordarone) 200 mg BID PO Last administered on 01/10/17 09:10; Admin Dose 200 MG; Start 01/04/17 at 21:00 Metoprolol Tartrate 5 mg 5 mg Q4H PRN IV HR>110 Hold SBP<100; Start 01/04/17 at 18:00; Status Future Hold Ampicillin (Ampicillin 1 Gm/ NS (Pmx)) 50 ml @ 100 mls/hr Q6 IVPB Last administered on 01/10/17 12:28; Admin Dose 100 MLS/HR; Start 01/05/17 at 18:00 Acetaminophen (Tylenol Tab) 650 mg Q4H PRN PO PAIN MANAGEMENT -05/30; Start at 14:00 Ascorbic Acid (Vitamin C) 500 mg DAILY PO Last administered on 01/10/17 09:10 ; Admin Dose 500 MG; Start 01/06/17 at 09:00 Tamsulosin HCl (Flomax) 0.4 mg HS PO Last administered on 01/09/17 21:22; Admin Dose 0.4 MG; Start 01/05/17 at 21:00 Senna (Senokot) 2 tab BID PO Last administered on 01/10/17 09:11; Admin Dose 2 TAB; Start 01/07/17 at 09:00 Acetazolamide (Diamox) 250 mg BID PO Last administered on 01/10/17 09:10; Admin Dose 250 MG; Start 01/09/17 at 11:30 CONTRERAS DIANA January 10, 2017 17:00
--- NOTE | 2017-01-10 19:14 | PN ---
DATE: SUBJECTIVE: No events overnight. No fevers. The patient is awake, looks comfortable. WBC today 8.5. Neutrophils 80.3, no bands. BUN 7, creatinine 0.76. MICROBIOLOGY: Blood cultures since 01/03/2017 remain negative. ANTIMICROBIALS: The patient is on IV ampicillin. PHYSICAL EXAMINATION: GENERAL: Chronically ill-appearing, elderly man who is in no distress. HEENT: Head atraumatic, normocephalic. Sclerae anicteric. Buccal mucosa dry. NECK: Supple, trachea midline. CHEST: Rise symmetrical. Breath sounds diminished to bases with scattered rhonchi. HEART: S1, S2. ABDOMEN: Soft, bowel tones present. EXTREMITIES: Without cyanosis. ASSESSMENT: 1. Resolving sepsis. 2. Urinary tract infection with bacteremia on admission. 3. Status-post acute respiratory failure secondary to chronic obstructive pulmonary disease exacerb ation. 4. Paraplegia. PLAN: The patient remains stable. Completing antibiotics. Continue present care and follow recomm endations of consultants. Dictated By: PRIETO MEHTA [employer]PA[employer] for [employer]IR[employer] Conf#: [id number] DID#: [id number]
[2017-01-10 20:00] VITALS: BP 107/59; RESP 20
[2017-01-10] MEDS: TAMSULOSIN (SR) 0.4 MG CAP PO SCH (20:42)
[2017-01-11] MEDS: SOD CHLORIDE 0.9% 1,000 ML IV SCH ×3 (01:11→23:59)
[2017-01-11] MEDS: AMPICILLIN 1 GM/NS (PMX) 50 ML IVPB SCH ×5 (01:11→23:58)
[2017-01-11 01:19] VITALS: PULSE 77
[2017-01-11 06:08] LABS: ADD SCAN DIFF NO
[2017-01-11 06:11] LABS: BASOPHILS % 0.2 % (0.0-2.0); EOSINOPHILS # 0.2 10^3/ul (0.0-0.5); EOSINOPHILS % 2.4 % (0.0-7.0); HEMATOCRIT 34.2 % (42.0-52.0); HEMOGLOBIN 10.5 g/dl (14.0-18.0); LYMPHOCYTES # 0.7 10^3/ul (0.8-2.9); LYMPHOCYTES % 8.5 % (15.0-51.0); MEAN CORPUSCULAR HEMOGLOBIN 32.1 pg (29.0-33.0); MEAN CORPUSCULAR HGB CONC 30.7 g/dl (32.0-37.0); MEAN CORPUSCULAR VOLUME 104.6 fl (82.0-101.0); MEAN PLATELET VOLUME 10.9 fl (7.4-10.4); MONOCYTE # 0.7 10^3/ul (0.3-0.9); MONOCYTES % 8.9 % (0.0-11.0); NEUTROPHIL # 6.6 10^3/ul (1.6-7.5); NEUTROPHILS % 79.6 % (39.0-77.0); PLATELET COUNT 144 10^3/UL (140-415); RED BLOOD COUNT 3.27 10^6/ul (4.70-6.10); RED CELL DISTRIBUTION WIDTH 14.1 % (11.5-14.5); WHITE BLOOD COUNT 8.2 10^3/ul (4.8-10.8)
[2017-01-11 06:54] LABS: CALCIUM 8.6 mg/dl (8.4-10.2); CREATININE 0.72 mg/dl (0.61-1.24); POTASSIUM 4.3 mmol/L (3.5-5.1)
[2017-01-11 07:47] VITALS: BP 92/54; RESP 18
[2017-01-11] MEDS: SALMETEROL/FLUTICASONE 250/50 INHA INH SCH ×2 (08:41→20:38)
[2017-01-11 08:46] VITALS: BP 103/56
[2017-01-11] MEDS: DOXAZOSIN 2 MG TAB PO SCH ×2 (08:48→20:39)
[2017-01-11] MEDS: DOCUSATE SODIUM 100 MG CAP PO SCH ×2 (08:49→20:39)
[2017-01-11] MEDS: AMIODARONE 200 MG TAB PO SCH ×2 (08:50→20:39)
[2017-01-11] MEDS: APIXABAN 5 MG TABLET PO SCH ×2 (08:51→20:39)
[2017-01-11] MEDS: POLYETHYLENE GLYCOL 17 GM PACKET PO SCH (08:51)
[2017-01-11] MEDS: FINASTERIDE 5 MG TAB PO SCH (08:51)
[2017-01-11] MEDS: ACETAZOLAMIDE 250 MG TAB PO SCH ×2 (08:51→20:39)
[2017-01-11] MEDS: PANTOPRAZOLE (EC) 40 MG TAB PO SCH (08:51)
[2017-01-11] MEDS: SENNA TAB PO SCH ×2 (08:52→20:38)
[2017-01-11] MEDS: ASCORBIC ACID 500 MG TAB PO SCH (08:52)
--- NOTE | 2017-01-11 10:16 | CONS ---
Date/Time of Note Date/Time of Note DATE: 01/11/17 TIME: 10:14 Assessment/Plan Assessment/Plan Additional Assessment/Plan Assessment recommendations; next 1. Patient admitted for COPD exacerbation with clinical improvement. 2. Advanced dementia. 3. History of hypertension. 4. Proteus UTI as well as bacteremia, sensitive to ampicillin. 5. Paraplegia. Continue current treatment. Complete 2 weeks of IV antibiotics. Patient can be transferred to senior care. Prognosis remains poor. Consultation Date/Type/Reason Admit Date/Time January 01, 2017 at 10:00 Initial Consult Date 01/02/17 Type of Consultation: Pulmonary Referring Provider: DANO HARTMAN MD 24 HR Interval Summary Free Text/Dictation Patient condition is stable. He is having waxing and waning mental status. Has remained hemodynamically stable. No adverse events reported. General exam; elderly male, currently in no distress, minimally responsive. Exam/Review of Systems Vital Signs Vitals Vital Signs Date Time Temp Pulse Resp B/P Pulse Ox O2 Delivery O2 Flow Rate FiO2 01/11/17 08:46 103/56 01/11/17 08:00 Nasal Cannula 4.0 01/11/17 07:47 97.5 77 18 94 01/11/17 01:19 35 Intake and Output 01/10/17 01/10/17 01/11/17 15:00 23:00 07:00 Intake Total 50 ml 1210 ml 1150 ml Output Total 2000 ml 1200 ml Balance 50 ml -790 ml -50 ml Exam HEENT exam; supple neck, no JVD. No lymphadenopathy. Midline trachea. No thyromegaly. Patient is edentulous. Pupils are small bilaterally. Chest examined; diminished breath sound bilaterally. No added sound. S1-S2 audible, no murmurs. Regular rhythm. Abdomen examination; soft, no organomegaly. Nondistended. Bowel sounds audible. Extremity exam; no peripheral edema. [employer] examination; difficult to evaluate because patient is difficult to arouse. Results Result Diagram: 01/11/17 0540 01/11/17 0540 Results 24 hrs Laboratory Tests Test 01/10/17 11:15 01/11/17 05:40 White Blood Count 8.5 8.2 Red Blood Count 3.37 L 3.27 L Hemoglobin 10.8 L 10.5 L Hematocrit 34.8 L 34.2 L Mean Corpuscular Volume 103.3 H 104.6 H Mean Corpuscular Hemoglobin 32.0 32.1 Mean Corpuscular Hemoglobin Concent 31.0 L 30.7 L Red Cell Distribution Width 14.0 14.1 Platelet Count 155 144 Mean Platelet Volume 11.2 H 10.9 H Neutrophils % 80.3 H 79.6 H Lymphocytes % 9.4 L 8.5 L Monocytes % 7.2 8.9 Eosinophils % 2.4 2.4 Basophils % 0.2 0.2 Nucleated Red Blood Cells % 0.0 0.0 Neutrophils # 6.8 6.6 Lymphocytes # 0.8 0.7 L Monocytes # 0.6 0.7 Eosinophils # 0.2 0.2 Basophils # 0.0 0.0 Nucleated Red Blood Cells # 0.0 0.0 Sodium Level 137 138 Potassium Level 3.8 4.3 Chloride Level 99 100 Carbon Dioxide Level 38 H 39 H Anion Gap 4 L 3 L Blood Urea Nitrogen 7 7 Creatinine 0.76 0.72 Glucose Level 137 # 109 Calcium Level 8.4 8.6 Medications Medications Current Medications Sodium Chloride (NS) 1,000 ml @ 50 mls/hr Q20H IV Last administered on 01:11; Admin Dose 50 MLS/HR; Start 01/01/17 at 11:20 Miscellaneous Information (Pending [facility] Order For Wound Care) This patient cain... PRN PRN XX WOUND CARE; Start 01/01/17 at 20:30 Doxazosin Mesylate (Cardura) 2 mg BID PO Last administered on 01/10/17 09:11; Admin Dose 2 MG; Start 01/03/17 at 21:00 Finasteride (Proscar) 5 mg DAILY PO Last administered on 01/11/17 08:51; Admin Dose 5 MG; Start 01/04/17 at 09:00 Docusate Sodium (Colace) 100 mg BID PO Last administered on 01/10/17 20:31; Admin Dose 100 MG; Start 01/03/17 at 21:00 Pantoprazole (Protonix Tab) 40 mg QAM PO Last administered on 01/11/17 08:51; Admin Dose 40 MG; Start 01/04/17 at 09:00 Polyethylene Glycol (Miralax) 17 gm DAILY PO Last administered on 01/10/17 09: 12; Admin Dose 17 GM; Start 01/04/17 at 09:00 Salmeterol Xinafoate/ Fluticasone (Advair 250/50 Diskus) 1 inh BID INH Last administered on 01/11/17 08:41; Admin Dose 1 INH; Start 01/03/17 at 21:00 Apixaban (Eliquis) 5 mg BID PO Last administered on 01/11/17 08:51; Admin Dose 5 MG; Start 01/04/17 at 21:00 Amiodarone HCl (Cordarone) 200 mg BID PO Last administered on 01/11/17 08:50; Admin Dose 200 MG; Start 01/04/17 at 21:00 Metoprolol Tartrate 5 mg 5 mg Q4H PRN IV HR>110 Hold SBP<100; Start 01/04/17 at 18:00; Status Future Hold Ampicillin (Ampicillin 1 Gm/ NS (Pmx)) 50 ml @ 100 mls/hr Q6 IVPB Last administered on 01/11/17 06:44; Admin Dose 100 MLS/HR; Start 01/05/17 at 18:00 Acetaminophen (Tylenol Tab) 650 mg Q4H PRN PO PAIN MANAGEMENT -05/30; Start at 14:00 Ascorbic Acid (Vitamin C) 500 mg DAILY PO Last administered on 01/11/17 08:52 ; Admin Dose 500 MG; Start 01/06/17 at 09:00 Tamsulosin HCl (Flomax) 0.4 mg HS PO Last administered on 01/10/17 20:42; Admin Dose 0.4 MG; Start 01/05/17 at 21:00 Senna (Senokot) 2 tab BID PO Last administered on 01/10/17 20:31; Admin Dose 2 TAB; Start 01/07/17 at 09:00 Acetazolamide (Diamox) 250 mg BID PO Last administered on 01/11/17 08:51; Admin Dose 250 MG; Start 01/09/17 at 11:30 ODILON MISHRA January 11, 2017 10:16
--- NOTE | 2017-01-11 13:04 | CONS ---
Date/Time of Note Date/Time of Note DATE: 01/11/17 TIME: 13:03 Assessment/Plan Assessment/Plan Chief Complaint/Hosp Course SUBJECTIVE: No events overnight. Comfortable on nc, no fevers MICROBIOLOGY: Blood cultures since 01/03/2017 remain negative. ANTIMICROBIALS: IV ampicillin. PHYSICAL EXAMINATION: GENERAL: Chronically ill-appearing, elderly man who is in no distress. HEENT: Head atraumatic, normocephalic. Sclerae anicteric. Buccal mucosa dry. NECK: Supple, trachea midline. CHEST: Rise symmetrical. Breath sounds diminished to bases with scattered rhonchi. HEART: S1, S2. ABDOMEN: Soft, bowel tones present. EXTREMITIES: Without cyanosis. ASSESSMENT: 1. Resolving sepsis. 2. Urinary tract infection with bacteremia on admission. 3. Status-post acute respiratory failure secondary to chronic obstructive pulmonary disease exacerbation. 4. Paraplegia. PLAN: The patient remains stable. Continue present care, abx for 5 more days and follow recommendations of consultants. DW staff Problems: Consultation Date/Type/Reason Admit Date/Time January 01, 2017 at 10:00 Initial Consult Date 01/02/17 Type of Consultation: ID Referring Provider: DANO HARTMAN MD Exam/Review of Systems Vital Signs Vitals Vital Signs Date Time Temp Pulse Resp B/P Pulse Ox O2 Delivery O2 Flow Rate FiO2 01/11/17 08:46 103/56 01/11/17 08:00 Nasal Cannula 4.0 01/11/17 07:47 97.5 77 18 94 01/11/17 01:19 35 Intake and Output 01/10/17 01/10/17 01/11/17 15:00 23:00 07:00 Intake Total 50 ml 1210 ml 1150 ml Output Total 2000 ml 1200 ml Balance 50 ml -790 ml -50 ml Results Result Diagram: 01/11/17 0540 01/11/17 0540 Results 24 hrs Laboratory Tests Test 01/11/17 05:40 White Blood Count 8.2 Red Blood Count 3.27 L Hemoglobin 10.5 L Hematocrit 34.2 L Mean Corpuscular Volume 104.6 H Mean Corpuscular Hemoglobin 32.1 Mean Corpuscular Hemoglobin Concent 30.7 L Red Cell Distribution Width 14.1 Platelet Count 144 Mean Platelet Volume 10.9 H Neutrophils % 79.6 H Lymphocytes % 8.5 L Monocytes % 8.9 Eosinophils % 2.4 Basophils % 0.2 Nucleated Red Blood Cells % 0.0 Neutrophils # 6.6 Lymphocytes # 0.7 L Monocytes # 0.7 Eosinophils # 0.2 Basophils # 0.0 Nucleated Red Blood Cells # 0.0 Sodium Level 138 Potassium Level 4.3 Chloride Level 100 Carbon Dioxide Level 39 H Anion Gap 3 L Blood Urea Nitrogen 7 Creatinine 0.72 Glucose Level 109 Calcium Level 8.6 Medications Medications Current Medications Sodium Chloride (NS) 1,000 ml @ 50 mls/hr Q20H IV Last administered on 01:11; Admin Dose 50 MLS/HR; Start 01/01/17 at 11:20 Miscellaneous Information (Pending [facility] Order For Wound Care) This patient cain... PRN PRN XX WOUND CARE; Start 01/01/17 at 20:30 Doxazosin Mesylate (Cardura) 2 mg BID PO Last administered on 01/10/17 09:11; Admin Dose 2 MG; Start 01/03/17 at 21:00 Finasteride (Proscar) 5 mg DAILY PO Last administered on 01/11/17 08:51; Admin Dose 5 MG; Start 01/04/17 at 09:00 Docusate Sodium (Colace) 100 mg BID PO Last administered on 01/10/17 20:31; Admin Dose 100 MG; Start 01/03/17 at 21:00 Pantoprazole (Protonix Tab) 40 mg QAM PO Last administered on 01/11/17 08:51; Admin Dose 40 MG; Start 01/04/17 at 09:00 Polyethylene Glycol (Miralax) 17 gm DAILY PO Last administered on 01/10/17 09: 12; Admin Dose 17 GM; Start 01/04/17 at 09:00 Salmeterol Xinafoate/ Fluticasone (Advair 250/50 Diskus) 1 inh BID INH Last administered on 01/11/17 08:41; Admin Dose 1 INH; Start 01/03/17 at 21:00 Apixaban (Eliquis) 5 mg BID PO Last administered on 01/11/17 08:51; Admin Dose 5 MG; Start 01/04/17 at 21:00 Amiodarone HCl (Cordarone) 200 mg BID PO Last administered on 01/11/17 08:50; Admin Dose 200 MG; Start 01/04/17 at 21:00 Metoprolol Tartrate 5 mg 5 mg Q4H PRN IV HR>110 Hold SBP<100; Start 01/04/17 at 18:00; Status Future Hold Ampicillin (Ampicillin 1 Gm/ NS (Pmx)) 50 ml @ 100 mls/hr Q6 IVPB Last administered on 01/11/17 12:22; Admin Dose 100 MLS/HR; Start 01/05/17 at 18:00 Acetaminophen (Tylenol Tab) 650 mg Q4H PRN PO PAIN MANAGEMENT 1-05/30; Start at 14:00 Ascorbic Acid (Vitamin C) 500 mg DAILY PO Last administered on 01/11/17 08:52 ; Admin Dose 500 MG; Start 01/06/17 at 09:00 Tamsulosin HCl (Flomax) 0.4 mg HS PO Last administered on 01/10/17 20:42; Admin Dose 0.4 MG; Start 01/05/17 at 21:00 Senna (Senokot) 2 tab BID PO Last administered on 01/10/17 20:31; Admin Dose 2 TAB; Start 01/07/17 at 09:00 Acetazolamide (Diamox) 250 mg BID PO Last administered on 01/11/17 08:51; Admin Dose 250 MG; Start 01/09/17 at 11:30 PRIETO MEHTA NP January 11, 2017 13:04
--- NOTE | 2017-01-11 13:15 | CONS ---
Date/Time of Note Date/Time of Note DATE: 01/11/17 TIME: 13:12 Assessment/Plan Assessment/Plan Chief Complaint/Hosp Course IMPRESSION: 1. Paroxysmal atrial fibrillation, currently in sinus rhythm by ECG 01/10/17. NL TSH-by exam. NL EF by echo this admit with DD 2. Abnormal electrocardiogram, assess for acute coronary syndrome.-negative trop x 3 3. Hypotension, borderline. 4. Shortness of breath, assess for congestive heart failure. 5. Urinary tract infection. 6. Hypercapnic respiratory distress. 7. Chronic obstructive pulmonary disease. 8. Bacteremia. Recc: -Tele -Continue amiodarone/eliquis -Continue bronchodilators/abx's and BIPAP as necessary -Continue cardura as tolerated only -AM ECG to document rhythm Problems: Consultation Date/Type/Reason Admit Date/Time January 01, 2017 at 10:00 Initial Consult Date 01/02/17 Type of Consultation: Cardiology Reason for Consultation AF Referring Provider: DANO HARTMAN MD Exam/Review of Systems Vital Signs Vitals Vital Signs Date Time Temp Pulse Resp B/P Pulse Ox O2 Delivery O2 Flow Rate FiO2 01/11/17 08:46 103/56 01/11/17 08:00 Nasal Cannula 4.0 01/11/17 07:47 97.5 77 18 94 01/11/17 01:19 35 Intake and Output 01/10/17 01/10/17 01/11/17 15:00 23:00 07:00 Intake Total 50 ml 1210 ml 1150 ml Output Total 2000 ml 1200 ml Balance 50 ml -790 ml -50 ml Exam Review of Systems: CONSTITUTIONAL: No fevers, chills. PULMONARY: No sob CARDIOVASCULAR: No chest pain/palpitations GASTROINTESTINAL: No nausea/vomiting. GENITOURINARY: No hematuria/dysuria. MUSCULOSKELETAL: No myagias/arthalgias. PSYCHIATRIC: The patient denies depression. NEUROLOGIC: No weakness Constitutional: alert Psych: no complaints Head: normocephalic ENMT: mucosa pink and moist Neck: jvd (9 cm water), supple Respiratory: diminished breath sounds (at bases/B) Cardiovascular: irregular rhythm Gastrointestinal: non-tender, soft Musculoskeletal: muscle tone (normal) Extremities: edema (nonw) Neurological: other (No focal deificits) Results Result Diagram: 01/11/17 0540 01/11/17 0540 Results 24 hrs Laboratory Tests Test 01/11/17 05:40 White Blood Count 8.2 Red Blood Count 3.27 L Hemoglobin 10.5 L Hematocrit 34.2 L Mean Corpuscular Volume 104.6 H Mean Corpuscular Hemoglobin 32.1 Mean Corpuscular Hemoglobin Concent 30.7 L Red Cell Distribution Width 14.1 Platelet Count 144 Mean Platelet Volume 10.9 H Neutrophils % 79.6 H Lymphocytes % 8.5 L Monocytes % 8.9 Eosinophils % 2.4 Basophils % 0.2 Nucleated Red Blood Cells % 0.0 Neutrophils # 6.6 Lymphocytes # 0.7 L Monocytes # 0.7 Eosinophils # 0.2 Basophils # 0.0 Nucleated Red Blood Cells # 0.0 Sodium Level 138 Potassium Level 4.3 Chloride Level 100 Carbon Dioxide Level 39 H Anion Gap 3 L Blood Urea Nitrogen 7 Creatinine 0.72 Glucose Level 109 Calcium Level 8.6 Medications Medications Current Medications Sodium Chloride (NS) 1,000 ml @ 50 mls/hr Q20H IV Last administered on 01:11; Admin Dose 50 MLS/HR; Start 01/01/17 at 11:20 Miscellaneous [facility] This patient cain... PRN PRN XX WOUND CARE; Start 01/01/17 at 20:30 Doxazosin Mesylate (Cardura) 2 mg BID PO Last administered on 01/10/17 09:11; Admin Dose 2 MG; Start 01/03/17 at 21:00 Finasteride (Proscar) 5 mg DAILY PO Last administered on 01/11/17 08:51; Admin Dose 5 MG; Start 01/04/17 at 09:00 Docusate Sodium (Colace) 100 mg BID PO Last administered on 01/10/17 20:31; Admin Dose 100 MG; Start 01/03/17 at 21:00 Pantoprazole (Protonix Tab) 40 mg QAM PO Last administered on 01/11/17 08:51; Admin Dose 40 MG; Start 01/04/17 at 09:00 Polyethylene Glycol (Miralax) 17 gm DAILY PO Last administered on 01/10/17 09: 12; Admin Dose 17 GM; Start 01/04/17 at 09:00 Salmeterol Xinafoate/ Fluticasone (Advair 250/50 Diskus) 1 inh BID INH Last administered on 01/11/17 08:41; Admin Dose 1 INH; Start 01/03/17 at 21:00 Apixaban (Eliquis) 5 mg BID PO Last administered on 01/11/17 08:51; Admin Dose 5 MG; Start 01/04/17 at 21:00 Amiodarone HCl (Cordarone) 200 mg BID PO Last administered on 01/11/17 08:50; Admin Dose 200 MG; Start 01/04/17 at 21:00 Metoprolol Tartrate 5 mg 5 mg Q4H PRN IV HR>110 Hold SBP<100; Start 01/04/17 at 18:00; Status Future Hold Ampicillin (Ampicillin 1 Gm/ NS (Pmx)) 50 ml @ 100 mls/hr Q6 IVPB Last administered on 01/11/17 12:22; Admin Dose 100 MLS/HR; Start 01/05/17 at 18:00 Acetaminophen (Tylenol Tab) 650 mg Q4H PRN PO PAIN MANAGEMENT -05/30; Start at 14:00 Ascorbic Acid (Vitamin C) 500 mg DAILY PO Last administered on 01/11/17 08:52 ; Admin Dose 500 MG; Start 01/06/17 at 09:00 Tamsulosin HCl (Flomax) 0.4 mg HS PO Last administered on 01/10/17 20:42; Admin Dose 0.4 MG; Start 01/05/17 at 21:00 Senna (Senokot) 2 tab BID PO Last administered on 01/10/17 20:31; Admin Dose 2 TAB; Start 01/07/17 at 09:00 Acetazolamide (Diamox) 250 mg BID PO Last administered on 01/11/17 08:51; Admin Dose 250 MG; Start 01/09/17 at 11:30 STEPHANIE DARDEN January 11, 2017 13:15
--- NOTE | 2017-01-11 19:21 | PN ---
Date/Time of Note Date/Time of Note DATE: 01/11/17 TIME: 19:20 Assessment/Plan VTE Prophylaxis VTE Prophylaxis Intervention: SCD's Lines/Catheters IV Catheter Type (from [facility]): Peripheral IV Urinary Cath still in place: Yes Reason Cath still needed: urinary retention Assessment/Plan Chief Complaint/Hosp Course Patient's complains of shortness of breath, requiring urgent placement on BiPAP , DC is held, chest x-ray. ASSESSMENT AND PLAN: - Sepsis secondary to urinary tract infection and possible underlying early pneumonia, resolving. Dr. Chandra is following the patient in infectious disease consultation. Continue antibiotics per ID - Proteus mirabilis bacteremia. Continue antibiotics per ID. - Polymicrobial acute cystitis with hematuria, resolved - Hypercapnic respiratory failure, resolved. Dr. Norton is following in a pulmonology consultation. - Chronic obstructive pulmonary disease exacerbation. Continue breathing treatment and oxygen supplementation. - Atrial fibrillation. Continue Eliquis. Dr. Lala is following and cardiology consultation. - Chronic renal insufficiency. Continue monitor the BUN and creatinine. - Dementia. - Chronic urinary retention. Continue Forbes catheter Further recommendations based on clinical course. Plan of care discussed with Dr. Anne. Problems: Exam/Review of Systems Vital Signs Vitals Vital Signs Date Time Temp Pulse Resp B/P Pulse Ox O2 Delivery O2 Flow Rate FiO2 01/11/17 16:54 4.0 01/11/17 08:46 103/56 01/11/17 08:00 Nasal Cannula 01/11/17 07:47 97.5 77 18 94 01/11/17 01:19 35 Intake and Output 01/10/17 01/10/17 01/11/17 15:00 23:00 07:00 Intake Total 50 ml 1210 ml 1150 ml Output Total 2000 ml 1200 ml Balance 50 ml -790 ml -50 ml Exam Constitutional: alert, frail Psych: confusion Head: normocephalic Eyes: nl conjunctiva Neck: supple Respiratory: diminished breath sounds Cardiovascular: nl pulses, regular rate and rhythm Gastrointestinal: non-tender, soft Genitourinary - Male: other (Forbes catheter) Musculoskeletal: muscle weakness Neurological: confused Results Result Diagram: 01/11/17 0540 01/11/17 0540 Results 24 hrs Laboratory Tests Test 01/11/17 05:40 White Blood Count 8.2 Red Blood Count 3.27 L Hemoglobin 10.5 L Hematocrit 34.2 L Mean Corpuscular Volume 104.6 H Mean Corpuscular Hemoglobin 32.1 Mean Corpuscular Hemoglobin Concent 30.7 L Red Cell Distribution Width 14.1 Platelet Count 144 Mean Platelet Volume 10.9 H Neutrophils % 79.6 H Lymphocytes % 8.5 L Monocytes % 8.9 Eosinophils % 2.4 Basophils % 0.2 Nucleated Red Blood Cells % 0.0 Neutrophils # 6.6 Lymphocytes # 0.7 L Monocytes # 0.7 Eosinophils # 0.2 Basophils # 0.0 Nucleated Red Blood Cells # 0.0 Sodium Level 138 Potassium Level 4.3 Chloride Level 100 Carbon Dioxide Level 39 H Anion Gap 3 L Blood Urea Nitrogen 7 Creatinine 0.72 Glucose Level 109 Calcium Level 8.6 Medications Medications Current Medications Sodium Chloride (NS) 1,000 ml @ 50 mls/hr Q20H IV Last administered on 01:11; Admin Dose 50 MLS/HR; Start 01/01/17 at 11:20 Miscellaneous Information (Pending [facility] Order For Wound Care) This patient cain... PRN PRN XX WOUND CARE; Start 01/01/17 at 20:30 Doxazosin Mesylate (Cardura) 2 mg BID PO Last administered on 01/10/17 09:11; Admin Dose 2 MG; Start 01/03/17 at 21:00 Finasteride (Proscar) 5 mg DAILY PO Last administered on 01/11/17 08:51; Admin Dose 5 MG; Start 01/04/17 at 09:00 Docusate Sodium (Colace) 100 mg BID PO Last administered on 01/10/17 20:31; Admin Dose 100 MG; Start 01/03/17 at 21:00 Pantoprazole (Protonix Tab) 40 mg QAM PO Last administered on 01/11/17 08:51; Admin Dose 40 MG; Start 01/04/17 at 09:00 Polyethylene Glycol (Miralax) 17 gm DAILY PO Last administered on 01/10/17 09: 12; Admin Dose 17 GM; Start 01/04/17 at 09:00 Salmeterol Xinafoate/ Fluticasone (Advair 250/50 Diskus) 1 inh BID INH Last administered on 01/11/17 08:41; Admin Dose 1 INH; Start 01/03/17 at 21:00 Apixaban (Eliquis) 5 mg BID PO Last administered on 01/11/17 08:51; Admin Dose 5 MG; Start 01/04/17 at 21:00 Amiodarone HCl (Cordarone) 200 mg BID PO Last administered on 01/11/17 08:50; Admin Dose 200 MG; Start 01/04/17 at 21:00 Metoprolol Tartrate 5 mg 5 mg Q4H PRN IV HR>110 Hold SBP<100; Start 01/04/17 at 18:00; Status Future Hold Ampicillin (Ampicillin 1 Gm/ NS (Pmx)) 50 ml @ 100 mls/hr Q6 IVPB Last administered on 01/11/17 17:36; Admin Dose 100 MLS/HR; Start 01/05/17 at 18:00 Acetaminophen (Tylenol Tab) 650 mg Q4H PRN PO PAIN MANAGEMENT -05/30; Start at 14:00 Ascorbic Acid (Vitamin C) 500 mg DAILY PO Last administered on 01/11/17 08:52 ; Admin Dose 500 MG; Start 01/06/17 at 09:00 Tamsulosin HCl (Flomax) 0.4 mg HS PO Last administered on 01/10/17 20:42; Admin Dose 0.4 MG; Start 01/05/17 at 21:00 Senna (Senokot) 2 tab BID PO Last administered on 01/10/17 20:31; Admin Dose 2 TAB; Start 01/07/17 at 09:00 Acetazolamide (Diamox) 250 mg BID PO Last administered on 01/11/17 08:51; Admin Dose 250 MG; Start 01/09/17 at 11:30 CONTRERAS DIANA January 11, 2017 19:21
[2017-01-11 19:47] VITALS: BP 140/64; RESP 20
[2017-01-11] MEDS: TAMSULOSIN (SR) 0.4 MG CAP PO SCH (20:39)
[2017-01-12] MEDS: AMPICILLIN 1 GM/NS (PMX) 50 ML IVPB SCH ×2 (05:38→12:18)
[2017-01-12 06:17] LABS: ADD SCAN DIFF NO
[2017-01-12 06:24] LABS: BASOPHILS % 0.1 % (0.0-2.0); EOSINOPHILS # 0.2 10^3/ul (0.0-0.5); EOSINOPHILS % 2.1 % (0.0-7.0); HEMATOCRIT 33.8 % (42.0-52.0); LYMPHOCYTES # 0.9 10^3/ul (0.8-2.9); MEAN CORPUSCULAR HGB CONC 29.6 g/dl (32.0-37.0); MEAN CORPUSCULAR VOLUME 104.6 fl (82.0-101.0); MEAN PLATELET VOLUME 11.2 fl (7.4-10.4); MONOCYTE # 0.7 10^3/ul (0.3-0.9); MONOCYTES % 8.8 % (0.0-11.0); NEUTROPHILS % 77.7 % (39.0-77.0); PLATELET COUNT 153 10^3/UL (140-415); RED BLOOD COUNT 3.23 10^6/ul (4.70-6.10); RED CELL DISTRIBUTION WIDTH 13.8 % (11.5-14.5); WHITE BLOOD COUNT 7.7 10^3/ul (4.8-10.8)
[2017-01-12 06:55] LABS: CALCIUM 8.5 mg/dl (8.4-10.2); CREATININE 0.76 mg/dl (0.61-1.24)
[2017-01-12] MEDS: SOD CHLORIDE 0.9% 1,000 ML IV SCH (07:20)
[2017-01-12 07:24] VITALS: BP 92/54; RESP 20
--- NOTE | 2017-01-12 07:51 | RADRPT ---
PROCEDURE: XR Chest. CLINICAL INDICATION: Cough TECHNIQUE: 2 AP views of the chest were obtained COMPARISON: Chest x-ray dated 01/10/2017 FINDINGS: There are persistent hazy interstitial opacities at the right lung base. No pleural effusion or pne umothorax is seen. The cardiomediastinal silhouette is within normal limits for size. Calcification s are seen within the aortic arch. The osseous structures demonstrate healed left mid clavicle fract ure. IMPRESSION: 1. Persistent right lower lobe hazy interstitial opacities. No significant interval change. 2. Aortic atherosclerosis. RPTAT: HH .Smiley Mullen MD, MD Date Time Electronically viewed and signed by .Smiley Mullen MD, on 01/12/2017 07:50 .G/
[2017-01-12 08:33] VITALS: BP 99/56
[2017-01-12] MEDS: POLYETHYLENE GLYCOL 17 GM PACKET PO SCH (10:34)
[2017-01-12] MEDS: DOCUSATE SODIUM 100 MG CAP PO SCH (10:34)
[2017-01-12] MEDS: ASCORBIC ACID 500 MG TAB PO SCH (10:34)
[2017-01-12] MEDS: FINASTERIDE 5 MG TAB PO SCH (10:34)
[2017-01-12] MEDS: APIXABAN 5 MG TABLET PO SCH (10:35)
[2017-01-12] MEDS: AMIODARONE 200 MG TAB PO SCH (10:35)
[2017-01-12] MEDS: SENNA TAB PO SCH (10:35)
[2017-01-12] MEDS: PANTOPRAZOLE (EC) 40 MG TAB PO SCH (10:35)
[2017-01-12] MEDS: ACETAZOLAMIDE 250 MG TAB PO SCH (10:36)
[2017-01-12] MEDS: SALMETEROL/FLUTICASONE 250/50 INHA INH SCH (10:37)
[2017-01-12] MEDS: DOXAZOSIN 2 MG TAB PO SCH (10:37)
--- NOTE | 2017-01-12 12:40 | CONS ---
Date/Time of Note Date/Time of Note DATE: 01/12/17 TIME: 12:38 Assessment/Plan Assessment/Plan Additional Assessment/Plan Assessment recommendations; next 1. Patient admitted for supra exacerbation with interval improvement. 2. Advanced dementia. 3. Paraplegia. 4. Gram-negative bacteremia with UTI from Proteus, patient on ampicillin. Continue current treatment. Consider discharge to [facility]dc. Consultation Date/Type/Reason Admit Date/Time January 01, 2017 at 10:00 Initial Consult Date 01/02/17 Type of Consultation: Pulmonary Referring Provider: DANO HARTMAN MD 24 HR Interval Summary Free Text/Dictation Patient condition is stable. Patient has episodes of waxing and waning mental status. However has remained hemodynamically stable. General exam; elderly male, currently somnolent. No distress noted. Exam/Review of Systems Vital Signs Vitals Vital Signs Date Time Temp Pulse Resp B/P Pulse Ox O2 Delivery O2 Flow Rate FiO2 01/12/17 09:09 4.0 01/12/17 08:33 99/56 01/12/17 07:24 98.1 74 20 100 01/11/17 20:08 Nasal Cannula 01/11/17 01:19 35 Intake and Output 01/11/17 01/11/17 01/12/17 15:00 23:00 07:00 Intake Total 100 ml 1060 ml 670 ml Output Total 1000 ml 1850 ml Balance 100 ml 60 ml -1180 ml Exam HEENT examination; supple neck, no JVD. No lymphadenopathy. Midline trachea. No thyromegaly. Patient is edentulous. Chest examination; diminished but clear vessel. S1-S2 audible, no murmurs. Regular rhythm. Abdomen examination; soft, no organomegaly. Nontender. Bowel sounds audible. Extremity examination; no peripheral edema. LE[employer]CHITECT examination; patient has stable paraplegia. Results Result Diagram: 01/12/17 0530 01/12/17 0530 Results 24 hrs Laboratory Tests Test 01/12/17 05:30 White Blood Count 7.7 Red Blood Count 3.23 L Hemoglobin 10.0 L Hematocrit 33.8 L Mean Corpuscular Volume 104.6 H Mean Corpuscular Hemoglobin 31.0 Mean Corpuscular Hemoglobin Concent 29.6 L Red Cell Distribution Width 13.8 Platelet Count 153 Mean Platelet Volume 11.2 H Neutrophils % 77.7 H Lymphocytes % 11.0 L Monocytes % 8.8 Eosinophils % 2.1 Basophils % 0.1 Nucleated Red Blood Cells % 0.0 Neutrophils # 6.0 Lymphocytes # 0.9 Monocytes # 0.7 Eosinophils # 0.2 Basophils # 0.0 Nucleated Red Blood Cells # 0.0 Sodium Level 139 Potassium Level 4.0 Chloride Level 103 Carbon Dioxide Level 37 H Anion Gap 3 L Blood Urea Nitrogen 7 Creatinine 0.76 Glucose Level 81 Calcium Level 8.5 Medications Medications Current Medications Sodium Chloride (NS) 1,000 ml @ 50 mls/hr Q20H IV Last administered on 23:59; Admin Dose 50 MLS/HR; Start 01/01/17 at 11:20 Miscellaneous Information (Pending [facility] Order For Wound Care) This patient cain... PRN PRN XX WOUND CARE; Start 01/01/17 at 20:30 Doxazosin Mesylate (Cardura) 2 mg BID PO Last administered on 01/12/17 10:37; Admin Dose 2 MG; Start 01/03/17 at 21:00 Finasteride (Proscar) 5 mg DAILY PO Last administered on 01/12/17 10:34; Admin Dose 5 MG; Start 01/04/17 at 09:00 Docusate Sodium (Colace) 100 mg BID PO Last administered on 01/12/17 10:34; Admin Dose 100 MG; Start 01/03/17 at 21:00 Pantoprazole (Protonix Tab) 40 mg QAM PO Last administered on 01/12/17 10:35; Admin Dose 40 MG; Start 01/04/17 at 09:00 Polyethylene Glycol (Miralax) 17 gm DAILY PO Last administered on 01/12/17 10: 34; Admin Dose 17 GM; Start 01/04/17 at 09:00 Salmeterol Xinafoate/ Fluticasone (Advair 250/50 Diskus) 1 inh BID INH Last administered on 01/12/17 10:37; Admin Dose 1 INH; Start 01/03/17 at 21:00 Apixaban (Eliquis) 5 mg BID PO Last administered on 01/12/17 10:35; Admin Dose 5 MG; Start 01/04/17 at 21:00 Amiodarone HCl (Cordarone) 200 mg BID PO Last administered on 01/12/17 10:35; Admin Dose 200 MG; Start 01/04/17 at 21:00 Metoprolol Tartrate 5 mg 5 mg Q4H PRN IV HR>110 Hold SBP<100; Start 01/04/17 at 18:00; Status Future Hold Ampicillin (Ampicillin 1 Gm/ NS (Pmx)) 50 ml @ 100 mls/hr Q6 IVPB Last administered on 01/12/17 12:18; Admin Dose 100 MLS/HR; Start 01/05/17 at 18:00 Acetaminophen (Tylenol Tab) 650 mg Q4H PRN PO PAIN MANAGEMENT -05/30; Start at 14:00 Ascorbic Acid (Vitamin C) 500 mg DAILY PO Last administered on 01/12/17 10:34 ; Admin Dose 500 MG; Start 01/06/17 at 09:00 Tamsulosin HCl (Flomax) 0.4 mg HS PO Last administered on 01/11/17 20:39; Admin Dose 0.4 MG; Start 01/05/17 at 21:00 Senna (Senokot) 2 tab BID PO Last administered on 01/12/17 10:35; Admin Dose 2 TAB; Start 01/07/17 at 09:00 Acetazolamide (Diamox) 250 mg BID PO Last administered on 01/12/17 10:36; Admin Dose 250 MG; Start 01/09/17 at 11:30 ODILON MISHRA January 12, 2017 12:40
--- NOTE | 2017-01-12 12:49 | PN ---
Date/Time of Note Date/Time of Note DATE: 01/12/17 TIME: 12:47 Assessment/Plan VTE Prophylaxis VTE Prophylaxis Intervention: other Lines/Catheters IV Catheter Type (from [facility]): Peripheral IV Urinary Cath still in place: Yes Assessment/Plan Assessment/Plan - Sepsis secondary to urinary tract infection and possible underlying early pneumonia, resolving. Dr. Chandra is following the patient in infectious disease consultation. Continue antibiotics per ID - Proteus mirabilis bacteremia. Continue antibiotics per ID. - Polymicrobial acute cystitis with hematuria, resolved - Hypercapnic respiratory failure, resolved. Dr. Norton is following in a pulmonology consultation. - Chronic obstructive pulmonary disease exacerbation. Continue breathing treatment and oxygen supplementation. - Atrial fibrillation. Continue Eliquis. Dr. Lala is following and cardiology consultation. - Chronic renal insufficiency. Continue monitor the BUN and creatinine. - Dementia. - Chronic urinary retention. Continue Forbes catheter Further recommendations based on clinical course. Plan of care discussed with Dr. Anne. Exam/Review of Systems Vital Signs Vitals Vital Signs Date Time Temp Pulse Resp B/P Pulse Ox O2 Delivery O2 Flow Rate FiO2 01/12/17 09:09 4.0 01/12/17 08:33 99/56 01/12/17 07:24 98.1 74 20 100 01/11/17 20:08 Nasal Cannula 01/11/17 01:19 35 Intake and Output 01/11/17 01/11/17 01/12/17 15:00 23:00 07:00 Intake Total 100 ml 1060 ml 670 ml Output Total 1000 ml 1850 ml Balance 100 ml 60 ml -1180 ml Exam Constitutional: alert Psych: nl mood/affect Eyes: nl sclera Respiratory: diminished breath sounds, normal air movement Cardiovascular: nl pulses, regular rate and rhythm Gastrointestinal: non-tender, soft Musculoskeletal: muscle weakness Extremities: normal pulses Neurological: confused Skin: other Lymph: nontender Results Result Diagram: 01/12/17 0530 01/12/17 0530 Results 24 hrs Laboratory Tests Test 01/12/17 05:30 White Blood Count 7.7 Red Blood Count 3.23 L Hemoglobin 10.0 L Hematocrit 33.8 L Mean Corpuscular Volume 104.6 H Mean Corpuscular Hemoglobin 31.0 Mean Corpuscular Hemoglobin Concent 29.6 L Red Cell Distribution Width 13.8 Platelet Count 153 Mean Platelet Volume 11.2 H Neutrophils % 77.7 H Lymphocytes % 11.0 L Monocytes % 8.8 Eosinophils % 2.1 Basophils % 0.1 Nucleated Red Blood Cells % 0.0 Neutrophils # 6.0 Lymphocytes # 0.9 Monocytes # 0.7 Eosinophils # 0.2 Basophils # 0.0 Nucleated Red Blood Cells # 0.0 Sodium Level 139 Potassium Level 4.0 Chloride Level 103 Carbon Dioxide Level 37 H Anion Gap 3 L Blood Urea Nitrogen 7 Creatinine 0.76 Glucose Level 81 Calcium Level 8.5 Medications Medications Current Medications Sodium Chloride (NS) 1,000 ml @ 50 mls/hr Q20H IV Last administered on 23:59; Admin Dose 50 MLS/HR; Start 01/01/17 at 11:20 Miscellaneous Information (Pending [facility] Order For Wound Care) This patient cain... PRN PRN XX WOUND CARE; Start 01/01/17 at 20:30 Doxazosin Mesylate (Cardura) 2 mg BID PO Last administered on 01/12/17 10:37; Admin Dose 2 MG; Start 01/03/17 at 21:00 Finasteride (Proscar) 5 mg DAILY PO Last administered on 01/12/17 10:34; Admin Dose 5 MG; Start 01/04/17 at 09:00 Docusate Sodium (Colace) 100 mg BID PO Last administered on 01/12/17 10:34; Admin Dose 100 MG; Start 01/03/17 at 21:00 Pantoprazole (Protonix Tab) 40 mg QAM PO Last administered on 01/12/17 10:35; Admin Dose 40 MG; Start 01/04/17 at 09:00 Polyethylene Glycol (Miralax) 17 gm DAILY PO Last administered on 01/12/17 10: 34; Admin Dose 17 GM; Start 01/04/17 at 09:00 Salmeterol Xinafoate/ Fluticasone (Advair 250/50 Diskus) 1 inh BID INH Last administered on 01/12/17 10:37; Admin Dose 1 INH; Start 01/03/17 at 21:00 Apixaban (Eliquis) 5 mg BID PO Last administered on 01/12/17 10:35; Admin Dose 5 MG; Start 01/04/17 at 21:00 Amiodarone HCl (Cordarone) 200 mg BID PO Last administered on 01/12/17 10:35; Admin Dose 200 MG; Start 01/04/17 at 21:00 Metoprolol Tartrate 5 mg 5 mg Q4H PRN IV HR>110 Hold SBP<100; Start 01/04/17 at 18:00; Status Future Hold Ampicillin (Ampicillin 1 Gm/ NS (Pmx)) 50 ml @ 100 mls/hr Q6 IVPB Last administered on 01/12/17 12:18; Admin Dose 100 MLS/HR; Start 01/05/17 at 18:00 Acetaminophen (Tylenol Tab) 650 mg Q4H PRN PO PAIN MANAGEMENT 1-05/30; Start at 14:00 Ascorbic Acid (Vitamin C) 500 mg DAILY PO Last administered on 01/12/17 10:34 ; Admin Dose 500 MG; Start 01/06/17 at 09:00 Tamsulosin HCl (Flomax) 0.4 mg HS PO Last administered on 01/11/17 20:39; Admin Dose 0.4 MG; Start 01/05/17 at 21:00 Senna (Senokot) 2 tab BID PO Last administered on 01/12/17 10:35; Admin Dose 2 TAB; Start 01/07/17 at 09:00 Acetazolamide (Diamox) 250 mg BID PO Last administered on 01/12/17 10:36; Admin Dose 250 MG; Start 01/09/17 at 11:30 CHERI DURAN January 12, 2017 12:49
--- NOTE | 2017-01-12 13:22 | CONS ---
Date/Time of Note Date/Time of Note DATE: 01/12/17 TIME: 13:21 Assessment/Plan Assessment/Plan Chief Complaint/Hosp Course SUBJECTIVE: No events overnight. no fevers MICROBIOLOGY: Blood cultures since 01/03/2017 remain negative. ANTIMICROBIALS: IV ampicillin. PHYSICAL EXAMINATION: GENERAL: Chronically ill-appearing, elderly man who is in no distress. HEENT: Head atraumatic, normocephalic. Sclerae anicteric. Buccal mucosa dry. NECK: Supple, trachea midline. CHEST: Rise symmetrical. Breath sounds diminished to bases with scattered rhonchi. HEART: S1, S2. ABDOMEN: Soft, bowel tones present. EXTREMITIES: Without cyanosis. ASSESSMENT: 1. Resolving sepsis. 2. Urinary tract infection with bacteremia on admission. 3. Status-post acute respiratory failure secondary to chronic obstructive pulmonary disease exacerbation. 4. Paraplegia. PLAN: The patient remains stable. Continue abx for 4 more days [facility] staff Problems: Consultation Date/Type/Reason Admit Date/Time January 01, 2017 at 10:00 Initial Consult Date 01/02/17 Type of Consultation: ID Referring Provider: DANO HARTMAN MD Exam/Review of Systems Vital Signs Vitals Vital Signs Date Time Temp Pulse Resp B/P Pulse Ox O2 Delivery O2 Flow Rate FiO2 01/12/17 10:00 Nasal Cannula 4.0 01/12/17 08:33 99/56 01/12/17 07:24 98.1 74 20 100 01/11/17 01:19 35 Intake and Output 01/11/17 01/11/17 01/12/17 15:00 23:00 07:00 Intake Total 100 ml 1060 ml 670 ml Output Total 1000 ml 1850 ml Balance 100 ml 60 ml -1180 ml Results Result Diagram: 01/12/17 0530 01/12/17 0530 Results 24 hrs Laboratory Tests Test 01/12/17 05:30 White Blood Count 7.7 Red Blood Count 3.23 L Hemoglobin 10.0 L Hematocrit 33.8 L Mean Corpuscular Volume 104.6 H Mean Corpuscular Hemoglobin 31.0 Mean Corpuscular Hemoglobin Concent 29.6 L Red Cell Distribution Width 13.8 Platelet Count 153 Mean Platelet Volume 11.2 H Neutrophils % 77.7 H Lymphocytes % 11.0 L Monocytes % 8.8 Eosinophils % 2.1 Basophils % 0.1 Nucleated Red Blood Cells % 0.0 Neutrophils # 6.0 Lymphocytes # 0.9 Monocytes # 0.7 Eosinophils # 0.2 Basophils # 0.0 Nucleated Red Blood Cells # 0.0 Sodium Level 139 Potassium Level 4.0 Chloride Level 103 Carbon Dioxide Level 37 H Anion Gap 3 L Blood Urea Nitrogen 7 Creatinine 0.76 Glucose Level 81 Calcium Level 8.5 Medications Medications Current Medications Sodium Chloride (NS) 1,000 ml @ 50 mls/hr Q20H IV Last administered on 23:59; Admin Dose 50 MLS/HR; Start 01/01/17 at 11:20 Miscellaneous Information (Pending [facility] Order For Wound Care) This patient cain... PRN PRN XX WOUND CARE; Start 01/01/17 at 20:30 Doxazosin Mesylate (Cardura) 2 mg BID PO Last administered on 01/12/17 10:37; Admin Dose 2 MG; Start 01/03/17 at 21:00 Finasteride (Proscar) 5 mg DAILY PO Last administered on 01/12/17 10:34; Admin Dose 5 MG; Start 01/04/17 at 09:00 Docusate Sodium (Colace) 100 mg BID PO Last administered on 01/12/17 10:34; Admin Dose 100 MG; Start 01/03/17 at 21:00 Pantoprazole (Protonix Tab) 40 mg QAM PO Last administered on 01/12/17 10:35; Admin Dose 40 MG; Start 01/04/17 at 09:00 Polyethylene Glycol (Miralax) 17 gm DAILY PO Last administered on 01/12/17 10: 34; Admin Dose 17 GM; Start 01/04/17 at 09:00 Salmeterol Xinafoate/ Fluticasone (Advair 250/50 Diskus) 1 inh BID INH Last administered on 01/12/17 10:37; Admin Dose 1 INH; Start 01/03/17 at 21:00 Apixaban (Eliquis) 5 mg BID PO Last administered on 01/12/17 10:35; Admin Dose 5 MG; Start 01/04/17 at 21:00 Amiodarone HCl (Cordarone) 200 mg BID PO Last administered on 01/12/17 10:35; Admin Dose 200 MG; Start 01/04/17 at 21:00 Metoprolol Tartrate 5 mg 5 mg Q4H PRN IV HR>110 Hold SBP<100; Start 01/04/17 at 18:00; Status Future Hold Ampicillin (Ampicillin 1 Gm/ NS (Pmx)) 50 ml @ 100 mls/hr Q6 IVPB Last administered on 01/12/17 12:18; Admin Dose 100 MLS/HR; Start 01/05/17 at 18:00 Acetaminophen (Tylenol Tab) 650 mg Q4H PRN PO PAIN MANAGEMENT -05/30; Start at 14:00 Ascorbic Acid (Vitamin C) 500 mg DAILY PO Last administered on 01/12/17 10:34 ; Admin Dose 500 MG; Start 01/06/17 at 09:00 Tamsulosin HCl (Flomax) 0.4 mg HS PO Last administered on 01/11/17 20:39; Admin Dose 0.4 MG; Start 01/05/17 at 21:00 Senna (Senokot) 2 tab BID PO Last administered on 01/12/17 10:35; Admin Dose 2 TAB; Start 01/07/17 at 09:00 Acetazolamide (Diamox) 250 mg BID PO Last administered on 01/12/17 10:36; Admin Dose 250 MG; Start 01/09/17 at 11:30 PRIETO MEHTA NP January 12, 2017 13:22
--- NOTE | 2017-01-12 13:34 | CONS ---
Date/Time of Note Date/Time of Note DATE: 01/12/17 TIME: 13:33 Assessment/Plan Assessment/Plan Chief Complaint/Hosp Course IMPRESSION: 1. Paroxysmal atrial fibrillation, currently in sinus rhythm by ECG 01/10/17. NL TSH-by exam. NL EF by echo this admit with DD 2. Abnormal electrocardiogram, assess for acute coronary syndrome.-negative trop x 3 3. Hypotension, borderline. 4. Shortness of breath, assess for congestive heart failure. 5. Urinary tract infection. 6. Hypercapnic respiratory distress. 7. Chronic obstructive pulmonary disease. 8. Bacteremia. Recc: -Now on med-surg -Continue amiodarone/eliquis -Continue bronchodilators/abx's and BIPAP as necessary -Continue cardura as tolerated only Problems: Consultation Date/Type/Reason Admit Date/Time January 01, 2017 at 10:00 Initial Consult Date 01/02/17 Type of Consultation: Cardiology Reason for Consultation AF Referring Provider: DANO HARTMAN MD Exam/Review of Systems Vital Signs Vitals Vital Signs Date Time Temp Pulse Resp B/P Pulse Ox O2 Delivery O2 Flow Rate FiO2 01/12/17 10:00 Nasal Cannula 4.0 01/12/17 08:33 99/56 01/12/17 07:24 98.1 74 20 100 01/11/17 01:19 35 Intake and Output 01/11/17 01/11/17 01/12/17 15:00 23:00 07:00 Intake Total 100 ml 1060 ml 670 ml Output Total 1000 ml 1850 ml Balance 100 ml 60 ml -1180 ml Exam Review of Systems: CONSTITUTIONAL: No fevers, chills. PULMONARY: mild sob CARDIOVASCULAR: No chest pain/palpitations GASTROINTESTINAL: No nausea/vomiting. GENITOURINARY: No hematuria/dysuria. MUSCULOSKELETAL: No myagias/arthalgias. PSYCHIATRIC: The patient denies depression. NEUROLOGIC: No weakness Constitutional: alert Psych: no complaints Head: normocephalic ENMT: mucosa pink and moist Neck: jvd (8-9 cm water), supple Respiratory: diminished breath sounds (at bases/B) Cardiovascular: regular rate and rhythm Gastrointestinal: non-tender, soft Musculoskeletal: muscle tone (normal) Extremities: edema (none) Neurological: other (No focal deficits) Results Result Diagram: 01/12/1730 5/25/17 0530 Results 24 hrs Laboratory Tests Test 01/12/17 05:30 White Blood Count 7.7 Red Blood Count 3.23 L Hemoglobin 10.0 L Hematocrit 33.8 L Mean Corpuscular Volume 104.6 H Mean Corpuscular Hemoglobin 31.0 Mean Corpuscular Hemoglobin Concent 29.6 L Red Cell Distribution Width 13.8 Platelet Count 153 Mean Platelet Volume 11.2 H Neutrophils % 77.7 H Lymphocytes % 11.0 L Monocytes % 8.8 Eosinophils % 2.1 Basophils % 0.1 Nucleated Red Blood Cells % 0.0 Neutrophils # 6.0 Lymphocytes # 0.9 Monocytes # 0.7 Eosinophils # 0.2 Basophils # 0.0 Nucleated Red Blood Cells # 0.0 Sodium Level 139 Potassium Level 4.0 Chloride Level 103 Carbon Dioxide Level 37 H Anion Gap 3 L Blood Urea Nitrogen 7 Creatinine 0.76 Glucose Level 81 Calcium Level 8.5 Medications Medications Current Medications Sodium Chloride (NS) 1,000 ml @ 50 mls/hr Q20H IV Last administered on 23:59; Admin Dose 50 MLS/HR; Start 01/01/17 at 11:20 [facility]isc[facility] This patient cain... PRN PRN XX WOUND CARE; Start 01/01/17 at 20:30 Doxazosin Mesylate (Cardura) 2 mg BID PO Last administered on 01/12/17 10:37; Admin Dose 2 MG; Start 01/03/17 at 21:00 Finasteride (Proscar) 5 mg DAILY PO Last administered on 01/12/17 10:34; Admin Dose 5 MG; Start 01/04/17 at 09:00 Docusate Sodium (Colace) 100 mg BID PO Last administered on 01/12/17 10:34; Admin Dose 100 MG; Start 01/03/17 at 21:00 Pantoprazole (Protonix Tab) 40 mg QAM PO Last administered on 01/12/17 10:35; Admin Dose 40 MG; Start 01/04/17 at 09:00 Polyethylene Glycol (Miralax) 17 gm DAILY PO Last administered on 01/12/17 10: 34; Admin Dose 17 GM; Start 01/04/17 at 09:00 Salmeterol Xinafoate/ Fluticasone (Advair 250/50 Diskus) 1 inh BID INH Last administered on 01/12/17 10:37; Admin Dose 1 INH; Start 01/03/17 at 21:00 Apixaban (Eliquis) 5 mg BID PO Last administered on 01/12/17 10:35; Admin Dose 5 MG; Start 01/04/17 at 21:00 Amiodarone HCl (Cordarone) 200 mg BID PO Last administered on 01/12/17 10:35; Admin Dose 200 MG; Start 01/04/17 at 21:00 Metoprolol Tartrate 5 mg 5 mg Q4H PRN IV HR>110 Hold SBP<100; Start 01/04/17 at 18:00; Status Future Hold Ampicillin (Ampicillin 1 Gm/ NS (Pmx)) 50 ml @ 100 mls/hr Q6 IVPB Last administered on 01/12/17 12:18; Admin Dose 100 MLS/HR; Start 01/05/17 at 18:00 Acetaminophen (Tylenol Tab) 650 mg Q4H PRN PO PAIN MANAGEMENT -05/30; Start at 14:00 Ascorbic Acid (Vitamin C) 500 mg DAILY PO Last administered on 01/12/17 10:34 ; Admin Dose 500 MG; Start 01/06/17 at 09:00 Tamsulosin HCl (Flomax) 0.4 mg HS PO Last administered on 01/11/17 20:39; Admin Dose 0.4 MG; Start 01/05/17 at 21:00 Senna (Senokot) 2 tab BID PO Last administered on 01/12/17 10:35; Admin Dose 2 TAB; Start 01/07/17 at 09:00 Acetazolamide (Diamox) 250 mg BID PO Last administered on 01/12/17 10:36; Admin Dose 250 MG; Start 01/09/17 at 11:30 STEPHANIE DARDEN January 12, 2017 13:34
--- NOTE | 2017-01-12 14:18 | PDOCDIS ---
Discharge Instructions CONDITION Patient Condition: Stable HOME CARE INSTRUCTIONS: Special Diet: low fat ACTIVITY: Activity Restrictions: Slowly Increase Activity Rest between Activity Avoid heavy lifting FOLLOW UP/APPOINTMENTS Appointments FU with MD as recommended Call 911 or go to the nearest hospital if symptoms get worse. CHERI DURAN January 12, 2017 14:18
--- NOTE | 2017-01-12 14:20 | DS ---
Date/Time of Note Date/Time of Note DATE: 01/12/17 TIME: 14:20 Discharge Summary Admission/Discharge Info Admit Date/Time January 01, 2017 at 10:00 Discharge Date/Time Hospital Course IMPRESSION: 1. Paroxysmal atrial fibrillation, currently in sinus rhythm by ECG 01/10/17. NL TSH-by exam. NL EF by echo this admit with DD 2. Abnormal electrocardiogram, assess for acute coronary syndrome.-negative trop x 3 3. Hypotension, borderline. 4. Shortness of breath, assess for congestive heart failure. 5. Urinary tract infection. 6. Hypercapnic respiratory distress. 7. Chronic obstructive pulmonary disease. 8. Bacteremia. Recc: -Now on med-surg -Continue amiodarone/eliquis -Continue bronchodilators/abx's and BIPAP as necessary -Continue cardura as tolerated only Home Meds Reported Medications Acetaminophen* (Acetaminophen*) 325 Mg Tablet, 650 MG PO Q4H Y for PAIN MANAGEMENT 1-05/30, #30 TAB 01/01/17 Albuterol Sulfate* (Albuterol Sulfate* Neb) 0.083%-3 Ml Neb, 2.5 MG NEB Q6H Y for WHEEZING AND SOB, #30 VIAL 01/01/17 Apixaban* (Eliquis*) 2.5 Mg Tablet, 5 MG PO BID, TAB 01/01/17 Doxazosin Mesylate* (Doxazosin Mesylate*) 2 Mg Tablet, 2 MG PO BID, TAB 01/01/17 Finasteride* (Finasteride*) 5 Mg Tablet, 5 MG PO DAILY, TAB 01/01/17 Multivit-Min/Iron Fum/Folic AC (Uxtcq-Tajqhnj-Iawqpxha Tablet) 1 Each Tablet, 1 EACH PO DAILY, TAB 01/01/17 Amino Acids/Protein Hydrolys (PRO-STAT LIQUID) 30 Ml Liquid.pkt, 30 ML PO BID SUGAR FREE 01/01/17 Tamsulosin Hcl* (Tamsulosin Hcl*) 0.4 Mg Cap.er.24h, 0.4 MG PO HS, CAP 01/01/17 Ascorbic Acid (Vitamin C) 500 Mg Tab, 500 MG PO DAILY, TAB 01/01/17 Zinc Sulfate* (Zinc Sulfate*) 220 Mg Tablet, 220 MG PO DAILY, TAB 01/01/17 Pantoprazole* (Protonix*) 40 Mg Tablet.dr, 40 MG PO QAM, TAB 3/25/17 Polyethylene Glycol* (Miralax*) 17 Gm Powd.pack, 17 GM PO DAILY, #30 PACKET 11/12/16 Docusate Sodium* (Docusate Sodium*) 100 Mg Capsule, 100 MG PO BID, #60 CAP 11/12/16 Salmeterol Xinaf/Fluticasone* (Advair*) 250-50 Diskus Inhaler, 1 INH INHALATION BID, #1 INHALER 11/12/16 Primary Care Provider Not On Staff Doctor Pending Labs Laboratory Tests Test 01/12/17 05:30 White Blood Count 7.710^3/ul (4.8-10.8) Red Blood Count 3.2310^6/ul (4.70-6.10) Hemoglobin 10.0g/dl (14.0-18.0) Hematocrit 33.8% (42.0-52.0) Mean Corpuscular Volume 104.6fl (82.0-101.0) Mean Corpuscular Hemoglobin 31.0pg (29.0-33.0) Mean Corpuscular Hemoglobin Concent 29.6g/dl (32.0-37.0) Red Cell Distribution Width 13.8% (11.5-14.5) Platelet Count 60884^3/UL (140-415) Mean Platelet Volume 11.2fl (7.4-10.4) Neutrophils % 77.7% (39.0-77.0) Lymphocytes % 11.0% (15.0-51.0) Monocytes % 8.8% (0.0-11.0) Eosinophils % 2.1% (0.0-7.0) Basophils % 0.1% (0.0-2.0) Nucleated Red Blood Cells % 0.0/100WBC (0.0-0.0) Neutrophils # 6.010^3/ul (1.6-7.5) Lymphocytes # 0.910^3/ul (0.8-2.9) Monocytes # 0.710^3/ul (0.3-0.9) Eosinophils # 0.210^3/ul (0.0-0.5) Basophils # 0.010^3/ul (0.0-0.1) Nucleated Red Blood Cells # 0.010^3/ul (0.0-0.0) Sodium Level 139mmol/L (135-144) Potassium Level 4.0mmol/L (3.5-5.1) Chloride Level 103mmol/L (97-110) Carbon Dioxide Level 37mmol/L (21-31) Anion Gap 3 (8-16) Blood Urea Nitrogen 7mg/dl (7-20) Creatinine 0.76mg/dl (0.61-1.24) Glucose Level 81mg/dl (70-220) Calcium Level 8.5mg/dl (8.4-10.2) CHERI DURAN January 12, 2017 14:20
[2017-01-12 14:32] VITALS: BP 106/58; PULSE 80; RESP 20
== END 2017-01-12 15:00 | DRG 871 ==
LOC: E/R 06:22 → TEL 10:00 → MS2 01-06 16:19
PROVIDERS: ADMIT Internal Medicine; ATTEND Internal Medicine
PROC: 5A09357 Assistance with Respiratory Ventilation, Less than 24 Consecutive Hours, Continuous Positive Airway Pressure (ICD-10-PCS; principal; 2017-01-02)
DX: A41.59 Other Gram-negative sepsis (principal); J96.21 Acute and chronic respiratory failure with hypoxia; G93.40 Encephalopathy, unspecified; E46 Unspecified protein-calorie malnutrition; J18.9 Pneumonia, unspecified organism; F03.90 Unspecified dementia, unspecified severity, without behavioral disturbance, psychotic disturbance, mood disturbance, and anxiety; G82.20 Paraplegia, unspecified; I48.0 Paroxysmal atrial fibrillation; J96.22 Acute and chronic respiratory failure with hypercapnia; J44.1 Chronic obstructive pulmonary disease with (acute) exacerbation; N30.01 Acute cystitis with hematuria; Z68.1 Body mass index [BMI] 19.9 or less, adult; R33.9 Retention of urine, unspecified; N18.9 Chronic kidney disease, unspecified; N31.9 Neuromuscular dysfunction of bladder, unspecified
CPT/HCPCS: 36415; 36600; 70450; 71010; 80048; 80053; 80061; 80202; 81001; 81003; 82565; 82803; 83605; 84443; 84484; 84520; 85025; 85610; 85730; 87040; 87070; 87086; 93005; 93306; 94640; 94660; 94664; 96374; 96375; 97110; 97162; 97530; J0692; J1650; J1956; J2930; J3370; J7030